=== PATIENT | female | born 1935 | race Caucasian/White ===

== ENCOUNTER → 2018-04-19 11:39 | Outpatient (CLI) | payer MEDICARE, SELFPAY ==
[2018-04-19 16:17] LABS: AST(SGOT) 20 U/L (15-37); Alanine Aminotransfer ALT/SGPT 17 U/L (13-56); Albumin, Serum 3.4 g/dL (3.2-5.0); Alkaline Phosphatase 80 U/L (45-117); Anion Gap 6 (5-15); BUN 18 mg/dL (7-18); BUN/Creat Ratio 19.4 RATIO (10-20); Bilirubin, Direct 0.16 mg/dL (0.00-0.30); Calcium,Total 8.9 mg/dL (8.5-10.1); Chloride 108 mmol/L (98-107); Cholesterol 180 mg/dL (200); Creatinine, Serum 0.93 mg/dL (0.55-1.02); EST Glomerular Filtration Rate 62 mL/min (>60); Est Glom Filt Rate - Afr Amer 75 mL/min (>60); Globulin 3.7 g/dL (2.2-4.2); Glucose 91 mg/dL (74-106); High Density Lipoprotein 64 mg/dL; Potassium 4.3 mmol/L (3.5-5.1); Protein, Total 7.1 g/dL (6.4-8.2); Sodium Level 143 mmol/L (136-145); Triglycerides 102 mg/dL; Uric Acid 5.5 mg/dL (2.6-6.0); Very Low Density Lipoprotein 20 mg/dL (5-40)
== END ==
PROVIDERS: Physician Assistant Medical; Family Provider Family Medicine; PCP Family Medicine; Visit Provider Family Medicine
DX: E78.00 Pure hypercholesterolemia, unspecified (principal); M10.9 Gout, unspecified
CPT/HCPCS: 36415; 80048; 80061; 80076; 84550

== ENCOUNTER → 2018-04-28 07:57 | Outpatient (CLI) | payer MEDICARE, SELFPAY ==
--- NOTE | 2018-04-28 13:45 | PFT ---
INTRODUCTION: The patient is an 82-year-old female that presents for pulmonary function testing secondary to a diagnosis of abnormal PFTs. Respiratory therapy reports good patient effort. Bronchodilators were used during testing. INTERPRETATION: Forced expiration spirometry demonstrates no evidence of a large airways obstructive ventilatory defect. There is no significant response to aerosolized bronchodilators. Spirograms are of good quality and plateau normally. Body plethysmography was performed and reveals lung volumes to be within normal limits. Diffusing capacity by single breath CO is moderately reduced at 57% of predicted. IMPRESSION: These pulmonary function studies demonstrate the presence of an isolated moderate reduction in diffusing capacity.
== END ==
PROVIDERS: Family Provider Family Medicine; PCP Family Medicine; Visit Provider Nurse Practitioner Acute Care
DX: R94.2 Abnormal results of pulmonary function studies (principal)
CPT/HCPCS: 94060; 94726; 94729

== ENCOUNTER → 2018-05-05 11:05 | Outpatient (CLI) | payer MEDICARE, SELFPAY ==
[2018-05-05 11:34] VITALS: PULSE 100; PULSE 103; PULSE 105; PULSE 106; PULSE 108; PULSE 110; PULSE 67; PULSE 69; O2SAT 93; O2SAT 94; O2SAT 95; O2SAT 97; O2SAT 98
--- NOTE | 2018-05-06 07:09 | PCM.PSN.6M ---
PSN 6 Minute Walk Test - 6 Minute Walk Test 6 Minute Walk Test: 6 Minute Walk Test PSN:6-Minute Walk Test Start: 05/05/18 11:33 Freq: Status: Active Protocol: [id number].6MINW Document 05/05/18 11:34 [facility] (Rec: 05/05/18 11:36 [facility] [id number]) 6 Minute Walk Test Date Performed 05/05/18 Time Performed 11:30 Height 5 ft 3 in Weight: 72.575 kg Weight in Pounds 160.[address]: Deepti Simms FIO2 (% Oxygen) 21 Assistive device used: None Pre-test Oxygen Delivery Method Room Air Pulse Ox (%) 97 Pulse Rate (60-100 beats/min) 69 Dyspnea Lana Scale (0-10) 0 1st minute Oxygen Delivery Method Room Air Pulse Ox (%) 95 Pulse Rate (60-100 beats/min) 100 Dyspnea Lana Scale (0-10) 0 2nd minute Oxygen Delivery Method Room Air Pulse Ox (%) 93 Pulse Rate (60-100 beats/min) 103 H Dyspnea Lana Scale (0-10) 0 3rd minute Oxygen Delivery Method Room Air Pulse Ox (%) 95 Pulse Rate (60-100 beats/min) 106 H Dyspnea Lana Scale (0-10) 0 4th minute Oxygen Delivery Method Room Air Pulse Ox (%) 94 Pulse Rate (60-100 beats/min) 105 H Dyspnea Lana Scale (0-10) 0 5th minute Oxygen Delivery Method Room Air Pulse Ox (%) 93 Pulse Rate (60-100 beats/min) 108 H Dyspnea Lana Scale (0-10) 0 6th minute Oxygen Delivery Method Room Air Pulse Ox (%) 94 Pulse Rate (60-100 beats/min) 110 H Dyspnea Lana Scale (0-10) 0 Post-test Oxygen Delivery Method Room Air Pulse Ox (%) 98 Pulse Rate (60-100 beats/min) 67 Dyspnea Lana Scale (0-10) 0 Full Laps Walked 18 Partial Lap, Number of Tiles Walked 30 Total Distance Walked (ft) 1092 - Interpretation Interpretation: The patient was able to ambulate 1092 feet over the course of 6 minutes on room air with no assistive devices or breaks. The patient did experience significant desaturation from a baseline of 97% to as low as 93%. Tachycardia was noted throughout testing with a peak heart rate of 110 bpm. These findings are consistent with a cardiovascular limitation exercise tolerance. - Recommendations Recommendations: No supplemental oxygen is indicated at this time.
== END ==
PROVIDERS: Family Provider Family Medicine; PCP Family Medicine; Visit Provider Nurse Practitioner Acute Care
DX: R94.2 Abnormal results of pulmonary function studies (principal)
CPT/HCPCS: 94618

== ENCOUNTER → 2018-09-29 14:59 | Outpatient (CLI) | payer MEDICARE, SELFPAY ==
[2018-06-19 13:59] VITALS: BMI 28.7
[2018-09-29 18:03] LABS: Uric Acid 5.4 mg/dL (2.6-6.0)
== END ==
PROVIDERS: Family Provider Family Medicine; PCP Family Medicine; Visit Provider Family Medicine
DX: M10.9 Gout, unspecified (principal)
CPT/HCPCS: 36415; 84550

== ENCOUNTER → 2018-10-11 10:33 | Outpatient (CLI) | payer MEDICARE, SELFPAY ==
[2018-10-11 12:59] LABS: AST(SGOT) 23 U/L (15-37); Alanine Aminotransfer ALT/SGPT 17 U/L (13-56); Albumin, Serum 3.5 g/dL (3.2-5.0); Alkaline Phosphatase 89 U/L (45-117); Bilirubin, Direct 0.19 mg/dL (0.00-0.30); Cholesterol 167 mg/dL (200); Globulin 3.6 g/dL (2.2-4.2); High Density Lipoprotein 71 mg/dL; Protein, Total 7.1 g/dL (6.4-8.2); Triglycerides 85 mg/dL; Very Low Density Lipoprotein 17 mg/dL (5-40)
== END ==
PROVIDERS: Family Provider Family Medicine; PCP Family Medicine; Visit Provider Physician Assistant Medical
DX: E78.5 Hyperlipidemia, unspecified (principal)
CPT/HCPCS: 36415; 80061; 80076

== ENCOUNTER 2019-01-14 16:43 | Emergency (ER) | payer MEDICARE, SELFPAY ==
[2018-12-28 08:27] VITALS: BMI 28.1
[2019-01-14 16:43] VITALS: BP 159/92; PULSE 86; RESP 16; TEMP 37.6; O2SAT 96; BMI 27.4
--- NOTE | 2019-01-14 17:18 | ED.DCSUM_ITS ---
- ER Visit Summary Date of Service: 01/14/19 Chief Complaint: Redness and swelling to left wrist and forearm History of Present Illness: The patient is a 83 F who presents with redness and swelling to her left wrist. Patient also noted some redness going up her left forearm. Patient states she has a history of gout and thinks this may be a flareup of her gout. Patient states the only difference is that the redness going up her left forearm. Patient states she is on an antibiotic for an upper respiratory infection that was prescribed by her ENT physician. Patient denies any fevers or chills. Patient admits to some pain in her left wrist that is worse with certain movements. Patient denies any paresthesias or weakness. Physical Examination: Vital signs are stable. Patient is afebrile here. Patient is in no acute distress. Musculoskeletal exam reveals tenderness over the left wrist. There is some erythema and warmth. Range of motion was slightly limited in flexion extension of the wrist secondary to pain. Skin is warm and dry. There is some erythema on the volar aspect of the left forearm to the mid forearm. There is no tenderness over this area. There is good range of motion of the left elbow. Radial pulses are equal bilaterally. Sensation was intact to light touch in all digits. Capillary refill is less than 2 seconds in all digits. Test Results: CBC shows slight leukocytosis of 11.8. Chemistry was normal. X- rays of the left wrist show degenerative changes. There is no acute fracture. Emergency Department Course and Treatment: Patient was given a dose of Ancef here. Patient was given a prescription for Bactrim. Patient was instructed to continue her antibiotic as previously prescribed. Patient was instructed to take her gout medicine as previously prescribed that she has at home. Patient was instructed to follow-up with her primary care physician in 3 to 5 days. Patient understood and was agreeable with the plan. All questions were answered. Disposition: Discharge home Impression: 1. Gout left wrist 2. Lymphangitis left forearm This note was generated with [employer] dictation software. It may contain incorrect words, spelling, and punctuation that were not noted in review of the chart prior to signing ED Disposition - Plan for ED Patient: Disposition: Home or Assisted Living Diagnosis: Gout of left wrist, Acute lymphangitis of forearm Instructions: ED Arthritis Gout, ED Lymphangitis Prescriptions: Smz/Tmp Ds [Bactrim Ds] 1 tab PO BID #14 tab Referrals: Diego Farmer DO [Primary Care Provider] - 3-5 Days
--- NOTE | 2019-01-14 17:35 | RAD_ITS ---
STUDY: X-RAY - LEFT WRIST REASON FOR EXAM: Female, 83 years old. Abnormal coloration of the left wrist TECHNIQUE: 3 view(s) of the wrist were obtained. COMPARISON: None. FINDINGS: Normal visualized distal radius and ulna. Normal radiocarpal articulation. Normal distal radioulnar articulation. Normal carpal bones. Normal carpal articulations. There is chondrocalcinosis of the TFCC. There is degenerative arthrosis of the carpometacarpal articulation of the thumb. Normal second through fifth carpometacarpal articulations. Normal visualized metacarpal bones. There is dorsal wrist soft tissue swelling. RAD/Wrist min 3 Views IMPRESSION: No fracture or malalignment. Mild soft tissue swelling. Electronically Signed: Jalil Dubon MD at 17:59 EDT , Service support ,
[2019-01-14 17:36] LABS: Basophil# 0.05 X10^3/uL; Basophil% 0.4 % (0-1); Eosinophil# 0.06 X10^3/uL; Eosinophils% 0.5 % (0-5); Hematocrit 41.4 % (37-47); Lymphocyte % 20.3 % (19-41); Mean Corp Hgb Conc 33.8 g/gl (32-36); Mean Corpuscular Hgb 33.4 pg (27.0-32.0); Mean Corpuscular Volume 98.8 fL (81-99); Mean Platelet Vol. 10.1 fl (6.2-12.0); Monocyte# 1.28 X10^3/uL; Monocyte% 10.8 % (0-10); Neutrophil % 67.9 % (47-70); POSITIVE COUNT NO; POSITIVE DIFFERENTIAL NO; POSITIVE MORPHOLOGY NO; Platelet Count 264 K/mm3 (150-450); RBC Distribution Width CV 13.4 % (11.6-14.6); RBC Distribution Width SD 48.5 fl (35.1-43.9); Red Blood Count 4.19 M/mm3 (4.2-5.4); White Blood Count 11.8 K/mm3 (4.4-11.0)
[2019-01-14 17:50] LABS: Anion Gap 7 (5-15); BUN 16 mg/dL (7-18); BUN/Creat Ratio 16.2 RATIO (10-20); Calcium,Total 9.1 mg/dL (8.5-10.1); Chloride 104 mmol/L (98-107); Creatinine, Serum 0.99 mg/dL (0.55-1.02); EST Glomerular Filtration Rate 57 mL/min (>60); Est Glom Filt Rate - Afr Amer 69 mL/min (>60); Estimated Creatinine Clearance 36.87 ml/min; Glucose 103 mg/dL (74-106); Potassium 4.9 mmol/L (3.5-5.1); Sodium Level 138 mmol/L (136-145)
[2019-01-14 18:57] VITALS: RESP 14
[2019-01-14 20:15] VITALS: BP 141/86; PULSE 82; RESP 16; O2SAT 99
== END 2019-01-14 20:16 | disposition home or self-care (01) ==
PROVIDERS: Emergency Provider Emergency Medicine; Family Provider Family Medicine; PCP Family Medicine
DX: M10.9 Gout, unspecified (principal); I89.1 Lymphangitis; I48.91 Unspecified atrial fibrillation; R21 Rash and other nonspecific skin eruption; R51 Headache; J02.9 Acute pharyngitis, unspecified; R05 Cough; Z79.82 Long term (current) use of aspirin; Z79.899 Other long term (current) drug therapy
CPT/HCPCS: 73110; 80048; 84550; 85025; 99283; A4216

== ENCOUNTER 2019-03-01 09:38 | Observation (INO) | payer MEDICARE, SELFPAY ==
[2019-03-01] VITALS (8 sets, daily range): BP systolic 121–134; BP diastolic 53–64; PULSE 64–89; RESP 17–18; TEMP 36.4–37; O2SAT 93–98; BMI 27.3; BMI 27.2
--- NOTE | 2019-03-01 09:50 | RAD_ITS ---
STUDY: X-RAY CHEST REASON FOR EXAM: Female, 83 years old. Chest pain. History of breast cancer. TECHNIQUE: PA and lateral views of the chest. COMPARISON: Comparison is made with prior study October 17, 2015. FINDINGS: EKG electrodes are seen. Hyperinflation. Mild degree of increased markings at the lung bases suggestive of a scarring. There is no demonstrated pleural abnormality. Normal size heart. Normal mediastinum and scooter. Normal visualized pulmonary arteries. There is atherosclerotic tortuosity of the aortic arch and descending thoracic aorta. There are degenerative changes of the visualized thoracic spine. Scoliosis of the lumbar spine. Normal visualized ribs, clavicles, and shoulders. Pectus excavatum deformity. There is no demonstrated abnormality of the visualized soft tissue structures of the upper abdomen. RAD/Chest PA and Lateral IMPRESSION: Hyperinflation. Mild degree of linear scarring at the lung bases. Electronically Signed: Kee Austin, at 12:25 EDT , Service support ,
--- NOTE | 2019-03-01 09:50 | ECHOD_ITS ---
Reason For Study: AFIB Procedure This was a 2D Doppler, Color Flow transthoracic echocardiogram. Myocardial strain analysis was performed in this exam to aid in the assessment of cardiac function. The study was technically difficult. Exam performed portable in patient room. Left Ventricle Normal LV size. Left ventricular systolic function is normal. The estimated ejection fraction is 60 %. Stage 1 diastolic dysfunction. No regional wall motion abnormalities noted. Right Ventricle Normal RV size. Normal systolic function. Atria Normal left atrium. Normal right atrium. Mitral Valve Normal mitral valve. Tricuspid Valve Normal tricuspid valve. Mild (1+) tricuspid valve insufficiency. Pulmonary artery systolic pressure is 36 mmHg. Aortic Valve Normal aortic valve. Trisinus/trileaflet aortic valve. Pulmonic Valve Normal pulmonic valve. Great Vessels Normal aortic root. The pulmonary artery is normal size. Normal inferior vena cava. Pericardium/Pleural No pericardial effusion. MMode/2D Measurements & Calculations LVIDd: 4.4 cm IVSd: 0.79 cm Ao root diam: 3.1 cm LVIDs: 2.9 cm LVPWd: 0.80 cm RVDd: 2.8 cm FS: 34.2 % LAV(MOD-sp2): 42.4 ml LVAd ap4: 20.0 cm2 SV(MOD-sp4): 30.7 ml EDV(MOD-sp4): 52.4 ml EDV(sp4-el): 53.4 ml LVAs ap4: 11.8 cm2 ESV(MOD-sp4): 21.8 ml ESV(sp4-el): 21.3 ml EF(MOD-sp4): 58.5 % EF(sp4-el): 60.1 % SV(sp4-el): 32.1 ml LA dimension(2D): 2.9 cm Time Measurements MV dec time: 0.29 sec Doppler Measurements & Calculations MV E max magdaleno: 60.4 cm/sec Lat Peak E' Magdaleno: 8.8 cm/sec Med Peak E' Magdaleno: 5.0 cm/sec MV A max magdaleno: 74.2 cm/sec E/E' lat: 6.9 E/E' med: 12.2 MV E/A: 0.81 Ao V2 max: 114.4 cm/sec LV V1 max: 64.0 cm/sec PA V2 max: 46.3 cm/sec Ao max P.2 mmHg LV V1 max P.6 mmHg TR max magdaleno: 279.8 cm/sec TR max P.4 mmHg Interpretation Summary Normal LV size. Left ventricular systolic function is normal. The estimated ejection fraction is 60 %. Stage 1 diastolic dysfunction. Mild (1+) tricuspid valve insufficiency. Pulmonary artery systolic pressure is 36 mmHg. Ordering Physician: Obi Clark Referring Physician: ODETTE RILEY Performed By: Canids Eaton, RDCS, RVT
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
[2019-03-01 10:25] LABS: Hematocrit 40.9 % (37-47); Hemoglobin 13.3 g/dL (12.0-15.0); Mean Corp Hgb Conc 32.5 g/dL (32-36); Mean Corpuscular Hgb 32.3 pg (27.0-32.0); Mean Corpuscular Volume 99.3 fL (81-99); Mean Platelet Vol. 9.3 fl (6.2-12.0); Platelet Count 330 K/mm3 (150-450); RBC Distribution Width SD 47.2 fl (35.1-43.9); Red Blood Count 4.12 M/mm3 (4.2-5.4); White Blood Count 6.7 K/mm3 (4.4-11.0)
[2019-03-01 10:40] LABS: ALB/GLOB Ratio 0.8 RATIO (0.9-2.4); AST(SGOT) 14 U/L (15-37); Alanine Aminotransfer ALT/SGPT 13 U/L (13-56); Albumin, Serum 3.4 g/dL (3.2-5.0); Alkaline Phosphatase 119 U/L (45-117); Anion Gap 4 (5-15); BUN 20 mg/dL (7-18); BUN/Creat Ratio 21.1 RATIO (10-20); Calcium,Total 9.8 mg/dL (8.5-10.1); Chloride 105 mmol/L (98-107); Creatinine, Serum 0.95 mg/dL (0.55-1.02); EST Glomerular Filtration Rate 60 mL/min (>60); Est Glom Filt Rate - Afr Amer 73 mL/min (>60); Estimated Creatinine Clearance 38.42 ml/min; Globulin 4.1 g/dL (2.2-4.2); Glucose 93 mg/dL (74-106); Magnesium 1.4 mg/dL (1.6-2.6); Potassium 4.1 mmol/L (3.5-5.1); Protein, Total 7.5 g/dL (6.4-8.2); Sodium Level 139 mmol/L (136-145)
[2019-03-01 11:00] LABS: Thyroid Stim Hormone (TSH) 3.27 uIU/mL (0.358-3.74)
[2019-03-01] MEDS: 0.45% Normal Saline 1,000 ML 60 ML IV (12:10)
[2019-03-01] MEDS: APIXABAN 5 MG TABLET PO ×2 (12:11→21:01)
[2019-03-01] MEDS: Amiodarone 200 MG Tablet PO ×2 (12:15→21:01)
[2019-03-01 12:30] LABS: Bedside Glucose 74 mg/dL (70-110)
[2019-03-01] MEDS: Atorvastatin Calcium 20 MG Tablet PO (21:01)
[2019-03-02 02:58] VITALS: BP 129/60; PULSE 65; RESP 14; TEMP 36.9; O2SAT 93
[2019-03-02 03:01] VITALS: PULSE 68
[2019-03-02] MEDS: 0.45% Normal Saline 1,000 ML 60 ML IV (03:08)
[2019-03-02 06:52] LABS: ALB/GLOB Ratio 0.8 RATIO (0.9-2.4); AST(SGOT) 13 U/L (15-37); Alanine Aminotransfer ALT/SGPT 11 U/L (13-56); Albumin, Serum 2.8 g/dL (3.2-5.0); Alkaline Phosphatase 90 U/L (45-117); Anion Gap 4 (5-15); BUN 16 mg/dL (7-18); BUN/Creat Ratio 21.1 RATIO (10-20); Calcium,Total 8.8 mg/dL (8.5-10.1); Chloride 108 mmol/L (98-107); Creatinine, Serum 0.76 mg/dL (0.55-1.02); EST Glomerular Filtration Rate 78 mL/min (>60); Est Glom Filt Rate - Afr Amer 94 mL/min (>60); Globulin 3.4 g/dL (2.2-4.2); Glucose 89 mg/dL (74-106); Potassium 3.7 mmol/L (3.5-5.1); Protein, Total 6.2 g/dL (6.4-8.2); Sodium Level 141 mmol/L (136-145)
[2019-03-02 07:10] VITALS: PULSE 62
[2019-03-02] MEDS: Acetaminophen 325 MG Tablet 650 MG PO (07:38)
[2019-03-02] MEDS: Aspirin 81 MG TAB.CHEW PO (07:38)
[2019-03-02] MEDS: 0.9% NaCl Peripheral Flush Adult/Peds IV (07:39)
--- NOTE | 2019-03-02 08:43 | PCM.PN.CARD ---
Subjectve: Patient seen and evaluated. Appears to be doing well. Has been maintaining sinus rhythm. No other complaints. Objective: Vital Signs Temp Pulse Resp BP Pulse Ox 98.5 F 62 14 129/60 H 93 03/02/19 02:58 03/02/19 07:10 03/02/19 02:58 03/02/19 02:58 03/02/19 02:58 Oxygen Delivery Method Room Air Weight: 153 lb 10.595 oz Body Mass Index (BMI) 27.2 Intake and Output for Last 24 Hours 02/28/19 03/01/19 03/02/19 23:59 23:59 23:59 Intake Total 1739 / 1739 383 / 383 Balance 1739 / 1739 383 / 383 General: Awake, Alert, Oriented x 3 HEENT: PERRL, EOMI, Sclera Non Icteric Neck: Supple, Good ROM, No Lymph Node Enlargement Lungs: Clear to auscultation Cardiovascular: Regular Rhythm, Normal S1, Normal S2, No Murmurs, No Rubs, No Gallops Vascular: No Carotid Bruits, Normal Femoral Pulses, Normal Radial Pulses, Normal Dorsalis Pedal Pulse, Normal Posterior Tibial Pulses Abdomen: Bowel Sounds Present, Soft, Non Tender, No HSM, No Organomegaly Extremities: No Cyanosis, No Clubbing, No edema Musculoskeletal: No Erythema Skin: No Rashes Lymphatic: No Lymph Node Enlargement Neurological: No Focal Motor or Sensory Deficit Psych/Mental Status: Appropriate 03/01/19 10:14: WBC 6.7, RBC 4.12 L, Hgb 13.3, Hct 40.9, MCV 99.3 H, MCH 32.3 H, MCHC 32.5, Plt Count 330, MPV 9.3 03/01/19 10:14: Sodium 139, Potassium 4.1, Chloride 105, Carbon Dioxide 30.0, Anion Gap 4 L, BUN 20 H, Creatinine 0.95, Est GFR (MDRD) Af Amer 73, Est GFR (MDRD) Non-Af 60, BUN/Creatinine Ratio 21.1 H, Glucose 93, Calcium 9.8, Magnesium 1.4 L, Total Bilirubin 0.80 03/01/19 10:14: Troponin I < 0.015 03/01/19 13:20: Troponin I < 0.015 03/01/19 16:35: Troponin I < 0.015 03/02/19 06:15: Sodium 141, Potassium 3.7, Chloride 108 H, Carbon Dioxide 29.0, Anion Gap 4 L, BUN 16, Creatinine 0.76, Est GFR (MDRD) Af Amer 94, Est GFR (MDRD) Non-Af 78, BUN/Creatinine Ratio 21.1 H, Glucose 89, Calcium 8.8, Total Bilirubin 0.60 Rhythm: EKG: ECHO: Stress Test: Cardiac Cath: PCI: CT Surgery: Holter monitor: EPS: PPM: CXR: Chest CT Scan: Medical Necessity - Tobacco Use Smoking Status: Former smoker Assessment/Plan 1. Paroxysmal atrial fibrillation. Patient appears to be maintaining sinus rhythm on the current regimen. My recommendation would be as follows. Continue beta-frances at home Continue Eliquis 5 mg twice a day Amiodarone 200 mg twice a day for 2 weeks then 200 mg once a day Echocardiogram demonstrated preserved ejection fraction will dc for outpatient follow up
[2019-03-02 08:47] VITALS: BP 107/53; PULSE 71; RESP 17; TEMP 36.4; O2SAT 97
--- NOTE | 2019-03-02 08:48 | DCINST_ITS ---
- Discharge Diagnoses Current Active Problems: Current Active and Chronic Problems (Last Reviewed 03/01/19 @ 09:17 by Obi Clark MD) Chronic cough (Chronic) Paroxysmal atrial fibrillation (Chronic) Secondary pulmonary arterial hypertension (Chronic) Discharge Activity: Return to Normal Activity Allergies/Adverse Reactions: Allergies fluoxetine Adverse Reaction (Verified 03/01/19 09:00) Other NIGHTMARES, AND IT MAKES ME FEEL WEIRD Medications to take at Discharge calcium phosphate-vitamin D3 250 mg calcium-500 unit chewable tablet 1 tab PO QDAY ea 08/09/17 coenzyme [id number] 100 mg-100 unit capsule 1 cap PO QDAY 08/09/17 multivitamin tablet 1 tab PO QDAY 08/09/17 propylene glycol 0.6 % eye drops 1 drop OPHTHALMIC QDAY ml 08/09/17 fluticasone propionate 50 mcg/actuation nasal spray,suspension 2 sprays INTRANASAL ONCE 10/11/17 metoprolol tartrate 25 mg tablet 25 mg PO DAILY #90 tab 03/10/18 sodium chloride 0.65 % nasal spray aerosol 1 spray INTRANASAL Q1-4H PRN 03/10/18 fluticasone furoate 200 mcg-vilanterol 25 mcg/dose inhalation powder 1 inh INHALATION QDAY #3 ea 01/26/19 loratadine 10 mg capsule 10 mg PO QDAY #90 cap 01/26/19 atorvastatin 20 mg tablet 20 mg PO QHS #90 tab 01/29/19 montelukast 10 mg tablet 10 mg PO QHS #90 tab 02/21/19 Amiodarone HCl [Cordarone] 200 mg PO BID #60 tablet 03/02/19 Apixaban [Eliquis] 5 mg PO BID #60 tablet 03/02/19 Primary Care Physician: Diego Farmer DO [Primary Care Provider] - Test Results: Test results from this visit will be discussed in further detail at your follow- up appointment, if applicable. When: [facility] office will call for appt Proposed Discharge Date: 03/02/19
[2019-03-02] MEDS: Amiodarone 200 MG Tablet PO (08:50)
[2019-03-02] MEDS: APIXABAN 5 MG TABLET PO (08:50)
[2019-03-02 09:31] VITALS: PULSE 71
[2019-03-02] MEDS: Metoprolol Tartrate 25 MG Tablet PO (09:31)
== END 2019-03-02 08:52 | disposition home or self-care (01) ==
PROVIDERS: Admitting Provider Internal Medicine Cardiovascular Disease; Family Provider Family Medicine; PCP Family Medicine; Referring Provider Internal Medicine Cardiovascular Disease; Visit Provider Internal Medicine Cardiovascular Disease
DX: I48.0 Paroxysmal atrial fibrillation (principal); I27.21 Secondary pulmonary arterial hypertension; E78.5 Hyperlipidemia, unspecified; Z79.899 Other long term (current) drug therapy; Z87.891 Personal history of nicotine dependence; Z79.82 Long term (current) use of aspirin; Z79.51 Long term (current) use of inhaled steroids
CPT/HCPCS: 36415; 71046; 80053; 82962; 83735; 84443; 84484; 85027; 93306; 99218; A4216; G0378; G0379

== ENCOUNTER → 2019-03-09 09:55 | Outpatient (CLI) | payer MEDICARE, SELFPAY ==
[2019-03-01 10:35] VITALS: BMI 27.2
[2019-03-09 12:31] LABS: Erythrocyte Sedimentation Rate 33 mm/hr (0-30)
[2019-03-09 12:33] LABS: Absolute Lymphocyte Count 1.74 X10^3/uL (0.83-4.51); Absolute Neutrophil Count 2.7 X10^3/uL (2.0-7.7); Basophil# 0.09 X10^3/uL; Basophil% 1.8 % (0-1); Eosinophil# 0.11 X10^3/uL; Eosinophils% 2.2 % (0-5); Hematocrit 37.8 % (37-47); Hemoglobin 12.3 g/dL (12.0-15.0); Lymphocyte # 1.74 X10^3/ul (4.0); Lymphocyte % 34.3 % (19-41); Mean Corp Hgb Conc 32.5 g/dL (32-36); Mean Corpuscular Hgb 32.5 pg (27.0-32.0); Mean Platelet Vol. 9.7 fl (6.2-12.0); Monocyte# 0.39 X10^3/uL; Monocyte% 7.7 % (0-10); NRBC Flagged by Analyzer 0 % (0-5); Neutrophil # 2.73 X10^3/uL (2.7-7.7); Neutrophil % 53.8 % (47-70); Platelet Count 324 K/mm3 (150-450); RBC Distribution Width SD 47.5 fl (35.1-43.9); Red Blood Count 3.78 M/mm3 (4.2-5.4); White Blood Count 5.1 K/mm3 (4.4-11.0)
[2019-03-09 12:53] LABS: ALB/GLOB Ratio 0.9 RATIO (0.9-2.4); AST(SGOT) 17 U/L (15-37); Alanine Aminotransfer ALT/SGPT 16 U/L (13-56); Albumin, Serum 3.3 g/dL (3.2-5.0); Alkaline Phosphatase 98 U/L (45-117); Anion Gap 5 (5-15); BUN 15 mg/dL (7-18); BUN/Creat Ratio 15.7 RATIO (10-20); CRP 7.23 mg/L (0.0-3.0); Calcium,Total 9.4 mg/dL (8.5-10.1); Chloride 108 mmol/L (98-107); Creatinine, Serum 0.96 mg/dL (0.55-1.02); EST Glomerular Filtration Rate 59 mL/min (>60); Est Glom Filt Rate - Afr Amer 72 mL/min (>60); Globulin 3.8 g/dL (2.2-4.2); Glucose 84 mg/dL (74-106); Potassium 3.9 mmol/L (3.5-5.1); Protein, Total 7.1 g/dL (6.4-8.2); Rheumatoid Factor < 10.0 IU/mL (<15); Sodium Level 141 mmol/L (136-145); Uric Acid 4.7 mg/dL (2.6-6.0)
[2019-03-09 13:39] LABS: Hepatitis B Surface Antibody Non-Reactive; Hepatitis B Surface Antigen Non-Reactive (Nonreactive); Hepatitis C Antibody Non-Reactive (Nonreactive)
[2019-03-13 14:07] LABS: ANTINUCLEAR ANTIBODIES DIRECT Negative (Negative)
[2019-03-13 14:27] LABS: CCP IgG Antibodies 4 units (0-19)
== END ==
PROVIDERS: Family Provider Family Medicine; PCP Family Medicine; Referring Provider Internal Medicine Rheumatology; Visit Provider Internal Medicine Rheumatology
DX: M06.4 Inflammatory polyarthropathy (principal); M48.061 Spinal stenosis, lumbar region without neurogenic claudication; M47.892 Other spondylosis, cervical region; M21.40 Flat foot [pes planus] (acquired), unspecified foot
CPT/HCPCS: 36415; 80053; 84550; 85025; 85652; 86038; 86140; 86200; 86431; 86706; 86803; 87340

== ENCOUNTER → 2019-05-30 13:19 | Outpatient (CLI) | payer MEDICARE, SELFPAY ==
[2019-04-27 10:23] VITALS: BMI 27.3
[2019-05-30 14:29] LABS: Absolute Lymphocyte Count 2.31 X10^3/uL (0.83-4.51); Absolute Neutrophil Count 3.4 X10^3/uL (2.0-7.7); Basophil# 0.11 X10^3/uL; Basophil% 1.7 % (0-1); Eosinophil# 0.31 X10^3/uL; Eosinophils% 4.7 % (0-5); Hematocrit 38.8 % (37-47); Hemoglobin 12.2 g/dL (12.0-15.0); Lymphocyte # 2.31 X10^3/ul (4.0); Lymphocyte % 34.7 % (19-41); Mean Corp Hgb Conc 31.4 g/dL (32-36); Mean Corpuscular Hgb 31.9 pg (27.0-32.0); Mean Corpuscular Volume 101.3 fL (81-99); Monocyte% 7.5 % (0-10); NRBC Flagged by Analyzer 0 % (0-5); Neutrophil # 3.41 X10^3/uL (2.7-7.7); Neutrophil % 51.2 % (47-70); Platelet Count 275 K/mm3 (150-450); RBC Distribution Width CV 14.2 % (11.6-14.6); RBC Distribution Width SD 53.4 fl (35.1-43.9); Red Blood Count 3.83 M/mm3 (4.2-5.4); White Blood Count 6.7 K/mm3 (4.4-11.0)
[2019-05-30 14:43] LABS: ALB/GLOB Ratio 1.1 RATIO (0.9-2.4); AST(SGOT) 18 U/L (15-37); Alanine Aminotransfer ALT/SGPT 16 U/L (13-56); Albumin, Serum 3.7 g/dL (3.2-5.0); Alkaline Phosphatase 95 U/L (45-117); Anion Gap 7 (5-15); BUN 21 mg/dL (7-18); BUN/Creat Ratio 19.8 RATIO (10-20); Bilirubin, Direct 0.19 mg/dL (0.00-0.30); Chloride 108 mmol/L (98-107); Cholesterol 181 mg/dL (200); Creatinine, Serum 1.06 mg/dL (0.55-1.02); EST Glomerular Filtration Rate 53 mL/min (>60); Est Glom Filt Rate - Afr Amer 64 mL/min (>60); Globulin 3.4 g/dL (2.2-4.2); Glucose 84 mg/dL (74-106); High Density Lipoprotein 87 mg/dL; Protein, Total 7.1 g/dL (6.4-8.2); Sodium Level 140 mmol/L (136-145); Triglycerides 80 mg/dL; Very Low Density Lipoprotein 16 mg/dL (5-40)
== END ==
PROVIDERS: Family Provider Family Medicine; PCP Family Medicine; Referring Provider Internal Medicine Rheumatology; Visit Provider Internal Medicine Rheumatology
DX: M06.4 Inflammatory polyarthropathy (principal); M48.061 Spinal stenosis, lumbar region without neurogenic claudication; M47.892 Other spondylosis, cervical region; M21.40 Flat foot [pes planus] (acquired), unspecified foot; E78.5 Hyperlipidemia, unspecified
CPT/HCPCS: 36415; 80053; 80061; 82248; 85025

== ENCOUNTER → 2019-06-22 08:05 | Outpatient (CLI) | payer MEDICARE, SELFPAY ==
[2018-12-28 08:27] VITALS: BMI 28.1
[2019-04-27 10:23] VITALS: BMI 27.3
--- NOTE | 2019-06-22 13:41 | PFT ---
INTRODUCTION: The patient is an 84-year-old female that presents for pulmonary function studies secondary to a diagnosis of dyspnea. Respiratory therapy reports good patient effort. Bronchodilators were used during testing. INTERPRETATION: Forced expiration spirometry demonstrates no evidence of a large airways obstructive ventilatory defect. There was no significant response to aerosolized bronchodilators. Spirograms are of good quality and plateau normally. Body plethysmography was performed and reveals lung volumes to be within normal limits. Diffusing capacity by single breath CO is reduced at 59% of predicted. IMPRESSION: Isolated reduction in diffusing capacity which could be related to an underlying pulmonary vascular disorder such as pulmonary hypertension.
== END ==
PROVIDERS: Family Provider Family Medicine; PCP Family Medicine; Referring Provider Nurse Practitioner Acute Care; Visit Provider Nurse Practitioner Acute Care
DX: R06.00 Dyspnea, unspecified (principal)
CPT/HCPCS: 94060; 94726; 94729

== ENCOUNTER → 2019-06-25 08:40 | Outpatient (CLI) | payer MEDICARE, SELFPAY ==
[2018-12-28 08:27] VITALS: BMI 28.1
[2019-04-27 10:23] VITALS: BMI 27.3
[2019-06-25 08:59] VITALS: PULSE 104; PULSE 62; PULSE 68; PULSE 83; PULSE 85; PULSE 93; PULSE 98; O2SAT 90; O2SAT 91; O2SAT 94; O2SAT 97; O2SAT 99
--- NOTE | 2019-06-25 14:24 | PCM.PSN.6M ---
PSN 6 Minute Walk Test - 6 Minute Walk Test 6 Minute Walk Test: 6 Minute Walk Test PSN:6-Minute Walk Test Start: 06/25/19 08:59 Freq: Status: Active Protocol: RESP.6MINW Document 06/25/19 08:59 ADAM (Rec: 06/25/19 09:01 ADAM [id number]) 6 Minute Walk Test Date Performed 06/25/19 Time Performed 08:30 Height 5 ft 3 in Weight: 70.307 kg Weight in Pounds 155.[address]: Donald Rivera Assistive device used: None Pre-test Oxygen Delivery Method Room Air Pulse Ox (%) 97 Pulse Rate (60-100 beats/min) 62 Dyspnea Lana Scale (0-10) 0 Exertion Lana Scale (6-20) 6 1st minute Oxygen Delivery Method Room Air Pulse Ox (%) 91 Pulse Rate (60-100 beats/min) 83 2nd minute Oxygen Delivery Method Room Air Pulse Ox (%) 91 Pulse Rate (60-100 beats/min) 85 3rd minute Oxygen Delivery Method Room Air Pulse Ox (%) 90 Pulse Rate (60-100 beats/min) 85 4th minute Oxygen Delivery Method Room Air Pulse Ox (%) 94 Pulse Rate (60-100 beats/min) 93 5th minute Oxygen Delivery Method Room Air Pulse Ox (%) 97 Pulse Rate (60-100 beats/min) 98 6th minute Oxygen Delivery Method Room Air Pulse Ox (%) 99 Pulse Rate (60-100 beats/min) 104 H Dyspnea Lana Scale (0-10) 0 Exertion Lana Scale (6-20) 11 Post-test Oxygen Delivery Method Room Air Pulse Ox (%) 91 Pulse Rate (60-100 beats/min) 68 Full Laps Walked 17 Partial Lap, Number of Tiles Walked 0 Total Distance Walked (ft) 1003 - Interpretation Interpretation: The patient was able to ambulate 1003 feet over the course of 6 minutes on room air with no assistive devices or breaks. The patient did experience significant desaturation from a baseline of 97%, to as low as 91% with ambulation. These findings are consistent with a respiratory limitation exercise tolerance. - Recommendations Recommendations: No supplemental oxygen is indicated at this time. However, patient will need to be followed closely given level of desaturation.
== END ==
PROVIDERS: Family Provider Family Medicine; PCP Family Medicine; Referring Provider Nurse Practitioner Acute Care; Visit Provider Nurse Practitioner Acute Care
DX: R06.00 Dyspnea, unspecified (principal)
CPT/HCPCS: 94618

== ENCOUNTER → 2019-07-06 12:05 | Outpatient (CLI) | payer MEDICARE, SELFPAY ==
[2018-12-28 08:27] VITALS: BMI 28.1
[2019-07-06 06:15] VITALS: BMI 28.0
[2019-07-06 16:01] LABS: Absolute Lymphocyte Count 2.74 X10^3/uL (0.83-4.51); Absolute Neutrophil Count 3.6 X10^3/uL (2.0-7.7); Basophil# 0.11 X10^3/uL; Basophil% 1.5 % (0-1); Eosinophil# 0.22 X10^3/uL; Eosinophils% 3.1 % (0-5); Hematocrit 39.8 % (37-47); Hemoglobin 12.4 g/dL (12.0-15.0); Lymphocyte # 2.74 X10^3/ul (4.0); Lymphocyte % 38.2 % (19-41); Mean Corp Hgb Conc 31.2 g/dL (32-36); Mean Corpuscular Hgb 32.2 pg (27.0-32.0); Mean Corpuscular Volume 103.4 fL (81-99); Mean Platelet Vol. 10.2 fl (6.2-12.0); Monocyte# 0.55 X10^3/uL; Monocyte% 7.7 % (0-10); NRBC Flagged by Analyzer 0 % (0-5); Neutrophil # 3.55 X10^3/uL (2.7-7.7); Neutrophil % 49.4 % (47-70); Platelet Count 261 K/mm3 (150-450); RBC Distribution Width CV 13.6 % (11.6-14.6); RBC Distribution Width SD 52.2 fl (35.1-43.9); Red Blood Count 3.85 M/mm3 (4.2-5.4); White Blood Count 7.2 K/mm3 (4.4-11.0)
[2019-07-06 16:23] LABS: Anion Gap 7 (5-15); BUN 29 mg/dL (7-18); BUN/Creat Ratio 24.4 RATIO (10-20); Chloride 106 mmol/L (98-107); Creatinine, Serum 1.19 mg/dL (0.55-1.02); EST Glomerular Filtration Rate 46 mL/min (>60); Est Glom Filt Rate - Afr Amer 56 mL/min (>60); Free T3 1.9 pg/mL (2.18-3.98); Glucose 57 mg/dL (74-106); Sodium Level 141 mmol/L (136-145); Thyroid Stim Hormone (TSH) 5.26 uIU/mL (0.358-3.74); Uric Acid 4.6 mg/dL (2.6-6.0)
== END ==
LOC: LAB.FUTURE 12:06 → BFHLAB 07-09 13:59
PROVIDERS: Family Provider Family Medicine; PCP Family Medicine; Visit Provider Family Medicine
DX: M10.9 Gout, unspecified (principal); R05 Cough; Z51.81 Encounter for therapeutic drug level monitoring; Z79.899 Other long term (current) drug therapy
CPT/HCPCS: 36415; 80048; 84443; 84481; 84550; 85025

== ENCOUNTER → 2019-09-20 16:53 | Outpatient (CLI) | payer MEDICARE, SELFPAY ==
[2019-07-06 06:15] VITALS: BMI 28.0
[2019-09-20 18:56] LABS: BNP,B-Type NATRIURETIC PEPTIDE 317.6 pg/mL (0-100)
[2019-09-20 18:57] LABS: ALB/GLOB Ratio 1.1 RATIO (0.9-2.4); AST(SGOT) 22 U/L (15-37); Alanine Aminotransfer ALT/SGPT 24 U/L (13-56); Albumin, Serum 3.4 g/dL (3.2-5.0); Alkaline Phosphatase 72 U/L (45-117); Anion Gap 3 (5-15); BUN 18 mg/dL (7-18); Calcium,Total 8.8 mg/dL (8.5-10.1); Chloride 107 mmol/L (98-107); Creatinine, Serum 1.06 mg/dL (0.55-1.02); EST Glomerular Filtration Rate 53 mL/min (>60); Est Glom Filt Rate - Afr Amer 64 mL/min (>60); Globulin 3.2 g/dL (2.2-4.2); Glucose 87 mg/dL (74-106); Potassium 3.7 mmol/L (3.5-5.1); Protein, Total 6.6 g/dL (6.4-8.2); Sodium Level 140 mmol/L (136-145); T4 Free Direct 1.02 ng/dL (0.76-1.46); Thyroid Stim Hormone (TSH) 7.39 uIU/mL (0.358-3.74)
== END ==
LOC: LAB.FUTURE 16:54 → BFHLAB 09-25 14:43
PROVIDERS: Family Provider Family Medicine; PCP Family Medicine; Visit Provider Family Medicine
DX: E03.9 Hypothyroidism, unspecified (principal); N18.3 Chronic kidney disease, stage 3 (moderate); R79.89 Other specified abnormal findings of blood chemistry; I42.9 Cardiomyopathy, unspecified
CPT/HCPCS: 36415; 80053; 83880; 84439; 84443

== ENCOUNTER → 2019-09-27 13:46 | Outpatient (CLI) | payer MEDICARE, SELFPAY ==
[2019-07-06 06:15] VITALS: BMI 28.0
[2019-09-27 15:53] LABS: Anion Gap 5 (5-15); BUN 42 mg/dL (7-18); BUN/Creat Ratio 21.4 RATIO (10-20); Calcium,Total 9.3 mg/dL (8.5-10.1); Chloride 101 mmol/L (98-107); Creatinine, Serum 1.96 mg/dL (0.55-1.02); EST Glomerular Filtration Rate 26 mL/min (>60); Est Glom Filt Rate - Afr Amer 31 mL/min (>60); Glucose 76 mg/dL (74-106); Potassium 4.1 mmol/L (3.5-5.1); Sodium Level 137 mmol/L (136-145)
== END ==
LOC: LAB.FUTURE 13:46 → BFHLAB 13:52
PROVIDERS: PCP Family Medicine; Visit Provider Family Medicine
DX: N18.3 Chronic kidney disease, stage 3 (moderate) (principal)
CPT/HCPCS: 36415; 80048

== ENCOUNTER → 2019-10-19 10:44 | Outpatient (CLI) | payer MEDICARE, SELFPAY ==
[2019-07-06 06:15] VITALS: BMI 28.0
[2019-10-19 12:52] LABS: Anion Gap 4 (5-15); BUN 15 mg/dL (7-18); Calcium,Total 8.8 mg/dL (8.5-10.1); Chloride 106 mmol/L (98-107); Creatinine, Serum 1.07 mg/dL (0.55-1.02); EST Glomerular Filtration Rate 52 mL/min (>60); Est Glom Filt Rate - Afr Amer 63 mL/min (>60); Glucose 70 mg/dL (74-106); Potassium 3.9 mmol/L (3.5-5.1); Sodium Level 141 mmol/L (136-145)
== END ==
PROVIDERS: PCP Family Medicine; Visit Provider Family Medicine
DX: N18.3 Chronic kidney disease, stage 3 (moderate) (principal)
CPT/HCPCS: 36415; 80048

== ENCOUNTER → 2020-01-25 09:58 | Outpatient (CLI) | payer MEDICARE, SELFPAY ==
[2020-01-08 08:29] VITALS: BMI 28.0
[2020-01-25 12:55] LABS: Free T3 2.7 pg/mL (2.18-3.98); T4 Free Direct 0.85 ng/dL (0.76-1.46)
[2020-01-28 16:08] LABS: Thyroid Peroxidase AB < 9 IU/mL (0-34)
[2020-01-28 20:46] LABS: Thyroglobulin Antibody < 1.0 IU/mL (0.0-0.9)
== END ==
PROVIDERS: PCP Family Medicine; Visit Provider Family Medicine
DX: E05.90 Thyrotoxicosis, unspecified without thyrotoxic crisis or storm (principal); R79.89 Other specified abnormal findings of blood chemistry
CPT/HCPCS: 36415; 84439; 84443; 84481; 86376; 86800

== ENCOUNTER → 2020-02-26 10:21 | Outpatient (CLI) | payer MEDICARE, SELFPAY ==
[2020-01-08 08:29] VITALS: BMI 28.0
[2020-02-26 15:59] LABS: AST(SGOT) 21 U/L (15-37); Alanine Aminotransfer ALT/SGPT 21 U/L (13-56); Albumin, Serum 3.4 g/dL (3.2-5.0); Alkaline Phosphatase 74 U/L (45-117); Bilirubin, Direct 0.13 mg/dL (0.00-0.30); Cholesterol 175 mg/dL (200); Globulin 3.6 g/dL (2.2-4.2); High Density Lipoprotein 76 mg/dL; Triglycerides 74 mg/dL; Very Low Density Lipoprotein 15 mg/dL (5-40)
== END ==
PROVIDERS: PCP Family Medicine; Visit Provider Internal Medicine Cardiovascular Disease
DX: I50.32 Chronic diastolic (congestive) heart failure (principal); E78.5 Hyperlipidemia, unspecified
CPT/HCPCS: 36415; 80061; 80076; 84443

== ENCOUNTER → 2020-04-24 13:44 | Outpatient (CLI) | payer MEDICARE, SELFPAY ==
[2020-01-08 08:29] VITALS: BMI 28.0
[2020-04-24 13:51] LABS: Bacteria 0 SEEN /hpf (None Seen); Mucous, Urine 0 SEEN /hpf (<or=2+); Red Blood Cells-Urine 0 SEEN /hpf (0-5)
[2020-04-24 15:26] LABS: Absolute Lymphocyte Count 1.81 X10^3/uL (0.83-4.51); Basophil# 0.09 X10^3/uL; Basophil% 1.7 % (0-1); Eosinophil# 0.11 X10^3/uL; Eosinophils% 2.1 % (0-5); Hematocrit 38.7 % (37-47); Hemoglobin 12.6 g/dL (12.0-15.0); Lymphocyte # 1.81 X10^3/ul (4.0); Mean Corp Hgb Conc 32.6 g/dL (32-36); Mean Corpuscular Hgb 33.9 pg (27.0-32.0); Mean Platelet Vol. 10.5 fl (6.2-12.0); Monocyte# 0.35 X10^3/uL; Monocyte% 6.6 % (0-10); NRBC Flagged by Analyzer 0 % (0-5); Neutrophil # 2.96 X10^3/uL (2.7-7.7); Neutrophil % 55.4 % (47-70); Platelet Count 255 K/mm3 (150-450); RBC Distribution Width CV 13.2 % (11.6-14.6); RBC Distribution Width SD 50.2 fl (35.1-43.9); Red Blood Count 3.72 M/mm3 (4.2-5.4); White Blood Count 5.3 K/mm3 (4.4-11.0)
[2020-04-24 15:32] LABS: Erythrocyte Sedimentation Rate 11 mm/hr (0-30)
[2020-04-24 16:28] LABS: ALB/GLOB Ratio 1.2 RATIO (0.9-2.4); AST(SGOT) 21 U/L (15-37); Alanine Aminotransfer ALT/SGPT 21 U/L (13-56); Albumin, Serum 3.5 g/dL (3.2-5.0); Alkaline Phosphatase 87 U/L (45-117); Anion Gap 7 (5-15); BUN 25 mg/dL (7-18); BUN/Creat Ratio 18.9 RATIO (10-20); CRP < 2.90 mg/L (0.0-3.0); Chloride 107 mmol/L (98-107); Creatinine, Serum 1.32 mg/dL (0.55-1.02); EST Glomerular Filtration Rate 41 mL/min (>60); Est Glom Filt Rate - Afr Amer 49 mL/min (>60); Glucose 87 mg/dL (74-106); Prealbumin 21.9 mg/dL (20.0-40.0); Protein, Total 6.5 g/dL (6.4-8.2); Sodium Level 142 mmol/L (136-145); T4 Free Direct 1.69 ng/dL (0.76-1.46); Thyroid Stim Hormone (TSH) 1.82 uIU/mL (0.358-3.74)
[2020-04-24 18:13] LABS: Color, Urine Yellow (Yellow); Glucose, Dipstick Normal (Normal); Ketone-Dipstick Negative (Negative); Leukocyte Esterase-Dipstick 25 /ul (Negative); Nitrite-Dipstick Negative (Negative); Occult Blood-Urine Negative /ul (Negative); Protein-Dipstick Negative (Negative); Specific Gravity, Urine 1.015 (1.002-1.030); Urine Bilirubin Dipstick Negative (Negative); Urine Clarity Clear (Clear); Urine Urobilinogen Normal (Normal)
[2020-04-24 18:33] LABS: Squamous Epithelial Cells - UA 0-5 SEEN /hpf (5-10); White Blood Cells 0-5 SEEN /hpf (0-5)
== END ==
PROVIDERS: PCP Family Medicine; Visit Provider Family Medicine
DX: T46.2X1A Poisoning by other antidysrhythmic drugs, accidental (unintentional), initial encounter (principal); E03.2 Hypothyroidism due to medicaments and other exogenous substances; M06.4 Inflammatory polyarthropathy; M48.061 Spinal stenosis, lumbar region without neurogenic claudication; M47.892 Other spondylosis, cervical region; M21.40 Flat foot [pes planus] (acquired), unspecified foot; J45.909 Unspecified asthma, uncomplicated; I27.20 Pulmonary hypertension, unspecified; Z85.3 Personal history of malignant neoplasm of breast
CPT/HCPCS: 36415; 80053; 81001; 84134; 84439; 84443; 85025; 85652; 86140

== ENCOUNTER → 2020-06-19 11:22 | Outpatient (CLI) | payer MEDICARE, SELFPAY ==
[2020-01-08 08:29] VITALS: BMI 28.0
[2020-06-19 15:30] LABS: Absolute Lymphocyte Count 2.35 X10^3/uL (0.83-4.51); Absolute Neutrophil Count 2.9 X10^3/uL (2.0-7.7); Basophil# 0.07 X10^3/uL; Basophil% 1.2 % (0-1); Eosinophil# 0.14 X10^3/uL; Eosinophils% 2.4 % (0-5); Hematocrit 39.2 % (37-47); Hemoglobin 12.8 g/dL (12.0-15.0); Lymphocyte # 2.35 X10^3/ul (4.0); Lymphocyte % 39.9 % (19-41); Mean Corp Hgb Conc 32.7 g/dL (32-36); Mean Corpuscular Hgb 33.3 pg (27.0-32.0); Mean Corpuscular Volume 102.1 fL (81-99); Mean Platelet Vol. 10.6 fl (6.2-12.0); Monocyte# 0.45 X10^3/uL; Monocyte% 7.6 % (0-10); NRBC Flagged by Analyzer 0 % (0-5); Neutrophil # 2.87 X10^3/uL (2.7-7.7); Neutrophil % 48.7 % (47-70); Platelet Count 277 K/mm3 (150-450); RBC Distribution Width CV 12.9 % (11.6-14.6); RBC Distribution Width SD 48.4 fl (35.1-43.9); Red Blood Count 3.84 M/mm3 (4.2-5.4); White Blood Count 5.9 K/mm3 (4.4-11.0)
[2020-06-19 15:43] LABS: ALB/GLOB Ratio 0.9 RATIO (0.9-2.4); AST(SGOT) 19 U/L (15-37); Alanine Aminotransfer ALT/SGPT 19 U/L (13-56); Albumin, Serum 3.4 g/dL (3.2-5.0); Alkaline Phosphatase 91 U/L (45-117); Anion Gap 5 (5-15); BUN 27 mg/dL (7-18); BUN/Creat Ratio 20.3 RATIO (10-20); Calcium,Total 9.1 mg/dL (8.5-10.1); Chloride 111 mmol/L (98-107); Creatinine, Serum 1.33 mg/dL (0.55-1.02); EST Glomerular Filtration Rate 41 mL/min (>60); Est Glom Filt Rate - Afr Amer 49 mL/min (>60); Globulin 3.7 g/dL (2.2-4.2); Glucose 86 mg/dL (74-106); Potassium 4.3 mmol/L (3.5-5.1); Protein, Total 7.1 g/dL (6.4-8.2); Sodium Level 143 mmol/L (136-145)
== END ==
PROVIDERS: PCP Family Medicine; Visit Provider Internal Medicine Rheumatology
DX: M06.4 Inflammatory polyarthropathy (principal); M48.061 Spinal stenosis, lumbar region without neurogenic claudication; M47.892 Other spondylosis, cervical region; M21.40 Flat foot [pes planus] (acquired), unspecified foot; J45.909 Unspecified asthma, uncomplicated; I27.20 Pulmonary hypertension, unspecified; Z85.3 Personal history of malignant neoplasm of breast
CPT/HCPCS: 36415; 80053; 85025

== ENCOUNTER → 2020-06-20 09:59 | Outpatient (CLI) | payer MEDICARE, SELFPAY ==
[2020-01-08 08:29] VITALS: BMI 28.0
[2020-06-20 11:58] VITALS: PULSE 60; PULSE 63; PULSE 64; PULSE 66; PULSE 69; PULSE 70; O2SAT 90; O2SAT 91; O2SAT 92; O2SAT 93; O2SAT 94; O2SAT 95; O2SAT 96
--- NOTE | 2020-06-21 09:50 | WT_ITS ---
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 Assistive device used: None Pre-test Oxygen Delivery Method Room Air Pulse Ox (%) 95 Pulse Rate (60-100 beats/min) 60 Dyspnea Lana Scale (0-10) 0 1st minute Oxygen Delivery Method Room Air Pulse Ox (%) 94 Pulse Rate (60-100 beats/min) 64 Dyspnea Lana Scale (0-10) 0 Number of Rests Taken 0 2nd minute Oxygen Delivery Method Room Air Pulse Ox (%) 93 Pulse Rate (60-100 beats/min) 66 Dyspnea Lana Scale (0-10) 0 Number of Rests Taken 0 3rd minute Oxygen Delivery Method Room Air Pulse Ox (%) 92 Pulse Rate (60-100 beats/min) 70 Dyspnea Lana Scale (0-10) 0 Number of Rests Taken 0 4th minute Oxygen Delivery Method Room Air Pulse Ox (%) 91 Pulse Rate (60-100 beats/min) 69 Dyspnea Lana Scale (0-10) 0 Number of Rests Taken 0 5th minute Oxygen Delivery Method Room Air Pulse Ox (%) 90 Pulse Rate (60-100 beats/min) 69 Dyspnea Lana Scale (0-10) 0 Number of Rests Taken 0 6th minute Oxygen Delivery Method Room Air Pulse Ox (%) 92 Pulse Rate (60-100 beats/min) 70 Dyspnea Lana Scale (0-10) 0 Number of Rests Taken 0 Post-test Oxygen Delivery Method Room Air Pulse Ox (%) 96 Pulse Rate (60-100 beats/min) 63 Dyspnea Lana Scale (0-10) 0 Full Laps Walked 16 Partial Lap, Number of Tiles Walked 17 Total Distance Walked (ft) 961 - Interpretation Interpretation: The patient ambulated 961 feet over the course of 6 minutes beginning on room air without assistive devices or breaks. Pretesting oxygen saturation was noted to be 95% on room air. With ambulation, the laxmi oxygen saturation was 90%. This represents a significant exertional oxygen desaturation. - Recommendations Recommendations: There is no indication for the use of supplemental oxygen at this time. However, close interval follow-up is recommended, given the degree of oxygen desaturation noted during the study.
== END ==
PROVIDERS: PCP Family Medicine; Referring Provider Nurse Practitioner Acute Care; Visit Provider Nurse Practitioner Acute Care
DX: R06.02 Shortness of breath (principal)
CPT/HCPCS: 94618

== ENCOUNTER → 2020-07-08 10:00 | Outpatient (CLI) | payer MEDICARE, SELFPAY ==
[2020-01-08 08:29] VITALS: BMI 28.0
[2020-07-02 13:55] VITALS: BMI 27.4
--- NOTE | 2020-07-08 10:07 | ECHOD_ITS ---
Reason For Study: Arrhythmia Procedure This was a 2D Doppler, Color Flow transthoracic echocardiogram. Exam performed in department. Left Ventricle Normal LV size. Left ventricular systolic function is normal. The estimated ejection fraction is 60 %. Stage 1 diastolic dysfunction. No regional wall motion abnormalities noted. Right Ventricle Normal RV size. Normal systolic function. Atria Normal left atrium. Normal right atrium. Mitral Valve Normal mitral valve. Mild-Moderate (1-2+) eccentric mitral valve insufficiency. Tricuspid Valve Normal tricuspid valve. Mild (1+) tricuspid valve insufficiency. Pulmonary artery systolic pressure is 38 mmHg. Aortic Valve Normal aortic valve. Trisinus/trileaflet aortic valve. Great Vessels Normal aortic root. The pulmonary artery is normal size. Normal inferior vena cava. Pericardium/Pleural No pericardial effusion. MMode/2D Measurements & Calculations LVIDd: 4.7 cm IVSd: 0.98 cm Ao root diam: 3.1 cm LVIDs: 2.6 cm LVPWd: 0.79 cm LA dimension: 3.6 cm FS: 43.7 % LAV(MOD-bp): 40.1 ml LA A4 area: 14.5 cm2 RA A4 area: 15.2 cm2 LAV(MOD-bp) Indexed: 23.1 ml/m2 LAV(MOD-sp2): 49.5 ml LAV(MOD-sp4): 33.1 ml Time Measurements MV dec time: 0.22 sec Doppler Measurements & Calculations MV E max magdaleno: 81.4 cm/sec Lat Peak E' Magdaleno: 8.8 cm/sec Med Peak E' Magdaleno: 8.1 cm/sec MV A max magdaleno: 88.4 cm/sec E/E' lat: 9.2 E/E' med: 10.0 MV E/A: 0.92 MV V2 max: 107.9 cm/sec MV P1/2t max magdaleno: 107.9 cm/sec Ao V2 max: 125.2 cm/sec MV max P.7 mmHg MV P1/2t: 75.6 msec Ao max P.3 mmHg MV V2 mean: 50.5 cm/sec MV mean P.2 mmHg MV dec slope: 417.9 cm/sec2 MV V2 VTI: 37.9 cm MVA(P1/2t): 2.9 cm2 LV V1 max: 100.8 cm/sec MR max magdaleno: 648.3 cm/sec TR max magdaleno: 290.5 cm/sec LV V1 max P.1 mmHg MR max P.1 mmHg TR max P.8 mmHg MR mean magdaleno: 512.6 cm/sec MR mean P.7 mmHg MR VTI: 293.8 cm Interpretation Summary Normal LV size. Left ventricular systolic function is normal. The estimated ejection fraction is 60 %. Stage 1 diastolic dysfunction. Pulmonary artery systolic pressure is 38 mmHg. Ordering Physician: Obi Clark Referring Physician: Diego Farmer Performed By: Sha Shah RCS
--- NOTE | 2020-07-08 15:04 | PFTCOMP ---
COMPLETE PULMONARY FUNCTION TEST INTERPRETATION Brief HPI: Patient is an 85 year old female, currently under the care of myself, who presents to [facility] for complete pulmonary function tests secondary to diagnosis of dyspnea. Respiratory therapist reports good effort and reproducible results. Interpretation: Forced expiration spirometry shows no large airways obstructive ventilatory defect with an FEV1 of 94% predicted. There is no significant bronchodilator response by strict ATS criteria. Spirograms are of good quality and plateau normally. The respiratory flow volume loop shows a normal pattern. Lung volumes by body plethysmography show a normal total lung capacity at 4.48 L, 99% predicted. All other lung volumes are within normal limits. Diffusion capacity by carbon monoxide is decreased at 50% predicted. The airway resistance is slightly elevated. Compared to previous pulmonary function tests from 06/22/2019, there is been a significant improvement in total lung capacity by 14%, but decreased DLCO by 16%. Impression: Isolated reduction in diffusion capacity with some improvement in restriction compared to previous testing.
== END ==
PROVIDERS: PCP Family Medicine; Referring Provider Nurse Practitioner Acute Care; Visit Provider Nurse Practitioner Acute Care
DX: I47.1 Supraventricular tachycardia (principal); R06.02 Shortness of breath
CPT/HCPCS: 93306; 94060; 94726; 94729

== ENCOUNTER → 2020-07-25 14:00 | Outpatient (CLI) | payer MEDICARE, SELFPAY ==
[2020-07-16 09:35] VITALS: BMI 27.4
--- NOTE | 2020-07-25 14:04 | CT_ITS ---
STUDY: CT CHEST WITHOUT CONTRAST REASON FOR EXAM: Female, 85 years old. ? BRONCHIECTASIS. 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 HI RES SERIES INCLUDED RADIATION DOSAGE (If Supplied By Facility): CTDIvol = ( 9.53 ) mGy, DLP = ( 316.37 ) mGycm TECHNIQUE: Transaxial imaging was performed without the administration of intravenous contrast material. Individualized dose optimization techniques were used for this CT. COMPARISON: 07/05/2017 FINDINGS: No change in tiny ill-defined nodules in the right upper lobe the lungs likely consistent with some scarring. Also no change in linear scarring in both lung bases. No change in right middle lobe and right lower lobe cylindrical bronchiectasis. No other noncalcified nodule or mass. There is no demonstrated pleural abnormality. Normal heart and pericardium. There are calcifications of the coronary arteries. Normal mediastinum. Normal hilar regions. Normal unenhanced pulmonary arteries. Normal aorta arch and descending thoracic aorta. Levoscoliosis of the thoracolumbar spine. There is no demonstrated abnormality of the visualized upper abdomen. CT/Chest without Contrast IMPRESSION: No change from 07/05/2017. Electronically Signed: Kun Moreno MD at 17:10 EST Tel , Service support ,
== END ==
PROVIDERS: PCP Family Medicine; Referring Provider Internal Medicine Critical Care Medicine; Visit Provider Internal Medicine Critical Care Medicine
DX: R05 Cough (principal)
CPT/HCPCS: 71250

== ENCOUNTER → 2020-08-29 | Outpatient (CLI) | payer MEDICARE, SELFPAY | END | disposition home or self-care (01) | LOC: LABSPEC 17:08 | PROVIDERS: PCP Family Medicine; Referring Provider Nurse Practitioner Acute Care; Visit Provider Nurse Practitioner Acute Care | DX: R09.81 Nasal congestion (principal) | CPT/HCPCS: 87635; C9803; U0003 ==

== ENCOUNTER 2020-09-05 11:09 | Outpatient (RCR) | payer MEDICARE, SELFPAY | END 2020-09-05 23:59 | LOC: IMMUN 11:09 | PROVIDERS: PCP Family Medicine; Visit Provider Family Medicine | DX: Z23 Encounter for immunization (principal) | CPT/HCPCS: 0011A; 0012A; 91301 ==

== ENCOUNTER → 2020-10-10 15:21 | Outpatient (CLI) | payer MEDICARE, SELFPAY ==
[2020-10-10 17:27] LABS: Absolute Lymphocyte Count 2.76 X10^3/uL (0.83-4.51); Absolute Neutrophil Count 3.5 X10^3/uL (2.0-7.7); Basophil# 0.09 X10^3/uL; Basophil% 1.3 % (0-1); Eosinophils% 1.4 % (0-5); Hematocrit 39.9 % (37-47); Hemoglobin 12.3 g/dL (12.0-15.0); Lymphocyte # 2.76 X10^3/ul (4.0); Lymphocyte % 39.6 % (19-41); Mean Corp Hgb Conc 30.8 g/dL (32-36); Mean Corpuscular Volume 103.9 fL (81-99); Mean Platelet Vol. 10.3 fl (6.2-12.0); Monocyte% 7.2 % (0-10); NRBC Flagged by Analyzer 0 % (0-5); Neutrophil % 50.2 % (47-70); Platelet Count 274 K/mm3 (150-450); RBC Distribution Width CV 13.4 % (11.6-14.6); RBC Distribution Width SD 51.4 fl (35.1-43.9); Red Blood Count 3.84 M/mm3 (4.2-5.4)
[2020-10-10 17:45] LABS: AST(SGOT) 22 U/L (15-37); Alanine Aminotransfer ALT/SGPT 20 U/L (13-56); Albumin, Serum 3.5 g/dL (3.2-5.0); Alkaline Phosphatase 89 U/L (45-117); Bilirubin, Direct 0.22 mg/dL (0.00-0.30); Cholesterol 211 mg/dL (200); High Density Lipoprotein 81 mg/dL; Protein, Total 6.5 g/dL (6.4-8.2); Triglycerides 108 mg/dL; Very Low Density Lipoprotein 22 mg/dL (5-40)
[2020-10-10 18:00] LABS: AST(SGOT) 22 U/L (15-37); Alanine Aminotransfer ALT/SGPT 20 U/L (13-56); Albumin, Serum 3.5 g/dL (3.2-5.0); Alkaline Phosphatase 89 U/L (45-117); Anion Gap 7 (5-15); BUN 19 mg/dL (7-18); BUN/Creat Ratio 15.3 RATIO (10-20); Calcium,Total 8.7 mg/dL (8.5-10.1); Chloride 107 mmol/L (98-107); Creatinine, Serum 1.24 mg/dL (0.55-1.02); EST Glomerular Filtration Rate 44 mL/min (>60); Est Glom Filt Rate - Afr Amer 53 mL/min (>60); Globulin 3.4 g/dL (2.2-4.2); Glucose 85 mg/dL (74-106); Potassium 3.9 mmol/L (3.5-5.1); Protein, Total 6.9 g/dL (6.4-8.2); Sodium Level 141 mmol/L (136-145); T4 Free Direct 1.87 ng/dL (0.76-1.46); Thyroid Stim Hormone (TSH) 1.48 uIU/mL (0.358-3.74)
== END ==
PROVIDERS: Internal Medicine Cardiovascular Disease; PCP Family Medicine; Visit Provider Family Medicine
DX: E78.5 Hyperlipidemia, unspecified (principal); N18.30 Chronic kidney disease, stage 3 unspecified; T46.2X1A Poisoning by other antidysrhythmic drugs, accidental (unintentional), initial encounter; E03.2 Hypothyroidism due to medicaments and other exogenous substances; Z51.81 Encounter for therapeutic drug level monitoring
CPT/HCPCS: 80053; 80061; 80076; 84439; 84443; 85025

== ENCOUNTER → 2020-10-16 11:10 | Outpatient (CLI) | payer MEDICARE, SELFPAY ==
[2020-10-16 10:04] VITALS: BMI 30.1
== END ==
PROVIDERS: PCP Family Medicine; Referring Provider Nurse Practitioner Acute Care; Visit Provider Nurse Practitioner Acute Care
DX: Z46.89 Encounter for fitting and adjustment of other specified devices (principal)
CPT/HCPCS: 94667

== ENCOUNTER → 2020-10-24 15:17 | Outpatient (CLI) | payer MEDICARE, SELFPAY ==
[2020-10-16 10:04] VITALS: BMI 30.1
--- NOTE | 2020-10-24 15:19 | RAD_ITS ---
STUDY: X-RAY - LUMBAR SPINE REASON FOR EXAM: Female, 85 years old. right hip and anterior leg pain TECHNIQUE: 5 view(s) of the lumbar spine were obtained. COMPARISON: None FINDINGS: Normal lumbar lordosis. There is a dextroscoliosis of the lumbar spine. Mild anterior spondylolisthesis of L4-L5 due to facet arthropathy. There is diffuse demineralization with multi-level endplate spondylosis. There is multi-level degenerative disc disease with multi-level disc space narrowing. There is no demonstrated fracture. There is no demonstrated spondylolysis of the pars interarticulares. Multilevel facet arthropathy particularly at L4-L5 and L5-S1. There is atherosclerotic calcification of the abdominal aorta without a demonstrated aneurysm. RAD/L/S Spine Min 4 Views IMPRESSION: Degenerative disc disease and facet arthropathy, as above. Grade 1 anterolisthesis of L4-L5 due to facet arthropathy. Electronically Signed: Jalil Dubon MD ([place]) at 16:10 EST , Service support ,
--- NOTE | 2020-10-24 15:20 | RAD_ITS ---
EXAM: XR RIGHT HIP WITH PELVIS WHEN PERFORMED, 2 OR 3 VIEWS CLINICAL INDICATION: right hip and anterior leg pain TECHNIQUE: Two or three views of the right hip with pelvis when performed. This report was created using [employer] report generation technology. COMPARISON: None. FINDINGS: BONES/JOINTS: Mild joint space narrowing of the right hip with inferior marginal spurring. Degenerative changes with scoliosis of the lumbosacral spine. Degenerative narrowing and sclerosis of the pubic symphysis. SOFT TISSUES: Unremarkable. No soft tissue swelling or gas. RAD/HIP, UNI W/ Pelvis 2-3 Views IMPRESSION: Mild joint space narrowing of the right hip with inferior marginal spurring. Mild right hip osteoarthrosis. Electronically Signed: Jalil Dubon MD ([place]) at 16:03 EST , Service support ,
== END ==
PROVIDERS: PCP Family Medicine; Referring Provider Family Medicine; Visit Provider Family Medicine
DX: M25.551 Pain in right hip (principal); M79.604 Pain in right leg
CPT/HCPCS: 72110; 73502

== ENCOUNTER → 2020-12-24 10:55 | Outpatient (CLI) | payer MEDICARE, SELFPAY ==
[2020-07-02 10:43] VITALS: BMI 27.8
[2020-10-16 10:04] VITALS: BMI 30.1
[2020-12-24 12:20] LABS: Absolute Neutrophil Count 3.3 X10^3/uL (2.0-7.7); Basophil# 0.11 X10^3/uL; Basophil% 1.5 % (0-1); Eosinophil# 0.22 X10^3/uL; Hematocrit 40.8 % (37-47); Hemoglobin 12.3 g/dL (12.0-15.0); Lymphocyte % 41.7 % (19-41); Mean Corp Hgb Conc 30.1 g/dL (32-36); Mean Corpuscular Volume 102.8 fL (81-99); Mean Platelet Vol. 10.1 fl (6.2-12.0); Monocyte# 0.67 X10^3/uL; NRBC Flagged by Analyzer 0 % (0-5); Neutrophil # 3.31 X10^3/uL (2.7-7.7); Neutrophil % 44.5 % (47-70); Platelet Count 242 K/mm3 (150-450); RBC Distribution Width CV 13.2 % (11.6-14.6); RBC Distribution Width SD 51.1 fl (35.1-43.9); Red Blood Count 3.97 M/mm3 (4.2-5.4); White Blood Count 7.4 K/mm3 (4.4-11.0)
[2020-12-24 12:47] LABS: AST(SGOT) 18 U/L (15-37); Alanine Aminotransfer ALT/SGPT 17 U/L (13-56); Albumin, Serum 3.4 g/dL (3.2-5.0); Alkaline Phosphatase 95 U/L (45-117); Anion Gap 3 (5-15); BUN 27 mg/dL (7-18); BUN/Creat Ratio 22.9 RATIO (10-20); Chloride 110 mmol/L (98-107); Creatinine, Serum 1.18 mg/dL (0.55-1.02); EST Glomerular Filtration Rate 46 mL/min (>60); Est Glom Filt Rate - Afr Amer 56 mL/min (>60); Globulin 3.4 g/dL (2.2-4.2); Glucose 87 mg/dL (74-106); Potassium 4.4 mmol/L (3.5-5.1); Protein, Total 6.8 g/dL (6.4-8.2); Sodium Level 141 mmol/L (136-145)
== END ==
PROVIDERS: PCP Family Medicine; Referring Provider Internal Medicine Rheumatology; Visit Provider Internal Medicine Rheumatology
DX: M06.4 Inflammatory polyarthropathy (principal); M48.061 Spinal stenosis, lumbar region without neurogenic claudication; M47.892 Other spondylosis, cervical region; M21.40 Flat foot [pes planus] (acquired), unspecified foot; J45.909 Unspecified asthma, uncomplicated; I27.20 Pulmonary hypertension, unspecified; Z85.3 Personal history of malignant neoplasm of breast
CPT/HCPCS: 36415; 80053; 85025

== ENCOUNTER → 2021-01-27 10:44 | Outpatient (CLI) | payer MEDICARE, SELFPAY ==
[2020-10-16 10:04] VITALS: BMI 30.1
--- NOTE | 2021-01-27 10:55 | BD_ITS ---
STUDY: DUAL ENERGY X-RAY ABSORPTIOMETRY / DXA REASON FOR EXAM: Female, 85 years old. [id number] TECHNIQUE: Bone Mineral Density (BMD) measurements of lumbar spine and bilateral hips were obtained. COMPARISON: None. FINDINGS: Lumbar Spine (L1-L4): g/cm2 (1.122) / T-score (-0.6) / Z-score (1.2) Findings are suggestive of normal bone density with a low fracture risk. Left Femur Total: g/cm2 (0.829) / T-score (-1.4) / Z-score (0.8) Left Femoral Neck: g/cm2 (0.677) / T-score (-2.6) / Z-score (-0.3) Right Femur Total: g/cm2 (0.826) / T-score (-1.4) / Z-score (0.8) Right Femoral Neck: g/cm2 (0.746) / T-score (-2.1) / Z-score (0.2) BD/Dexa Bone Density Study IMPRESSION: The patient is considered osteoporotic as outlined below according to World [employer]ck[employer] Organization (WHO) criteria with a high fracture risk. Reference Information: The T-score is the number of standard deviations above or below the standard which is normal for young adults at their peak bone mineral density. The World Health Organization (WHO) interprets the T-scores as follows: Above -1 Normal bone density Between -1 and -2.5 Osteopenia Equal to / or below -2.5 Osteoporosis As a practical clinical guideline, osteopenia may be graded as follows: Mild -1 through -1.5 Moderate -1.6 through -2.0 Severe -2.1 through -2.4 The Z-score is the number of standard deviations above or below age-matched controls. A Z-score of less than -1.5 would be considered abnormal. References: 1. NIH Osteoporosis and Related Bone Diseases www osteo.org 2. International Society for Clinical Densitometry www iscd.org 3. National Osteoporosis Foundation www nof.org Electronically Signed: Kee Austin MD at 14:07 EDT , Service support ,
== END ==
PROVIDERS: PCP Family Medicine; Referring Provider Family Medicine; Visit Provider Family Medicine
DX: M81.0 Age-related osteoporosis without current pathological fracture (principal)
CPT/HCPCS: 77080

== ENCOUNTER → 2021-07-03 10:41 | Outpatient (CLI) | payer MEDICARE, SELFPAY ==
[2020-10-16 10:04] VITALS: BMI 30.1
[2021-07-03 12:34] LABS: Absolute Lymphocyte Count 2.37 X10^3/uL (0.83-4.51); Absolute Neutrophil Count 3.6 X10^3/uL (2.0-7.7); Basophil# 0.12 X10^3/uL; Basophil% 1.7 % (0-1); Eosinophil# 0.31 X10^3/uL; Eosinophils% 4.4 % (0-5); Hematocrit 40.6 % (37-47); Hemoglobin 12.8 g/dL (12.0-15.0); Lymphocyte # 2.37 X10^3/ul (0.83-4.51); Lymphocyte % 33.5 % (19-41); Mean Corp Hgb Conc 31.5 g/dL (32-36); Mean Corpuscular Hgb 32.4 pg (27.0-32.0); Mean Corpuscular Volume 102.8 fL (81-99); Mean Platelet Vol. 10.4 fl (6.2-12.0); Monocyte# 0.68 X10^3/uL; Monocyte% 9.6 % (0-10); NRBC Flagged by Analyzer 0 % (0-5); Neutrophil # 3.57 X10^3/uL (2.7-7.7); Neutrophil % 50.5 % (47-70); Platelet Count 272 K/mm3 (150-450); RBC Distribution Width CV 12.9 % (11.6-14.6); RBC Distribution Width SD 49.2 fl (35.1-43.9); Red Blood Count 3.95 M/mm3 (4.2-5.4); White Blood Count 7.1 K/mm3 (4.4-11.0)
[2021-07-03 12:47] LABS: ALB/GLOB Ratio 0.8 RATIO (0.9-2.4); AST(SGOT) 19 U/L (15-37); Alanine Aminotransfer ALT/SGPT 16 U/L (13-56); Albumin, Serum 3.3 g/dL (3.2-5.0); Alkaline Phosphatase 95 U/L (45-117); Anion Gap 6 (5-15); BUN 29 mg/dL (7-18); BUN/Creat Ratio 23.8 RATIO (10-20); Chloride 107 mmol/L (98-107); Creatinine, Serum 1.22 mg/dL (0.55-1.02); EST Glomerular Filtration Rate 45 mL/min (>60); Est Glom Filt Rate - Afr Amer 54 mL/min (>60); Glucose 88 mg/dL (74-106); Potassium 3.9 mmol/L (3.5-5.1); Protein, Total 7.3 g/dL (6.4-8.2); Sodium Level 141 mmol/L (136-145)
== END ==
PROVIDERS: PCP Family Medicine; Visit Provider Internal Medicine Rheumatology
DX: M06.4 Inflammatory polyarthropathy (principal); M48.061 Spinal stenosis, lumbar region without neurogenic claudication; M47.892 Other spondylosis, cervical region; M21.40 Flat foot [pes planus] (acquired), unspecified foot
CPT/HCPCS: 36415; 80053; 85025

== ENCOUNTER 2021-10-27 12:02 | Outpatient (CLI) | payer MEDICARE, SELFPAY ==
[2021-10-27 13:39] LABS: AST(SGOT) 18 U/L (15-37); Alanine Aminotransfer ALT/SGPT 16 U/L (13-56); Albumin, Serum 3.3 g/dL (3.2-5.0); Alkaline Phosphatase 84 U/L (45-117); Bilirubin, Direct 0.15 mg/dL (0.00-0.30); Cholesterol 166 mg/dL (200); Globulin 3.3 g/dL (2.2-4.2); High Density Lipoprotein 64 mg/dL; Protein, Total 6.6 g/dL (6.4-8.2); Thyroid Stim Hormone (TSH) 1.42 uIU/mL (0.358-3.74); Triglycerides 95 mg/dL; Very Low Density Lipoprotein 19 mg/dL (5-40)
== END 2021-10-27 23:59 | disposition home or self-care (01) ==
LOC: LAB 12:04
PROVIDERS: PCP Family Medicine; Referring Provider Internal Medicine Cardiovascular Disease; Visit Provider Internal Medicine Cardiovascular Disease
DX: E78.00 Pure hypercholesterolemia, unspecified (principal)
CPT/HCPCS: 36415; 80061; 80076; 84436; 84443

== ENCOUNTER 2021-11-17 11:00 | Outpatient (RCR) | payer MEDICARE, SELFPAY ==
--- NOTE | 2021-10-15 08:14 | HP.OTEVAL_ITS ---
Patient's Visit Information STEPHANY MORALES is a 86 year old F, referred to Occupational Therapy by Dr. Kendall Knight DO, with a diagnosis of CMC osteoarthrosis. Date of Evaluation: 10/13/21 Occupational Therapist: Mikki Heller, OTR/Serina, CHT - Subjective This 86 year old female was seen for OT eval with dx of left CMC arthritis- pt states bothersome with left hand for about last two months. pt states Dr. sanford take x-rays. pt states she has been trying heat and ice but nothing seems to be helping - pt points to dorsum of her wrist and states with increase use she does have more pain. pt would like to know what she can do to decrease her pain and keep her ind. with ADLs and IADLs. - Pain left wrist 6 Pain Intensity Range: 8 - ROM Wrist: right 65/60 left 60/65 CMC: right 15 left 10 MP: right 65 lft 70 IP: right 45 left 45 Radial Abduction: right WNL left WNL Palmar Abduction: right WNL left WNL ROM Comments: pt demo wit OA deformities bilateral hands - Strength Director Sales And Marketing: right 15# left 30# Lateral Pinch: right 4# left 4# Strength Comments: pt report pain with resistive lodging manager strength - Sensation Sensation Comments: denies - Quick DASH-Disab of Arm,Shoulder& Hand Quick DASH Score: 11.3625 - Rehabilitation General Assessment: pt demo with OA deformities and pain with resistive testing - pain is limiting pts ind. with ADLs and IADLs at this time- pt would benefit from skilled OT services 2x week for 4 weeks to ed. pt on joint protection , supportive bracing and modalities to mtg pain along with isometric and thumb and wrist stabilization exercise. pt demo understanding of and agree to POC. Rehabilitation Potential: Good - Anticipated Interventions Strengthening, Modalities, Orthoses, Joint Protection/Energy Conservation, Ergonomic Education, Education re assistive Equipment, Education re Diagnosis, Home Program - Visit Plan Frequency: 2-3x /Week Duration: 4 Weeks TEXT: Thank you for the opportunity to evaluate your patient. For Medicare and Medicare HMO plans, please review the plan of care and approve it. It will need to be FAXED BACK to us at [phone] for Medicare purposes. Please let me know if there are questions or concerns regarding this plan of care. Physician Signature: Date:
--- NOTE | 2021-10-15 08:21 | HP.OTEVAL_ITS ---
Patient's Visit Information STEPHANY MORALES is a 86 year old F, referred to Occupational Therapy by Dr. Kendall Knight DO, with a diagnosis of CMC osteoarthrosis. Date of Evaluation: 10/13/21 Occupational Therapist: Mikki Heller, OTR/Serina, CHT - Subjective This 86 year old female was seen for OT eval with dx of left CMC arthritis- pt states bothersome with left hand for about last two months. pt states Dr. sanford take x-rays. pt states she has been trying heat and ice but nothing seems to be helping - pt points to dorsum of her wrist and states with increase use she does have more pain. pt would like to know what she can do to decrease her pain and keep her ind. with ADLs and IADLs. - Pain left wrist 6 Pain Intensity Range: 8 - ROM Wrist: right 65/60 left 60/65 CMC: right 15 left 10 MP: right 65 lft 70 IP: right 45 left 45 Radial Abduction: right WNL left WNL Palmar Abduction: right WNL left WNL ROM Comments: pt demo wit OA deformities bilateral hands - Strength Snow Plow Tractor Operator: right 15# left 30# Lateral Pinch: right 4# left 4# Strength Comments: pt report pain with resistive tile setter apprentice strength - Sensation Sensation Comments: denies - Quick DASH-Disab of Arm,Shoulder& Hand Quick DASH Score: 11.3625 - Goals Goal:: pt will report a decrease in pain to less than 2/10 with use of left UE with ADls and IADls by d.c Goal:: Pt will demo understanding of joint protection and ergonomics when performing BADLs and IADLs by d/c. Pt will demo understanding of adaptive Equipment use to decrease stress on joints to allow pt to perform BADSL and IADLS at HELEN level. Goal:: Therapist ed. Pt on correct donning/doffing orthosis, use and precautions. Pt agrees to return to clinic to have orthosis adj if needed. - Rehabilitation General Assessment: pt demo with OA deformities and pain with resistive testing - pain is limiting pts ind. with ADLs and IADLs at this time- pt would benefit from skilled OT services 2x week for 4 weeks to ed. pt on joint protection , supportive bracing and modalities to mtg pain along with isometric and thumb and wrist stabilization exercise. pt demo understanding of and agree to POC. Rehabilitation Potential: Good - Anticipated Interventions Strengthening, Modalities, Orthoses, Joint Protection/Energy Conservation, Ergonomic Education, Education re assistive Equipment, Education re Diagnosis, Home Program - Visit Plan Frequency: 2-3x /Week Duration: 4 Weeks TEXT: Thank you for the opportunity to evaluate your patient. For Medicare and Medicare HMO plans, please review the plan of care and approve it. It will need to be FAXED BACK to us at [phone] for Medicare purposes. Please let me know if there are questions or concerns regarding this plan of care. Physician Signature: Date:
--- NOTE | 2021-11-17 11:31 | HP.OTDCSUM ---
It has been my pleasure to treat STEPHANY MORALES under orders from Dr. Kendall Knight, , for the diagnosis of CMC osteoarthrosis for a total of 6 visit(s). Please see the following information for a summary of their discharge status. % Improvement: 75 Objective/Function: pt states she continues to have pain that comes and goes- pt likes the 3pp thumb sling this rest around her wrist and the neoprene help- feels better with heat and massage- pt know how to perform her modalities. left wrist ROM 65/65 no pain reported. this is increase from initial eval. pt reports she is not limited by pain when dressing or bathing. pt demo understanding of her joint protection antoinette. pt agrees with D.c Patient Goals: Decrease Pain, Be More Independent in ADLS Goal:: pt will report a decrease in pain to less than 2/10 with use of left UE with ADls and IADls by d.c Goal:: Pt will demo understanding of joint protection and ergonomics when performing BADLs and IADLs by d/c. Pt will demo understanding of adaptive Equipment use to decrease stress on joints to allow pt to perform BADSL and IADLS at HELEN level. Goal:: Therapist ed. Pt on correct donning/doffing orthosis, use and precautions. Pt agrees to return to clinic to have orthosis adj if needed. Plan: D/c with HEP Discharge Comments: pt was seen in OT for 6 visits- therapy ed. pt on dx and use of modalities to decrease pain with flair ups- use of 3pp brace to provide support and the neoprene keeping body heat in- therapist rec'd use of her home paraffin bath prior to going to bed because this is when she is most painful- pt demo understanding of the joint protection- antoinette. pt agrees to POC. If there are questions or concerns regarding this patient's occupational therapy, please fell free to call me at [phone]. Thank you for the referral of this patient. Sincerely, Mikki Heller, OTR/L, CHT
== END 2021-11-17 12:26 | disposition home or self-care (01) ==
LOC: OT 11:00
PROVIDERS: PCP Family Medicine; Referring Provider Orthopaedic Surgery; Visit Provider Orthopaedic Surgery
DX: M18.12 Unilateral primary osteoarthritis of first carpometacarpal joint, left hand (principal)
CPT/HCPCS: 97110; 97140; 97166; 97530; 97760

== ENCOUNTER → 2022-04-23 | Outpatient (CLI) | payer MEDICARE, SELFPAY ==
[2022-04-23 15:24] LABS: Absolute Lymphocyte Count 2.34 X10^3/uL (0.83-4.51); Basophil# 0.08 X10^3/uL; Basophil% 1.3 % (0-1); Eosinophil# 0.17 X10^3/uL; Eosinophils% 2.7 % (0-5); Hematocrit 38.4 % (37-47); Hemoglobin 12.5 g/dL (12.0-15.0); Lymphocyte # 2.34 X10^3/ul (0.83-4.51); Lymphocyte % 37.7 % (19-41); Mean Corp Hgb Conc 32.6 g/dL (32-36); Mean Corpuscular Hgb 33.7 pg (27.0-32.0); Mean Corpuscular Volume 103.5 fL (81-99); Mean Platelet Vol. 10.7 fl (6.2-12.0); Monocyte# 0.54 X10^3/uL; Monocyte% 8.7 % (0-10); NRBC Flagged by Analyzer 0 % (0-5); Neutrophil # 3.04 X10^3/uL (2.7-7.7); Neutrophil % 49.1 % (47-70); Platelet Count 275 K/mm3 (150-450); RBC Distribution Width CV 13.7 % (11.6-14.6); RBC Distribution Width SD 52.6 fl (35.1-43.9); Red Blood Count 3.71 M/mm3 (4.2-5.4); White Blood Count 6.2 K/mm3 (4.4-11.0)
[2022-04-23 15:54] LABS: Vitamin D,25 Hydroxy 30.5 ng/mL
[2022-04-23 16:13] LABS: ALB/GLOB Ratio 0.9 RATIO (0.9-2.4); AST(SGOT) 23 U/L (15-37); Alanine Aminotransfer ALT/SGPT 20 U/L (13-56); Albumin, Serum 3.2 g/dL (3.2-5.0); Alkaline Phosphatase 77 U/L (45-117); Anion Gap 6 (5-15); BUN 14 mg/dL (7-18); BUN/Creat Ratio 10.1 RATIO (10-20); Calcium,Total 9.3 mg/dL (8.5-10.1); Chloride 107 mmol/L (98-107); Cholesterol 189 mg/dL (200); Creatinine, Serum 1.39 mg/dL (0.55-1.02); EST Glomerular Filtration Rate 38 mL/min (>60); Est Glom Filt Rate - Afr Amer 46 mL/min (>60); Globulin 3.6 g/dL (2.2-4.2); Glucose 86 mg/dL (74-106); High Density Lipoprotein 76 mg/dL; Potassium 4.2 mmol/L (3.5-5.1); Protein, Total 6.8 g/dL (6.4-8.2); Sodium Level 142 mmol/L (136-145); Thyroid Stim Hormone (TSH) 1.32 uIU/mL (0.358-3.74); Triglycerides 120 mg/dL; Very Low Density Lipoprotein 24 mg/dL (5-40)
[2022-04-26 08:38] LABS: PTHIN 102.4 pg/mL (18.4-80.1)
== END | disposition home or self-care (01) ==
LOC: MTLAB 12:52
PROVIDERS: PCP Family Medicine; Referring Provider Family Medicine; Visit Provider Family Medicine
DX: E78.5 Hyperlipidemia, unspecified (principal); N18.31 Chronic kidney disease, stage 3a; E03.9 Hypothyroidism, unspecified; T46.2X1A Poisoning by other antidysrhythmic drugs, accidental (unintentional), initial encounter; Z51.81 Encounter for therapeutic drug level monitoring
CPT/HCPCS: 36415; 80053; 80061; 82306; 83970; 84443; 85025

== ENCOUNTER → 2022-04-26 | Outpatient (CLI) | payer MEDICARE, SELFPAY ==
--- NOTE | 2022-04-26 13:25 | RAD_ITS ---
STUDY: X-RAY CHEST REASON FOR EXAM: Female, 86 years old. CHRONIC COUGH TECHNIQUE: PA and lateral views of the chest. COMPARISON: 03/01/2019 FINDINGS: There is hyperinflation of the lungs consistent with chronic obstructive lung disease (COPD). There is no demonstrated pleural abnormality. Normal size heart. Normal mediastinum and scooter. Normal visualized pulmonary arteries. Normal visualized aortic arch and descending thoracic aorta. Normal visualized thoracic spine. Normal visualized ribs, clavicles, and shoulders. There is no demonstrated abnormality of the visualized soft tissue structures of the upper abdomen. RAD/Chest PA and Lateral IMPRESSION: Emphysema without pneumonia or atelectasis. Electronically Signed: Kun Moreno MD at 17:21 EDT ,
== END | disposition home or self-care (01) ==
LOC: RAD 13:22
PROVIDERS: PCP Family Medicine; Referring Provider Family Medicine; Visit Provider Family Medicine
DX: R05.3 Chronic cough (principal)
CPT/HCPCS: 71046

== ENCOUNTER → 2022-05-18 | Outpatient (CLI) | payer MEDICARE, SELFPAY | END | disposition home or self-care (01) | LOC: BFHLAB 14:44 → LABSPEC 14:44 | PROVIDERS: PCP Family Medicine; Visit Provider Family Medicine | DX: Z20.828 Contact with and (suspected) exposure to other viral communicable diseases (principal) | CPT/HCPCS: 87635; U0003; U0005 ==

== ENCOUNTER → 2022-05-26 | Outpatient (CLI) | payer MEDICARE, SELFPAY ==
--- NOTE | 2022-05-26 16:43 | RAD_ITS ---
STUDY: X-RAY CHEST REASON FOR EXAM: Female, 87 years old. COUGH TECHNIQUE: PA and lateral views of the chest. COMPARISON: 04/26/2022 FINDINGS: There is hyperinflation of the lungs consistent with chronic obstructive lung disease (COPD). There is no demonstrated pleural abnormality. Normal size heart. Normal mediastinum and scooter. Normal visualized pulmonary arteries. Normal visualized aortic arch and descending thoracic aorta. Normal visualized thoracic spine. Normal visualized ribs, clavicles, and shoulders. There is no demonstrated abnormality of the visualized soft tissue structures of the upper abdomen. RAD/Chest PA and Lateral IMPRESSION: Emphysema without pneumonia or atelectasis. Electronically Signed: Kun Moreno MD at 0:17 EDT ,
== END | disposition home or self-care (01) ==
LOC: MTRAD 16:42
PROVIDERS: PCP Family Medicine; Referring Provider Family Medicine; Visit Provider Family Medicine
DX: R05.9 Cough, unspecified (principal)
CPT/HCPCS: 71046

== ENCOUNTER → 2022-05-28 | Outpatient (CLI) | payer MEDICARE, SELFPAY | END | disposition home or self-care (01) | LOC: BFHLAB 10:31 → LABSPEC 10:31 | PROVIDERS: PCP Family Medicine; Visit Provider Family Medicine | DX: R05.9 Cough, unspecified (principal) | CPT/HCPCS: 87070; 87077; 87205 ==

== ENCOUNTER → 2022-07-01 | Outpatient (CLI) | payer MEDICARE, SELFPAY ==
[2022-07-01 15:02] LABS: Erythrocyte Sedimentation Rate 21 mm/hr (0-30)
[2022-07-01 15:03] LABS: Absolute Lymphocyte Count 1.92 X10^3/uL (0.83-4.51); Absolute Neutrophil Count 5.1 X10^3/uL (2.0-7.7); Basophil# 0.11 X10^3/uL; Basophil% 1.3 % (0-1); Eosinophil# 0.56 X10^3/uL; Eosinophils% 6.6 % (0-5); Hematocrit 35.3 % (37-47); Hemoglobin 11.2 g/dL (12.0-15.0); Lymphocyte # 1.92 X10^3/ul (0.83-4.51); Lymphocyte % 22.7 % (19-41); Mean Corp Hgb Conc 31.7 g/dL (32-36); Mean Corpuscular Volume 100.9 fL (81-99); Mean Platelet Vol. 9.9 fl (6.2-12.0); Monocyte# 0.75 X10^3/uL; Monocyte% 8.9 % (0-10); NRBC Flagged by Analyzer 0 % (0-5); Neutrophil # 5.08 X10^3/uL (2.7-7.7); Platelet Count 329 K/mm3 (150-450); RBC Distribution Width CV 14.3 % (11.6-14.6); RBC Distribution Width SD 52.4 fl (35.1-43.9); White Blood Count 8.5 K/mm3 (4.4-11.0)
[2022-07-01 15:23] LABS: ALB/GLOB Ratio 0.8 RATIO (0.9-2.4); AST(SGOT) 18 U/L (15-37); Alanine Aminotransfer ALT/SGPT 14 U/L (13-56); Albumin, Serum 2.9 g/dL (3.2-5.0); Alkaline Phosphatase 101 U/L (45-117); Anion Gap 8 (5-15); BUN 14 mg/dL (7-18); BUN/Creat Ratio 10.5 RATIO (10-20); Calcium,Total 9.5 mg/dL (8.5-10.1); Chloride 108 mmol/L (98-107); Creatinine, Serum 1.33 mg/dL (0.55-1.02); EST Glomerular Filtration Rate 40 mL/min (>60); Est Glom Filt Rate - Afr Amer 49 mL/min (>60); Globulin 3.7 g/dL (2.2-4.2); Glucose 91 mg/dL (74-106); Potassium 3.5 mmol/L (3.5-5.1); Protein, Total 6.6 g/dL (6.4-8.2); Sodium Level 143 mmol/L (136-145)
== END | disposition home or self-care (01) ==
LOC: MTLAB 12:32
PROVIDERS: PCP Family Medicine; Referring Provider Internal Medicine Rheumatology; Visit Provider Internal Medicine Rheumatology
DX: M06.4 Inflammatory polyarthropathy (principal); Z79.899 Other long term (current) drug therapy
CPT/HCPCS: 36415; 80053; 85025; 85652; 86140

== ENCOUNTER → 2022-07-29 | Outpatient (CLI) | payer MEDICARE, SELFPAY ==
[2022-07-29 13:25] LABS: BNP,B-Type NATRIURETIC PEPTIDE 420.3 pg/mL (0-100)
== END | disposition home or self-care (01) ==
LOC: LAB 12:10
PROVIDERS: PCP Family Medicine; Visit Provider Physician Assistant Medical
DX: I50.32 Chronic diastolic (congestive) heart failure (principal)
CPT/HCPCS: 36415; 83880

== ENCOUNTER → 2022-08-12 | Outpatient (CLI) | payer MEDICARE, SELFPAY ==
[2022-08-12 12:02] LABS: Anion Gap 3 (5-15); BUN 33 mg/dL (7-18); BUN/Creat Ratio 24.4 RATIO (10-20); Calcium,Total 9.7 mg/dL (8.5-10.1); Chloride 109 mmol/L (98-107); Creatinine, Serum 1.35 mg/dL (0.55-1.02); EST Glomerular Filtration Rate 40 mL/min (>60); Est Glom Filt Rate - Afr Amer 48 mL/min (>60); Glucose 90 mg/dL (74-106); Potassium 4.3 mmol/L (3.5-5.1); Sodium Level 142 mmol/L (136-145)
== END | disposition home or self-care (01) ==
PROVIDERS: PCP Family Medicine; Referring Provider Physician Assistant Medical; Visit Provider Physician Assistant Medical
DX: I50.32 Chronic diastolic (congestive) heart failure (principal); I48.0 Paroxysmal atrial fibrillation; R60.9 Edema, unspecified; R53.83 Other fatigue
CPT/HCPCS: 36415; 80048; 93225; 93226

== ENCOUNTER → 2022-08-19 | Outpatient (CLI) | payer MEDICARE, SELFPAY ==
--- NOTE | 2022-08-19 13:01 | ECHOD_ITS ---
Reason For Study: AFIB Procedure This was a 2D Doppler, Color Flow transthoracic echocardiogram. Exam performed in department. Left Ventricle Normal LV size. Left ventricular systolic function is normal. The estimated ejection fraction is 55 %. Stage 2 diastolic dysfunction. No regional wall motion abnormalities noted. Right Ventricle Normal RV size. Mild global right ventricular systolic dysfunction. Atria Normal left atrium. Normal right atrium. Mitral Valve Normal mitral valve. Tricuspid Valve Normal tricuspid valve. Mild (1+) tricuspid valve insufficiency. Pulmonary artery systolic pressure is 49 mmHg. Aortic Valve Normal aortic valve. Trisinus/trileaflet aortic valve. Pulmonic Valve Normal pulmonic valve. Great Vessels Normal aortic root. The pulmonary artery is normal size. Normal inferior vena cava. Pericardium/Pleural No pericardial effusion. MMode/2D Measurements & Calculations LVIDd: 4.6 cm IVSd: 0.70 cm Ao root diam: 3.1 cm LVIDs: 2.9 cm LVPWd: 0.77 cm RVDd: 2.9 cm FS: 36.1 % LAV(MOD-sp4): 58.4 ml LVAd ap4: 18.4 cm2 SV(MOD-sp4): 24.2 ml LVLd ap4: 6.1 cm EDV(MOD-sp4): 47.2 ml EDV(sp4-el): 47.3 ml LVAs ap4: 12.2 cm2 LVLs ap4: 5.4 cm ESV(MOD-sp4): 23.0 ml ESV(sp4-el): 23.4 ml EF(MOD-sp4): 51.3 % EF(sp4-el): 50.4 % SV(sp4-el): 23.8 ml LA A4 area: 21.7 cm2 LA dimension(2D): 3.8 cm RA A4 area: 18.9 cm2 Time Measurements MV dec time: 0.09 sec Doppler Measurements & Calculations MV E max magdaleno: 98.5 cm/sec Lat Peak E' Magdaleno: 14.8 cm/sec Med Peak E' Magdaleno: 8.2 cm/sec MV A max magdaleno: 55.1 cm/sec E/E' lat: 6.7 E/E' med: 11.9 MV E/A: 1.8 MV V2 max: 126.1 cm/sec Ao V2 max: 91.6 cm/sec MV max P.4 mmHg MV dec slope: 1080 cm/sec2 Ao max P.4 mmHg MV V2 mean: 62.4 cm/sec Ao V2 mean: 66.9 cm/sec MV mean P.9 mmHg Ao mean P.0 mmHg MV V2 VTI: 30.1 cm Ao V2 VTI: 23.3 cm AV (velocity ratio): 0.71 LV V1 max: 74.9 cm/sec MR max magdaleno: 590.7 cm/sec PA V2 max: 49.8 cm/sec LV V1 max P.3 mmHg MR max P.6 mmHg PA V2 mean: 38.6 cm/sec LV V1 mean P.2 mmHg LV V1 mean: 51.0 cm/sec LV V1 VTI: 16.6 cm TR max magdaleno: 336.6 cm/sec TR max P.3 mmHg ECHO/Echo Complete Interpretation Summary Normal LV size. Left ventricular systolic function is normal. The estimated ejection fraction is 55 %. Stage 2 diastolic dysfunction. Pulmonary artery systolic pressure is 49 mmHg. Ordering Physician: Mikki Arechiga Referring Physician: Diego Farmer Performed By: Mirian Marquez RCS
== END | disposition home or self-care (01) ==
PROVIDERS: PCP Family Medicine; Visit Provider Physician Assistant Medical
DX: I48.0 Paroxysmal atrial fibrillation (principal)
CPT/HCPCS: 93306

== ENCOUNTER 2022-09-03 10:17 | Day surgery (SDC) | payer MEDICARE, SELFPAY ==
--- NOTE | 2022-08-26 16:53 | PCM.HP.BLA ---
History and Physical Gianna Wright is an 87 year old female with a history of diastolic heart failure, paroxysmal atrial fibrillation and hyperlipidemia. At her last OV she had concerns over increase in edema, fatigue and SOB. She was noted to be in Afib. Echocardiogram demonstrated Normal LV size. Left ventricular systolic function is normal. The estimated ejection fraction is 55 %. Stage 2 diastolic dysfunction. Pulmonary artery systolic pressure is 49 mmHg. She would like to proceed with a DCCV. She has been anticoagulated. PFSH Medical History?(Updated 07/29/22 @ 11:37 by Mikki Arechiga PA, PA) Allergic rhinitis Arthritis Bronchitis Cataract Cervical muscle strain Chronic cough Chronic diastolic (congestive) heart failure History of lobular carcinoma of breast Hyperlipemia Paroxysmal atrial fibrillation Paroxysmal supraventricular tachycardia PND (post-nasal drip) Surgical History? H/O: hysterectomy History of arthroscopy of right shoulder History of total knee replacement Family History? Brother A-fibSister A-fib Hypertension Hyperlipemia Social History? how long ago did patient quit smoking:? 47 second hand exposure:? No alcohol intake:? current alcohol intake frequency: a few times a week substance use type:? does not use caffeine:? No what type of physical activity do you participate in:? none ROS Const Const: Positive for fatigue; Negative for weakness, headache(s), frequent falls, excessive sweating, weight gain or weight loss Eyes Eyes: Negative for blind spots, loss of peripheral vision, transient loss of vision, blurry vision, change in vision or double vision ENT ENT: Negative for headache(s), dizziness, tinnitus, Nosebleed/epistaxis or balance problems Cardio Chest Pain: No Palpitations: No Edema: Bilateral Muscle aches with walking: None Resp Respiratory: Negative for SOB with activity, SOB at rest, SOB orthopnea\SOB lying down or Cough GI GI: Negative nausea, vomiting, heartburn, bloating, vomiting blood/hematemesis, bright, red blood in stools or black,tarry stools : Negative for hematuria Musc Musc: Negative for muscle aches/ myalgia, muscle weakness, joint pain or balance problems Skin Skin: Negative rash or wounds Neuro Neuro: Negative for dizziness, lightheadedness, near syncope, syncope, orthostatic symptoms, frequent falls, headache(s), weakness, confusion, memory loss, restless legs, blurry vision or double vision Saman Hematologic/Lymphatic: Negative for easy bleeding or easy bruising Endo Endo: Positive for fatigue; Negative for cold intolerance, heat intolerance or excessive sweating Psych Psych: Negative for anxiety or depression Allergy Allergy/Immunology: Negative for rash Cardiology Exam Const Appearance: cooperative, healthy appearing, comfortable, no acute distress and well developed Orientation: alert, awake and oriented x3 Head Head: normal to inspection Ears: hearing grossly normal bilaterally Nose: external nose normal Face and Sinus: face symmetric Mouth: oral mucosae normal, lip normal and moist mucous membranes Eyes General: appearance normal, both eyes and all related structures Eyelids: eyelids normal Conjunctivae: conjunctivae normal Pupils: PERRL EOM: EOM intact bilaterally Neck Neck: normal visual inspection and trachea midline; Negative no JVD Carotids: Negative bruit Chest Chest inspection: normal inspection of the chest Auscultation: Bilateral: Clear to Auscultation Cardio Palpation: normal PMI Rate: regular rate Rhythm: regular rhythm Heart sounds: S1 normal and S2 normal; Negative rub, gallop or murmur GI GI: soft, no hepatosplenomegaly and bowel sounds present Neuro General: patient alert, patient awake, patient oriented x3 and CN's II-XI intact bilaterally Extremities Pulses: Normal: Right Posterior Tibial Pulse, Left Posterior Tibial Pulse, Right Radial Pulse and Left Radial Pulse Lower Extremity Edema: +2: Bilateral Psych Psychological: normal affect Assessment & Plan Assessment/Plan (1) Persistent atrial fibrillation: (2) Chronic diastolic (congestive) heart failure: PLAN: Plan Pt will undergo a DCCV and follow up in the office accordingly after.
[2022-09-03 10:40] VITALS: BMI 27.1
--- NOTE | 2022-09-03 11:46 | PCM.OP.BLANK ---
Operative Report Date of Procedure: 09/03/22 Direct-current cardioversion. 87-year-old lady with a history of symptomatic atrial fibrillation and atrial flutter. Patient has been on anticoagulation for at least 3 weeks uninterrupted. The patient was seen by Dr. Rivera of the critical care division. Informed consent was obtained. Anterior-posterior pads were applied. The patient was then administered 60 mg of intravenous propofol. After that 200 J of synchronized DC cardioversion energy were applied with prompt reversal to sinus rhythm. Patient tolerated the procedure well. Conclusion: Successful DC cardioversion from atrial fibrillation to sinus rhythm. Follow-up as per office protocol.
--- NOTE | 2022-09-03 13:33 | PCM.OP.PRO ---
Assessment & Plan Assessment/Plan (1) Persistent atrial fibrillation: (2) Chronic diastolic (congestive) heart failure: (3) Allergic rhinitis: QUALIFIERS: Allergic rhinitis trigger: pollen Allergic rhinitis seasonality: seasonal Qualified Code(s): J30.1 - Allergic rhinitis due to pollen Procedure Report Date of Procedure: 09/03/22 CONSCIOUS SEDATION REPORT BRIEF HISTORY OF PRESENT ILLNESS: The patient is an 87-year-old female, well-known to me from the outpatient office who presented to [facility] for an elective outpatient cardioversion due to underlying atrial fibrillation. The patient reports no PO intake since midnight, but is currently therapeutic on anticoagulation. The patient does not have a history of MARTIN, asthma or COPD. The patient denies any recent constitutional symptoms such as fevers, chills, nausea or vomiting. The patient denies previous applicable anesthetic complications. Patient's last known ejection fraction was 55%. PHYSICAL EXAMINATION: VITAL SIGNS: Reviewed and were acceptable. GENERAL: The patient is a female, in no apparent distress, speaking in full sentences. HEENT: Normocephalic, atraumatic. Mucous membranes are moist and pink. Good mouth opening noted. Trachea is midline. Good neck mobility. MP II CHEST: S1, S2 irregularly irregular. No murmurs, rubs or gallops were noted. LUNGS: Clear to auscultation bilaterally without appreciable wheezes, rales or rhonchi. ABDOMEN: Soft, nontender, nondistended. Positive bowel sounds. EXTREMITIES: There is no clubbing, cyanosis or edema. ASA Class: II DESCRIPTION OF PROCEDURE: After confirmation of informed consent, the patient's anesthesia plan was reviewed in detail. Propofol was chosen. Risks and benefits were reviewed and the patient agreed to proceed. At 11:40 AM, the patient was given 40 mg of propofol. The patient required a total of 60 mg of propofol throughout the procedure to achieve appropriate sedation. The patient achieved an appropriate level of sedation and received 1 attempt synchronized cardioversion, at [address] Clark at the bedside. This was successful in achieving normal sinus rhythm. The patient was monitored until 11:56 AM, at which time the patient reached their baseline mental status and function. The patient tolerated the procedure well. COMPLICATIONS: None ESTIMATED BLOOD LOSS: None RECOMMENDATIONS: Okay to recover in usual fashion. Procedures Pulmonary 9xxxx: [id number] Con Sedation
== END 2022-09-03 12:45 | disposition home or self-care (01) ==
LOC: CLSP 10:19
PROVIDERS: PCP Family Medicine; Visit Provider Internal Medicine Cardiovascular Disease
DX: I48.19 Other persistent atrial fibrillation (principal); I50.32 Chronic diastolic (congestive) heart failure; J30.1 Allergic rhinitis due to pollen; Z87.891 Personal history of nicotine dependence; Z79.899 Other long term (current) drug therapy
CPT/HCPCS: 92960; 93005; J7040

== ENCOUNTER → 2022-09-27 | Outpatient (CLI) | payer MEDICARE, SELFPAY ==
[2022-10-04 13:07] LABS: Clam <0.10 kU/L (Class 0); Codfish <0.10 kU/L (Class 0); Corn <0.10 kU/L (Class 0); Egg, White <0.10 kU/L (Class 0); Milk (Cow) <0.10 kU/L (Class 0); Peanut <0.10 kU/L (Class 0); SCALLOP <0.10 kU/L (Class 0); SESAME SEED <0.10 kU/L (Class 0); Shrimp <0.10 kU/L (Class 0); Soybean <0.10 kU/L (Class 0); Walnut, (Food) <0.10 kU/L (Class 0); Wheat <0.10 kU/L (Class 0)
[2022-10-04 16:35] LABS: Orange <0.10 kU/L (Class 0)
== END | disposition home or self-care (01) ==
LOC: LAB 12:01
PROVIDERS: PCP Family Medicine; Referring Provider Otolaryngology Otolaryngology/Facial Plastic Surgery; Visit Provider Otolaryngology Otolaryngology/Facial Plastic Surgery
DX: T78.40XA Allergy, unspecified, initial encounter (principal)
CPT/HCPCS: 36415; 86003

== ENCOUNTER → 2022-10-15 | Outpatient (CLI) | payer MEDICARE, SELFPAY ==
[2022-10-15 13:01] LABS: Hematocrit 41.7 % (37-47); Hemoglobin 13.1 g/dL (12.0-15.0); Mean Corp Hgb Conc 31.4 g/dL (32-36); Mean Corpuscular Hgb 30.7 pg (27.0-32.0); Mean Corpuscular Volume 97.7 fL (81-99); Mean Platelet Vol. 10.1 fl (6.2-12.0); Platelet Count 252 K/mm3 (150-450); RBC Distribution Width CV 15.2 % (11.6-14.6); RBC Distribution Width SD 54.9 fl (35.1-43.9); Red Blood Count 4.27 M/mm3 (4.2-5.4); White Blood Count 7.5 K/mm3 (4.4-11.0)
[2022-10-15 13:31] LABS: Anion Gap 8 (5-15); BUN 27 mg/dL (7-18); BUN/Creat Ratio 17.6 RATIO (10-20); Calcium,Total 9.6 mg/dL (8.5-10.1); Chloride 103 mmol/L (98-107); Creatinine, Serum 1.53 mg/dL (0.55-1.02); EST Glomerular Filtration Rate 34 mL/min (>60); Est Glom Filt Rate - Afr Amer 41 mL/min (>60); Glucose 56 mg/dL (74-106); Magnesium 1.6 mg/dL (1.6-2.6); Sodium Level 143 mmol/L (136-145)
== END | disposition home or self-care (01) ==
LOC: LAB 12:19
PROVIDERS: PCP Family Medicine; Referring Provider Nurse Practitioner Gerontology; Visit Provider Nurse Practitioner Gerontology
DX: I48.19 Other persistent atrial fibrillation (principal); R53.83 Other fatigue; Z79.01 Long term (current) use of anticoagulants
CPT/HCPCS: 36415; 80048; 83735; 85027

== ENCOUNTER 2022-12-29 19:15 | Observation (INO) | payer MEDICARE, SELFPAY ==
[2022-12-29 19:17] VITALS: BP 132/66; PULSE 58; RESP 18; TEMP 36.6; O2SAT 100; BMI 28.3
--- NOTE | 2022-12-29 20:13 | EKG12_ITS ---
Test Reason : SOB Blood Pressure : / mmHG Vent. Rate : 058 BPM Atrial Rate : 058 BPM P-R Int : 154 ms QRS Dur : 094 ms QT Int : 444 ms P-R-T Axes : 051 014 023 degrees QTc Int : 435 ms Sinus bradycardia Nonspecific ST and T wave abnormality Abnormal ECG Confirmed by MEGHNA FRAZIER, MELINDA ([id number]), proposal editor DOMONIQUE RUBI ([id number]) on 12/31/2022 9:29:06 AM Referred By: Confirmed By:MELINDA COFFMAN MD
--- NOTE | 2022-12-29 20:15 | EX.ED.DYSGE1 ---
HPI History of Present Illness Chief Complaint: General Illness Narrative Narrative: 87-year-old female with history of chronic cough recently treated for bronchitis x3 weeks. She states she had not had any lab work or images done. She states that she was on 2 rounds of antibiotics but both of them are doxycycline. She thought she was recovering but still has a cough. Today she felt lightheaded and thought she was going to faint. She denies chest pain or shortness of breath. She has no dyspnea on exertion. She has not had recent fever or chills. No body aches. No urinary symptoms or vaginal complaints. She is eating and drinking normally although she does complain of some nausea. She does not have any constipation or diarrhea. Patient anticoagulated on Eliquis for history of A-fib. Denies black or bloody stools. [facility] Medical History Allergic rhinitis Arthritis Bronchitis Cataract Cervical muscle strain Chronic cough Chronic diastolic (congestive) heart failure History of lobular carcinoma of breast Hyperlipemia Paroxysmal atrial fibrillation Paroxysmal supraventricular tachycardia PND (post-nasal drip) Home Medications fluticasone propionate 50 mcg/actuation nasal spray,suspension (Flonase Allergy Relief) 2 spry intranasal ONCE allergies 10/11/17 [History Last Taken 02/28/19] sodium chloride 0.65 % nasal spray aerosol (Saline Mist) 1 spray intranasal Q1-4H PRN dry nose 03/10/18 [History Last Taken 02/28/19] biotin 5,000 mcg sublingual tablet 5,000 mcg sublingual DAILY 07/02/20 [History Last Taken Unknown] levothyroxine 50 mcg tablet 50 mcg PO DAILY 07/02/20 [History Last Taken 09/03/22] Lactobacillus acidophilus 1 billion cell capsule 1,000 mmu cells PO DAILY #30 caps 08/28/20 [Rx Last Taken Unknown] PEP device #1 ea 10/16/20 [Rx Last Taken Unknown] azelastine 205.5 mcg (0.15 %) nasal spray 1 spray intranasal BID #30 mL 09/02/21 [Rx Last Taken Unknown] ascorbate calcium (vitamin C) 500 mg tablet 500 mg PO DAILY 03/30/22 [History Last Taken Unknown] diclofenac sodium 1 % topical gel 2 g topical ONCE 03/30/22 [History Last Taken Unknown] Nebulizer device #1 ea 06/18/22 [Rx Last Taken Unknown] ipratropium 0.5 mg-albuterol 3 mg (2.5 mg base)/3 mL nebulization soln 3 ml inhalation Q4H PRN PRN SOB &/OR WHEEZING #180 mL 06/18/22 [Rx Last Taken Unknown] amiodarone 200 mg tablet 100 mg PO DAILY #45 tabs 09/13/22 [Rx Last Taken Unknown] apixaban 5 mg tablet 5 mg PO BID #180 tabs 09/13/22 [Rx Last Taken Unknown] atorvastatin 20 mg tablet 20 mg PO QHS #90 tabs 09/13/22 [Rx Last Taken Unknown] budesonide-formoterol HFA 160 mcg-4.5 mcg/actuation aerosol inhaler (Symbicort) 2 puff inhalation BID #3 ea 09/13/22 [Rx Last Taken Unknown] montelukast 10 mg tablet (Singulair) 10 mg PO QHS #90 tabs 09/13/22 [Rx Last Taken Unknown] cholecalciferol (vitamin D3) 50 mcg (2,000 unit) tablet 50 mcg PO DAILY 09/17/22 [History Last Taken Unknown] metoprolol succinate 25 mg tablet,extended release 24 hr 12.5 mg PO DAILY #30 tabs 10/28/22 [Rx Last Taken Unknown] spironolactone 25 mg tablet 25 mg PO DAILY #30 tabs 10/28/22 [Rx Last Taken Unknown] Allergy/AdvReac Type Severity Reaction Status Date / Time potassium chloride Allergy Intermediate Blue Verified 12/29/22 19:16 Capsules = Rash metoprolol AdvReac Intermediate Bradycardia Verified 12/29/22 19:16 fluoxetine AdvReac Other Verified 12/29/22 19:16 Family History Brother A-fib Sister A-fib Hypertension Hyperlipemia Surgical History H/O: hysterectomy History of arthroscopy of right shoulder History of cardioversion (09/03/22) History of total knee replacement Social History Smoking Status: Former smoker quit date: 08/15/78 how long ago did patient quit smokin second hand exposure: No alcohol intake: current alcohol intake frequency: a few times a week substance use type: does not use caffeine: No what type of physical activity do you participate in: none EXAM Physical Exam Const Vital Signs: 12/29/22 19:17 12/29/22 19:22 12/29/22 20:57 Temperature 97.9 F Temperature Source Temporal Pulse Rate 58 L Pulse Rate [Lying] 65 Pulse Rate [Standing (for 1 minute prior to obtaining)] 68 Respiratory Rate 18 Respiratory Effort Normal Non-Labored Respiratory Pattern Normal Blood Pressure 132/66 H Blood Pressure [Lying] 149/54 H Blood Pressure [Sitting (for 1 minute prior to obtaining)] 159/59 H Blood Pressure [Standing (for 1 minute prior to obtaining)] 142/129 H Blood Pressure Mean 88 Blood Pressure Mean [Lying] 85 Blood Pressure Mean [Sitting (for 1 minute prior to obtaining)] 92 Blood Pressure Mean [Standing (for 1 minute prior to obtaining)] 133 Pulse Ox 100 Oxygen Delivery Method Room Air 12/29/22 23:00 Temperature Temperature Source Pulse Rate 57 L Pulse Rate [Lying] Pulse Rate [Standing (for 1 minute prior to obtaining)] Respiratory Rate 16 Respiratory Effort Respiratory Pattern Blood Pressure 144/50 H Blood Pressure [Lying] Blood Pressure [Sitting (for 1 minute prior to obtaining)] Blood Pressure [Standing (for 1 minute prior to obtaining)] Blood Pressure Mean 81 Blood Pressure Mean [Lying] Blood Pressure Mean [Sitting (for 1 minute prior to obtaining)] Blood Pressure Mean [Standing (for 1 minute prior to obtaining)] Pulse Ox 96 Oxygen Delivery Method Room Air Positive well nourished General Appearance ED: NAD; Negative for pallor HEENT Reports moist mucous membranes Eyes EOMs intact bilaterally General Eye ED: Negative for pale conjunctiva Chest Wall inspection of chest normal Resp normal respiratory effort and clear to auscultation bilaterally Auscultation: Negative for rales, rhonchi or wheezes Cardio regular rate and regular rhythm GI normal to inspection, nondistended, normoactive bowel sounds Neuro oriented x3 and CN's II-XII intact bilaterally Sensorium / Orientation: alert Motor Exam: strength 5/5 throughout Psych mental status grossly normal Skin no rashes or lesions noted and no wounds General Skin Exam: Negative for jaundice or pallor MDM MDM MDM Narrative Medical decision making narrative: Patient presenting with after 3 weeks of bronchitis. She is having lightheadedness today. She is also experiencing nausea. Differential includes pneumonia, bronchitis, CHF, ACS, orthostatic hypotension, electrolyte abnormalities, dehydration, anemia, GI bleed. Patient anticoagulated on Eliquis so PE is unlikely. CBC to assess white blood cell count, hemoglobin, platelets, differential. CMP to assess liver function, renal function, glucose, anion gap, electrolytes. High-sensitivity troponin and EKG obtained to rule out cardiac abnormality. BNP was also added since she has a history of CHF. Chest x-ray obtained to rule out pneumonia or CHF. Urinalysis will be obtained to assess for UTI. Orthostatics are negative. CBC shows a normal white blood cell count of 6.6. Patient's hemoglobin is lower at 10.9 and it was in October. It is dropped 2.2 points. Platelets are normal. Creatinine is about where it was last time at 1.5 however BUN is like more elevated. BNP is elevated at 253 however chest x-ray on my interpretation shows no acute cardiopulmonary process. And the radiologist interpretation agrees. EKG sinus rhythm at 58 bpm without significant interval change from previous EKG. Occult stool came back negative. Urinalysis negative for infection. Given the anemia I did speak with Dr. Max regarding the patient. He recommended Protonix 40 mg twice daily and admission for endoscopy. This was discussed with the patient.Will discuss with hospitalist for admission. Impression: 1. Anemia 2. Upper GI bleed 3. Near syncope Lab Data Labs: Laboratory Results - last 24 hr 12/29/22 12/29/22 12/29/22 20:25 20:25 20:25 WBC 6.6 RBC 3.41 L Hgb 10.9 L Hct 33.5 L MCV 98.2 MCH 32.0 MCHC 32.5 RDW Std Deviation 52.8 H RDW Coeff of Sheron 14.5 Plt Count 178 MPV 10.1 Immature Gran % (Auto) 0.500 Neut % (Auto) 51.1 Lymph % (Auto) 35.4 [place] % (Auto) 8.6 Eos % (Auto) 2.9 Baso % (Auto) 1.5 H Absolute Neuts (auto) 3.4 Absolute Lymphs (auto) 2.33 Nucleated RBC % 0 Sodium 142 Potassium 4.0 Chloride 108 H Carbon Dioxide 27.0 Anion Gap 7 BUN 38 H Creatinine 1.50 H Estim Creat Clear Calc 20.69 Est GFR (MDRD) Af Amer 42 L Est GFR (MDRD) Non-Af 35 L BUN/Creatinine Ratio 25.3 H Glucose 104 Calcium 8.8 Total Bilirubin 0.50 AST 26 ALT 21 Alkaline Phosphatase 79 Troponin I High Sens 25 B-Natriuretic Peptide 253.5 H Total Protein 5.7 L Albumin 2.7 L Globulin 3.0 Albumin/Globulin Ratio 0.9 Urine Color Urine Clarity Urine pH Ur Specific Alexander Urine Protein Urine Glucose (UA) Urine Ketones Urine Occult Blood Urine Nitrite Urine Bilirubin Urine Urobilinogen Ur Leukocyte Esterase Urine RBC Urine WBC Ur Squamous Epith Cells Urine Bacteria Urine Mucus 12/29/22 21:05 WBC RBC Hgb Hct MCV MCH MCHC RDW Std Deviation RDW Coeff of Sheron Plt Count MPV Immature Gran % (Auto) Neut % (Auto) Lymph % (Auto) [place] % (Auto) Eos % (Auto) Baso % (Auto) Absolute Neuts (auto) Absolute Lymphs (auto) Nucleated RBC % Sodium Potassium Chloride Carbon Dioxide Anion Gap BUN Creatinine Estim Creat Clear Calc Est GFR (MDRD) Af Amer Est GFR (MDRD) Non-Af BUN/Creatinine Ratio Glucose Calcium Total Bilirubin AST ALT Alkaline Phosphatase Troponin I High Sens B-Natriuretic Peptide Total Protein Albumin Globulin Albumin/Globulin Ratio Urine Color Yellow Urine Clarity Clear Urine pH 6.0 Ur Specific Alexander 1.010 Urine Protein Negative Urine Glucose (UA) Normal Urine Ketones Negative Urine Occult Blood Negative Urine Nitrite Negative Urine Bilirubin Negative Urine Urobilinogen Normal Ur Leukocyte Esterase 25 H Urine RBC 0 SEEN Urine WBC 0 SEEN Ur Squamous Epith Cells 0 SEEN Urine Bacteria 0 SEEN Urine Mucus 0 SEEN Radiography Diagnostic Testing: Clinical Impression(s) from Imaging Studies Chest X-Ray 12/29/22 20:32 IMPRESSION: There are findings consistent with COPD. There is no evidence of acute chest disease. Electronically Signed: Fabian Aguillon MD at 20:51 EDT , Discharge Plan Triage Chief Complaint: General Illness ED Provider: Alexis Rivera Dx/Rx/DC Orders Prescriptions: No Action sodium chloride [Saline Mist] 0.65 % aerosol,spray 1 spray INTRANASAL Q1-4H PRN (Reason: dry nose) fluticasone propionate [Flonase Allergy Relief] 50 mcg/actuation spray,suspension 2 spry INTRANASAL ONCE levothyroxine 50 mcg tablet 50 mcg PO DAILY biotin 5,000 mcg tablet, sublingual 5,000 mcg SUBLINGUAL DAILY (DME) PEP device See Rx Instructions .ROUTE .MEDSUPPLY Qty: 1 0RF Rx Instructions: with training Lactobacillus acidophilus 1 billion cell capsule 1,000 mmu cells PO DAILY Qty: 30 0RF Rx Instructions: administer with a meal azelastine 205.5 mcg (0.15 %) spray,non-aerosol 1 spray INTRANASAL BID Qty: 30 11RF Rx Instructions: administer into each nostril ascorbate calcium (vitamin C) 500 mg tablet 500 mg PO DAILY diclofenac sodium 1 % gel 2 g topical ONCE Rx Instructions: apply to single elbow, wrist or hand; for hand includes palm/fingers/back of hand cholecalciferol (vitamin D3) 50 mcg (2,000 unit) tablet 50 mcg PO DAILY (DME) Nebulizer device See Rx Instructions .ROUTE .MEDSUPPLY Qty: 1 0RF Rx Instructions: As directed ipratropium-albuterol 0.5 mg-3 mg(2.5 mg base)/3 mL solution for nebulization 3 ml inhalation Q4H PRN PRN (Reason: SOB &/OR WHEEZING) Qty: 180 6RF budesonide-formoterol [Symbicort] 160-4.5 mcg/actuation HFA aerosol inhaler 2 puff inhalation BID Qty: 3 3RF Rx Instructions: administer with spacer, rinse mouth after each use montelukast [Singulair] 10 mg tablet 10 mg PO QHS Qty: 90 3RF Rx Instructions: allergies amiodarone 200 mg tablet 100 mg PO DAILY Qty: 45 3RF apixaban 5 mg tablet 5 mg PO BID Qty: 180 3RF atorvastatin 20 mg tablet 20 mg PO QHS Qty: 90 3RF Rx Instructions: cholesterol medication metoprolol succinate 25 mg tablet extended release 24 hr 12.5 mg PO DAILY Qty: 30 11RF spironolactone 25 mg tablet 25 mg PO DAILY Qty: 30 11RF Primary Care Provider: Digeo Farmer Referrals: Diego Farmer DO [Primary Care Provider] -
--- NOTE | 2022-12-29 20:32 | RAD_ITS ---
STUDY: X-RAY CHEST REASON FOR EXAM: Female, 87 years old. cough TECHNIQUE: Single AP portable view of the chest. COMPARISON: 05/26/2022. FINDINGS: There is hyperinflation of the lungs consistent with chronic obstructive lung disease (COPD). No infiltrates or effusions. There is no demonstrated pleural abnormality. Normal size heart. Normal mediastinum and scooter. Normal visualized pulmonary arteries. Normal visualized aortic arch and descending thoracic aorta. Normal visualized thoracic spine. Normal visualized ribs, clavicles, and shoulders. There is no demonstrated abnormality of the visualized soft tissue structures of the upper abdomen. RAD/Chest 1 View (Portable) IMPRESSION: There are findings consistent with COPD. There is no evidence of acute chest disease. Electronically Signed: Fabian Aguillon MD at 20:51 EDT ,
[2022-12-29 20:33] LABS: Absolute Lymphocyte Count 2.33 X10^3/uL (0.83-4.51); Absolute Neutrophil Count 3.4 X10^3/uL (2.0-7.7); Basophil% 1.5 % (0-1); Eosinophil# 0.19 X10^3/uL; Eosinophils% 2.9 % (0-5); Hematocrit 33.5 % (37-47); Hemoglobin 10.9 g/dL (12.0-15.0); Lymphocyte # 2.33 X10^3/ul (0.83-4.51); Lymphocyte % 35.4 % (19-41); Mean Corp Hgb Conc 32.5 g/dL (32-36); Mean Corpuscular Volume 98.2 fL (81-99); Mean Platelet Vol. 10.1 fl (6.2-12.0); Monocyte# 0.57 X10^3/uL; Monocyte% 8.6 % (0-10); NRBC Flagged by Analyzer 0 % (0-5); Neutrophil # 3.37 X10^3/uL (2.7-7.7); Neutrophil % 51.1 % (47-70); Platelet Count 178 K/mm3 (150-450); RBC Distribution Width CV 14.5 % (11.6-14.6); RBC Distribution Width SD 52.8 fl (35.1-43.9); Red Blood Count 3.41 M/mm3 (4.2-5.4); White Blood Count 6.6 K/mm3 (4.4-11.0)
[2022-12-29] MEDS: Ondansetron 4 MG/2 ML Vial IV (20:41)
--- NOTE | 2022-12-29 20:42 | CM.ED ---
Social Work SW reviewed patient's chart for advanced directives documents. Patient has Living Will and HCPOA as of 2019. HCPOAs are Brigida, daughter and alternates are Ray, son, and Racquel, daughter. Melodie Pickett MSW, KRANTHI
[2022-12-29 20:57] VITALS: BP 142/129; BP 149/54; BP 159/59; PULSE 65; PULSE 68
[2022-12-29 21:01] LABS: BNP,B-Type NATRIURETIC PEPTIDE 253.5 pg/mL (0-100)
[2022-12-29 21:11] LABS: Bacteria 0 SEEN /hpf (None Seen); Color, Urine Yellow (Yellow); Glucose, Dipstick Normal (Normal); Ketone-Dipstick Negative (Negative); Leukocyte Esterase-Dipstick 25 /ul (Negative); Mucous, Urine 0 SEEN /hpf (<or=2+); Nitrite-Dipstick Negative (Negative); Occult Blood-Urine Negative /ul (Negative); Protein-Dipstick Negative (Negative); Red Blood Cells-Urine 0 SEEN /hpf (0-5); Squamous Epithelial Cells - UA 0 SEEN /hpf (5-10); Urine Bilirubin Dipstick Negative (Negative); Urine Clarity Clear (Clear); Urine Urobilinogen Normal (Normal); White Blood Cells 0 SEEN /hpf (0-5)
[2022-12-29 21:21] LABS: ALB/GLOB Ratio 0.9 RATIO (0.9-2.4); AST(SGOT) 26 U/L (15-37); Alanine Aminotransfer ALT/SGPT 21 U/L (13-56); Albumin, Serum 2.7 g/dL (3.2-5.0); Alkaline Phosphatase 79 U/L (45-117); Anion Gap 7 (5-15); BUN 38 mg/dL (7-18); BUN/Creat Ratio 25.3 RATIO (10-20); Calcium,Total 8.8 mg/dL (8.5-10.1); Chloride 108 mmol/L (98-107); EST Glomerular Filtration Rate 35 mL/min (>60); Est Glom Filt Rate - Afr Amer 42 mL/min (>60); Estimated Creatinine Clearance 20.69 ml/min; Glucose 104 mg/dL (74-106); Protein, Total 5.7 g/dL (6.4-8.2); Sodium Level 142 mmol/L (136-145); Troponin-I HS 25 pg/mL (3.0-54.0)
[2022-12-29 23:00] VITALS: BP 144/50; PULSE 57; RESP 16; O2SAT 96
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
[2022-12-29 23:32] VITALS: BP 144/50; PULSE 62; RESP 16; TEMP 36.4; O2SAT 95
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
[2022-12-30] VITALS (11 sets, daily range): BP systolic 107–139; BP diastolic 41–69; PULSE 55–74; RESP 16–18; TEMP 36.6–37; O2SAT 93–100; BMI 26.1; BMI 27.3
[2022-12-30 01:24] LABS: Ferritin 259 ng/mL (8-252); Iron 47 ug/dL (50-170); Iron Binding Capacity,Total 184 ug/dL (250-450); PERCENT IRON SATURATION 25.5 % (15.0-55.0)
[2022-12-30] MEDS: 0.9% Normal Saline 1,000 ML 100 ML IV (01:26)
[2022-12-30 01:55] LABS: Thyroid Stim Hormone (TSH) 0.91 uIU/mL (0.358-3.74)
[2022-12-30] MEDS: proCHLORPERazine 10 MG/2 ML Vial 5 MG IV (02:32)
[2022-12-30 02:36] LABS: Hematocrit 32.3 % (37-47); Hemoglobin 10.3 g/dL (12.0-15.0)
[2022-12-30 03:07] LABS: Procalcitonin 0.04 ng/mL (0.00-0.09); Vitamin B12 453 pg/mL (211-911)
[2022-12-30] MEDS: Levothyroxine 50 MCG Tablet PO (06:06)
[2022-12-30 06:29] LABS: Absolute Lymphocyte Count 2.84 X10^3/uL (0.83-4.51); Absolute Neutrophil Count 3.1 X10^3/uL (2.0-7.7); Basophil# 0.09 X10^3/uL; Basophil% 1.3 % (0-1); Eosinophil# 0.21 X10^3/uL; Hematocrit 31.4 % (37-47); Hemoglobin 10.4 g/dL (12.0-15.0); Lymphocyte # 2.84 X10^3/ul (0.83-4.51); Lymphocyte % 40.5 % (19-41); Mean Corp Hgb Conc 33.1 g/dL (32-36); Mean Corpuscular Hgb 31.9 pg (27.0-32.0); Mean Corpuscular Volume 96.3 fL (81-99); Mean Platelet Vol. 9.9 fl (6.2-12.0); Monocyte# 0.72 X10^3/uL; Monocyte% 10.3 % (0-10); NRBC Flagged by Analyzer 0 % (0-5); Neutrophil # 3.13 X10^3/uL (2.7-7.7); Neutrophil % 44.6 % (47-70); Platelet Count 157 K/mm3 (150-450); RBC Distribution Width CV 14.5 % (11.6-14.6); RBC Distribution Width SD 51.2 fl (35.1-43.9); Red Blood Count 3.26 M/mm3 (4.2-5.4)
[2022-12-30 07:05] LABS: AST(SGOT) 27 U/L (15-37); Alanine Aminotransfer ALT/SGPT 17 U/L (13-56); Albumin, Serum 2.5 g/dL (3.2-5.0); Alkaline Phosphatase 68 U/L (45-117); Anion Gap 5 (5-15); BUN 32 mg/dL (7-18); BUN/Creat Ratio 22.7 RATIO (10-20); Calcium,Total 8.6 mg/dL (8.5-10.1); Chloride 113 mmol/L (98-107); Creatinine, Serum 1.41 mg/dL (0.55-1.02); EST Glomerular Filtration Rate 38 mL/min (>60); Est Glom Filt Rate - Afr Amer 46 mL/min (>60); Estimated Creatinine Clearance 24.13 ml/min; Globulin 2.6 g/dL (2.2-4.2); Glucose 87 mg/dL (74-106); Protein, Total 5.1 g/dL (6.4-8.2); Sodium Level 143 mmol/L (136-145)
--- NOTE | 2022-12-30 07:30 | PN.HOSP_ITS ---
Reason for Visit Reason for Visit: Diagnoses Anemia, unspecified (12/29/22) Objective Data Objective Data Vital Signs: Vital Signs Temp Pulse Resp BP Pulse Ox O2 Del Method 98.4 F 61 16 128/43 H 94 Room Air 12/30/22 05:36 12/30/22 05:36 12/30/22 05:36 12/30/22 05:36 12/30/22 05:36 12/30/22 05:36 Oxygen Delivery Method Room Air Weight: 154 lb 1.65 oz Body Mass Index (BMI) 27.3 Intake & Output: Intake and Output for Last 24 Hours 12/28/22 12/29/22 12/30/22 23:59 23:59 23:59 Intake Total 110 / 110 Balance 110 / 110 Lab / Micro Data Result Diagrams: 12/30/22 06:22 12/30/22 06:22 Labs: Laboratory Results - last 24 hr 12/29/22 20:25: WBC 6.6, RBC 3.41 L, Hgb 10.9 L, Hct 33.5 L, MCV 98.2, MCH 32.0, MCHC 32.5, RDW Std Deviation 52.8 H, RDW Coeff of Sheron 14.5, Plt Count 178, MPV 10.1, Immature Gran % (Auto) 0.500, Neut % (Auto) 51.1, Lymph % (Auto) 35.4, [place] % (Auto) 8.6, Eos % (Auto) 2.9, Baso % (Auto) 1.5 H, Absolute Neuts (auto) 3.4, Absolute Lymphs (auto) 2.33, Nucleated RBC % 0 12/29/22 20:25: Sodium 142, Potassium 4.0, Chloride 108 H, Carbon Dioxide 27.0, Anion Gap 7, BUN 38 H, Creatinine 1.50 H, Estim Creat Clear Calc 20.69, Est GFR (MDRD) Af Amer 42 L, Est GFR (MDRD) Non-Af 35 L, BUN/Creatinine Ratio 25.3 H, Glucose 104, Calcium 8.8, Total Bilirubin 0.50, AST 26, ALT 21, Alkaline Phosphatase 79, Troponin I High Sens 25, Total Protein 5.7 L, Albumin 2.7 L, Globulin 3.0, Albumin/Globulin Ratio 0.9 12/29/22 20:25: B-Natriuretic Peptide 253.5 H 12/29/22 20:25: Iron 47 L, TIBC 184 L, Iron Saturation 25.5, Ferritin 259 H, Folate 10.70 12/29/22 20:25: TSH 0.91 12/29/22 21:05: Urine Color Yellow, Urine Clarity Clear, Urine pH 6.0, Ur Specific [place] 1.010, Urine Protein Negative, Urine Glucose (UA) Normal, Urine Ketones Negative, Urine Occult Blood Negative, Urine Nitrite Negative, Urine Bilirubin Negative, Urine Urobilinogen Normal, Ur Leukocyte Esterase 25 H, Urine RBC 0 SEEN, Urine WBC 0 SEEN, Ur Squamous Epith Cells 0 SEEN, Urine Bacteria 0 SEEN, Urine Mucus 0 SEEN 12/30/22 02:25: Vitamin B12 453, Procalcitonin 0.04 12/30/22 02:25: Hgb 10.3 L, Hct 32.3 L 12/30/22 06:22: WBC 7.0, RBC 3.26 L, Hgb 10.4 L, Hct 31.4 L, MCV 96.3, MCH 31.9, MCHC 33.1, RDW Std Deviation 51.2 H, RDW Coeff of Sheron 14.5, Plt Count 157, MPV 9.9, Immature Gran % (Auto) 0.300, Neut % (Auto) 44.6 L, Lymph % (Auto) 40.5, [place] % (Auto) 10.3 H, Eos % (Auto) 3.0, Baso % (Auto) 1.3 H, Absolute Neuts (auto) 3.1, Absolute Lymphs (auto) 2.84, Nucleated RBC % 0 12/30/22 06:22: Sodium 143, Potassium 4.0, Chloride 113 H, Carbon Dioxide 25.0, Anion Gap 5, BUN 32 H, Creatinine 1.41 H, Estim Creat Clear Calc 24.13, Est GFR (MDRD) Af Amer 46 L, Est GFR (MDRD) Non-Af 38 L, BUN/Creatinine Ratio 22.7 H, Glucose 87, Calcium 8.6, Total Bilirubin 0.80, AST 27, ALT 17, Alkaline Phosphatase 68, Total Protein 5.1 L, Albumin 2.5 L, Globulin 2.6, Albumin/Globulin Ratio 1.0 Micro: Microbiology 12/30/22 01:05 Mucosa - Nasopharyngeal Respiratory Panel (PCR) - Final 12/29/22 21:39 Stool Stool Occult Blood (FAIZA) - Final Radiography Diagnostic Testing: Radiology Impression Chest X-Ray 12/29/22 20:32 IMPRESSION: There are findings consistent with COPD. There is no evidence of acute chest disease. Electronically Signed: Fabian Aguillon MD at 20:51 EDT , Assessment & Plan Assessment/Plan (1) Anemia: PLAN: Plan The patient is an 87 y/o F came to ED with not feeling well for couple of days lightheadedness nausea and hypertension. Patient has chronic cough and being treated for bronchitis for 3 weeks. She had doxycycline 2 rounds. Pain or acute shortness of breath. No fever or chills. #1. Acute New Onset Normocytic anemia, possible GI bleed, unclear specific etiology on chronic anticoagulation: Admission hemoglobin 10.9, MCV 98.2, baseline hemoglobin 12 to 13 g%. Stool guaiac in the ED negative. Patient is being admitted to medical surgical floor, low IV fluid. NPO. On IV PPI. GI consult. Anemia work-up duration 25% ferritin 259 high therefore possible anemia of chronic disease. Folate normal. TSH 0.91. B12 453. #2. Recent outpatient bronchitis, possibly acute viral syndrome: CXR pulmonary finding. Procalcitonin normal. No leukocytosis or left shift. Respiratory panel negative. #3. PAF: On metoprolol and amiodarone. Eliquis on hold. #4. Possible Asthma versus COPD, unclear with allergic rhinitis: We will hold home inhaler in the interim transition to ATC budesonide therapy, PRN albuterol, HOB, IS parameters, continue patient home fluticasone and montelukast regimen. #5. Chronic Kidney Disease Stage III, unclear subtype: Admission BUN/Cr 38/1.5, baseline renal function 1.3-1.5 more recent, repeat BMP in AM. #6. Chronic diastolic CHF: Most recent echo noted 08/19/2022 with normal LV size, normal LV systolic function, EF 55%, stage II diastolic dysfunction with PASP 49 mmHg, will temporally hold patient home apixaban regimen pending anemia work-up, continue home statin, metoprolol, spironolactone, not on RADHA inhibitor/ARB nor Lasix therapy, temporarily holding apixaban as noted given presentation. #7. Hypertension: Continue home regimen including spironolactone, metoprolol with hold as needed given presentation, PRN hydralazine. #8. Hyperlipidemia: We will continue patient on statin therapy. #9. Overweight: Weight loss and lifestyle changes encouraged. #10. Hypothyroidism: We will continue patient home levothyroxine regimen #11. Former tobacco use: Encourage continued tobacco cessation. #12. DVT prophylaxis: We will hold patient apixaban regimen pending evaluation #1 is noted. SCDs. CODE status: Patient KAYLEIGH is her daughter Brigida and living will is currently in place. Laboratory Results 12/29/22 20:25: WBC 6.6, RBC 3.41 L, Hgb 10.9 L, Hct 33.5 L, MCV 98.2, MCH 32.0, MCHC 32.5, RDW Std Deviation 52.8 H, RDW Coeff of Sheron 14.5, Plt Count 178, MPV 10.1, Immature Gran % (Auto) 0.500, Neut % (Auto) 51.1, Lymph % (Auto) 35.4, [place] % (Auto) 8.6, Eos % (Auto) 2.9, Baso % (Auto) 1.5 H, Absolute Neuts (auto) 3.4, Absolute Lymphs (auto) 2.33, Nucleated RBC % 0 12/29/22 20:25: Sodium 142, Potassium 4.0, Chloride 108 H, Carbon Dioxide 27.0, Anion Gap 7, BUN 38 H, Creatinine 1.50 H, Estim Creat Clear Calc 20.69, Est GFR (MDRD) Af Amer 42 L, Est GFR (MDRD) Non-Af 35 L, BUN/Creatinine Ratio 25.3 H, Glucose 104, Calcium 8.8, Total Bilirubin 0.50, AST 26, ALT 21, Alkaline Phosphatase 79, Troponin I High Sens 25, Total Protein 5.7 L, Albumin 2.7 L, Globulin 3.0, Albumin/Globulin Ratio 0.9 12/29/22 20:25: B-Natriuretic Peptide 253.5 H 12/29/22 20:25: Iron 47 L, TIBC 184 L, Iron Saturation 25.5, Ferritin 259 H, Folate 10.70 12/29/22 20:25: TSH 0.91 12/29/22 21:05: Urine Color Yellow, Urine Clarity Clear, Urine pH 6.0, Ur Specific [place] 1.010, Urine Protein Negative, Urine Glucose (UA) Normal, Urine Ketones Negative, Urine Occult Blood Negative, Urine Nitrite Negative, Urine Bilirubin Negative, Urine Urobilinogen Normal, Ur Leukocyte Esterase 25 H, Urine RBC 0 SEEN, Urine WBC 0 SEEN, Ur Squamous Epith Cells 0 SEEN, Urine Bacteria 0 SEEN, Urine Mucus 0 SEEN 12/30/22 02:25: Vitamin B12 453, Procalcitonin 0.04 12/30/22 02:25: Hgb 10.3 L, Hct 32.3 L 12/30/22 06:22: WBC 7.0, RBC 3.26 L, Hgb 10.4 L, Hct 31.4 L, MCV 96.3, MCH 31.9, MCHC 33.1, RDW Std Deviation 51.2 H, RDW Coeff of [place]on 14.5, Plt Count 157, MPV 9.9, Immature Gran % (Auto) 0.300, Neut % (Auto) 44.6 L, Lymph % (Auto) 40.5, [place] % (Auto) 10.3 H, Eos % (Auto) 3.0, Baso % (Auto) 1.3 H, Absolute Neuts (auto) 3.1, Absolute Lymphs (auto) 2.84, Nucleated RBC % 0 12/30/22 06:22: Sodium 143, Potassium 4.0, Chloride 113 H, Carbon Dioxide 25.0, Anion Gap 5, BUN 32 H, Creatinine 1.41 H, Estim Creat Clear Calc 24.13, Est GFR (MDRD) Af Amer 46 L, Est GFR (MDRD) Non-Af 38 L, BUN/Creatinine Ratio 22.7 H, Glucose 87, Calcium 8.6, Total Bilirubin 0.80, AST 27, ALT 17, Alkaline Phosphatase 68, Total Protein 5.1 L, Albumin 2.5 L, Globulin 2.6, Albumin/Globulin Ratio 1.0
[2022-12-30] MEDS: Budesonide Respules 0.5 MG/2 ML AMPUL.NEB. INHALATION (07:36)
[2022-12-30] MEDS: Amiodarone 200 MG Tablet 100 MG PO (09:59)
[2022-12-30] MEDS: Azelastine HCl NASAL.SRY 1 SPRAY NASAL (10:00)
[2022-12-30] MEDS: Fluticasone 0.05% 1 SPRAY NASAL.SRY NASAL (10:00)
--- NOTE | 2022-12-30 11:18 | DCINST_ITS ---
Discharge Instructions Diet Discharge Diet: No restrictions Activity Discharge Activity: Return to Normal Activity Weight Bearing Status: Weight bearing as tolerated Dressing / Incision Call your doctor if you observe: Fever of 101 or Higher, Coldness, Increased Pain, Numbness or Tingling, Change in Color, Inability to urinate, Inability to have a bowel movement, Using more than 1 pad per hour, Shortness of breath, Dizziness, Fainting spells, Swelling in the ankles, Chest pain, Prolonged hiccupping, Increased palpitations (irregular heartbeat) and Calf discomfort Follow Up Care When: IN 2 WEEKS Test Results: Test results from this visit will be discussed in further detail at your follow- up appointment, if applicable. Discharge Plan Admission Admit Date/Time: 12/29/22 23:32 Primary Reason for Your Visit: Acute on chronic anemia. Acute GI bleed ruled out. Attending Provider: Esau Katz Primary Care Provider: Diego Farmer Consulting Providers: Saskia Ramirez Discharge Orders/Prescriptions Prescriptions: New pantoprazole [Protonix] 40 mg tablet,delayed release (DR/EC) 40 mg PO DAILY Qty: 30 2RF pseudoephedrine-guaifenesin [Mucus D] 120-1,200 mg tablet extended release 12 hr 1 tab PO Q12H 7 Days Qty: 14 0RF Continued sodium chloride [Saline Mist] 0.65 % aerosol,spray 1 spray INTRANASAL Q1-4H PRN (Reason: dry nose) fluticasone propionate [Flonase Allergy Relief] 50 mcg/actuation spray,suspension 2 spry INTRANASAL ONCE levothyroxine 50 mcg tablet 50 mcg PO DAILY biotin 5,000 mcg tablet, sublingual 5,000 mcg SUBLINGUAL DAILY (DME) PEP device See Rx Instructions .ROUTE .MEDSUPPLY Qty: 1 0RF Rx Instructions: with training Lactobacillus acidophilus 1 billion cell capsule 1,000 mmu cells PO DAILY Qty: 30 0RF Rx Instructions: administer with a meal azelastine 205.5 mcg (0.15 %) spray,non-aerosol 1 spray INTRANASAL BID Qty: 30 11RF Rx Instructions: administer into each nostril diclofenac sodium 1 % gel 2 g topical ONCE Rx Instructions: apply to single elbow, wrist or hand; for hand includes palm/fingers/back of hand cholecalciferol (vitamin D3) 50 mcg (2,000 unit) tablet 50 mcg PO DAILY spironolactone 25 mg tablet 25 mg PO DAILY Qty: 30 11RF Rx Instructions: Hold for serum potassium more than 5.0 (DME) Nebulizer device See Rx Instructions .ROUTE .MEDSUPPLY Qty: 1 0RF Rx Instructions: As directed ipratropium-albuterol 0.5 mg-3 mg(2.5 mg base)/3 mL solution for nebulization 3 ml inhalation Q4H PRN PRN (Reason: SOB &/OR WHEEZING) Qty: 180 6RF budesonide-formoterol [Symbicort] 160-4.5 mcg/actuation HFA aerosol inhaler 2 puff inhalation BID Qty: 3 3RF Rx Instructions: administer with spacer, rinse mouth after each use montelukast [Singulair] 10 mg tablet 10 mg PO QHS Qty: 90 3RF Rx Instructions: allergies amiodarone 200 mg tablet 100 mg PO DAILY Qty: 45 3RF atorvastatin 20 mg tablet 20 mg PO QHS Qty: 90 3RF Rx Instructions: cholesterol medication metoprolol succinate 25 mg tablet extended release 24 hr 12.5 mg PO DAILY Qty: 30 11RF Changed ascorbate calcium (vitamin C) 500 mg tablet 500 mg PO BIDCM 30 Days Qty: 60 0RF Held apixaban 5 mg tablet 5 mg PO BID Qty: 180 3RF Hold Instructions: Hold for 3 days Referrals / Follow Up: Donald Rivera MD [Med Staff - Active Staff] - Within 2 Weeks (for chronic bronchitis for 3 weeks) Diego Farmer DO [Primary Care Provider] - Within 2 Weeks Bob Max DO [Med Staff - Active Staff] - Within 1 Month (for anemia)
--- NOTE | 2022-12-30 13:34 | OP.EGD_ITS ---
Patient Name: Gianna Wright Procedure Date: 12/30/2022 1:17 PM Date of : 1935 Age: 87 Procedure: Upper GI endoscopy Indications: Iron deficiency anemia Providers: Bob Max DO Medicines: Monitored Anesthesia Care Patient Profile: This is an 87 year old female. Refer to note in patient chart for documentation of history and physical. Patient has symptoms. Complications: No immediate complications. Procedure: Pre-Anesthesia Assessment: - Prior to the procedure, a History and Physical was performed, and patient medications and allergies were reviewed. The risks and benefits of the procedure and the sedation options and risks were discussed with the patient. All questions were answered and informed consent was obtained. Patient identification and proposed procedure were verified by the physician in the pre-procedure area. Mental Status Examination: alert and oriented. Airway Examination: normal oropharyngeal airway and neck mobility. Respiratory Examination: clear to auscultation. CV Examination: normal. Prophylactic Antibiotics: The patient does not require prophylactic antibiotics. Prior Anticoagulants: The patient has taken no previous anticoagulant or antiplatelet agents. After reviewing the risks and benefits, the patient was deemed in satisfactory condition to undergo the procedure. The anesthesia plan was to use monitored anesthesia care (MAC). Immediately prior to administration of medications, the patient was re-assessed for adequacy to receive sedatives. The heart rate, respiratory rate, oxygen saturations, blood pressure, adequacy of pulmonary ventilation, and response to care were monitored throughout the procedure. The physical status of the patient was re-assessed after the procedure. After obtaining informed consent, the endoscope was passed under direct vision. Throughout the procedure, the patient's blood pressure, pulse, and oxygen saturations were monitored continuously. The Colonoscope was introduced through the mouth, and advanced to the second part of duodenum. The upper GI endoscopy was accomplished without difficulty. The patient tolerated the procedure well. Scope In: 1:28:01 PM Scope Out: 1:30:49 PM Total Procedure Duration Time 0 hours 2 minutes 48 seconds Findings: The examined esophagus was normal. A medium-sized hiatal hernia was present. No other significant abnormalities were identified in a careful examination of the stomach. The second portion of the duodenum was normal. Impression: - Normal esophagus. - Medium-sized hiatal hernia. - Normal second portion of the duodenum. - No specimens collected. Recommendation: - [facility]. - Resume regular diet. - Continue present medications. Procedure Code(s): --- Professional --- 33978, Esophagogastroduodenoscopy, flexible, transoral; diagnostic, including collection of specimen(s) by brushing or washing, when performed (separate procedure) CPT copyright 2017 [employer]. All rights reserved. The codes documented in this report are preliminary and upon novelty maker review may be revised to meet current compliance requirements. Bob Mxa DO 12/30/2022 1:34:24 PM This report has been signed electronically. Number of Addenda: 0 Note Initiated On: 12/30/2022 1:17 PM
--- NOTE | 2022-12-30 13:35 | OP.CCLET_ITS ---
12/30/2022 Diego Farmer [address] [place] [address] Re : Upper GI endoscopy procedure for Gianna Wright Dear Dr. Farmer This procedure was performed on December. My impressions and recommendations are as follows: Impressions : - Normal esophagus. - Medium-sized hiatal hernia. - Normal second portion of the duodenum. - No specimens collected. Recommendations : - [facility]. - Resume regular diet. - Continue present medications. My findings are described in the full procedure note, which is enclosed. If I can be of further assistance, please feel free to contact me at . Sincerely, Bob Max, 12/30/2022 1:34:24 PM This report has been signed electronically.
[2022-12-30] MEDS: Lactated Ringers 1,000 ML 15 ML IV (13:48)
--- NOTE | 2022-12-30 15:30 | PCM.DC.SUM ---
Providers Date of Admission: 12/29/22 Date of Discharge: 12/30/22 Primary Care Physician: Dr. Diego Farmer, DO Consultations 12/30/22 00:40 Consult: Gastroenterology Routine Consulting Provider: [facility] Reason for Consult: Anemia, ? GI bleed, chronic anticoagulation. EMERGENT Consult: No MD Notified: Yes Date Notified: 12/30/22 Time Notified: 00:35 Method of Notification: ED Physician Initiated Reason For Visit: ACUTE ANEMIA, ? GI BLEED Diagnosis Discharge Diagnosis (1) Anemia: Status: Acute Code(s): D64.9 - Anemia, unspecified Plan The patient is an 87 y/o F came to ED with not feeling well for couple of days lightheadedness nausea and hypertension. Patient has chronic cough and being treated for bronchitis for 3 weeks. She had doxycycline 2 rounds. Pain or acute shortness of breath. No fever or chills. #1. Acute New Onset Normocytic anemia, possible GI bleed, unclear specific etiology on chronic anticoagulation: Admission hemoglobin 10.9, MCV 98.2, baseline hemoglobin 12 to 13 g%. Stool guaiac in the ED negative. Patient is being admitted to medical surgical floor, low IV fluid. NPO. On IV PPI. GI consult. Anemia work-up duration 25% ferritin 259 high therefore possible anemia of chronic disease. Folate normal. TSH 0.91. B12 453. Patient had EGD shows normal esophagus, medium sized hiatus hernia normal D2. Advised regular diet and discharge. Follow-up with Dr. Max in 1 month for possible colonoscopy as an outpatient. Anemia most likely due to anemia of chronic disease. She is on ascorbic acid. #2. Recent acute on chronic bronchitis, probably allergic chronic bronchitis: CXR pulmonary finding. Procalcitonin normal. No leukocytosis or left shift. Respiratory panel negative. She follows Dr. Rivera in pulmonary clinic. She has an allergic chronic bronchitis and on Symbicort, loratadine, montelukast and Flonase. Prescription for Mucinex DM given. Advised follow-up in pulm clinic in about 1 month's time. #3. PAF: On metoprolol and amiodarone. Advised to hold Eliquis for 3 more days. Prescription of Protonix 40 mg daily given with 2 refills. Recent echo in August 2022 reported EF 55% with stage II diastolic dysfunction suggestive of chronic HFpEF. #4. Possible Asthma versus COPD, unclear with allergic rhinitis: We will hold home inhaler in the interim transition to ATC budesonide therapy, PRN albuterol, HOB, IS parameters, continue patient home fluticasone and montelukast regimen. #5. Chronic Kidney Disease Stage III, unclear subtype: Admission BUN/Cr 38/1.5, baseline renal function 1.3-1.5 more recent, repeat BMP in AM. #6. Chronic diastolic CHF: Most recent echo noted 08/19/2022 with normal LV size, normal LV systolic function, EF 55%, stage II diastolic dysfunction with PASP 49 mmHg, will temporally hold patient home apixaban regimen pending anemia work-up, continue home statin, metoprolol, spironolactone, not on RADHA inhibitor/ARB nor Lasix therapy, temporarily holding apixaban as noted given presentation. #7. Hypertension: Continue home regimen including spironolactone, metoprolol with hold as needed given presentation, PRN hydralazine. #8. Hyperlipidemia: We will continue patient on statin therapy. #9. Overweight: Weight loss and lifestyle changes encouraged. #10. Hypothyroidism: We will continue patient home levothyroxine regimen #11. Former tobacco use: Encourage continued tobacco cessation. #12. DVT prophylaxis: We will hold patient apixaban regimen pending evaluation #1 is noted. SCDs. CODE status: Patient KAYLEIGH is her daughter Brigida and living will is currently in place. Discharge medication reconciliation done. Discharge follow-up instructions completed. Discharge process discussed with the patient and all questions were answered to patient's satisfaction. Total time spent, exact 35 minutes on discharge meds reconciliation, examination, coordination of care with nurses and ancillary staff, review of imaging and blood test and discussion with the patient on follow-up instructions. Laboratory Results 12/29/22 20:25: WBC 6.6, RBC 3.41 L, Hgb 10.9 L, Hct 33.5 L, MCV 98.2, MCH 32.0, MCHC 32.5, RDW Std Deviation 52.8 H, RDW Coeff of Sheron 14.5, Plt Count 178, MPV 10.1, Immature Gran % (Auto) 0.500, Neut % (Auto) 51.1, Lymph % (Auto) 35.4, [place] % (Auto) 8.6, Eos % (Auto) 2.9, Baso % (Auto) 1.5 H, Absolute Neuts (auto) 3.4, Absolute Lymphs (auto) 2.33, Nucleated RBC % 0 12/29/22 20:25: Sodium 142, Potassium 4.0, Chloride 108 H, Carbon Dioxide 27.0, Anion Gap 7, BUN 38 H, Creatinine 1.50 H, Estim Creat Clear Calc 20.69, Est GFR (MDRD) Af Amer 42 L, Est GFR (MDRD) Non-Af 35 L, BUN/Creatinine Ratio 25.3 H, Glucose 104, Calcium 8.8, Total Bilirubin 0.50, AST 26, ALT 21, Alkaline Phosphatase 79, Troponin I High Sens 25, Total Protein 5.7 L, Albumin 2.7 L, Globulin 3.0, Albumin/Globulin Ratio 0.9 12/29/22 20:25: B-Natriuretic Peptide 253.5 H 12/29/22 20:25: Iron 47 L, TIBC 184 L, Iron Saturation 25.5, Ferritin 259 H, Folate 10.70 12/29/22 20:25: TSH 0.91 12/29/22 21:05: Urine Color Yellow, Urine Clarity Clear, Urine pH 6.0, Ur Specific [place] 1.010, Urine Protein Negative, Urine Glucose (UA) Normal, Urine Ketones Negative, Urine Occult Blood Negative, Urine Nitrite Negative, Urine Bilirubin Negative, Urine Urobilinogen Normal, Ur Leukocyte Esterase 25 H, Urine RBC 0 SEEN, Urine WBC 0 SEEN, Ur Squamous Epith Cells 0 SEEN, Urine Bacteria 0 SEEN, Urine Mucus 0 SEEN 12/30/22 02:25: Vitamin B12 453, Procalcitonin 0.04 12/30/22 02:25: Hgb 10.3 L, Hct 32.3 L 12/30/22 06:22: WBC 7.0, RBC 3.26 L, Hgb 10.4 L, Hct 31.4 L, MCV 96.3, MCH 31.9, MCHC 33.1, RDW Std Deviation 51.2 H, RDW Coeff of Sheron 14.5, Plt Count 157, MPV 9.9, Immature Gran % (Auto) 0.300, Neut % (Auto) 44.6 L, Lymph % (Auto) 40.5, [place] % (Auto) 10.3 H, Eos % (Auto) 3.0, Baso % (Auto) 1.3 H, Absolute Neuts (auto) 3.1, Absolute Lymphs (auto) 2.84, Nucleated RBC % 0 12/30/22 06:22: Sodium 143, Potassium 4.0, Chloride 113 H, Carbon Dioxide 25.0, Anion Gap 5, BUN 32 H, Creatinine 1.41 H, Estim Creat Clear Calc 24.13, Est GFR (MDRD) Af Amer 46 L, Est GFR (MDRD) Non-Af 38 L, BUN/Creatinine Ratio 22.7 H, Glucose 87, Calcium 8.6, Total Bilirubin 0.80, AST 27, ALT 17, Alkaline Phosphatase 68, Total Protein 5.1 L, Albumin 2.5 L, Globulin 2.6, Albumin/Globulin Ratio 1.0 Medications at Discharge Home Medications fluticasone propionate 50 mcg/actuation nasal spray,suspension (Flonase Allergy Relief) 2 spry intranasal ONCE allergies 10/11/17 sodium chloride 0.65 % nasal spray aerosol (Saline Mist) 1 spray intranasal Q1-4H PRN dry nose 03/10/18 biotin 5,000 mcg sublingual tablet 5,000 mcg sublingual DAILY 07/02/20 levothyroxine 50 mcg tablet 50 mcg PO DAILY 07/02/20 Lactobacillus acidophilus 1 billion cell capsule 1,000 mmu cells PO DAILY #30 caps 08/28/20 PEP device #1 ea 10/16/20 azelastine 205.5 mcg (0.15 %) nasal spray 1 spray intranasal BID #30 mL 09/02/21 diclofenac sodium 1 % topical gel 2 g topical ONCE 03/30/22 Nebulizer device #1 ea 06/18/22 ipratropium 0.5 mg-albuterol 3 mg (2.5 mg base)/3 mL nebulization soln 3 ml inhalation Q4H PRN PRN SOB &/OR WHEEZING #180 mL 06/18/22 amiodarone 200 mg tablet 100 mg PO DAILY #45 tabs 09/13/22 apixaban 5 mg tablet 5 mg PO BID #180 tabs 09/13/22 atorvastatin 20 mg tablet 20 mg PO QHS #90 tabs 09/13/22 budesonide-formoterol HFA 160 mcg-4.5 mcg/actuation aerosol inhaler (Symbicort) 2 puff inhalation BID #3 ea 09/13/22 montelukast 10 mg tablet (Singulair) 10 mg PO QHS #90 tabs 09/13/22 cholecalciferol (vitamin D3) 50 mcg (2,000 unit) tablet 50 mcg PO DAILY 09/17/22 metoprolol succinate 25 mg tablet,extended release 24 hr 12.5 mg PO DAILY #30 tabs 10/28/22 ascorbate calcium (vitamin C) 500 mg tablet 500 mg PO BIDCM 30 days #60 tabs 12/30/22 pantoprazole 40 mg tablet,delayed release (Protonix) 40 mg PO DAILY #30 tabs 12/30/22 pseudoephedrine-guaifenesin ER 120 mg-1,200 mg tab,extend release 12hr (Mucus D) 1 tab PO Q12H cold symptoms 7 days #14 tabs 12/30/22 spironolactone 25 mg tablet 25 mg PO DAILY #30 tabs 12/30/22 Physical Exam Narrative Seen and examined. Patient has history of remote smoking a pack per day for about 5 to 10 years. She quit long time ago in 1970s. She has a history of chronic cough and follows in pulmonary clinic. Paroxysmal A-fib on Eliquis. Denies any chest pain or acute shortness of breath. No fever. Physical exam General: Alert, Oriented x3, Cooperative HEENT: Atraumatic, PERRLA, EOMI, Normocephalic Oral: No Gingival or Mucosal Lesions/ Ulcerations Neck: Supple, No JVD, Negative Carotid Bruits Lungs: Air entry diminished in bilateral lung bases. Peripheral lung sounds clear. No tachypnea. Mild central wheezing over trachea Cardiovascular: Regular rate, Regular Rhythm, Normal S1, Normal S2, No murmurs Abdomen: Bowel Sounds Present, Soft, Non Tender, Non-Distended : No renal angle tenderness. No suprapubic tenderness. Extremities: No edema, Capillary Refill Less than 3 Seconds Skin: No rashes, No breakdown Musculoskeletal: No Tenderness to Palpation of Joints or Extremities Neurological: Cranial nerves II-XII grossly intact, DTR 2+/4 and Symmetrical, Neuro grossly intact Psych/Mental Status: Normal Affect, Appropriate. Weight / BMI Weight Weight: 154 lb 1.65 oz Body Mass Index (BMI) 27.3 ABG / Lab / Microbiology Data Result Diagrams: 12/30/22 06:22 12/30/22 06:22 Laboratory: Laboratory Results - last 24 hr 12/29/22 20:25: WBC 6.6, RBC 3.41 L, Hgb 10.9 L, Hct 33.5 L, MCV 98.2, MCH 32.0, MCHC 32.5, RDW Std Deviation 52.8 H, RDW Coeff of Sheron 14.5, Plt Count 178, MPV 10.1, Immature Gran % (Auto) 0.500, Neut % (Auto) 51.1, Lymph % (Auto) 35.4, [place] % (Auto) 8.6, Eos % (Auto) 2.9, Baso % (Auto) 1.5 H, Absolute Neuts (auto) 3.4, Absolute Lymphs (auto) 2.33, Nucleated RBC % 0 12/29/22 20:25: Sodium 142, Potassium 4.0, Chloride 108 H, Carbon Dioxide 27.0, Anion Gap 7, BUN 38 H, Creatinine 1.50 H, Estim Creat Clear Calc 20.69, Est GFR (MDRD) Af Amer 42 L, Est GFR (MDRD) Non-Af 35 L, BUN/Creatinine Ratio 25.3 H, Glucose 104, Calcium 8.8, Total Bilirubin 0.50, AST 26, ALT 21, Alkaline Phosphatase 79, Troponin I High Sens 25, Total Protein 5.7 L, Albumin 2.7 L, Globulin 3.0, Albumin/Globulin Ratio 0.9 12/29/22 20:25: B-Natriuretic Peptide 253.5 H 12/29/22 20:25: Iron 47 L, TIBC 184 L, Iron Saturation 25.5, Ferritin 259 H, Folate 10.70 12/29/22 20:25: TSH 0.91 12/29/22 21:05: Urine Color Yellow, Urine Clarity Clear, Urine pH 6.0, Ur Specific [place] 1.010, Urine Protein Negative, Urine Glucose (UA) Normal, Urine Ketones Negative, Urine Occult Blood Negative, Urine Nitrite Negative, Urine Bilirubin Negative, Urine Urobilinogen Normal, Ur Leukocyte Esterase 25 H, Urine RBC 0 SEEN, Urine WBC 0 SEEN, Ur Squamous Epith Cells 0 SEEN, Urine Bacteria 0 SEEN, Urine Mucus 0 SEEN 12/30/22 02:25: Vitamin B12 453, Procalcitonin 0.04 05/18/23 02:25: Hgb 10.3 L, Hct 32.3 L 12/30/22 06:22: WBC 7.0, RBC 3.26 L, Hgb 10.4 L, Hct 31.4 L, MCV 96.3, MCH 31.9, MCHC 33.1, RDW Std Deviation 51.2 H, RDW Coeff of Sheron 14.5, Plt Count 157, MPV 9.9, Immature Gran % (Auto) 0.300, Neut % (Auto) 44.6 L, Lymph % (Auto) 40.5, [place] % (Auto) 10.3 H, Eos % (Auto) 3.0, Baso % (Auto) 1.3 H, Absolute Neuts (auto) 3.1, Absolute Lymphs (auto) 2.84, Nucleated RBC % 0 12/30/22 06:22: Sodium 143, Potassium 4.0, Chloride 113 H, Carbon Dioxide 25.0, Anion Gap 5, BUN 32 H, Creatinine 1.41 H, Estim Creat Clear Calc 24.13, Est GFR (MDRD) Af Amer 46 L, Est GFR (MDRD) Non-Af 38 L, BUN/Creatinine Ratio 22.7 H, Glucose 87, Calcium 8.6, Total Bilirubin 0.80, AST 27, ALT 17, Alkaline Phosphatase 68, Total Protein 5.1 L, Albumin 2.5 L, Globulin 2.6, Albumin/Globulin Ratio 1.0 Microbiology: Microbiology 12/30/22 01:16 Sputum, Expectorated/Coughed Gram Stain - Final 12/30/22 01:05 Mucosa - Nasopharyngeal Respiratory Panel (PCR) - Final 12/29/22 21:39 Stool Stool Occult Blood (FAIZA) - Final Radiography Diagnostic Testing: Radiology Impression Chest X-Ray 12/29/22 20:32 IMPRESSION: There are findings consistent with COPD. There is no evidence of acute chest disease. Electronically Signed: Fabian Aguillon MD at 20:51 EDT , D/C Instructions Discharge Diet: No restrictions Weight Bearing Status: Weight bearing as tolerated Call your doctor if you observe: Fever of 101 or Higher, Coldness, Increased Pain, Numbness or Tingling, Change in Color, Inability to urinate, Inability to have a bowel movement, Using more than 1 pad per hour, Shortness of breath, Dizziness, Fainting spells, Swelling in the ankles, Chest pain, Prolonged hiccupping, Increased palpitations (irregular heartbeat) and Calf discomfort When: IN 2 WEEKS Meaningful Use Info Meaningful Use Diagnoses (Choose all that apply): None applicable Discharge Plan Admission Admit Date/Time: 12/29/22 23:32 Primary Reason for Your Visit: Acute on chronic anemia. Acute GI bleed ruled out. Attending Provider: Esau Katz Primary Care Provider: Diego Farmer Consulting Providers: Saskia Ramirez Discharge Orders/Prescriptions Prescriptions: New pantoprazole [Protonix] 40 mg tablet,delayed release (DR/EC) 40 mg PO DAILY Qty: 30 2RF pseudoephedrine-guaifenesin [Mucus D] 120-1,200 mg tablet extended release 12 hr 1 tab PO Q12H 7 Days Qty: 14 0RF Continued sodium chloride [Saline Mist] 0.65 % aerosol,spray 1 spray INTRANASAL Q1-4H PRN (Reason: dry nose) fluticasone propionate [Flonase Allergy Relief] 50 mcg/actuation spray,suspension 2 spry INTRANASAL ONCE levothyroxine 50 mcg tablet 50 mcg PO DAILY biotin 5,000 mcg tablet, sublingual 5,000 mcg SUBLINGUAL DAILY (DME) PEP device See Rx Instructions .ROUTE .MEDSUPPLY Qty: 1 0RF Rx Instructions: with training Lactobacillus acidophilus 1 billion cell capsule 1,000 mmu cells PO DAILY Qty: 30 0RF Rx Instructions: administer with a meal azelastine 205.5 mcg (0.15 %) spray,non-aerosol 1 spray INTRANASAL BID Qty: 30 11RF Rx Instructions: administer into each nostril diclofenac sodium 1 % gel 2 g topical ONCE Rx Instructions: apply to single elbow, wrist or hand; for hand includes palm/fingers/back of hand cholecalciferol (vitamin D3) 50 mcg (2,000 unit) tablet 50 mcg PO DAILY spironolactone 25 mg tablet 25 mg PO DAILY Qty: 30 11RF Rx Instructions: Hold for serum potassium more than 5.0 (DME) Nebulizer device See Rx Instructions .ROUTE .MEDSUPPLY Qty: 1 0RF Rx Instructions: As directed ipratropium-albuterol 0.5 mg-3 mg(2.5 mg base)/3 mL solution for nebulization 3 ml inhalation Q4H PRN PRN (Reason: SOB &/OR WHEEZING) Qty: 180 6RF budesonide-formoterol [Symbicort] 160-4.5 mcg/actuation HFA aerosol inhaler 2 puff inhalation BID Qty: 3 3RF Rx Instructions: administer with spacer, rinse mouth after each use montelukast [Singulair] 10 mg tablet 10 mg PO QHS Qty: 90 3RF Rx Instructions: allergies amiodarone 200 mg tablet 100 mg PO DAILY Qty: 45 3RF atorvastatin 20 mg tablet 20 mg PO QHS Qty: 90 3RF Rx Instructions: cholesterol medication metoprolol succinate 25 mg tablet extended release 24 hr 12.5 mg PO DAILY Qty: 30 11RF Changed ascorbate calcium (vitamin C) 500 mg tablet 500 mg PO BIDCM 30 Days Qty: 60 0RF Held apixaban 5 mg tablet 5 mg PO BID Qty: 180 3RF Hold Instructions: Hold for 3 days Referrals / Follow Up: Donald Rivera MD [Med Staff - Active Staff] - Within 2 Weeks (for chronic bronchitis for 3 weeks) Diego Farmer DO [Primary Care Provider] - Within 2 Weeks Bob Max DO [Med Staff - Active Staff] - Within 1 Month (for anemia) Charges/Coding Visit Charges Inpatient E&M: 12083 Disch Hosp >30min
--- NOTE | 2022-12-30 16:25 | CASEMGMT ---
SONIA CM into pt room, pt with family at bedside. Pt states she feels safe to go home, she has a walker if she needs it. Pt denies any homegoing needs.
== END 2022-12-30 17:08 | disposition home or self-care (01) ==
LOC: ED 23:24 → MS3 12-30 00:01
PROVIDERS: Anesthesiology; Internal Medicine Gastroenterology; Admitting Provider Family Medicine; Emergency Provider Student in an Organized Health Care Education/Training Program; PCP Family Medicine; Visit Provider Internal Medicine
PROC: 0DJ08ZZ Inspection of Upper Intestinal Tract, Via Natural or Artificial Opening Endoscopic (ICD-10-PCS; CPT 43235; principal; 2022-12-30 13:25)
DX: D64.9 Anemia, unspecified (principal); J42 Unspecified chronic bronchitis; I13.0 Hypertensive heart and chronic kidney disease with heart failure and stage 1 through stage 4 chronic kidney disease, or unspecified chronic kidney disease; I50.32 Chronic diastolic (congestive) heart failure; I48.0 Paroxysmal atrial fibrillation; N18.30 Chronic kidney disease, stage 3 unspecified; K92.2 Gastrointestinal hemorrhage, unspecified; K44.9 Diaphragmatic hernia without obstruction or gangrene; E78.5 Hyperlipidemia, unspecified; Z87.891 Personal history of nicotine dependence; R55 Syncope and collapse; Z79.899 Other long term (current) drug therapy; Z79.01 Long term (current) use of anticoagulants; E03.9 Hypothyroidism, unspecified; Z79.890 Hormone replacement therapy; Z79.51 Long term (current) use of inhaled steroids
CPT/HCPCS: 43235; 36415; 71045; 80053; 81001; 82274; 82607; 82728; 82746; 83540; 83550; 83880; 84145; 84443; 84484; 85014; 85018; 85025; 87070; 87205; 87633; 93005; 94640; 94668; 96361; 96365; 96366; 96375; 96376; 99221; 99252; 99285; J7030; J7120; A4216; G0378; G0463; J2405

== ENCOUNTER → 2023-01-12 | Outpatient (CLI) | payer MEDICARE, SELFPAY ==
[2023-01-12 15:32] LABS: Absolute Neutrophil Count 3.7 X10^3/uL (2.0-7.7); Basophil# 0.09 X10^3/uL; Basophil% 1.3 % (0-1); Eosinophil# 0.23 X10^3/uL; Eosinophils% 3.4 % (0-5); Hemoglobin 11.1 g/dL (12.0-15.0); Mean Corp Hgb Conc 31.7 g/dL (32-36); Mean Corpuscular Hgb 32.2 pg (27.0-32.0); Mean Corpuscular Volume 101.4 fL (81-99); Mean Platelet Vol. 9.9 fl (6.2-12.0); Monocyte# 0.67 X10^3/uL; Monocyte% 9.9 % (0-10); NRBC Flagged by Analyzer 0 % (0-5); Neutrophil # 3.68 X10^3/uL (2.7-7.7); Neutrophil % 54.3 % (47-70); Platelet Count 285 K/mm3 (150-450); RBC Distribution Width CV 15.9 % (11.6-14.6); RBC Distribution Width SD 58.9 fl (35.1-43.9); Red Blood Count 3.45 M/mm3 (4.2-5.4); White Blood Count 6.8 K/mm3 (4.4-11.0)
== END | disposition home or self-care (01) ==
LOC: BFHLAB 12:01
PROVIDERS: PCP Family Medicine; Referring Provider Family Medicine; Visit Provider Family Medicine
DX: D63.8 Anemia in other chronic diseases classified elsewhere (principal)
CPT/HCPCS: 36415; 85025

== ENCOUNTER 2023-03-17 16:08 | Outpatient (CLI) | payer MEDICARE, SELFPAY ==
[2023-03-17 18:16] LABS: Absolute Lymphocyte Count 1.54 X10^3/uL (0.83-4.51); Basophil# 0.02 X10^3/uL; Basophil% 0.3 % (0-1); Hematocrit 36.7 % (37-47); Hemoglobin 11.7 g/dL (12.0-15.0); Lymphocyte # 1.54 X10^3/ul (0.83-4.51); Lymphocyte % 19.5 % (19-41); Mean Corp Hgb Conc 31.9 g/dL (32-36); Mean Corpuscular Hgb 32.9 pg (27.0-32.0); Mean Corpuscular Volume 103.1 fL (81-99); Mean Platelet Vol. 9.8 fl (6.2-12.0); Monocyte# 0.28 X10^3/uL; Monocyte% 3.5 % (0-10); NRBC Flagged by Analyzer 0 % (0-5); Neutrophil # 6.02 X10^3/uL (2.7-7.7); Neutrophil % 76.3 % (47-70); Platelet Count 276 K/mm3 (150-450); RBC Distribution Width CV 14.6 % (11.6-14.6); RBC Distribution Width SD 55.8 fl (35.1-43.9); Red Blood Count 3.56 M/mm3 (4.2-5.4); White Blood Count 7.9 K/mm3 (4.4-11.0)
[2023-03-17 18:53] LABS: Ferritin 205 ng/mL (8-252); Iron 71 ug/dL (50-170)
== END 2023-03-17 23:59 | disposition home or self-care (01) ==
LOC: BFHLAB 16:09
PROVIDERS: PCP Family Medicine; Referring Provider Family Medicine; Visit Provider Family Medicine
DX: N18.30 Chronic kidney disease, stage 3 unspecified (principal); D63.8 Anemia in other chronic diseases classified elsewhere
CPT/HCPCS: 36415; 82728; 83540; 85025

== ENCOUNTER → 2023-11-01 | Outpatient (CLI) | payer MEDICARE, SELFPAY ==
--- NOTE | 2023-11-01 10:32 | BI_ITS ---
MAMMOGRAPHY - BILATERAL SCREENING REASON FOR EXAM: Female, 88 years old. Routine annual screening examination. PERTINENT HISTORY: Personal history of breast cancer. Prior left lumpectomy with radiation. TECHNIQUE: Digital bilateral breast ji (3D mammographic acquisition) in the CC and MLO projections. 2-D mediolateral oblique (MLO) and craniocaudad (CC) views of both breasts were obtained. CAD: Full Field Digital Mammography with Computer Added Detection was performed. COMPARISON: Comparison is made with prior outside examination dated September 13, 2022. FINDINGS: Breast Composition: The breasts are almost entirely fatty. The patient is status post lumpectomy in the central portion of the left breast with resultant postoperative scarring and a breast deformity with retraction of the left nipple. No other significant abnormalities are identified. There has been no significant change since the prior study. BI/SCRN MAMM (CAD)W/JI BILAT IMPRESSION: Stable bilateral screening mammogram. Yearly follow-up mammogram recommended. (A) ASSESSMENT CATEGORY: BIRADS Category 2: Benign. A letter regarding these results will be sent to the patient by the facility within 30 days. Approximately 10% of breast cancers are not detected by mammography. A normal mammogram should not delay biopsy of a clinically suspicious abnormality. [id number] Electronically Signed: Kee Austin MD at 11:34 EDT ,
== END | disposition home or self-care (01) ==
LOC: OPBD 10:32
PROVIDERS: PCP Family Medicine; Referring Provider Nurse Practitioner Women's Health; Visit Provider Nurse Practitioner Women's Health
DX: Z12.31 Encounter for screening mammogram for malignant neoplasm of breast (principal); Z85.3 Personal history of malignant neoplasm of breast
CPT/HCPCS: 77063; 77067

== ENCOUNTER → 2023-11-22 | Outpatient (CLI) | payer MEDICARE, SELFPAY ==
[2023-11-22 17:33] LABS: Absolute Lymphocyte Count 2.31 X10^3/uL (0.83-4.51); Absolute Neutrophil Count 4.1 X10^3/uL (2.0-7.7); Basophil# 0.07 X10^3/uL; Basophil% 0.9 % (0-1); Eosinophil# 0.18 X10^3/uL; Eosinophils% 2.4 % (0-5); Hematocrit 37.8 % (37-47); Hemoglobin 11.8 g/dL (12.0-15.0); Lymphocyte # 2.31 X10^3/ul (0.83-4.51); Lymphocyte % 31.3 % (19-41); Mean Corp Hgb Conc 31.2 g/dL (32-36); Mean Corpuscular Hgb 32.7 pg (27.0-32.0); Mean Corpuscular Volume 104.7 fL (81-99); Monocyte# 0.67 X10^3/uL; Monocyte% 9.1 % (0-10); NRBC Flagged by Analyzer 0 % (0-5); Neutrophil # 4.13 X10^3/uL (2.7-7.7); Platelet Count 238 K/mm3 (150-450); RBC Distribution Width CV 13.3 % (11.6-14.6); RBC Distribution Width SD 51.7 fl (35.1-43.9); Red Blood Count 3.61 M/mm3 (4.2-5.4); White Blood Count 7.4 K/mm3 (4.4-11.0)
[2023-11-22 17:58] LABS: PTHIN 118.6 pg/mL (18.4-80.1)
[2023-11-22 18:02] LABS: Vitamin D,25 Hydroxy 52.5 ng/mL
[2023-11-22 18:16] LABS: AST(SGOT) 22 U/L (15-37); Alanine Aminotransfer ALT/SGPT 19 U/L (13-56); Albumin, Serum 3.4 g/dL (3.2-5.0); Alkaline Phosphatase 75 U/L (45-117); Anion Gap 7 (5-15); BUN 33 mg/dL (7-18); BUN/Creat Ratio 21.6 RATIO (10-20); Calcium,Total 9.2 mg/dL (8.5-10.1); Chloride 107 mmol/L (98-107); Cholesterol 177 mg/dL (200); Creatinine, Serum 1.53 mg/dL (0.55-1.02); EST Glomerular Filtration Rate 34 mL/min (>60); Est Glom Filt Rate - Afr Amer 41 mL/min (>60); Ferritin 285 ng/mL (8-252); Globulin 3.3 g/dL (2.2-4.2); Glucose 87 mg/dL (74-106); High Density Lipoprotein 78 mg/dL; Iron 100 ug/dL (50-170); Protein, Total 6.7 g/dL (6.4-8.2); Sodium Level 140 mmol/L (136-145); T4 Free Direct 1.57 ng/dL (0.76-1.46); Thyroid Stim Hormone (TSH) 2.65 uIU/mL (0.358-3.74); Triglycerides 95 mg/dL; Very Low Density Lipoprotein 19 mg/dL (5-40)
== END | disposition home or self-care (01) ==
LOC: BFHLAB 14:19
PROVIDERS: PCP Family Medicine; Visit Provider Family Medicine
DX: T46.2X1A Poisoning by other antidysrhythmic drugs, accidental (unintentional), initial encounter (principal); N18.32 Chronic kidney disease, stage 3b; M81.0 Age-related osteoporosis without current pathological fracture; D64.9 Anemia, unspecified; E78.5 Hyperlipidemia, unspecified; E03.2 Hypothyroidism due to medicaments and other exogenous substances
CPT/HCPCS: 36415; 80053; 80061; 82306; 82728; 83540; 83970; 84439; 84443; 85025

== ENCOUNTER 2024-04-19 12:30 | Outpatient (RCR) | payer MEDICARE, SELFPAY ==
--- NOTE | 2024-03-26 13:48 | HP.PTEVAL_ITS ---
Patient's Visit Information Visit Information Visit Information: STEPHANY MORALES is a 88 year old F referred to Physical Therapy by Dr. Jacky Owen, DO with a diagnosis of STRAIN MUSCLE TENDON ,POSTERIOR GROUP LOWER LEG ,LEFT. Date of Evaluation: 03/26/24 Physical Therapist: Alejandro Fatima, PT, Cert MDT, OCS Visit Plan Frequency: 2-3x /Week Duration: 4-6 Weeks Plan: PT INTERVENTIONS ROM/FLEXABILITY LEFT LEG ,STRENGTHENING QUADS/HAMS /HIP ,FUNCTIONAL STRENGTHENING AND OKAY FOR MODALITIES POSTERIOR MEDIAL HAMSTRINGS AND MEDIAL/LATERAL KNEE Subjective Subjective: This 88 y/o female presents to physical therapy with left knee pain. Patient was visiting sister noticed left knee pain ~ 2 weeks . Patient pain was insidious onset of pain. Seen Dr Owen did x-rays - ,thought patient over exerted . Recommended PT . Located global knee described as ache. Aggravating factors walking/standing difficulty with kneeling and squatting . Denies pa resthesia/tingling.Pain affects sleeping aches at night. Patient pain affects QOL adn function . Patient goals to decrease pain. Patient uses cane for balance. SOCIAL: VOCATION:retired Pain Left Knee: Pain Intensity (Out of 10): 9 Pain Intensity Range: 10 Objective Objective: POSTURE: knee slight flexed with valgus NEURO: denies paresthesia/tingling GAIT: ambulates with cane antalgic gait left side EDEMA: mild effusion knee PALPATION: tender medial/lateral joint line ,and medial hamstrings AROM: supine knee flexion 0-120 degrees pain with OP MMT: ( peak force) quads 17.3 ,hamstrings 14.2 ,hip flexion 16.9 ,hip abduction 12.2 FLEXABILITY: hamstrings min tight STAIRS: one step at timne Special Tests L Knee Serenity - Meniscus: Positive L Knee Ko - ACL: Negative L Knee Valgus - MCL: Negative L Knee Varus - LCL: Negative L Knee Patellar Apprehension - PFS: Negative L Knee Patellar Grind - PFS: Negative Balance/Special Test Scores Lower Extremity Functional Score: 31 Goals Goal 1:: Patient to be I with HEP for knee Goal Time Frame: 4-6 Weeks Goal 2:: Patient to demonstrate 50% improvement with less pain and improved function with gait Goal Time Frame: 4-6 Weeks Goal 3:: Patient to improve peak force quads/hams ny 5-10 # strength to improve function and gait Goal Time Frame: 4-6 Weeks Goal 4:: Patient normialize gait Goal Time Frame: 4-6 Weeks Goal 5:: Patient to improve LFES score by 5 points to improve QOL and function. Goal Time Frame: 4-6 Weeks Goal 6:: Patient to improve AROM knee flexion by 5 degrees to improve gait and stairs Goal Time Frame: 4-6 Weeks Rehabilitation Potential Physical Therapy Diagnosis: This patient has pain left knee with medial/lateral joint line meniscus with medial hamstrings tender with mild effusion ,weakness quads/hams impairs gait and function thus benefit from skilled PT Rehabilitation Potential: Good Anticipated Interventions Patient/Client Instruction: Educate patient on: Condition and Plan of Care For the Purpose of:: To decrease pain, To increase ROM, To improve muscle performance and motor function, To improve ability to perform ADL's, To increase tolerance to activity/condition/position, To improve ability of physical actions for home/community/work/leisure, To improve health of tissue, To decrease soft tissue restriction, To increase flexibility/ROM and To prevent re-injury Therapeutic Exercise to Include: Strength training, Endurance training, Balance training, Flexibilty training and Active ROM Comment: quads/hams For the Purpose of:: To decrease pain, To increase ROM, To improve muscle performance and motor function, To improve ability to perform ADL's, To increase tolerance to activity/condition/position, To improve ability of physical actions for home/community/work/leisure, To improve health of tissue, To decrease soft tissue restriction, To increase flexibility/ROM and To improve balance TENS: Yes IF ES: Yes Cryotherapy (ice pack, ice massage): Yes Thermo therapy (hot pack): Yes Ultrasound (thermal/non thermal): Yes For the Purpose of:: To decrease pain, To increase ROM, To improve nutrient delivery to tissue, To increase oxygenation perfusion, To improve health of tissue and To decrease soft tissue restriction Text: Thank you for the opportunity to evaluate your patient. For Medicare and Medicare HMO plans, please review the plan of care and approve it. It will need to be FAXED BACK to us at [phone] for Medicare purposes. For Medicare only, by signing this I certify the plan of care. Please let me know if there are questions or concerns regarding this plan of care. Physician Signature: Date:
--- NOTE | 2024-07-24 15:44 | HP.PT.NRP ---
Patient Information Patient Information: STEPHANY MORALES was seen in my office for initial evaluation on 03/26/24. The following Plan of Care was established for this patient: POC Established Initial Frequency: 2-3x /Week Initial Duration: 4-6 Weeks Anticipated Interventions Patient/Client Instruction: Educate patient on: Condition and Plan of Care For the Purpose of:: To decrease pain, To increase ROM, To improve muscle performance and motor function, To improve ability to perform ADL's, To increase tolerance to activity/condition/position, To improve ability of physical actions for home/community/work/leisure, To improve health of tissue, To decrease soft tissue restriction, To increase flexibility/ROM and To prevent re-injury Therapeutic Exercise to Include: Strength training, Endurance training, Balance training, Flexibilty training and Active ROM For the Purpose of:: To decrease pain, To increase ROM, To improve muscle performance and motor function, To improve ability to perform ADL's, To increase tolerance to activity/condition/position, To improve ability of physical actions for home/community/work/leisure, To improve health of tissue, To decrease soft tissue restriction, To increase flexibility/ROM and To improve balance TENS: Yes IF ES: Yes Cryotherapy (ice pack, ice massage): Yes Thermo therapy (hot pack): Yes Ultrasound (thermal/non thermal): Yes For the Purpose of:: To decrease pain, To increase ROM, To improve nutrient delivery to tissue, To increase oxygenation perfusion, To improve health of tissue and To decrease soft tissue restriction Last Seen Last Seen: This patient was last seen in our office . Pertinent comments regarding their Physical therapy will appear below: Patient seen for PT posterior leg pain for strengthening and flexibility thus is d/c At this point I will be discontinuing this patient from physical therapy. I would be happy to see this patient again in the future if found appropriate by the physician. Thank you! Alejandro Fatima, PT, Cert MDT, OCS Balance/Gait/Functional tests Balance/Special Test Scores Lower Extremity Functional Score: 31
== END 2024-04-19 19:00 | disposition home or self-care (01) ==
LOC: PT 12:30
PROVIDERS: PCP Family Medicine; Referring Provider Student in an Organized Health Care Education/Training Program; Visit Provider Student in an Organized Health Care Education/Training Program
DX: S86.112D Strain of other muscle(s) and tendon(s) of posterior muscle group at lower leg level, left leg, subsequent encounter (principal)
CPT/HCPCS: 97110; 97162

== ENCOUNTER → 2024-05-21 | Outpatient (CLI) | payer MEDICARE, SELFPAY ==
--- NOTE | 2024-05-21 15:46 | RAD_ITS ---
INDICATION: DISC DEGENERATION EXAMINATION/TECHNIQUE: X-RAY - XR Spine Lumbar Comp W/ Bending Min 6 Views COMPARISON: October 24 2020 FINDINGS: VERTEBRAE: 5 nonrib-bearing lumbar type vertebra with severe dextrocurvature. No visible fracture or acute compression deformity. Diffuse facet arthropathy, moderate to severe L4-5 and L5-S1. Preserved lumbar lordosis. No anterior or posterior listhesis with flexion or extension. Mild diffuse endplate degenerative change. DISCS: Diffuse disc height loss.. INCLUDED ABDOMEN: Included bowel gas pattern is non-obstructive. Aortic atherosclerosis. RAD/L/S Spine Comp/w Bending Views IMPRESSION: Severe lumbar dextroscoliosis, increased from October 24, 2020 Diffuse spondylosis with lower lumbar predominant facet arthropathy. Diffuse disc height loss. MRI could better assess for spinal stenosis as clinically indicated. Electronically Signed: Ron Stahl MD at 0:10 EDT ,
== END | disposition home or self-care (01) ==
PROVIDERS: PCP Family Medicine; Referring Provider Clinical Nurse Specialist Adult Health; Visit Provider Clinical Nurse Specialist Adult Health
DX: M51.379 Other intervertebral disc degeneration, lumbosacral region without mention of lumbar back pain or lower extremity pain (principal)
CPT/HCPCS: 72114

== ENCOUNTER → 2024-05-29 | Outpatient (CLI) | payer MEDICARE, SELFPAY ==
[2024-05-29 17:45] LABS: Absolute Lymphocyte Count 2.32 X10^3/uL (0.83-4.51); Absolute Neutrophil Count 4.4 X10^3/uL (2.0-7.7); Basophil% 1.3 % (0-1); Eosinophil# 0.15 X10^3/uL; Hematocrit 35.1 % (37-47); Lymphocyte # 2.32 X10^3/ul (0.83-4.51); Lymphocyte % 30.3 % (19-41); Mean Corp Hgb Conc 31.3 g/dL (32-36); Mean Corpuscular Hgb 33.4 pg (27.0-32.0); Mean Corpuscular Volume 106.7 fL (81-99); Mean Platelet Vol. 10.2 fl (6.2-12.0); Monocyte# 0.61 X10^3/uL; NRBC Flagged by Analyzer 0 % (0-5); Neutrophil # 4.44 X10^3/uL (2.7-7.7); Platelet Count 246 K/mm3 (150-450); RBC Distribution Width CV 13.8 % (11.6-14.6); RBC Distribution Width SD 54.4 fl (35.1-43.9); Red Blood Count 3.29 M/mm3 (4.2-5.4); White Blood Count 7.7 K/mm3 (4.4-11.0)
[2024-05-29 18:05] LABS: ALB/GLOB Ratio 1.1 RATIO (0.9-2.4); AST(SGOT) 19 U/L (15-37); Alanine Aminotransfer ALT/SGPT 17 U/L (13-56); Albumin, Serum 3.3 g/dL (3.2-5.0); Alkaline Phosphatase 70 U/L (45-117); Anion Gap 5 (5-15); BUN 35 mg/dL (7-18); BUN/Creat Ratio 19.6 RATIO (10-20); Calcium,Total 9.5 mg/dL (8.5-10.1); Chloride 106 mmol/L (98-107); Cholesterol 185 mg/dL (200); Creatinine, Serum 1.79 mg/dL (0.55-1.02); EST Glomerular Filtration Rate 29 mL/min (>60); Est Glom Filt Rate - Afr Amer 34 mL/min (>60); Ferritin 241 ng/mL (8-252); Globulin 3.1 g/dL (2.2-4.2); Glucose 80 mg/dL (74-106); High Density Lipoprotein 82 mg/dL; Iron 93 ug/dL (50-170); Potassium 4.6 mmol/L (3.5-5.1); Protein, Total 6.4 g/dL (6.4-8.2); Sodium Level 138 mmol/L (136-145); T4 Free Direct 1.23 ng/dL (0.76-1.46); Triglycerides 83 mg/dL; Very Low Density Lipoprotein 17 mg/dL (5-40)
== END | disposition home or self-care (01) ==
LOC: BFHLAB 14:03
PROVIDERS: PCP Family Medicine; Referring Provider Family Medicine; Visit Provider Family Medicine
DX: T46.2X1A Poisoning by other antidysrhythmic drugs, accidental (unintentional), initial encounter (principal); N18.32 Chronic kidney disease, stage 3b; E78.5 Hyperlipidemia, unspecified; E03.2 Hypothyroidism due to medicaments and other exogenous substances; D63.8 Anemia in other chronic diseases classified elsewhere
CPT/HCPCS: 36415; 80053; 80061; 82607; 82728; 83540; 84439; 84443; 85025

== ENCOUNTER → 2024-06-28 | Outpatient (CLI) | payer MEDICARE, SELFPAY ==
[2024-06-28 15:36] LABS: Absolute Lymphocyte Count 3.67 X10^3/uL (0.83-4.51); Absolute Neutrophil Count 8.6 X10^3/uL (2.0-7.7); Basophil# 0.11 X10^3/uL; Basophil% 0.8 % (0-1); Eosinophil# 0.13 X10^3/uL; Hematocrit 39.5 % (37-47); Hemoglobin 12.5 g/dL (12.0-15.0); Lymphocyte # 3.67 X10^3/ul (0.83-4.51); Lymphocyte % 27.2 % (19-41); Mean Corp Hgb Conc 31.6 g/dL (32-36); Mean Corpuscular Hgb 33.3 pg (27.0-32.0); Mean Corpuscular Volume 105.3 fL (81-99); Mean Platelet Vol. 10.8 fl (6.2-12.0); Monocyte# 0.91 X10^3/uL; Monocyte% 6.7 % (0-10); NRBC Flagged by Analyzer 0 % (0-5); Neutrophil # 8.59 X10^3/uL (2.7-7.7); Neutrophil % 63.6 % (47-70); Platelet Count 225 K/mm3 (150-450); RBC Distribution Width CV 13.3 % (11.6-14.6); RBC Distribution Width SD 51.2 fl (35.1-43.9); Red Blood Count 3.75 M/mm3 (4.2-5.4); White Blood Count 13.5 K/mm3 (4.4-11.0)
[2024-06-28 15:55] LABS: Anion Gap 7 (5-15); BUN 53 mg/dL (7-18); BUN/Creat Ratio 30.1 RATIO (10-20); Calcium,Total 9.1 mg/dL (8.5-10.1); Chloride 110 mmol/L (98-107); Creatinine, Serum 1.76 mg/dL (0.55-1.02); EST Glomerular Filtration Rate 29 mL/min (>60); Est Glom Filt Rate - Afr Amer 35 mL/min (>60); Glucose 66 mg/dL (74-106); Magnesium 1.4 mg/dL (1.6-2.6); Potassium 3.8 mmol/L (3.5-5.1); Sodium Level 142 mmol/L (136-145)
== END | disposition home or self-care (01) ==
LOC: BFHLAB 13:04
PROVIDERS: PCP Family Medicine; Referring Provider Family Medicine; Visit Provider Family Medicine
DX: I48.91 Unspecified atrial fibrillation (principal); R00.2 Palpitations
CPT/HCPCS: 36415; 80048; 83735; 85025

== ENCOUNTER → 2024-07-20 | Outpatient (CLI) | payer MEDICARE, SELFPAY | END | disposition home or self-care (01) | LOC: PR 07:59 | PROVIDERS: PCP Family Medicine; Referring Provider Family Medicine; Visit Provider Family Medicine | DX: R00.2 Palpitations (principal); I48.91 Unspecified atrial fibrillation | CPT/HCPCS: 93225; 93226 ==

== ENCOUNTER → 2024-09-28 | Outpatient (CLI) | payer MEDICARE, SELFPAY ==
[2024-09-28 13:45] LABS: Absolute Lymphocyte Count 2.43 X10^3/uL (0.83-4.51); Absolute Neutrophil Count 6.1 X10^3/uL (2.0-7.7); Basophil# 0.09 X10^3/uL; Eosinophil# 0.09 X10^3/uL; Hematocrit 40.1 % (37-47); Hemoglobin 12.4 g/dL (12.0-15.0); Lymphocyte # 2.43 X10^3/ul (0.83-4.51); Lymphocyte % 25.9 % (19-41); Mean Corp Hgb Conc 30.9 g/dL (32-36); Mean Corpuscular Hgb 32.2 pg (27.0-32.0); Mean Corpuscular Volume 104.2 fL (81-99); Mean Platelet Vol. 10.4 fl (6.2-12.0); Monocyte% 7.4 % (0-10); NRBC Flagged by Analyzer 0 % (0-5); Neutrophil # 6.05 X10^3/uL (2.7-7.7); Neutrophil % 64.3 % (47-70); Platelet Count 235 K/mm3 (150-450); RBC Distribution Width CV 13.6 % (11.6-14.6); RBC Distribution Width SD 52.4 fl (35.1-43.9); Red Blood Count 3.85 M/mm3 (4.2-5.4); White Blood Count 9.4 K/mm3 (4.4-11.0)
[2024-09-28 13:47] LABS: ALB/GLOB Ratio 0.8 RATIO (0.9-2.4); AST(SGOT) 21 U/L (15-37); Alanine Aminotransfer ALT/SGPT 22 U/L (13-56); Albumin, Serum 3.1 g/dL (3.2-5.0); Alkaline Phosphatase 94 U/L (45-117); Anion Gap 6 (5-15); BUN 32 mg/dL (7-18); Calcium,Total 9.6 mg/dL (8.5-10.1); Chloride 107 mmol/L (98-107); Creatinine, Serum 1.68 mg/dL (0.55-1.02); EST Glomerular Filtration Rate 31 mL/min (>60); Est Glom Filt Rate - Afr Amer 37 mL/min (>60); Glucose 69 mg/dL (74-106); Potassium 3.8 mmol/L (3.5-5.1); Protein, Total 7.1 g/dL (6.4-8.2); Sodium Level 142 mmol/L (136-145)
== END | disposition home or self-care (01) ==
LOC: BFHLAB 11:38
PROVIDERS: PCP Family Medicine; Referring Provider Family Medicine; Visit Provider Family Medicine
DX: R53.83 Other fatigue (principal)
CPT/HCPCS: 36415; 80053; 82533; 85025

== ENCOUNTER → 2024-11-15 | Outpatient (CLI) | payer MEDICARE, SELFPAY ==
--- NOTE | 2024-11-15 15:28 | BI_ITS ---
EXAM: SCRN MAMM (CAD)W/JI BILAT DATE: 11/15/2024 CLINICAL HISTORY: F, Age 89 y/o , SCREENING MAMMOGRAM Personal history of breast cancer. Prior left lumpectomy and breast biopsies. BREAST CANCER RISK ASSESSMENT: Not assessed. TECHNIQUE: Bilateral screening digital breast tomosynthesis with 2D and 3D images. Computer aided detection. COMPARISON: Prior exam(s) dated November 01, 2023.. FINDINGS: TISSUE DENSITY: The breast tissue is almost entirely fatty. Bilateral Breast Mammographic Findings: No significant masses, calcifications or other abnormalities are identified. Once again, the patient is status post lumpectomy in the deep central upper aspect of the left breast with resultant postoperative scarring and breast deformity with overlying skin thickening. Dystrophic calcification seen at the biopsy site. BI/SCRN MAMM (CAD)W/JI BILAT IMPRESSION: Right Breast: BIRADS 1 NEGATIVE. Left Breast: BIRADS 2 BENIGN FINDING. OVERALL FINAL ASSESSMENT: BIRADS 2 BENIGN FINDING RECOMMENDATION: Routine annual follow-up in 1 Year A letter with findings and recommendations will be mailed to the patient. Reading Location: [place] [address]
--- NOTE | 2024-11-15 15:30 | BD_ITS ---
PROCEDURE: DEXA BONE DENSITY STUDY 11/15/2024 REASON FOR EXAM: BONE DENSITY SCREENING F, age 89 y/o . Postmenopausal. TECHNIQUE: DXA scan of the lumbar spine and both hips., using make and model. REFERENCE LINKS: ISCD Adult Positions COMPARISON: Comparison is made with prior study dated January 27, 2021. FINDINGS: BMD and T-SCORES Lumbar spine: 0.979 g/cm2, T-Score -0.6 L1 through L4 Change from prior: Loss of 3.8% Left femoral neck: 0.563 g/cm2, T-Score -2.6 Femoral neck comparison data not recommended for monitoring change. Left total hip: 0.741 g/cm2, T-Score -1.6 Change from prior: Loss of 3.5% Right femoral neck: 0.596 g/cm2, T-Score -2.3 Femoral neck comparison data not recommended for monitoring change. Right total hip: 0.684 g/cm2, T-Score -2.1 Change from prior: Loss of 10.5% Fracture Risk Calculation: FRAX (10-year Fracture Risk) Score: FRAX scores should never be reported in a patient with osteoporosis on DEXA or for any patient that is on bone medication. The patient doesmeet the pharmacological treatment recommendations for prevention of osteoporosis BD/Dexa Bone Density Study IMPRESSION: OSTEOPOROSIS. Recommend follow-up as clinically warranted. Reading Location: [place] [address]
== END | disposition home or self-care (01) ==
PROVIDERS: PCP Family Medicine; Referring Provider Obstetrics & Gynecology; Visit Provider Obstetrics & Gynecology
DX: Z12.31 Encounter for screening mammogram for malignant neoplasm of breast (principal); Z78.0 Asymptomatic menopausal state; M81.0 Age-related osteoporosis without current pathological fracture; Z85.3 Personal history of malignant neoplasm of breast
CPT/HCPCS: 77063; 77067; 77080

== ENCOUNTER 2025-03-21 16:00 | Outpatient (RCR) | payer MEDICARE, SELFPAY ==
--- NOTE | 2025-01-23 11:53 | HP.PTEVAL_ITS ---
Patient's Visit Information Visit Information Visit Information: STEPHANY MORALES is a 89 year old F referred to Physical Therapy by Dr. Diego Farmer DO with a diagnosis of dizzyness. Date of Evaluation: 01/23/25 Physical Therapist: Wei Hamilton, ARNOLDT, OCS, CSCS Visit Plan Frequency: 1-2x /Week Duration: 4-6 Weeks Plan: 1-2x/week for 4-6 as needed for 1. monitor positional 2. progress to balance ex as needed to HEP 3. general strength funcitonal ex to HEP Gait training for oncfidenc ewith balance IE HEP BD 6-8 reps daily and use cane and balance safety. Next visit two weeks due to busyness next week with patient. Check positional Subjective Subjective: Has some dizzyness and Marleny and ENT were seen due to ears ringing and sinus feeling full. Started end of October insidiously. Dizzyness is only in and out of bed. None in 8 days now. Was having it every day getting in and out of bed and head would spin for short duration. Doesn't move much in bed. Avoided R side b/c of this problem. Activities pretty normal otherwise and feels OK with other activities. does feel fullness in her head. Dr. Barnes said no ear infectiona dn no vertigo. Does have hearing loss. Uses cane to get around all the time and has for long time. Balance feels off at times. No recent falls since October, was walking with walker at home and was standing up fro killing insect and fell BW, was not feeling good that day. Spends day not doing much. Goes out for lunch some times with girls. Lots of TV. Phone. No regular ex. Objective Objective: Walks with cane back to PT slow with poor weight shift but mod I. [facility] chair with UE and bed I. Steps with two rails today either leg but hesitant to step over step due to balance. cervical aROM 40 rotations and 35 ext with L deviation and some discomfort at all end ranges.- c/s compression. UE aROM WFL and strngth 3+/5 - B hallpike gracie, - roll test Oculomotor: no nystagmus with gaze or head shake normal pursuit and saccades, no symptoms. Slow but otherwise normal VOR no symptoms. - head thrust - ocular tilt - skew eye deviation; Balance/Special Test Scores Functional Gait Assessment Score: 21 % Disability: 30.0000 CATSIB Score (Max score 120 seconds): 98 Dizziness Score: 16 Goals Goal 1:: Dizzyness abolished x 2 weeks including rolling R in bed. Goal Time Frame: 4-6 Weeks Goal 2:: Balance FGA score 24/30 to decreasee fallr isk. Goal Time Frame: 4-6 Weeks Goal 3:: Pt fel 505 steadier and more confident with movement Goal Time Frame: 4-6 Weeks Goal 4:: I appropriate HEP for balance and general strength Goal Time Frame: 4-6 Weeks Rehabilitation Potential Physical Therapy Diagnosis: imbalance and dizzyness possibly previous BPPV subjectively but not today. Rehabilitation Potential: Fair Anticipated Interventions Patient/Client Instruction: Educate patient on: Condition and Plan of Care For the Purpose of:: To improve muscle performance and motor function, To increase tolerance to activity/condition/position, To improve ability of physical actions for home/community/work/leisure, To improve gait and locomotor functions and To improve safety Therapeutic Exercise to Include: Balance training Comment: posiotional vestibular ex For the Purpose of:: To improve muscle performance and motor function, To increase tolerance to activity/condition/position, To improve gait and locomotor functions and To improve safety Text: Thank you for the opportunity to evaluate your patient. For Medicare and Medicare HMO plans, please review the plan of care and approve it. It will need to be FAXED BACK to us at [phone] for Medicare purposes. For Medicare only, by signing this I certify the plan of care. Please let me know if there are questions or concerns regarding this plan of care. Physician Signature: Date:
--- NOTE | 2025-03-21 16:50 | HP.PTDCSUM ---
Discharge Summary D/C summary: It has been my pleasure to treat STEPHANY MORALES referred by Dr. Diego Farmer DO, with the diagnosis of dizzyness for a total of 8 visit(s). Discharge Date: 03/21/25 Please see the following information for a summary of their discharge status. Subjective Subjective: No recurrenc of spinning. Balance feels 50% better. Wants to continue via HEP. Sister and that took a while to get all visits in. HEP: Doing them daily sink No falls, using cane to gt around Pain Left LE: Pain Intensity (Out of 10): 0 Right LE: Pain Intensity (Out of 10): 0 Overall Improvement % Improvement: 50 Objective Objective/Function: FGA is 3 points improved. Feeling better overall. Reeady to try HEP vs more therapy. Goals Goal 1:: Dizzyness abolished x 2 weeks including rolling R in bed. Goal Progress: Goal Met Goal 2:: Balance FGA score 24/30 to decreasee fallr isk. Goal Progress: Goal Met Goal 3:: Pt fel 50% steadier and more confident with movement Goal Progress: Goal Met Goal 4:: I appropriate HEP for balance and general strength Goal Progress: Goal Met Plan Plan: d/c to HEP D/C Information d/c sentence: If there are questions or concerns regarding this patient's physical therapy, please feel free to call me at [phone]. Thank you for the referral of this patient. Sincerely, Wei Hamilton, DPT, OCS, CSCS Balance/Gait/Functional tests Balance/Special Test Scores Functional Gait Assessment Score: 24 % Disability: 20.0000 CATSIB Score (Max score 120 seconds): 98 Dizziness Score: 4 Improvement % Improvement: 50
== END 2025-03-21 19:00 | disposition home or self-care (01) ==
LOC: PT 16:00
PROVIDERS: PCP Family Medicine; Visit Provider Family Medicine
DX: R42 Dizziness and giddiness (principal)
CPT/HCPCS: 97110; 97162; 97164; 97530

== ENCOUNTER → 2025-05-31 | Outpatient (CLI) | payer MEDICARE, SELFPAY ==
--- OUTSIDE RECORDS SUMMARY | 2025-05-31 13:11 | XMS RPT_ITS | CCD ---
Author Organization [facility] Care Team Providers Care Social Media Campaign Manager Name Role Phone Dr. Odetet Farmer Primary Care Provider [phone] Dr. Odette Farmer Referring Provider [phone] TAB Simms NP Attending Provider [phone] Dr. Obi Clark Attending Provider [phone] Odette Farmer DO Primary Care Provider Odette Farmer DO Primary Care Provider Dr. Odette Farmer Primary Care Provider [phone] Dr. Odette Farmer Referring Provider [phone] TAB Simms NP Attending Provider [phone] SEB Yee Attending Provider Odette Farmer DO Primary Care Provider Dr. Odette Farmer Primary Care Provider [phone] Dr. Odette Farmer Referring Provider [phone] Simms NP Attending Provider [phone] SEB Yee Attending Provider Dr. Odette Farmer Primary Care Provider [phone] Dr. Odette Farmer Referring Provider SEB Rodas Attending Provider Dr. Obi Clark Attending Provider [phone] Dr. Obi Clark Other Provider Dr. Donald Rivera Attending Provider Odette Farmer DO Primary Care Provider Dr. Obi Clark Referring Provider [phone] Odette Farmer Primary Care Provider [phone] Dr. Odette Farmer Referring Provider Dr. Donald Rivera Attending Provider Mansoor, Dr. Rojas Attending Provider Dr. Alexis Rivera Emergency Provider Dr. Saskia Ramirez Admit Provider Dr. Saskia Ramirez Other Provider Dr. Esau Katz Attending Provider Sterling, Dr. Cifuentes Other Provider Dr. Obi Clark Attending Provider [phone] Odette Farmer Primary Care Provider [phone] Dr. Esau Katz Referring Provider Dr. Odette Farmer Referring Provider Blanquita CONTINUOUS PROCESS ROTARY DRUM TANNER, CONTINUOUS PROCESS ROTARY DRUM TANNER-C Karen Ly Attending Provider Demi CONTINUOUS PROCESS ROTARY DRUM TANNER, CONTINUOUS PROCESS ROTARY DRUM TANNER-C Deepti Attending Provider [phone] Dr. Donald Rivera Attending Provider Dr. Odette Farmer Primary Care Provider [phone] Dr. Odette Farmer Referring Provider Demi CONTINUOUS PROCESS ROTARY DRUM TANNER, CONTINUOUS PROCESS ROTARY DRUM TANNER-C Deepti Attending Provider [phone] Fela CONTINUOUS PROCESS ROTARY DRUM TANNER, CONTINUOUS PROCESS ROTARY DRUM TANNER-C Kim Attending Provider [phone] Dr. Obi Clark Attending Provider [phone] Odette Farmer DO Primary Care Provider Dr. Odette Farmer DO Primary Care Provider Dr. Odette Farmer DO Referring Provider [phone] Obi Clark MD Attending Provider Rosemary FLEMING, Dr. Cortez Attending Provider [phone] Rashaun FRAZIER, Dr. Manjarrez Attending Provider [phone] Rashaun FRAZIER, Dr. Manjarrez Referring Provider [phone] Rosemary FLEMING, Dr. Cortez Primary Care Provider [phone] Rosemary FLEMING, Dr. Cortez Referring Provider [phone] Rosemary FLEMING, Dr. Cortez Attending Provider [phone] [employer] CONTINUOUS PROCESS ROTARY DRUM TANNERTawanda Hernandez Attending Provider Rosemary FLEMING, Dr. Cortez Primary Care Provider [phone] Rosemary FLEMING, Dr. Cortez Referring Provider [phone] Rosemary FLEMING, Dr. Cortez Attending Provider [phone] TESTRAKE, TANVI Attending Unavailable TESTRAKE, TANVI Referring Unavailable ROSEMARY, ODETTE A Primary Care Unavailable TESTRAKE, TANVI Attending Unavailable TESTRAKE, TANVI Referring Unavailable ROSEMARY, ODETTE A Primary Care Unavailable TESTRAKE, TANVI Attending Unavailable TESTRAKE, TANVI Referring Unavailable ROSEMARY, ODETTE A Primary Care Unavailable TESTRAKE, TANVI Attending Unavailable TESTRAKE, TANVI Referring Unavailable ROSEMARY, ODETTE A Primary Care Unavailable TESTRAKE, TANVI Referring Unavailable TESTRAKE, TANVI Attending Unavailable ROSEMARY, ODETTE A Primary Care Unavailable TESTRAKE, TANVI Attending Unavailable TESTRAKE, TANVI Referring Unavailable ROSEMARY, ODETET A Primary Care Unavailable TESTRAKE, TANVI Attending Unavailable TESTRAKE, TANVI Referring Unavailable ROSEMARY, ODETTE A Primary Care Unavailable TESTRAKE, TANVI Referring Unavailable ROSEMARY, ODETTE A Primary Care Unavailable TESTRAKE, TANVI Attending Unavailable ROSEMARY, ODETTE A Primary Care Unavailable Rosemary, Odette Primary Care Unavailable Rosemary, Odette Attending Unavailable Rosemary, Odette Referring Unavailable Rosemary, Odette Primary Care Unavailable Rosemary, Odette Attending Unavailable Rosemary, Odette Referring Unavailable Marcanthony, Josseline Attending Unavailable Marczaira, Josseline Referring Unavailable Rosemary, Odette Primary Care Unavailable Rosemary, Odette Attending Unavailable Rosemary, Odette Primary Care Unavailable Rosemary, Odette Attending Unavailable Rosemary, Odette Primary Care Unavailable Rosemary, Odette Primary Care Unavailable Rosemary, Odette Attending Unavailable Rosemary, Odette Referring Unavailable Rosemary, Odette Referring Unavailable Rosemary, Odette Primary Care Unavailable Tawanda Connors NP Attending Unavailable Rosemary, Odette Primary Care Unavailable Amber, Obi Attending Unavailable Rosemary, Odette Referring Unavailable Josseline Rodney Attending Unavailable Rosemary, Odette Referring Unavailable Rosemary, Odette Primary Care Unavailable Rosemary, Odette Primary Care Unavailable Amber, Henderson Attending Unavailable Rosemary, Odette Referring Unavailable Rosemary, Odette Primary Care Unavailable Jane, Stefani Attending Unavailable Austin, Stefani Referring Unavailable Rosemary, Odette Primary Care Unavailable Rosemary, Odette Attending Unavailable Rosemary, Odette Referring Unavailable Allergies Allergy Classification Reported Allergen(s) Allergy Type Date of Onset Reaction(s) Facility (20 sources) FLUoxetine; Translations: [FLUOXETINE] Drug Allergy 8 Mental Status Change [facility] Work Phone: Comment on above: NIGHTMARES, AND "IT MAKES ME FEEL WEIRD" (20 sources) Dust, Trees, Cats, Dogs [Other] Propensity to adverse reactions 6 Cough [facility] (8 sources) Potassium Chloride Drug Allergy 3 Blue Capsules = Rash [facility] (7 sources) Metoprolol Drug Allergy 3 Bradycardia [facility] (16 sources) Potassium; Translations: [POTASSIUM] Drug Allergy 3 Rash [facility] (1 source) OTHER; Translations: [OTHER] Propensity to adverse reactions (disorder) 6 [facility] [place] [facility] (1 source) FLUoxetine Drug Allergy 5 [facility] Repository (1 source) Metoprolol Drug Allergy 5 [facility] Repository (1 source) Potassium Chloride Drug Allergy 5 [facility] Repository Medications Current Medications Medication Drug Class(es) Dates Sig (Normalized) Sig (Original) amiodarone hydrochloride 200 mg oral tablet (20 sources) Antiarrhythmic Start: 10-11-2023 End: 10-19-2024 Amiodarone 200 mg tablet Active 0 .ROUTE .COMPLEX 45 3 October 19, 2024 8:57am TAKE ONE-HALF (1/2) TABLET DAILY Start: 11-20-2019 End: 10-11-2023 Amiodarone 200 mg tablet Discontinued 100 mg PO DAILY 45 September 13, 2022 4:06pm October 11, 2023 1:51pm Start: 11-20-2019 End: 10-11-2023 take 100 mg by mouth once daily Amiodarone Discontinue d 100 MG PO DAILY 45 September 13, 2022 4:06pm October 11, 2023 1:51pm Start: 03-20-2019 End: 11-20-2019 take 1 tablet by mouth once daily amiodarone (PACERONE) 200 mg tablet Take 200 mg by mouth once daily. 03/26/2019 Active Start: 03-02-2019 End: 03-20-2019 take 1 tablet by mouth twice daily Amiodarone 200 MG tablet Discontinued 200 mg PO TWICE A DAY 60 0 March 02, 2019 12:00am March 20, 2019 12:50pm Comment on above: Take 200 mg by mouth once daily. amoxicillin 500 mg oral capsule (15 sources) Penicillin-class Antibacterial Start: 02-07-20 take 4 capsules by mouth once as needed Amoxicillin 500 mg capsule Active 2000 mg PO ONCE as needed for 1 hour prior to dental visits February 06, 2025 12:00am End: 06-05-2024 take 1 tablet by mouth three times daily amoxicillin, chewable (POLYMOX, AMOXIL) 125 mg chewable tablet Take 125 mg by mouth three times daily. 06/05/2024 Discontinued Comment on above: Take 125 mg by mouth three times daily. apixaban 5 mg oral tablet (20 sources) Factor Xa Inhibitor Start: 9 End: 5 take 1 tablet by mouth twice daily ELIQUIS 5 mg tab(s) Take 5 mg by mouth twice daily. 03/20/2019 Active Comment on above: Take 5 mg by mouth t wice daily. ascorbic acid 500 mg oral tablet (15 sources) Vitamin C take 1 tablet by mouth twice daily ascorbic acid, vitamin C, (VITAMIN C) 500 mg tablet Take 500 mg by mouth twice daily. Active Comment on above: Take 500 mg by mouth twice daily. atorvastatin 20 mg oral tablet (20 sources) HMG-CoA Reductase Inhibitor Start: 3 End: 5 take 1 tablet by mouth once daily ATORVASTATIN 20 mg tablet Take 20 mg by mouth once daily. 08/13/2013 Active Comment on above: Take 20 mg by mouth once daily. biotin 5 mg sublingual tablet (20 sources) Start: 0 take 1 tablet under the tongue once daily Biotin 5,000 mcg tablet, sublingual Active 5000 ug SL DAILY July 02, 2020 1:00am take 5000 ug by mouth once daily biotin 5,000 mcg chew Take 5,000 mcg by mouth once daily. Active take 5000 ug by mouth once daily biotin 5,000 mcg chew Take 5,000 mcg by mouth once daily. 0 Active Comment on above: Take 5,[address] [facility] once daily. Budesonide-Formoterol (20 sources) Corticosteroid, beta2-Adrenergic Agonist Start: 01-23-2025 Budesonide-Formoterol (Symbicort) 160-4.5 mcg/actuation HFA aerosol inhaler Active 2 NMA INHALATION TWICE A DAY 3 3 January 23, 2025 11:27am administer with spacer, rinse mouth after each use Start: 01-23-2025 Budesonide-For moterol (Symbicort) 160-4.5 mcg/actuation HFA aerosol inhaler Active 2 NMA INHALATION TWICE A DAY 3 January 23, 2025 11:27am administer with spacer, rinse mouth after each use Start: 09-21-2024 End: 01-23-2025 Budesonide-Formoterol (Symbi hailey) 160-4.5 mcg/actuation HFA aerosol inhaler Discontinued 2 NMA INHALATION TWICE A DAY 3 3 September 21, 2024 3:01pm January 23, 2025 11:27am administer with spacer, rinse mouth after each use Start: 09-21-2024 End: 01-23-2025 Budesonide-Formoterol (Symbi hailey) 160-4.5 mcg/actuation HFA aerosol inhaler Discontinued 2 NMA INHALATION TWICE A DAY 3 September 21, 2024 3:01pm January 23, 2025 11:27am administer with spacer, rinse mouth after each use Start: 09-21-2024 Budesonide-For moterol (Symbicort) 160-4.5 mcg/actuation HFA aerosol inhaler Active 2 NMA INHALATION TWICE A DAY 3 September 21, 2024 3:01pm administer with spacer, rinse mouth after each use Start: 09-29-2023 End: 09-21-2024 Budesonide-Formoterol (Symbi hailey) 160-4.5 mcg/actuation HFA aerosol inhaler Discontinued 2 NMA INHALATION TWICE A DAY 3 3 September 29, 2023 2:53pm September 21, 2024 3:02pm administer with spacer, rinse mouth after each use Start: 09-29-2023 End: 09-21-2024 Budesonide-Formoterol (Symbi hailey) 160-4.5 mcg/actuation HFA aerosol inhaler Discontinued 2 NMA INHALATION TWICE A DAY 3 September 29, 2023 2:53pm September 21, 2024 3:02pm administer with spacer, rinse mouth after each use Start: 09-29-2023 take 1 puff(s) by mo uth twice daily Budesonide-Formoterol (Symbicort) 160-4.5 mcg/actuation HFA aerosol inhaler Active 2 PUFF INHALATION TWICE A DAY 3 September 29, 2023 2:53pm administer with spacer, rinse mouth after each use Start: 07-19-2023 End: 09-29-2023 Budesonide-Formoterol (Symbi hailey) 160-4.5 mcg/actuation HFA aerosol inhaler Discontinued 2 NMA INHALATION TWICE A DAY 3 3 July 19, 2023 11:37am September 29, 2023 2:53pm administer with spacer, rinse mouth after each use Start: 07-19-2023 End: 09-29-2023 Budesonide-Formoterol (Symbi hailey) 160-4.5 mcg/actuation HFA aerosol inhaler Discontinued 2 NMA INHALATION TWICE A DAY 3 July 19, 2023 11:37am September 29, 2023 2:53pm administer with spacer, rinse mouth after each use Start: 07-19-2023 End: 09-29-2023 take 1 puff(s) by mouth twice daily Budesonide-Formoterol (Symbicort) 160-4.5 mcg/actuation HFA aerosol inhaler Discontinued 2 PUFF INHALATION TWICE A DAY 3 July 19, 2023 11:37am September 29, 2023 2:53pm administer with spacer, rinse mouth after each use Start: 09-13-2022 End: 07-19-2023 Budesonide-Formoterol (Symbi hailey) 160-4.5 mcg/actuation HFA aerosol inhaler Discontinued 2 NMA INHALATION TWICE A DAY 3 September 13, 2022 4:00pm July 19, 2023 11:37am administer with spacer, rinse mouth after each use Start: 09-13-2022 End: 07-19-2023 Budesonide-Formoterol (Symbi hailey) 160-4.5 mcg/actuation HFA aerosol inhaler Discontinued 2 NMA INHALATION TWICE A DAY 3 September 13, 2022 4:00pm July 19, 2023 11:37am administer with spacer, rinse mouth after each use Start: 09-13-2022 End: 07-19-2023 take 1 puff(s) by mouth twice daily Budesonide-Formoterol (Symbicort) 160-4.5 mcg/actuation HFA aerosol inhaler Discontinued 2 PUFF INHALATION TWICE A DAY 3 September 13, 2022 4:00pm July 19, 2023 11:37am administer with spacer, rinse mouth after each use Start: 09-13-2022 take 1 puff(s) by mo uth twice daily Budesonide-Formoterol (Symbicort) 160-4.5 mcg/actuation HFA aerosol inhaler Active 2 PUFF INHALATION TWICE A DAY September 13, 2022 4:00pm administer with spacer, rinse mouth after each use Start: 09-13-2022 take 1 puff(s) by mo uth twice daily Budesonide-Formoterol (Symbicort) 160-4.5 mcg/actuation HFA aerosol inhaler Active 2 PUFF INHALATION TWICE A DAY 3 September 13, 2022 3:00pm administer with spacer, rinse mouth after each use Start: 06-17-2022 End: 09-13-2022 Budesonide-Formoterol (Symbi hailey) 160-4.5 mcg/actuation HFA aerosol inhaler Discontinued 2 NMA INHALATION TWICE A DAY 1 June 17, 2022 1:31pm September 13, 2022 4:02pm administer with spacer, rinse mouth after each use Start: 06-17-2022 End: 09-13-2022 Budesonide-Formoterol (Symbi hailey) 160-4.5 mcg/actuation HFA aerosol inhaler Discontinued 2 NMA INHALATION TWICE A DAY June 17, 2022 1:31pm September 13, 2022 4:02pm administer with spacer, rinse mouth after each use Start: 06-17-2022 End: 09-13-2022 take 1 puff(s) by mouth twice daily Budesonide-Formoterol (Symbicort) 160-4.5 mcg/actuation HFA aerosol inhaler Discontinued 2 PUFF INHALATION TWICE A DAY June 17, 2022 1:31pm September 13, 2022 4:02pm administer with spacer, rinse mouth after each use Start: 06-17-2022 End: 09-13-2022 take 1 puff(s) by mouth twice daily Budesonide-Formoterol (Symbicort) 160-4.5 mcg/actuation HFA aerosol inhaler Discontinued 2 PUFF INHALATION TWICE A DAY June 17, 2022 12:31pm September 13, 2022 3:02pm administer with spacer, rinse mouth after each use Start: 06-17-2022 take 1 puff(s) by [facility] twice daily Budesonide-Formoterol (Symbicort) 160-4.5 mcg/actuation HFA aerosol inhaler Active 2 PUFF INHALATION TWICE A DAY June 17, 2022 12:31pm administer with spacer, rinse mouth after each use Start: 09-02-2021 take 1 puff(s) by [facility] twice daily Budesonide-Formoterol (Symbicort) 160-4.5 mcg/actuation HFA aerosol inhaler Active 2 PUFF INHALATION TWICE A DAY September 02, 2021 12:46pm administer with spacer, rinse mouth after each use Start: 09-02-2021 End: 06-17-2022 Budesonide-Formoterol (Symbi hailey) 160-4.5 mcg/actuation HFA aerosol inhaler Discontinued 2 NMA INHALATION TWICE A DAY 08 17September 02, 2021 1:00am June 17, 2022 1:31pm administer with spacer, rinse mouth after each use Start: 09-02-2021 End: 06-17-2022 Budesonide-Formoterol (Symbi hailey) 160-4.5 mcg/actuation HFA aerosol inhaler Discontinued 2 NMA INHALATION TWICE A DAY September 02, 2021 1:00am June 17, 2022 1:31pm administer with spacer, rinse mouth after each use Start: 09-02-2021 End: 06-17-2022 take 1 puff(s) by mouth twice daily Budesonide-Formoterol (Symbicort) 160-4.5 mcg/actuation HFA aerosol inhaler Discontinued 2 PUFF INHALATION TWICE A DAY 1 September 02, 2021 1:00am June 17, 2022 1:31pm administer with spacer, rinse mouth after each use Start: 09-02-2021 End: 06-17-2022 take 1 puff(s) by mouth twice daily Budesonide-Formoterol (Symbicort) 160-4.5 mcg/actuation HFA aerosol inhaler Discontinued 2 PUFF INHALATION TWICE A DAY September 02, 2021 12:00am June 17, 2022 12:31pm administer with spacer, rinse mouth after each use Start: 09-02-2021 take 1 puff(s) by mo uth twice daily Budesonide-Formoterol (Symbicort) 160-4.5 mcg/actuation HFA aerosol inhaler Active 2 PUFF INHALATION TWICE A DAY 1 September 02, 2021 1:00am administer with spacer, rinse mouth after each use take 2 puff(s) by in halation twice daily budesonide-formoterol (SYMBICORT) 160-4.5 mcg/actuation inhaler Inhale 2 Puffs as instructed twice daily. Active take 2 puff(s) by in halation twice daily budesonide-formoterol (SYMBICORT) 160-4.5 mcg/actuation inhaler Inhale 2 Puffs as instructed twice daily. 0 Active Comment on above: Inhale 2 Puffs as in structed twice daily. [id number]-vtyjz-zinc-lennox-h erb 312 500 mg-15 mcg- 1,000 mcg-16 mg cap (16 sources) take 1 tablet by mouth once daily W-W2-ksirt-zinc-lennox -herb 312 500 mg-15 mcg- 1,000 mcg-16 mg cap Take 1 tablet by mouth once daily. Active take 1 tablet by mouth once marty y Z-E2-zcwmg-pbvb-fbk-tjjd 312 500 mg-15 mcg- 1,000 mcg-16 mg cap Take 1 tablet by mouth once daily. 0 Active Comment on above: Take 1 tablet by [facility] once daily. cetirizine hydrochloride 10 mg oral tablet (20 sources) Histamine-1 Receptor Antagonist Start: take 1 tablet by mouth once daily as needed Cetirizine 10 mg tablet Active 10 mg PO DAILY as needed for allergy symptoms 90 3 January 27, 2023 12:00am take 1 tablet by mouth once marty y cetirizine HCl (ZYRTEC) 10 mg chewable tablet Take 10 mg by mouth once daily. Active Comment on above: Take 10 mg by mouth once daily. cholecalciferol 0.05 mg oral tablet (20 sources) Vitamin D Start: 09-17-19 take 1 tablet by mouth once daily Cholecalciferol (Vitamin D3) 50 mcg (2,000 unit) tablet Active 50 ug PO DAILY September 17, 2022 1:00am Start: 03-30-2022 End: 09-17-2022 take 1 capsule by mouth once daily Cholecalciferol (Vitamin D3) 10 mcg (400 unit) capsule Discontinued 10 ug PO DAILY March 30, 2022 12:00am September 17, 2022 2:44pm take [address] [facility] once daily Cholecalciferol, Vitamin D3, 50 mcg (2,000 unit) cap Take 2,000 Units by mouth once daily. Active Comment on above: Take 2,000 Units by mouth once daily. diclofenac sodium 0.01 mg/mg topical gel (20 sources) Nonsteroidal Anti-inflammatory Drug Start: 2 apply 2 g topically once Diclofenac Sodium 1 % gel Active 2 g TOPICAL ONCE March 30, 2022 12:00am apply to single elbow, wrist or hand; for hand includes palm/fingers/back of hand Start: 03-30-2022 apply 2 g topically once Diclo fenac Sodium Active 2 GM TOPICAL ONCE March 30, 2022 12:00am apply to single elbow, wrist or hand; for hand includes palm/fingers/back of hand Start: 03-30-2022 End: 09-17-2022 take 1 capsule by mouth twice daily Diclofenac Potassium 25 mg capsule Discontinued 25 mg PO TWICE A DAY March 30, 2022 12:00am September 17, 2022 2:45pm Start: 10-02-2009 diclofenac sod ium(VOLTAREN 1 % TOPICAL GEL) daily as needed 0 10/02/2009 Active Comment on above: daily as needed doxepin hydrochloride 10 mg oral capsule (2 sources) Tricyclic Antidepressant Start: take 1 capsule by mouth at bedtime as needed Doxepin 10 mg capsule Active 10 mg PO AT BEDTIME as needed February 06, 2025 12:00am ferrous sulfate 325 mg oral tablet (20 sources) Start: take 1 tablet by mouth every other day Ferrous Sulfate (Feosol) 325 mg (65 mg iron) tablet Active 325 mg PO every other day February 06, 2025 10:57am Start: 09-29-2023 End: 02-06-2025 take 1 tablet by mouth once daily Ferrous Sulfate (Feosol) 325 mg (65 mg iron) tablet Discontinued 325 mg PO DAILY September 29, 2023 1:00am February 06, 2025 11:04am Comment on above: Take 325 mg by mouth . fluticasone propionate 0.05 mg/actuat metered dose nasal spray (20 sources) Corticosteroid Start: 01-07-2023 Fluticasone Propionate (Flonase Allergy Relief) 50 mcg/actuation spray,suspension Active 2 NMA INTRANASAL TWICE A DAY January 07, 2023 11:48am allergies Start: 01-07-2023 Fluticasone Pr opionate (Flonase Allergy Relief) 50 mcg/actuation spray,suspension Active 2 SPRAY INTRANASAL TWICE A DAY January 07, 2023 11:48am Start: 10-11-2017 End: 01-07-2023 Fluticasone Propionate (Flon ase Allergy Relief) 50 mcg/actuation spray,suspension Discontinued 2 spry INTRANASAL ONCE October 11, 2017 1:00am January 07, 2023 11:51am allergies End: 06-05-2024 fluticasone propionate (FLON ASE NASAL) Use 1 [place] in the nose twice daily. 06/05/2024 Discontinued fluticasone prop ionate (FLONASE NASAL) Use 1 [place] in the nose twice daily. 0 Active Comment on above: Use 1 [place] in the n ose twice daily. furosemide 40 mg oral tablet (20 sources) Loop Diuretic Start: 08-10-2024 End: 02-06-2025 take 1 tablet by mouth once daily in the morning as needed for edema Furosemide (Lasix) 40 mg tablet Active 40 mg PO EVERY MORNING as needed for edema 90 3 February 06, 2025 11:28am Start: 07-29-2022 End: 06-05-2024 take 1 tablet by mouth once daily Furosemide (Lasix) 40 mg tablet Discontinued 40 mg PO DAILY 90 3 September 13, 2022 4:06pm October 28, 2022 5:19pm Start: 11-20-2019 End: 03-30-2022 Furosemide 20 mg tablet Disc ontinued 20 mg PO .2xweek as needed November 20, 2019 12:00am March 30, 2022 4:18pm Comment on above: Take 40 mg by mouth once daily. ipratropium bromide 0.042 mg/actuat metered dose nasal spray (3 sources) Anticholinergic Start: 05-18-20 Ipratropium [place] 42 mcg (0.06 %) spray,non-aerosol Active INTRANASAL May 18, 2024 12:00am L.acidoph,saliva/B.b if/S.therm (ACIDOPHILUS PROBIOTIC BLEND ORAL) (15 sources) take 1 tablet by mouth once daily L.acidoph,saliva/B. bif/S.therm (ACIDOPHILUS PROBIOTIC BLEND ORAL) Take 1 tablet by mouth once daily. Active take [address] once daily L.acidoph,saliva/B.bif/S.therm (ACIDOPHI JULOI PROBIOTIC BLEND ORAL) Take 1 tablet by mouth once daily. 0 Active Comment on above: Take [address] once daily. lactobacillus acidophilus [id number] unt oral capsule (17 sources) Start: 08-28-2020 Lactobacillus Acidophilus 1 billion cell capsule Active 1000 NMA PO DAILY 30 August 28, 2020 1:00am administer with a meal Start: 08-28-2020 Lactobacillus Acidophilus Active 1000 MMU CELLS PO DAILY August 28, 2020 1:00am administer with a meal levothyroxine sodium 0.05 mg oral tablet (20 sources) l-Thyroxine Start: 07-02-2020 take 1 tablet by mouth once daily Levothyroxine 50 mcg tablet Active 50 ug PO DAILY July 02, 2020 1:00am Comment on above: Take 50 mcg by mouth daily before breakfast. magnesium oxide 400 mg oral tablet (3 sources) Start: 08-10-2024 take 1 tablet by mouth once daily Magnesium Oxide 400 mg (241.3 mg magnesium) tablet Active 400 mg PO daily August 10, 2024 1:00am Multivitamin (Multiple Vitamins) tablet (17 sources) Start: 08-09-2017 take 1 tablet by mouth once daily Multivitamin (Multiple Vitamins) tablet Active 1 TABLET PO daily August 09, 2017 10:04am Start: 08-09-2017 End: 03-30-2022 Multivitamin (Multiple Vitam ins) tablet Discontinued 1 {tbl} PO daily August 09, 2017 1:00am March 30, 2022 4:18pm supplement Start: 08-09-2017 End: 03-30-2022 Multivitamin (Multiple Vitam ins) tablet Discontinued 1 {tbl} PO daily August 09, 2017 1:00am March 30, 2022 4:18pm Start: 08-09-2017 End: 03-30-2022 take 1 tablet by mouth once daily Multivitamin (Multiple Vitamins) tablet Discontinued 1 TABLET PO daily August 09, 2017 12:00am March 30, 2022 3:18pm Start: 08-09-2017 End: 03-30-2022 take 1 tablet by mouth once daily Multivitamin (Multiple Vitamins) tablet Discontinued 1 TABLET PO daily August 09, 2017 1:00am March 30, 2022 4:18pm Nebulizer device (20 sources) Start: 06-18-2022 Nebulizer lenin ce Active 0 .ROUTE .MEDSUPPLY 1 June 18, 2022 8:41am As directed Start: 06-18-2022 Nebulizer lenin ce Active 0 .ROUTE .MEDSUPPLY June 18, 2022 8:41am As directed Start: 06-18-2022 Nebulizer lenin ce Active 0 .ROUTE .MEDSUPPLY June 18, 2022 7:41am As directed Start: 06-17-2022 End: 06-18-2022 Nebulizer device Discontinue d 0 .ROUTE .MEDSUPPLY 1 June 17, 2022 12:00am June 18, 2022 8:42am As directed Start: 06-17-2022 End: 06-18-2022 Nebulizer device Discontinue d 0 .ROUTE .MEDSUPPLY June 17, 2022 12:00am June 18, 2022 8:42am As directed Start: 06-17-2022 End: 06-18-2022 Nebulizer device Discontinue d 0 .ROUTE .MEDSUPPLY 1 June 16, 2022 11:00pm June 18, 2022 7:42am As directed Pantoprazole 40 mg tablet,delayed release (DR/EC) (3 sources) Start: 05-18-2024 take 1 tablet by mouth once daily Pantoprazole 40 mg tablet,delayed release (DR/EC) Active 40 mg PO daily May 18, 2024 12:00am PEP device (17 sources) Start: 10-16-2020 PEP device Act augusto 0 .ROUTE .MEDSUPPLY 1 October 16, 2020 11:43am with training Start: 10-16-2020 PEP device Act augusto 0 .ROUTE .MEDSUPPLY 1 0 October 16, 2020 1:00am Cough Bronchiectasis, uncomplicated with training Start: 10-16-2020 PEP device Act augusto 0 .ROUTE .MEDSUPPLY 1 October 16, 2020 12:00am with training Start: 10-16-2020 PEP device Act augusto 0 .ROUTE .MEDSUPPLY 1 October 16, 2020 1:00am with training sodium chloride 0.111 meq/ml nasal spray (17 sources) Start: 03-10-2018 Sodium Chlorid e (Saline Mist) 0.65 % aerosol,spray Active 1 NMA INTRANASAL every 1 to 4 hours as needed for dry nose March 10, 2018 12:00am Start: 03-10-2018 Sodium Chlorid e (Saline Mist) 0.65 % aerosol,spray Active 1 SPRAY INTRANASAL every 1 to 4 hours March 10, 2018 12:00am spacer (17 sources) Start: 08-01-2020 spacer Active 0 .ROUTE .MEDSUPPLY 1 August 01, 2020 4:39pm As directed Start: 08-01-2020 End: 03-30-2022 spacer Discontinued 0 .ROUTE .MEDSUPPLY 1 August 01, 2020 1:00am March 30, 2022 4:18pm As directed Start: 08-01-2020 End: 03-30-2022 spacer Discontinued 0 .ROUTE .MEDSUPPLY 1 August 01, 2020 12:00am March 30, 2022 3:18pm As directed Start: 08-01-2020 End: 03-30-2022 spacer Discontinued 0 .ROUTE .MEDSUPPLY 1 August 01, 2020 1:00am March 30, 2022 4:18pm As directed tiZANidine 2 mg oral tablet (20 sources) Central alpha-2 Adrenergic Agonist Start: 05-01-2024 End: 02-06-2025 tiZANidine (ZANAFLEX) 2 mg tablet 05/01/2024 Active Start: 07-02-2020 End: 10-27-2021 take 1 tablet by mouth three times daily as needed Tizanidine 2 mg tablet Discontinued 2 mg PO THREE TIMES A DAY as needed July 02, 2020 1:00am October 27, 2021 11:47am triamcinolone acetonide 1 mg/ml topical cream (20 sources) Corticosteroid Start: 09-29-2023 Triamcinolone Acetonide 0.1 % cream Active NMA TOPICAL THREE TIMES A DAY as needed September 29, 2023 1:00am triamcinolone ac etonide (KENALOG) 0.1 % cream Apply to affected area twice daily. Active Comment on above: Apply to affected ar ea twice daily. Completed/Discontinued Medications Medication Drug Class(es) Dates Sig (Normalized) Sig (Original) acetaminophen 325 mg / oxyCODONE hydrochloride 5 mg oral tablet (17 sources) Opioid Agonist Start: 02-18-2014 End: 08-09-2017 Oxycodone-Acetamino phen 1 TABLET tablet Discontinued 1 {tbl} PO EVERY 6 HOURS NEEDED as needed for Pain 8 0 February 18, 2014 6:53pm August 09, 2017 10:06am Start: 02-18-2014 End: 08-09-2017 take 1 tablet by mouth every six hours as needed Oxycodone-Acetaminophen Discontinued 1 TABLET PO EVERY 6 HOURS NEEDED 8 February 18, 2014 6:53pm August 09, 2017 10:06am [id number] 200 actuat albuterol 0.09 mg/actuat metered dose inhaler (20 sources) beta2-Adrenergic Agonist Start: 07-16-2020 End: 03-30-2022 Albuterol Sulfate 90 mcg/actuation HFA aerosol inhaler Discontinued 2 NMA INHALATION 6 times per day as needed for shortness of breath or wheezing 8.5 2 July 16, 2020 1:00am March 30, 2022 4:15pm Start: 07-16-2020 End: 03-30-2022 Albuterol Sulfate Discontinu ed 2 PUFF INHALATION 6 times per day 8.5 July 16, 2020 1:00am March 30, 2022 4:15pm ALBUTEROL INHALA TION Inhale as instructed. Nebulizer Active ALBUTEROL INHALA TION Inhale as instructed. Nebulizer 0 Active Comment on above: Inhale as instructed . Nebulizer albuterol 0.833 mg/ml / ipratropium bromide 0.167 mg/ml inhalation solution (20 sources) Anticholinergic, beta2-Adrenergic Agonist Start: 06-17-20 End: 09-21-19 take 1 mL by inhalation every four hours as needed for wheezing Ipratropium-Albutero l 0.5 mg-3 mg(2.5 mg base)/3 mL solution for nebulization Discontinued 3 mL INHALATION EVERY 4 HOURS NEEDED as needed for SOB &/OR WHEEZING 180 June 18, 2022 8:41am September 21, 2024 3:02pm Bronchitis Bronchitis, not specified as acute or chronic Start: 06-17-2022 End: 06-18-2022 take 1 mL by inhalation every four hours as needed Ipratropium-Albuterol Active 3 ML INHALATION EVERY 4 HOURS NEEDED 180 June 18, 2022 8:41am amoxicillin 875 mg / clavulanate 125 mg oral tablet (20 sources) Penicillin-class Antibacterial Start: 03-30-2022 End: 04-09-2022 Amoxicillin-Pot Clavulanate 875-125 mg tablet Discontinued 1 {tbl} PO Q12H 20 10 March 30, 2022 12:00am April 08, 2022 12:00am April 09, 2022 12:05am Acute sinusitis, unspecified Start: 03-30-2022 End: 04-09-2022 take 1 tablet by mouth every twelve hours Amoxicillin-Pot Clavulanate Discontinued 1 TABLET PO Q12H 20 March 30, 2022 12:00am April 09, 2022 12:05am Start: 08-28-2020 End: 10-16-2020 Amoxicillin-Pot Clavulanate (Augmentin) 875-125 mg tablet Discontinued 1 {tbl} PO TWICE A DAY August 28, 2020 1:00am March 4th, 2021 11:05am aspirin 81 mg chewable tablet (20 sources) Platelet Aggregation Inhibitor, Nonsteroidal Anti-inflammatory Drug Start: 02-18-2014 End: 03-02-2019 take 1 tablet by mouth at bedtime Aspirin 81 MG tablet,chewable Discontinued 81 mg PO AT BEDTIME February 18, 2014 12:00am March 02, 2019 8:50am heart health Start: 09-22-2005 End: 06-05-2024 ASPIRIN 81 MG TAB Take one(1 ) tablet daily. 0 09/22/2005 06/05/2024 Discontinued Comment on above: Take one(1) tablet d aily. azelastine hydrochloride 0.206 mg/actuat metered dose nasal spray (20 sources) Histamine-1 Receptor Antagonist Start: 08-28-2020 End: 02-06-2025 Azelastine 205.5 mcg (0.15 %) spray,non-aerosol Discontinued 1 NMA INTRANASAL TWICE A DAY 14 07September 02, 2021 12:54pm February 06, 2025 10:57am Chronic obstructive pulmonary disease, unspecified administer into each nostril Start: 08-28-2020 End: 09-02-2021 take 1 spray(s) nasal route twice daily Azelastine Discontinued 1 SPRAY INTRANASAL TWICE A DAY September 02, 2021 12:52pm September 02, 2021 12:55pm administer into each nostril End: 06-05-2024 azelastine HCl (AZELASTINE N LIA) Use 1 [place] in the nose twice daily. 06/05/2024 Discontinued azelastine HCl ( AZELASTINE NASAL) Use 1 [place] in the nose twice daily. 0 Active Comment on above: Use 1 [place] in the n ose twice daily. azelastine hydrochloride 0.137 mg/actuat / fluticasone propionate 0.05 mg/actuat metered dose nasal spray (17 sources) Corticosteroid, Histamine-1 Receptor Antagonist Start: 08-17-2017 End: 10-11-2017 Azelastine-Fluticasone (Dymista) 137-50 mcg/spray spray,non-aerosol Discontinued 1 NMA INTRANASAL Q12H 23 0 August 17, 2017 1:00am October 11, 2017 10:40am administer into each nostril Start: 08-17-2017 End: 10-11-2017 take 1 spray(s) nasal route every twelve hours azelastine-fluticasone 137 mcg-50 mcg/spray nasal spray Discontinued 1 SPRAY INTRANASAL Q12H August 17, 2017 1:00am October 11, 2017 10:40am administer into each nostril calcium ascorbate 500 mg oral tablet (20 sources) Start: 12-30-2022 End: 02-24-2023 take 1 tablet by mouth twice daily at mealtime Ascorbate Calcium (Vitamin C) 500 mg tablet Discontinued 500 mg PO TWICE DAILY WITH MEALS 180 30 3 February 22, 2023 2:12pm February 24, 2023 4:32pm Start: 03-30-2022 End: 12-30-2022 take 1 tablet by mouth once daily Ascorbate Calcium (Vitamin C) 500 mg tablet Discontinued 500 mg PO DAILY March 30, 2022 12:00am December 30, 2022 3:25pm Calcium Carbonate / vitamin D3 (20 sources) Start: 01-26-2008 End: 06-05-2024 calcium carbonate/vitamin d3(CALCIUM 500 WITH VITAMIN D 500 MG-125 UNIT TAB) Take one(1) tablet twice daily. 0 01/26/2008 06/05/2024 Discontinued Start: 01-26-2008 calcium carbon ate/vitamin d3(CALCIUM 500 WITH VITAMIN D 500 MG-125 UNIT TAB) Take one(1) tablet twice daily. 0 01/26/2008 Active take 1 tablet by stu th once daily CALCIUM CARBONATE/VITAMIN D3 (VITAMIN D-3 ORAL) Take 1 tablet by mouth once daily. Active take 1 tablet by stu th once daily CALCIUM CARBONATE/VITAMIN D3 (VITAMIN D-3 ORAL) Take 1 tablet by mouth once daily. 0 Active Comment on above: Take one(1) tablet t wice daily. Take 1 tablet by stu th once daily. Calcium Phosphate-Vitamin D3 (Citracal-D3 Gummies) 250 mg calcium- 500 unit tablet,chewable (17 sources) Start: 08-09-2017 End: 11-20-2019 take 1 tablet by mouth once daily Calcium Phosphate-Vitamin D3 (Citracal-D3 Gummies) 250 mg calcium- 500 unit tablet,chewable Discontinued 1 TABLET PO daily August 09, 2017 10:05am November 20, 2019 11:16am Start: 08-09-2017 End: 11-20-2019 Calcium Phosphate-Vitamin D3 (Citracal-D3 Gummies) 250 mg calcium- 500 unit tablet,chewable Discontinued 1 {tbl} PO daily 0 August 09, 2017 1:00am November 20, 2019 11:16am bone health Start: 08-09-2017 End: 11-20-2019 Calcium Phosphate-Vitamin D3 (Citracal-D3 Gummies) 250 mg calcium- 500 unit tablet,chewable Discontinued 1 {tbl} PO daily August 09, 2017 1:00am November 20, 2019 11:16am Start: 08-09-2017 End: 11-20-2019 take 1 tablet by mouth once daily Calcium Phosphate-Vitamin D3 (Citracal-D3 Gummies) 250 mg calcium- 500 unit tablet,chewable Discontinued 1 TABLET PO daily August 09, 2017 12:00am November 20, 2019 10:16am Start: 08-09-2017 End: 11-20-2019 take 1 tablet by mouth once daily Calcium Phosphate-Vitamin D3 (Citracal-D3 Gummies) 250 mg calcium- 500 unit tablet,chewable Discontinued 1 TABLET PO daily August 09, 2017 1:00am November 20, 2019 11:16am coenzyme E03-qyqvukk E 100 mg-100 unit capsule (14 sources) Start: 08-09-2017 End: 10-27-2021 take 1 capsule by mouth once daily coenzyme N56-ytvdqnt E 100 mg-100 unit capsule Discontinued 1 CAP PO daily August 09, 2017 10:03am October 27, 2021 11:46am Start: 08-09-2017 End: 10-27-2021 take 1 capsule by mouth once daily coenzyme O02-wudafuy E 100 mg-100 unit capsule Discontinued 1 CAP PO daily August 09, 2017 12:00am October 27, 2021 10:46am Start: 08-09-2017 End: 10-27-2021 take 1 capsule by mouth once daily coenzyme D45-cdairlz E 100 mg-100 unit capsule Discontinued 1 CAP PO daily August 09, 2017 1:00am October 27, 2021 11:46am Coenzyme X76-Gkzullc E 100-1 00 mg-unit capsule (3 sources) Start: 08-09-2017 End: 10-27-2021 Coenzyme A05-Wchcjcy E 100-1 00 mg-unit capsule Discontinued 1 NMA PO daily 0 August 09, 2017 1:00am October 27, 2021 11:46am supplement Start: 08-09-2017 End: 10-27-2021 Coenzyme X08-Ltatpmm E 100-1 00 mg-unit capsule Discontinued 1 NMA PO daily August 09, 2017 1:00am October 27, 2021 11:46am cyclobenzaprine hydrochloride 10 mg oral tablet (17 sources) Muscle Relaxant Start: 02-18-2014 End: 08-09-2017 take 1 tablet by mouth three times daily as needed for muscle spasms Cyclobenzaprine 10 MG tablet Discontinued 10 mg PO THREE TIMES A DAY as needed for Muscle Spasm 8 0 February 18, 2014 6:53pm August 09, 2017 10:06am doxycycline hyclate 100 mg oral tablet (17 sources) Tetracycline-c lass Drug Start: 08-12-2020 End: 08-28-2020 take 1 tablet by mouth twice daily Doxycycline Hyclate 100 mg tablet Discontinued 100 mg PO TWICE A DAY 20 0 August 12, 2020 1:00am August 28, 2020 1:36pm Fluticasone Furoate-Vilanterol (20 sources) Corticosteroid , beta2-Adrenerg ic Agonist Start: 11-05-2019 End: 07-16-2020 Fluticasone Furoate-Vilanterol (Breo Ellipta) 200-25 mcg/dose blister with device Discontinued 1 NMA INHALATION daily 3 3 November 05, 2019 3:24pm July 16, 2020 11:14am after inhalation, rinse mouth with water and spit out; do not swallow Start: 11-05-2019 End: 07-16-2020 Fluticasone Furoate-Vilanter ol (Breo Ellipta) 200-25 mcg/dose blister with device Discontinued 1 NMA INHALATION daily 3 November 05, 2019 3:24pm July 16, 2020 11:14am after inhalation, rinse mouth with water and spit out; do not swallow Start: 11-05-2019 End: 07-16-2020 Fluticasone Furoate-Vilanter ol (Breo Ellipta) 200-25 mcg/dose blister with device Discontinued 1 INH INHALATION daily 3 November 05, 2019 2:24pm July 16, 2020 10:14am after inhalation, rinse mouth with water and spit out; do not swallow Start: 11-05-2019 End: 07-16-2020 Fluticasone Furoate-Vilanter ol (Breo Ellipta) 200-25 mcg/dose blister with device Discontinued 1 INH INHALATION daily 3 November 05, 2019 3:24pm July 16, 2020 11:14am after inhalation, rinse mouth with water and spit out; do not swallow Start: 11-05-2019 End: 11-05-2019 Fluticasone Furoate-Vilanter ol (Breo Ellipta) 200-25 mcg/dose blister with device Discontinued 1 NMA INHALATION daily 3 November 05, 2019 11:36am November 05, 2019 3:24pm after inhalation, rinse mouth with water and spit out; do not swallow Start: 11-05-2019 End: 11-05-2019 Fluticasone Furoate-Vilanter ol (Breo Ellipta) 200-25 mcg/dose blister with device Discontinued 1 NMA INHALATION daily 3 November 05, 2019 11:36am November 05, 2019 3:24pm after inhalation, rinse mouth with water and spit out; do not swallow Start: 11-05-2019 End: 11-05-2019 Fluticasone Furoate-Vilanter ol (Breo Ellipta) 200-25 mcg/dose blister with device Discontinued 1 INH INHALATION daily 3 November 05, 2019 10:36am November 05, 2019 2:24pm after inhalation, rinse mouth with water and spit out; do not swallow Start: 11-05-2019 End: 11-05-2019 Fluticasone Furoate-Vilanter ol (Breo Ellipta) 200-25 mcg/dose blister with device Discontinued 1 INH INHALATION daily 3 November 05, 2019 11:36am November 05, 2019 3:24pm after inhalation, rinse mouth with water and spit out; do not swallow Start: 08-02-2019 End: 11-05-2019 Fluticasone Furoate-Vilanter ol (Breo Ellipta) 200-25 mcg/dose blister with device Discontinued 1 NMA INHALATION daily 3 August 02, 2019 10:17am November 05, 2019 11:37am after inhalation, rinse mouth with water and spit out; do not swallow Start: 08-02-2019 End: 11-05-2019 Fluticasone Furoate-Vilanter ol (Breo Ellipta) 200-25 mcg/dose blister with device Discontinued 1 NMA INHALATION daily 3 August 02, 2019 10:17am November 05, 2019 11:37am after inhalation, rinse mouth with water and spit out; do not swallow Start: 08-02-2019 End: 11-05-2019 Fluticasone Furoate-Vilanter ol (Breo Ellipta) 200-25 mcg/dose blister with device Discontinued 1 INH INHALATION daily August 02, 2019 9:17am November 05, 2019 10:37am after inhalation, rinse mouth with water and spit out; do not swallow Start: 08-02-2019 End: 11-05-2019 Fluticasone Furoate-Vilanter ol (Breo Ellipta) 200-25 mcg/dose blister with device Discontinued 1 INH INHALATION daily August 02, 2019 10:17am November 05, 2019 11:37am after inhalation, rinse mouth with water and spit out; do not swallow Start: 08-02-2019 End: 08-02-2019 Fluticasone Furoate-Vilanter ol (Breo Ellipta) 200-25 mcg/dose blister with device Discontinued 1 NMA INHALATION daily 3 August 02, 2019 9:56am August 02, 2019 10:20am after inhalation, rinse mouth with water and spit out; do not swallow Start: 08-02-2019 End: 08-02-2019 Fluticasone Furoate-Vilanter ol (Breo Ellipta) 200-25 mcg/dose blister with device Discontinued 1 NMA INHALATION daily August 02, 2019 9:56am August 02, 2019 10:20am after inhalation, rinse mouth with water and spit out; do not swallow Start: 08-02-2019 End: 08-02-2019 Fluticasone Furoate-Vilanter ol (Breo Ellipta) 200-25 mcg/dose blister with device Discontinued 1 INH INHALATION daily August 02, 2019 8:56am August 02, 2019 9:20am after inhalation, rinse mouth with water and spit out; do not swallow Start: 08-02-2019 End: 08-02-2019 Fluticasone Furoate-Vilanter ol (Breo Ellipta) 200-25 mcg/dose blister with device Discontinued 1 INH INHALATION daily August 02, 2019 9:56am August 02, 2019 10:20am after inhalation, rinse mouth with water and spit out; do not swallow Start: 08-02-2019 End: 08-02-2019 Fluticasone Furoate-Vilanter ol (Breo Ellipta) 200-25 mcg/dose blister with device Discontinued 1 NMA INHALATION daily 3 3 August 02, 2019 9:56am August 02, 2019 9:57am after inhalation, rinse mouth with water and spit out; do not swallow Start: 08-02-2019 End: 08-02-2019 Fluticasone Furoate-Vilanter ol (Breo Ellipta) 200-25 mcg/dose blister with device Discontinued 1 NMA INHALATION daily 3 August 02, 2019 9:56am August 02, 2019 9:57am after inhalation, rinse mouth with water and spit out; do not swallow Start: 08-02-2019 End: 08-02-2019 Fluticasone Furoate-Vilanter ol (Breo Ellipta) 200-25 mcg/dose blister with device Discontinued 1 INH INHALATION daily 3 August 02, 2019 8:56am August 02, 2019 8:57am after inhalation, rinse mouth with water and spit out; do not swallow Start: 08-02-2019 End: 08-02-2019 Fluticasone Furoate-Vilanter ol (Breo Ellipta) 200-25 mcg/dose blister with device Discontinued 1 INH INHALATION daily 3 August 02, 2019 9:56am August 02, 2019 9:57am after inhalation, rinse mouth with water and spit out; do not swallow Start: 01-26-2019 End: 08-02-2019 Fluticasone Furoate-Vilanter ol (Breo Ellipta) 200-25 mcg/dose blister with device Discontinued 1 INH INHALATION daily January 26, 2019 11:25am August 02, 2019 9:56am after inhalation, rinse mouth with water and spit out; do not swallow Start: 01-26-2019 End: 08-02-2019 Fluticasone Furoate-Vilanter ol (Breo Ellipta) 200-25 mcg/dose blister with device Discontinued 1 NMA INHALATION daily 3 January 26, 2019 12:00am August 02, 2019 9:56am after inhalation, rinse mouth with water and spit out; do not swallow Start: 01-26-2019 End: 08-02-2019 Fluticasone Furoate-Vilanter ol (Breo Ellipta) 200-25 mcg/dose blister with device Discontinued 1 NMA INHALATION daily January 26, 2019 12:00am August 02, 2019 9:56am after inhalation, rinse mouth with water and spit out; do not swallow Start: 01-26-2019 End: 08-02-2019 Fluticasone Furoate-Vilanter ol (Breo Ellipta) 200-25 mcg/dose blister with device Discontinued 1 INH INHALATION daily January 25, 2019 11:00pm August 02, 2019 8:56am after inhalation, rinse mouth with water and spit out; do not swallow Start: 01-26-2019 End: 08-02-2019 Fluticasone Furoate-Vilanter ol (Breo Ellipta) 200-25 mcg/dose blister with device Discontinued 1 INH INHALATION daily January 26, 2019 12:00am August 02, 2019 9:56am after inhalation, rinse mouth with water and spit out; do not swallow 12 hr guaiFENesin 1200 mg extended release oral tablet (7 sources) End: 06-05-2024 take 1 tablet by mouth once daily guaiFENesin (MUCINEX) 1,200 mg Ta12 Take 1 tablet by mouth once daily. 06/05/2024 Discontinued Comment on above: Take 1 tablet by stu once daily. 12 hr guaiFENesin 1200 mg / pseudoephedrine hydrochloride 120 mg extended release oral tablet (7 sources) alpha-Adrenerg ic Agonist Start: 12-30-2022 End: 03-22-2023 Pseudoephedrine-Gu aifenesin (Mucus D) 120-1,200 mg tablet extended release 12 hr Discontinued 1 {tbl} PO Q12H 14 7 0 December 30, 2022 12:00am March 22, 2023 1:24pm cold symptoms loratadine 10 mg oral capsule (20 sources) Start: 01-26-2019 End: 10-27-2021 take 1 capsule by mouth once daily Loratadine 10 mg capsule Discontinued 10 mg PO daily 30 6 September 02, 2021 12:46pm October 27, 2021 11:47am allergies 24 hr metoprolol succinate 25 mg extended release oral tablet (20 sources) beta-Adrenergi c Johnson Start: 10-28-2022 End: 10-09-2024 take 2 tablets by mouth once daily Metoprolol Succinate 25 mg tablet extended release 24 hr Discontinued 12.5 mg PO DAILY 45 October 05, 2024 3:42pm October 09, 2024 11:17am Start: 10-28-2022 End: 11-08-2023 take 12.5 mg by mouth once daily Metoprolol Succinate Discontinued 12.5 MG PO DAILY 45 February 16, 2023 3:41pm November 08, 2023 1:40pm Start: 10-15-2022 End: 10-25-2022 Metoprolol Tartrate 25 mg ta blet Discontinued 12.5 mg PO TWICE A DAY 90 October 15, 2022 12:38pm October 25, 2022 2:08pm Start: 10-15-2022 End: 10-25-2022 take 12.5 mg by mouth twice daily Metoprolol Tartrate Discontinued 12.5 MG PO TWICE A DAY 90 October 15, 2022 12:38pm October 25, 2022 2:08pm Start: 11-20-2019 End: 10-15-2022 take 1 tablet by mouth at bedtime Metoprolol Tartrate 25 mg tablet Discontinued 25 mg PO AT BEDTIME 90 September 13, 2022 4:06pm September 17, 2022 3:35pm Start: 08-14-2013 End: 03-29-2022 take 1 tablet by mouth once daily METOPROLOL TARTRATE, SHORT ACTING, 25 mg tablet Take 25 mg by mouth once daily. 08/14/2013 Active take 1 tablet by stu once daily metoprolol succinate ER (TOPROL XL) 25 mg 24 hr tablet Take 25 mg by mouth once daily. 0 Active Comment on above: Take 25 mg by mouth once daily. Take 25 mg by mouth once daily. 1/2 tablet montelukast 10 mg oral tablet (20 sources) Leukotriene Receptor Antagonist Start: End: take 1 tablet by mouth at bedtime Montelukast (Singulair) 10 mg tablet Discontinued 10 mg PO AT BEDTIME 90 3 October 11, 2023 2:37pm October 05, 2024 10:04am Allergic rhinitis, unspecified allergies Comment on above: Take 10 mg by mouth daily at bedtime. multivitamins(DAILY MULTIVITAMIN TAB) (13 sources) Start: 8 End: 4 multivitamins(DAILY MULTIVITAMIN TAB) Take one(1) tablet daily. 0 01/26/2008 06/05/2024 Discontinued Start: 01-26-2008 multivitamins( DAILY MULTIVITAMIN TAB) Take one(1) tablet daily. 0 01/26/2008 Active Comment on above: Take one(1) tablet d aily. pantoprazole 40 mg delayed release oral tablet (14 sources) Proton Pump Inhibitor Start: 3 End: 4 take 1 tablet by mouth once daily Pantoprazole (Protonix) 40 mg tablet,delayed release (DR/EC) Discontinued 40 mg PO DAILY 30 2 December 30, 2022 12:00am January 21, 2023 2:51pm Comment on above: Take 40 mg by mouth once daily. potassium chloride 10 meq extended release oral capsule (20 sources) Start: 2 End: 4 take 1 capsule by mouth once daily Potassium Chloride 10 mEq capsule, extended release Discontinued 10 meq PO DAILY 90 3 September 13, 2022 4:06pm October 08, 2022 5:41pm Comment on above: Take 10 mEq by mouth once daily. potassium gluconate 2.5 meq oral tablet (8 sources) Start: 3 End: 3 take 1 tablet by mouth once daily Potassium Gluconate 595 mg (99 mg) tablet Discontinued 595 mg PO DAILY October 08, 2022 1:00am October 28, 2022 5:20pm pravastatin sodium 10 mg oral tablet (17 sources) HMG-CoA Reductase Inhibitor Start: 7 End: 8 take 1 tablet by mouth at bedtime Pravastatin 10 mg tablet Discontinued 10 mg PO AT BEDTIME August 09, 2017 1:00am March 10, 2018 2:25pm predniSONE 10 mg oral tablet (20 sources) Start: 0 End: 1 Prednisone 10 mg tablet Discontinued 10 mg PO daily 30 0 August 12, 2020 1:00am October 16, 2020 11:06am take 4 tabs for three days, then 3 tabs for three days, then 2 tabs for three days, then 1 tab for 3 days Start: 07-02-2020 End: 03-30-2022 take 1 mg by mouth once daily Prednisone Discontinued MG PO DAILY July 02, 2020 1:00am March 30, 2022 4:17pm Start: 03-23-2019 End: 06-05-2024 take 1 mg by mouth once daily as needed Prednisone 10 mg tablet Discontinued mg PO DAILY as needed July 02, 2020 1:00am March 30, 2022 4:17pm Comment on above: Take 10 mg by mouth once daily. PRN for gout and RA propylene glycol 6 mg/ml ophthalmic solution (17 sources) Start: 08-09-2017 End: 03-30-2022 take 0.6 drop(s) into the eye(s) once daily Propylene Glycol (Lubricant Eye (Propyl Glycol)) 0.6 % drops Discontinued 1 NMA OPHTHALMIC daily 0 August 09, 2017 1:00am March 30, 2022 4:17pm dry eyes 1 drop OPHTHALMIC QDAY both eyes Start: 08-09-2017 End: 03-30-2022 take 0.6 drop(s) into the eye(s) once daily Propylene Glycol (Lubricant Eye (Propyl Glycol)) 0.6 % drops Discontinued 1 DRP OPHTHALMIC daily August 09, 2017 1:00am March 30, 2022 4:17pm 1 drop OPHTHALMIC QDAY both eyes spironolactone 25 mg oral tablet (20 sources) Aldosterone Antagonist Start: 10-28-2022 End: 03-22-2024 Spironolactone 25 mg tablet Discontinued 25 mg PO DAILY 90 3 February 16, 2023 3:41pm March 22, 2024 8:04am Hold for serum potassium more than 5.0 Comment on above: Take 25 mg by mouth once daily. sulfamethoxazole 800 mg / trimethoprim 160 mg oral tablet (17 sources) Dihydrofolate Reductase Inhibitor Antibacterial, Sulfonamide Antimicrobial Start: 01-14-2019 End: 01-26-2019 Sulfamethoxazole-Trim ethoprim 1 TABLET tablet Discontinued 1 {tbl} PO TWICE A DAY 14 0 January 14, 2019 12:00am January 26, 2019 10:36am Start: 01-14-2019 End: 01-26-2019 take 1 tablet by mouth twice daily Sulfamethoxazole-Trimethoprim Discontinu ed 1 TABLET PO TWICE A DAY 14 January 14, 2019 12:00am January 26, 2019 10:36am traZODone hydrochloride 50 mg oral tablet (17 sources) Serotonin Reuptake Inhibitor Start: 11-20-2019 End: 10-27-2021 take 1 tablet by mouth once daily Trazodone 50 mg tablet Discontinued 50 mg PO DAILY November 20, 2019 12:00am October 27, 2021 11:46am ubidecarenone 10 mg oral capsule (13 sources) End: 06-05-2024 take 1 capsule by mouth once daily ubidecarenone Q-10 (CO Q-10) 10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 #90 tabs 10/09/24 Rx metoprolol succinate 25 mg 12.5 mg (1/2 x 25 mg) PO DAILY #45 10/09/24 02/06/25 Rx tablet,extended release 24 hr tabs amiodarone 200 mg tablet See Rx Instructions .Route 5 02/06/25 Rx .COMPLEX #45 tabs apixaban 5 mg tablet 5 mg PO BID Fax to [facility] 01/21/25 02/06/25 Rx Drugs #180 tabs budesonide-formotero l HFA 160 2 puff inhalation BID #3 ea 02/06/25 Rx mcg-4.5 mcg/actuation aerosol inhaler (Symbicort) amoxicillin 500 mg capsule 2,000 mg PO ONCE PRN 1 hour prior 02/06/25 02/06/25 History to dental visits doxepin 10 mg capsule 10 mg PO QHS PRN 02/06/25 02/06/25 History ferrous sulfate 325 mg (65 mg 325 mg PO Q OTHER DAY 02/06/25 History iron) tablet (Feosol) furosemide 40 mg tablet (Lasix) 40 mg PO QAM PRN edema #90 tabs 02/06/25 Rx Ejection fraction %: 55 Have you fallen in the past year?: Yes (Fell backwards after bending over and standing up.) PFSH Medical History Former tobacco use Hypothyroidism HTN (hypertension) Arthritis Chronic diastolic (congestive) heart failure P (more content not included)... Normal [facility] Inital Evaluation (1) - PTon 01-23-2025 Inital Evaluation (1) - PT [facility] Physical Therapy [facility] [address] [place] [address] / REHABILITATION SERVICES INITIAL EVALUATION MR#: [id number] Acct: [id number] Name: GIANNA WRIGHT Rep #: [id number] : 1935 89 From: Wei Hamilton DPT, OCS, CSCS Referring Dr.: Dr. Odette Farmer DO Status: RE G R Insurance: [facility] SELF [place]Y INSURANCE Patient's Visit Information Visit Information Visit Information: GIANNA WRIGHT is a 89 year old F referred to Physical Therapy by Dr. Odette Farmer DO with a diagnosis of dizzyness. Date of Evaluation: 01/23/25 Physical Therapist: Wei Hamilton DPT, OCS, CSCS Visit Plan Frequency: 1-2x /Week Duration: 4-6 Weeks Plan: 1-2x/week for 4-6 as needed for 1. monitor positional 2. progress to balance ex as needed to HEP 3. general strength funcitonal ex to HEP Gait training for oncfidenc ewith balance IE HEP BD 6-8 reps daily and use cane and balance safety. Next visit two weeks due to busyness next week with patient. Check positional Subjective Subjective: Has some dizzyness and Rosemary and ENT were seen due to ears ringing and sinus feeling full. Started end of October insidiously. Dizzyness is only in and out of bed. None in 8 days now. Was having it every day getting in and out of bed and head would spin for short duration. Doesn't move much in bed. Avoided R side b/c of this problem. Activities pretty normal otherwise and feels OK with other activities. does feel fullness in her head. Dr. Barnes said no ear infectiona dn no vertigo. Does have hearing loss. Uses cane to get around all the time and has for long time. Balance feels off at times. No recent falls since October, was walking with walker at home and was standing up fro killing insect and fell BW, was not feeling good that day. Spends day not doing much. Goes out for lunch some times with girls. Lots of TV. Phone. No regular ex. Objective Objective: Walks with cane back to PT slow with poor weight shift but mod I. Trasers chair with UE and bed I. Steps with two rails today either leg but hesitant to step over step due to balance. cervical aROM 40 rotations and 35 ext with L deviation and some discomfort at all end ranges.- c/s compression. UE aROM WFL and strngth 3+/5 - B hallpike gracie, - roll test Oculomotor: no nystagmus with gaze or head shake normal pursuit and saccades, no symptoms. Slow but otherwise normal VOR no symptoms. - head thrust - ocular tilt - skew eye deviation; Balance/Special Test Scores Functional Gait Assessment Score: 21 % Disability: 30.0000 CATSIB Score (Max score 120 seconds): 98 Dizziness Score: 16 Goals Goal 1:: Dizzyness abolished x 2 weeks including rolling R in bed. Goal Time Frame: 4-6 Weeks Goal 2:: Balance FGA score 24/30 to decreasee fallr isk. Goal Time Frame: 4-6 Weeks Goal 3:: Pt fel 505 steadier and more confident with movement Goal Time Frame: 4-6 Weeks Goal 4:: I appropriate HEP for balance and general strength Goal Time Frame: 4-6 Weeks Rehabilitation Potential Physical Therapy Diagnosis: imbalance and dizzyness possibly previous BPPV subjectively but not today. Rehabilitation Potential: Fair Anticipated Interventions Patient/Client Instruction: Educate patient on: Condition and Plan of Care For the Purpose of:: To improve muscle performance and motor function, To increase tolerance to activity/condition/p osition, To improve ability of physical actions for home/community/work/ leisure, To improve gait and locomotor functions and To improve safety Therapeutic Exercise to Include: Balance training Comment: posiotional vestibular ex For the Purpose of:: To improve muscle performance and motor function, To increase tolerance to activity/condition/p osition, To improve gait and locomotor functions and To improve safety Text: Thank you for the opportunity to evaluate your patient. For Medicare and Medicare HMO plans, please review the plan of care and approve it. It will need to be FAXED BACK to us at [phone] for Medicare purposes. For Medicare only, by signing this I certify the plan of care. Please let me know if there are questions or concerns regarding this plan of care. Physician Signature: D ate: 01/23/25 1153 CC: Dr. Odette Farmer DO LOUIE [facility] ([facility] GIANNA WRIGHT ([id number]) 1935 F Date Time Provider Department 01/10/25 1:00 PM TANVI MORAN PODIWS During your visit today, we recorded the following information about you: Shante Knapp LPN 01/10/2025 1:35 PM Signed AMB ROOMING INTAKE FLOWSHEET DATA Patient presents with: Left Foot - Established Patient, nail care Right Foot - Established Patient, nail care Shante KnappANDREW Tanvi Moran 01/10/2025 1:35 PM Signed Subjective: Patient presents to clinic c/o painful toenails. They state that the nails are especially painful with shoe gear and pressure. Patient states that nails b/l hallux are painful. No other pedal complaints at this time. Patient states no change in medications or medical history since last visit. Objective: [facility] and PT pulses are faintly palpable bilateral. CFT is less than 5 seconds bilateral. Skin temperature is warm to cool proximal to distal bilateral. There is mild edema or varicosities noted. Toes are dusky. Non-Invasive Vascular Laboratory [facility] Lower Extremity Arterial Physiology Study Bilateral/Complete Date of service/time: 12/05/2024 11:31:45 AM Name: MS. GIANNA WRIGHT Date of : 1935 Age: 89 years Gender: F Clinical Indication Abnormal pulses. TECHNIQUE -------- An arterial physiological examination was performed, including measurement of blood pressures using continuous wave Doppler and recording of plethysmographic with or without Doppler waveforms at the below-mentioned limb segments. FINDINGS -------- RIGHT SIDE AT REST Right Doppler Waveforms Dorsalis pedis: Multiphasic. Post tibial: Multiphasic. Right Pressures Brachial: 126 mmHg Ankle dorsalis pedis: 133 mmHg SAMANTA: 0.99 Ankle posterior tibial: 170 mmHg SAMANTA: 1.27 Digit: Unable to do, see tracings. Right PVR Waveforms Ankle: Normal. Digit: Severely dampened. LEFT SIDE AT REST Left Doppler Waveforms Dorsalis pedis: Multiphasic. Post tibial: Multiphasic. Left Pressures Brachial: 134 mmHg Ankle dorsalis pedis: 166 mmHg SAMANTA: 1.24 Ankle posterior tibial: 156 mmHg SAMANTA: 1.16 Digit: 56 mmHg Left PVR Waveforms Ankle: Normal. Digit: Severely dampened. IMPRESSION Irregular cardiac rhythm noted. Compared to prior study of 03/25/2021, Decrease in bilateral great toe PPG waveforms on today's exam. RIGHT SIDE Resting right ankle brachial index: 1.27 Normal ankle brachial index at rest in the right leg. Right ankle: Normal at rest. Right small vessel disease versus vasoconstriction. LEFT SIDE Resting left ankle brachial index: 1.24 Left toe brachial index: 0.42 Normal ankle brachial index at rest in the left leg. Abnormal toe brachial index at rest is evidence of peripheral artery disease. Left ankle: Normal at rest. Left small vessel disease versus vasoconstriction. Technologist: Dee Bradshaw BA, RVT Ordering physician: TANVI MORAN Interpreting physician: Michael Sheffield MD, COLLEEN Neuro: Protective sensation is intact to the foot and toes when tested with the 5.07 SWM bilateral. Vibratory sensation is absent at the hallux IPJ bilateral. The hallux is downgoing bilateral. Derm: Nails 1-5 b/l are incurvated, painful, discolored-yellow, thick, crumbly, dystrophic and with subungal debris. Skin is of normal turgor, texture and hair growth is absent bilateral. There are no hyperkeratosis, ulcerations, scars, verruca or other lesions noted. Ortho: Muscle strength is 5/5 for all pedal groups tested. Ankle joint DF is decreased with the knee extended with no pain or crepitus noted. 1st MPJ ROM is decreased bilateral. Assessment: (B35.1) Onychomycosis (primary encounter diagnosis) (M79.675) Pain in toe of left foot (M79.674) Pain in toe of right foot (L60.0) Ingrowing toenail of left foot (I73.9) PAD (peripheral artery disease) Plan: Patient was seen and evaluated. Nails 1-5 bilateral were debrided in length and thickness. Discussed ingrowing toenail of b/l hallux, primarily with the left. No signs of infection currently. I do feel this will be a chronic problem for patient. I reviewed pvr from November 2024. Her samanta to the foot is normal but tbi is not. If she wishes to do a nail procedure, chemical matrixectomy, I would have her see vascular prior for clearance. Patient wishes to continue with conservative care for now. Follow-up in 9 week Tanvi Moran DPM Referring Provider: TANVI MORAN [[id number]] Allergies As of Date: 01/10/2025 Noted Allergy Reaction Dust, Trees, Cats, Dogs [Other] 09/22/2005 3 - Cough Comments: runny nose, headache FLUOXETINE 08/12/2008 1 - (more content not included)... Normal [facility] PVR ANK PRESS ADEBAYO VAS LABon 12-05-2024 PVR ANK PRESS ADEBAYO VAS LAB Non-Invasive Vascular Laboratory [facility] Lower Extremity Arterial Physiology Study Bilateral/Complete Date of service/time: 12/05/2024 11:31:45 AM Name: MS. GIANNA WRIGHT Date of : 1935 Age: 89 years Gender: F Clinical Indication Abnormal pulses. TECHNIQUE -------- An arterial physiological examination was performed, including measurement of blood pressures using continuous wave Doppler and recording of plethysmographic with or without Doppler waveforms at the below-mentioned limb segments. FINDINGS -------- RIGHT SIDE AT REST Right Doppler Waveforms Dorsalis pedis: Multiphasic. Post tibial: Multiphasic. Right Pressures Brachial: 126 mmHg Ankle dorsalis pedis: 133 mmHg SAMANTA: 0.99 Ankle posterior tibial: 170 mmHg SAMANTA: 1.27 Digit: Unable to do, see tracings. Right PVR Waveforms Ankle: Normal. Digit: Severely dampened. LEFT SIDE AT REST Left Doppler Waveforms Dorsalis pedis: Multiphasic. Post tibial: Multiphasic. Left Pressures Brachial: 134 mmHg Ankle dorsalis pedis: 166 mmHg SAMANTA: 1.24 Ankle posterior tibial: 156 mmHg SAMANTA: 1.16 Digit: 56 mmHg Left PVR Waveforms Ankle: Normal. Digit: Severely dampened. IMPRESSION Irregular cardiac rhythm noted. Compared to prior study of 03/25/2021, Decrease in bilateral great toe PPG waveforms on today's exam. RIGHT SIDE Resting right ankle brachial index: 1.27 Normal ankle brachial index at rest in the right leg. Right ankle: Normal at rest. Right small vessel disease versus vasoconstriction. LEFT SIDE Resting left ankle brachial index: 1.24 Left toe brachial index: 0.42 Normal ankle brachial index at rest in the left leg. Abnormal toe brachial index at rest is evidence of peripheral artery disease. Left ankle: Normal at rest. Left small vessel disease versus vasoconstriction. Technologist: Dee Bradshaw BA, RVT Ordering physician: TANVI MORAN Interpreting physician: Michael Sheffield MD, COLLEEN Final CC [employer] Image : [id number]. [id number] See Link below for Image Normal [facility] CNOVon 11-26-2024 CNOV Office Visit (PODIWS) GIANNA WRIGHT ([id number]) 1935 F Date Time Provider Department 11/26/24 2:00 PM TANVI MORAN PODRAMIREZ During your visit today, we recorded the following information about you: Suzie Bergeron, SONIA 11/27/2024 8:03 AM Signed Patient presents with: Left Great Toe - Established Patient, Follow Up, Ingrown Toenail AMB ROOMING INTAKE FLOWSHEET DATA Pain Pain Level: 8 Pain Location: Toe Description: Throbbing Frequency: Intermittent Patient presents for left big toe ingrown. States that it is red, throbbing and painful. Pain is to medial border of nail. PROSPER 11/02/24 Tanvi Moran 11/27/2024 8:03 AM Signed Zach Katz is an 89-year-old female presenting for evaluation of a chronic ingrown toenail on the left hallux. PAST MEDICAL HISTORY Diagnosis Date Hemorrhage of gastrointestinal tract, unspecified History of cardioversion 09/03/2022 Current Outpatient Medications Medication Sig Dispense Refill metoprolol succinate ER (TOPROL XL) 25 mg 24 hr tablet Take 25 mg by mouth once daily. 1/2 tablet L.acidoph,saliva/B.b if/S.therm (ACIDOPHILUS PROBIOTIC BLEND ORAL) Take 1 tablet by mouth once daily. spironolactone (ALDACTONE) 25 mg tablet Take 25 mg by mouth once daily. ascorbic acid, vitamin C, (VITAMIN C) 500 mg tablet Take 500 mg by mouth twice daily. ALBUTEROL INHALATION Inhale as instructed. Nebulizer triamcinolone acetonide (KENALOG) 0.1 % cream Apply to affected area twice daily. montelukast (SINGULAIR) 10 mg tablet Take 10 mg by mouth daily at bedtime. budesonide-formotero l (SYMBICORT) 160-4.5 mcg/actuation inhaler Inhale 2 Puffs as instructed twice daily. biotin 5,000 mcg chew Take 5,000 mcg by mouth once daily. ferrous sulfate (IRON) 325 mg (65 mg iron) tablet Take 325 mg by mouth. W-B0-uhtej-zinc-lennox- herb 312 500 mg-15 mcg- 1,000 mcg-16 mg cap Take 1 tablet by mouth once daily. levothyroxine (SYNTHROID) 50 mcg tablet Take 50 mcg by mouth daily before breakfast. amiodarone (PACERONE) 200 mg tablet Take 200 mg by mouth once daily. ELIQUIS 5 mg tab(s) Take 5 mg by mouth twice daily. ATORVASTATIN 20 mg tablet Take 20 mg by mouth once daily. CALCIUM CARBONATE/VITAMIN D3 (VITAMIN D-3 ORAL) Take 1 tablet by mouth once daily. diclofenac sodium(VOLTAREN 1 % TOPICAL GEL) daily as needed 0 tiZANidine (ZANAFLEX) 2 mg tablet take 1-2 tablets by mouth three times a day if needed for up to 5 days (Patient not taking: Reported on 08/30/2024) cetirizine HCl (ZYRTEC) 10 mg chewable tablet Take 10 mg by mouth once daily. (Patient not taking: Reported on 08/30/2024) Cholecalciferol, Vitamin D3, 50 mcg (2,000 unit) cap Take 2,000 Units by mouth once daily. (Patient not taking: Reported on 08/30/2024) METOPROLOL TARTRATE, SHORT ACTING, 25 mg tablet Take 25 mg by mouth once daily. (Patient not taking: Reported on 04/29/2023) No current facility-administere d medications for this visit. Family History Problem Relation Age of Onset Heart Brother ALLERGIES Allergen Reactions Dust, Trees, Cats, * Cough runny nose, headache Fluoxetine Mental Status Change Hallucinations. Potassium Rash Ingrown Toenail: - Chronic ingrown toenail on the left hallux, particularly in the corner of the nail. - Reports persistent aching pain in the affected area. - Noted a "little red green spot" on the nail, previously identified as a blood blister. - History of ingrown toenails; has had the nail trimmed previously. - Denies current signs of infection. - Reports feet and toes are "always cold." Vascular Studies: - Circulation studies from 2020 show normal pressures between the foot and ankle: - Right side: 1.06 and 1.11. - Left side: 1.02 and 1.01. - Digital pressures: - Left side: 40. - Right side: 61. - Toe pressures from 2020: - Right side: 0.36. - Left side: 0.24. Cardiovascular: (+) cold feet Ears/Nose/Mouth/Thro at: (+) cold nose Musculoskeletal: (+) left great toe pain Objective There were no vitals taken for this visit. - Musculoskeletal: - Left Great Toe: - Nail curvature noted with ingrown tendency at the medial corner; no signs of infection observed; mild edema present. - Tenderness elicited upon palpation of the medial nail fold. - Vascular: DP and PT pulses faint to b/l feet. CFT is delayed. Skin temperature is cool to cool.. Hair growth is absent b/l. Skin is ruborous. Tests (2020) Lower Extremity Circulation Studies: - Right side: 1.06 and 1.11 (within normal range of 0.9-1.3) - Left side: 1.02 and 1.01 (within normal range of 0.9-1.3) - Digital pressures: - Right side: 61 - Left side: 40 - Toe pressures: - Right side: 0.36 - Left side: 0.24 (indicating small vessel disease or vasoconstriction) 1. Ingrowing toenail of left foot (L60.0) 2. Pain in toe of left foot (M79.675) - Recurrent ingrown toenail on the (more content not included)... Normal [facility] Bone density reportOrdered B y: Kee Austin on 11-16-2024 Study report Skeletal system DXA [facility] Imaging Services [address] [place], [place] [address] Dexa Bone Density Study MR#: [id number] Acct: [id number] Name: GIANNA WRIGHT Rep #: [id number] : 1935 F 89 From: Bartolome Austin MD PCP: Dr. Odette Farmer, DO Status: REG CLI Study:Dexa Bone Density Study Date of Exam: 11/15/24 Exam# [id number] Ordering Dr: Josseline Monroy MD PROCEDURE: DEXA BONE DENSITY STUDY 11/15/2024 REASON FOR EXAM: BONE DENSITY SCREENING F, age 89 y/o . Postmenopausal. TECHNIQUE: DXA scan of the lumbar spine and both hips., using make and model. [facility]KS[facility] COMPARISON: Comparison is made with prior study dated January 27, 2021. FINDINGS: BMD and T-SCORES Lumbar spine: 0.979 g/cm2, T-Score -0.6 L1 through L4 Change from prior: Loss of 3.8% Left femoral neck: 0.563 g/cm2, T-Score -2.6 Femoral neck comparison data not recommended for monitoring change. Left total hip: 0.741 g/cm2, T-Score -1.6 Change from prior: Loss of 3.5% Right femoral neck: 0.596 g/cm2, T-Score -2.3 Femoral neck comparison data not recommended for monitoring change. Right total hip: 0.684 g/cm2, T-Score -2.1 Change from prior: Loss of 10.5% Fracture Risk Calculation: FRAX (10-year Fracture Risk) Score: FRAX scores should never be reported in a patient with osteoporosis on DEXA or for any patient that is on bone medication. The patient doesmeet the pharmacological treatment recommendations for prevention of osteoporosis BD/Dexa Bone Density Study IMPRESSION: OSTEOPOROSIS. Recommend follow-up as clinically warranted. Reading Location: [facility] CC: Dr. Odette Farmer DO; Dr. Josseline Rodney MD ~ Portable Trackman: Signed [facility] Breast imaging reportOrdered By: Kee Austin on 11-16-2024 Study report [facility] Imaging Services [address] [place] [address] SCRN MAMM (CAD)W/JI BILAT MR#: [id number] Acct: [id number] Name: GIANNA WRIGHT Rep #: [id number] : 1935 F 89 From: Bartolome Austin MD PCP: Dr. Odette Farmer DO Status: REG CLI Study:SCRN MAMM (CAD)W/JI BILAT Date of Exa m: 11/15/24 Exam# [id number] Ordering Dr: Josseline Monroy MD EXAM: SCRN MAMM (CAD)W/JI BILAT DATE: 11/15/2024 CLINICAL HISTORY: F, Age 89 y/o , SCREENING MAMMOGRAM Personal history of breast cancer. Prior left lumpectomy and breast biopsies. BREAST CANCER RISK ASSESSMENT: Not assessed. TECHNIQUE: Bilateral screening digital breast tomosynthesis with 2D and 3D images. Computeraided detection. COMPARISON: Prior exam(s) dated November 01, 2023.. FINDINGS: TISSUE DENSITY: The breast tissue is almost entirely fatty. Bilateral Breast Mammographic Findings: No significant masses, calcifications or other abnormalities are identified. Once again, the patient is status post lumpectomy in the deep central upper aspect of the left breast with resultant postoperative scarring and breast deformity with overlying skin thickening. Dystrophic calcification seen at the biopsy site. BI/SCRN MAMM (CAD)W/JI BILAT IMPRESSION: Right Breast: BIRADS 1 NEGATIVE. Left Breast: BIRADS 2 BENIGN FINDING. OVERALL FINAL ASSESSMENT: BIRADS 2 BENIGN FINDING RECOMMENDATION: Routine annual follow-up in 1 Year A letter with findings and recommendations will be mailed to the patient. Reading Location: [facility] CC: Dr. Odette Farmer DO; Dr. Josseline Rodney MD ~ Portable Trackman: Signed [facility] Dexa Bone Density Studyon Dexa Bone Density Study [facility] Imaging Services [address] [place] [address] Dexa Bone Density Study MR#: [id number] Acct: [id number] Name: GIANNA WRIGHT Rep #: [id number] : 1935 F 89 From: Kee baltazar MD PCP: Dr. Odette Farmer DO Status: REG CLI Study: Dexa Bone Density Study Date of Exam: 11/15/24 Exam# [id number] Ordering Dr: Josseline Rodney PROCEDURE: DEXA BONE DENSITY STUDY 11/15/2024 REASON FOR EXAM: BONE DENSITY SCREENING F, age 89 y/o . Postmenopausal. TECHNIQUE: DXA scan of the lumbar spine and both hips., using make and model. REFERENCE LINKS: [facility] Positions COMPARISON: Comparison is made with prior study dated January 27, 2021. FINDINGS: BMD and T-SCORES Lumbar spine: 0.979 g/cm2, T-Score -0.6 L1 through L4 Change from prior: Loss of 3.8% Left femoral neck: 0.563 g/cm2, T-Score -2.6 Femoral neck comparison data not recommended for monitoring change. Left total hip: 0.741 g/cm2, T-Score -1.6 Change from prior: Loss of 3.5% Right femoral neck: 0.596 g/cm2, T-Score -2.3 Femoral neck comparison data not recommended for monitoring change. Right total hip: 0.684 g/cm2, T-Score -2.1 Change from prior: Loss of 10.5% Fracture Risk Calculation: FRAX (10-year Fracture Risk) Score: FRAX scores should never be reported in a patient with osteoporosis on DEXA or for any patient that is on bone medication. The patient doesmeet the pharmacological treatment recommendations for prevention of osteoporosis BD/Dexa Bone Density Study IMPRESSION: OSTEOPOROSIS. Recommend follow-up as clinically warranted. Reading Location: [place] [address] CC: Dr. Odette Farmer DO; Dr. Josseline Rodney MD Portable Trackman: Signed [facility] SCRN MAMM (CAD)W/JI BILATo n 11-15-2024 SCRN MAMM (CAD)W/JI BILAT [facility] Imaging Services [address] [place] [address] SCRN MAMM (CAD)W/JI BILAT MR#: [id number] Acct: [id number] Name: GIANNA WRIGHT Rep #: [id number] : 1935 F 89 From: Kee baltazar MD PCP: Dr. Odette Farmer DO Status: REG CLI Study: SCRN MAMM (CAD)W/JI BILAT Date of Exam: 11/06 Exam# [id number] Ordering Dr: Josseline Rodney EXAM: SCRN MAMM (CAD)W/JI BILAT DATE: 11/15/2024 CLINICAL HISTORY: F, Age 89 y/o , SCREENING MAMMOGRAM Personal history of breast cancer. Prior left lumpectomy and breast biopsies. BREAST CANCER RISK ASSESSMENT: Not assessed. TECHNIQUE: Bilateral screening digital breast tomosynthesis with 2D and 3D images. Computer aided detection. COMPARISON: Prior exam(s) dated November 01, 2023.. FINDINGS: TISSUE DENSITY: The breast tissue is almost entirely fatty. Bilateral Breast Mammographic Findings: No significant masses, calcifications or other abnormalities are identified. Once again, the patient is status post lumpectomy in the deep central upper aspect of the left breast with resultant postoperative scarring and breast deformity with overlying skin thickening. Dystrophic calcification seen at the biopsy site. BI/SCRN MAMM (CAD)W/JI BILAT IMPRESSION: Right Breast: BIRADS 1 NEGATIVE. Left Breast: BIRADS 2 BENIGN FINDING. OVERALL FINAL ASSESSMENT: BIRADS 2 BENIGN FINDING RECOMMENDATION: Routine annual follow-up in 1 Year A letter with findings and recommendations will be mailed to the patient. Reading Location: [place] [address] CC: Dr. Odette Farmer DO; Dr. Josseline Rodney MD Portable Trackman: Signed [facility] CNOVon 11-02-2024 CNOV Office Visit (PODIWS) GIANNA WRIGHT ([id number]) 1935 F Date Time Provider Department 11/02/24 11:30 AM TANVI MORAN PODIWS During your visit today, we recorded the following information about you: Flor Philippe MA Student 11/02/2024 12:04 PM Signed AMB ROOMING INTAKE FLOWSHEET DATA Risk Screening Do you have concerns about personal safety or safety in the home?: No Pain Pain Level: 8 Pain Location: Other: See Comment Description: Sharp Duration Amount of Time: 6 Duration Units: Weeks Frequency: Intermittent Intervention/Comfort measure: Reposition, Relaxation Patient presents with: Left Foot - Established Patient, Follow Up, nail care Right Foot - Established Patient, Follow Up,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 volume ) determinationOrdered By: Odette Farmer on 09-28-2024 MCV (RBC) [Entitic vol] 104.2 fL High 81-99 [facility] Mean corpuscular hemoglobin (MCH) determinationOrdered By: Odette Farmer on 09-28-2024 MCH (RBC) [Entitic mass] 32.2 pg High 27.0-32.0 [facility] Mean corpuscular hemoglobin concentration (MCHC) determinationOrdered By: Odette Farmer on 09-28-2024 MCHC (RBC) [Mass/Vol] 30.9 g/dL Low 32-36 [facility] Mean platelet volume determi nationOrdered By: Odette Farmer on 09-28-2024 Platelet mean volume (Bld) [Entitic vol] 10.4 fL 6.2-12.0 [facility] Monocyte percentageOrdered B y: Odette Farmer on 09-28-2024 Monocytes/100 WBC (Bld) 7.4 % 0-10 [facility] Neutrophil percentageOrdered By: Odette Farmer on 09-28-2024 Neutrophils/100 WBC (Bld) 64.3 % 47-70 [facility] Nucleated red blood cell per centageOrdered By: Odette Farmer on 09-28-2024 Nucleated RBC/100 WBC (Bld) [Ratio] 0 % 0-5 [facility] Platelet countOrdered By: Rory Farmer on 09-28-2024 Platelets (Bld) [#/Vol] 235 10*3/uL 150-450 [facility] Potassium measurementOrdered By: Odette Farmer on 09-28-2024 Potassium [Moles/Vol] 3.8 mmol/L 3.5-5.1 [facility] RBC Auto (Bld) [#/Vol]Ordere d By: Odette Farmer on 09-28-2024 RBC (Bld) [#/Vol] 3.85 10*6/uL Low 4.2-5.4 [facility] Serum anion gap measurementO rdered By: Odette Farmer on 09-28-2024 Anion gap [Moles/Vol] 6 mmol/L 5-15 [facility] Serum globulin measurementOr dered By: Odette Farmer on 09-28-2024 Globulin (S) [Mass/Vol] 4.0 g/dL 2.2-4.2 [facility] Serum or plasma alanine hawley otransferase (ALT) measurementOrdered By: Odette Farmer on 09-28-2024 ALT [Catalytic activity/Vol] 22 U/L 13-56 [facility] Serum or plasma albumin liza urement (mass/volume)Ordered By: Odette Farmer on 09-28-2024 Albumin [Mass/Vol] 3.1 g/dL Low 3.2-5.0 [facility] Serum or plasma alkaline renetta sphatase measurementOrdered By: Odette Farmer on 09-28-2024 ALP [Catalytic activity/Vol] 94 U/L 45-117 [facility] Serum or plasma calcium liza urement (mass/volume)Ordered By: Odette Farmer on 09-28-2024 Calcium [Mass/Vol] 9.6 mg/dL 8.5-10.1 [facility] Serum or plasma creatinine m easurement (mass/volume)Ordered By: Odette Farmer on 09-28-2024 Creatinine [Mass/Vol] 1.68 mg/dL High 0.55-1.02 [facility] Comment on above: The validity of the calculated GFR & GFRAA in patients over 70 years has not been determined. Clinical correlation is essential. Serum or plasma urea nitroge n measurement (mass/volume)Ordered By: Odette Farmer on 09-28-2024 Urea nitrogen [Mass/Vol] 32 mg/dL High 7-18 [facility] Sodium levelOrdered By: Odette Farmer on 09-28-2024 Sodium [Moles/Vol] 142 mmol/L 136-145 [facility] Total proteinOrdered By: Tamara Farmer on 09-28-2024 Protein [Mass/Vol] 7.1 g/dL 6.4-8.2 [facility] White blood cell (WBC) count Ordered By: Odette Farmer on 09-28-2024 WBC (Bld) [#/Vol] 9.4 10*3/uL 4.4-11.0 [facility] CNOVon 08-30-2024 CNOV Office Visit (PODIWS) KYLEGIANNA ([id number]) 1935 F Date Time Provider Department 08/30/24 1:00 PM TANVI MORAN During your visit today, we recorded the following information about you: Suzie Bergeron RN 08/30/2024 1:40 PM Signed AMB ROOMING INTAKE FLOWSHEET DATA Pain Pain Level: 5 Pain Location: Foot-Left Frequency: Intermittent Patient presents with: Left Foot - Established Patient, Follow Up, nail care Right Foot - Established Patient, Follow Up, nail care Patient presents for follow up nail care. Tender hammertoe to the left foot. PROSPER 06/05/24 Tanvi Moran 08/30/2024 1:40 PM Signed Subjective: Patient presents to clinic c/o painful toenails. They state that the nails are especially painful with shoe gear and pressure. Patient states that nails 1-5 b/l are painful. Also complains of painful hammertoe of left 2nd toe. No other pedal complaints at this time. Patient states no change in medications or medical history since last visit. Objective: Patient presents to clinic ambulating in roy Vasc: DP and PT pulses are faintly palpable bilateral. CFT is less than 5 seconds bilateral. Skin temperature is warm to cool proximal to distal bilateral. There is mild edema or varicosities noted. Neuro: Protective sensation is intact to the foot and toes when tested with the 5.07 SWM bilateral. Vibratory sensation is absent at the hallux IPJ bilateral. The hallux is downgoing bilateral. Derm: Nails 1-5 b/l are painful, discolored-yellow, thick, crumbly, dystrophic and with subungal debris. Skin is of normal turgor, texture and hair growth is decreased bilateral. There are no hyperkeratosis, ulcerations, scars, verruca or other lesions noted. Ortho: Muscle strength is 5/5 for all pedal groups tested. Ankle joint DF is decreased with the knee extended with no pain or crepitus noted. 1st MPJ ROM is decreased bilateral. Rigid hammertoe of b/l 2nd toe. Medial deviation of lesser toes of b/l feet Assessment: (B35.1) Onychomycosis (primary encounter diagnosis) (M79.675) Pain in toe of left foot (M79.674) Pain in toe of right foot (M20.42) Hammer toe of left foot (M20.41) Hammer toe of right foot Plan: Patient was seen and evaluated. Nails 1-5 bilateral were debrided in length and thickness. Small bleed to right 3rd toe. Band aide applied Discussed hammertoe of b/l 2nd toe. Discussed use of wider shoes and /or gel padding. She does use inserts for her prior heel pain. She can continue with the inserts but it is important to make sure she wear a wider sneaker/deeper toe box as the insert may lead to rubbing on toes. Other options for the hammertoe include correction vs amputation. For now, will continue with padding. Patient is to RTC in 3-4 months. Tanvi Moran DPM Referring Provider: TANVI MORAN [[id number]] Allergies As of Date: 08/30/2024 Noted Allergy Reaction Dust, Trees, Cats, Dogs [Other] 09/22/2005 3 - Cough Comments: runny nose, headache FLUOXETINE 08/12/2008 1 - Mental Status Change Comments: Hallucinations. POTASSIUM 04/29/2023 2 - Rash Date Reviewed: 08/30/2024 Reviewed by: Suzie Bergeron RN - Fully Assessed Reason for Visit: Established Patient [175] Follow Up [171] nail care [Other] Established Patient [175] Follow Up [171] nail care [Other] Primary Visit Diagnosis:Onychomyco sis [B35.1] Other Visit Diagnoses:Pain in toe of left foot [M79.675] Pain in toe of right foot [M79.674] Hammer toe of left foot [M20.42] Hammer toe of right foot [M20.41] Prescriptions as of 08/30/2024 - tiZANidine (ZANAFLEX) 2 mg tablet take 1-2 tablets by mouth three times a day if needed for up to 5 days - metoprolol succinate ER (TOPROL XL) 25 mg 24 hr tablet Take 25 mg by mouth once daily. 1/2 tablet - L.acidoph,saliva/B.b if/S.therm (ACIDOPHILUS PROBIOTIC BLEND ORAL) Take 1 tablet by mouth once daily. - spironolactone (ALDACTONE) 25 mg tablet Take 25 mg by mouth once daily. - ascorbic acid, vitamin C, (VITAMIN C) 500 mg tablet Take 500 mg by mouth twice daily. - cetirizine HCl (ZYRTEC) 10 mg chewable tablet Take 10 mg by mouth once daily. - ALBUTEROL INHALATION Inhale as instructed. Nebulizer - triamcinolone acetonide (KENALOG) 0.1 % cream Apply to affected area twice daily. - montelukast (SINGULAIR) 10 mg tablet Take 10 mg by mouth daily at bedtime. - budesonide-formotero l (SYMBICORT) 160-4.5 mcg/actuation inhaler Inhale 2 Puffs as instructed twice daily. - Cholecalciferol, Vitamin D3, 50 mcg (2,000 unit) cap Take 2,000 Units by mouth once daily. - biotin 5,000 mcg chew Take 5,000 mcg by mouth once daily. - ferrous sulfate (IRON) 325 mg (65 mg iron) tablet Take 325 mg by mouth. - O-A2-hneuo-zinc-lennox- herb 312 500 mg-15 mcg- 1,000 mcg-16 mg cap Take 1 tablet by mouth once daily. - levothyroxine (SYNTHROID) 50 m (more content not included)... Normal [facility] Cardiology Visit Reporton Cardiology Visit Report [facility] [address] [place] [address] OFFICE VISIT Date of Service: 08/10/24 MR#: [id number] Acct: [id number] Name: IGANNA WRIGHT Rep #: [id number] : 1935 Provider: Dr. Obi Clark MD Age/Sex: 89/F Location: [facility] Status: Signed HPI HPI History of Present Illness Details: Gianna Wright is an 89 year old female with a history of diastolic heart failure, paroxysmal atrial fibrillation and hyperlipidemia. Had complained of being symptomatic with atrial fibrillation and had had a Holter monitor which demonstrated 100% atrial fibrillation. She underwent DC cardioversion on 09/03/2022 with muslim of sinus rhythm. . She underwent an EGD which demonstrated normal esophagus medium size hiatal hernia and it was thought that the anemia was most likely secondary to anemia of chronic disease. She says that she was not feeling well a few weeks ago and had a 48-hour Holter monitor done. It demonstrated predominantly atrial fibrillation no significant pauses were noted. She denies any chest pain she does feel these palpitations at night and has had some pedal edema. Intake Vital Signs 11/08/23 13:31 05/18/24 08:44 08/10/24 12:58 Height 5 ft 2 in 5 ft 2 in 5 ft 2 in Weight: 153 lb BMI 28.0 BP 127/70 H Blood Pressure Location Lt brachial Position Sitting Respiration 16 Pulse 98 Pulse Source Monitor Intake Visit Reasons: 6 m fu w PHYSICAL THERAPY DIRECTOR per PT REQ Cardiopulmonary Supervisor Required: No Accompanied by: Daughter Is patient in pain?: No Allergies potassium chloride Allergy (Intermediate, Verified 08/10/24 13:07) Blue Capsules = Rash metoprolol Adverse Reaction (Intermediate, Verified 08/10/24 13:07) Bradycardia fluoxetine Adverse Reaction (Verified 08/10/24 13:07) Other Medications ???Medication ???Instructions ???Recorded ???Confirmed ???Type sodium chloride 0.65 % nasal spray 1 spray intranasal Q1-4H PRN dry 03/10/18 08/10/24 History aerosol (Saline Mist) nose biotin 5,000 mcg sublingual tablet 5,000 mcg sublingual DAILY 07/02/20 08/10/24 History levothyroxine 50 mcg tablet 50 mcg PO DAILY 07/02/20 08/10/24 History Lactobacillus acidophilus 1 1,000 mmu cells PO DAILY #30 caps 08/28/20 08/10/24 Rx billion cell capsule PEP device #1 ea 10/16/20 05/18/24 Rx azelastine 205.5 mcg (0.15 %) 1 spray intranasal BID #30 mL 09/02/21 08/10/24 Rx nasal spray diclofenac sodium 1 % topical gel 2 g topical ONCE 03/30/22 08/10/24 History Nebulizer device #1 ea 06/18/22 05/18/24 Rx ipratropium 0.5 mg-albuterol 3 mg 3 ml inhalation Q4H PRN PRN SOB 06/18/22 08/10/24 Rx (2.5 mg base)/3 mL nebulization /OR WHEEZING #180 mL soln cholecalciferol (vitamin D3) 50 50 mcg PO DAILY 09/17/22 08/10/24 History mcg (2,000 unit) tablet fluticasone propionate 50 2 spray intranasal BID allergies 01/07/23 08/10/24 History mcg/actuation nasal spray,suspension (Flonase Allergy Relief) cetirizine 10 mg tablet 10 mg PO DAILY PRN allergy 01/27/23 08/10/24 Rx symptoms #90 tabs ascorbate calcium (vitamin C) 500 500 mg PO BIDCM #180 tabs 02/24/23 08/10/24 Rx mg tablet atorvastatin 20 mg tablet 20 mg PO QHS #90 tabs 07/20/23 08/10/24 Rx budesonide-formotero l HFA 160 2 puff inhalation BID #3 ea 09/29/23 08/10/24 Rx mcg-4.5 mcg/actuation aerosol inhaler (Symbicort) ferrous sulfate 325 mg (65 mg 325 mg PO DAILY 09/29/23 08/10/24 History iron) tablet (Feosol) triamcinolone acetonide 0.1 % applic topical TID PRN 09/29/23 08/10/24 History topical cream amiodarone 200 mg tablet See Rx Instructions .Route 10/11/23 08/10/24 Rx .COMPLEX #45 tabs montelukast 10 mg tablet 10 mg PO QHS #90 tabs 10/11/23 08/10/24 Rx (Singulair) metoprolol succinate 25 mg 12.5 mg (1/2 x 25 mg) PO DAILY #45 11/08/23 08/10/24 Rx tablet,extended release 24 hr tabs spironolactone 25 mg tablet 25 mg PO DAILY #90 TABLETS 03/22/24 08/10/24 Rx ipratropium bromide 42 mcg (0.06 intranasal 05/18/24 08/10/24 History %) nasal spray pantoprazole 40 mg tablet,delayed 40 mg PO QDAY 05/18/24 08/10/24 History release tizanidine 2 mg tablet mg PO PRN 05/18/24 08/10/24 History apixaban 5 mg tablet 5 mg PO BID #180 tabs 07/03/24 08/10/24 Rx furosemide 40 mg tablet (Lasix) 40 mg PO QAM #90 tabs 08/10/24 08/10/24 Rx magnesium oxide 400 mg (241.3 mg 400 mg PO QDAY 08/10/24 08/10/24 History magnesium) tablet Have you fallen in the past year?: No [facility] Medical History Former tobacco use Hypothyroidism HTN (hypertension) Arthritis Chronic diastolic (congestive) heart failure Paroxysmal supraventricular tachycardia Paroxysmal atrial fibrillation History of lobular carcinoma of breast Allergic rhinitis Cataract Hy (more content not included)... Normal [facility] Basic Metabolic Profile (BMP )on 06-28-2024 BUN/CRE 30.1 RATIO High 10-20 [facility] Comment on above: Performed By: #### L 100.0100, L501.5200, L500.2500 ####[facility] [id number] [place], [address] CA,Total 9.1 mg/dL Normal 8.5-10.1 [facility] Comment on above: Performed By: #### L 100.0100, L501.5200, L500.2500 ####[facility] [id number] [place], [address] Chloride [Moles/Vol] 110 mmol/L High 98-107 [facility] Comment on above: Performed By: #### L 100.0100, L501.5200, L500.2500 ####[facility] [id number] [place], [address] CO2 [Moles/Vol] 25.0 mmol/L Normal 21.0-32.0 [facility] Comment on above: Performed By: #### L 100.0100, L501.5200, L500.2500 ####[facility] [id number] [place], [address] Creatinine [Mass/Vol] 1.76 mg/dL High 0.55-1.02 [facility] Comment on above: Result Comment: The validity of the calculated GFR GFRAA in patients over 70 years has not been determined. Clinical correlation is essential. Performed By: #### L 100.0100, L501.5200, L500.2500 ####[facility] [id number] [place], [address] EST GFR - AA 35 mL/min Low >60 [facility] Comment on above: Result Comment: Afri can Spanish GFR Calc Performed By: #### L 100.0100, L501.5200, L500.2500 ####[facility] [id number] [place], [address] GAP 7 Normal 5-15 [facility] Comment on above: Performed By: #### L 100.0100, L501.5200, L500.2500 ####[facility] [id number] [place], [address] GFR/1.73 sq M.predicted among non-blacks MDRD (S/P/Bld) [Vol rate/Area] 29 mL/min/{1.73_m2} Low >60 [facility] Comment on above: Result Comment: Non- GFR Calc Performed By: #### L 100.0100, L501.5200, L500.2500 ####[facility] [id number] [place], [address] Glucose [Mass/Vol] 66 mg/dL Low 74-106 [facility] Comment on above: Performed By: #### L 100.0100, L501.5200, L500.2500 ####[facility] [id number] [place], [address] Potassium [Moles/Vol] 3.8 mmol/L Normal 3.5-5.1 [facility] Comment on above: Performed By: #### L 100.0100, L501.5200, L500.2500 ####[facility] [id number] [place], [address] Sodium [Moles/Vol] 142 mmol/L Normal 136-145 [facility] Comment on above: Performed By: #### L 100.0100, L501.5200, L500.2500 ####[facility] [id number] [place], [address] Urea nitrogen [Mass/Vol] 53 mg/dL High 7-18 [facility] Comment on above: Performed By: #### L 100.0100, L501.5200, L500.2500 ####[facility] [id number] [place], [address] CBC W/Diff, Automatedon 11-08 18-2023 Absolute Lymph 3.67 X10 3/uL Normal 0.83-4.51 [facility] Comment on above: Performed By: #### L 100.0100, L501.5200, L500.2500 ####[facility] [id number] [place], [address] Absolute Neut 8.6 X10 3/uL High 2.0-7.7 [facility] Comment on above: Performed By: #### L 100.0100, L501.5200, L500.2500 ####[facility] [id number] [place], [address] Basophils/100 WBC (Bld) 0.8 % Normal 0-1 [facility] Comment on above: Performed By: #### L 100.0100, L501.5200, L500.2500 ####[facility] [id number] [place], [address] Eosinophils/100 WBC (Bld) 1.0 % Normal 0-5 [facility] Comment on above: Performed By: #### L 100.0100, L501.5200, L500.2500 ####[facility] [address], [address] Erythrocyte distribution width (RBC) [Ratio] 13.3 % Normal 11.6-14.6 [facility] Comment on above: Performed By: #### L 100.0100, L501.5200, L500.2500 ####[facility] [id number] [place], [address] Hematocrit (Bld) [Volume fraction] 39.5 % Normal 37-47 [facility] Comment on above: Performed By: #### L 100.0100, L501.5200, L500.2500 ####[facility] [id number] [place], [address] Hemoglobin (Bld) [Mass/Vol] 12.5 g/dL Normal 12.0-15.0 [facility] Comment on above: Performed By: #### L 100.0100, L501.5200, L500.2500 ####[facility] [id number] [place], [address] IG% 0.700 Normal 0.0-0.9 [facility] Comment on above: Result Comment: IG% - Immature Granulocytes (promyelocytes, myelocytes and metamyelocytes) > 1% indicates that a LEFT SHIFT is Present. Performed By: #### L 100.0100, L501.5200, L500.2500 ####[facility] [facility] [address] [place], [address] Lymphocytes/100 WBC (Bld) 27.2 % Normal 19-41 [facility] Comment on above: Performed By: #### L 100.0100, L501.5200, L500.2500 ####[facility] [address] [place], [address] MCH (RBC) [Entitic mass] 33.3 pg High 27.0-32.0 [facility] Comment on above: Performed By: #### L 100.0100, L501.5200, L500.2500 ####[facility] [address] [place], [address] MCHC (RBC) [Mass/Vol] 31.6 g/dL Low 32-36 [facility] Comment on above: Performed By: #### L 100.0100, L501.5200, L500.2500 ####[facility] [address] [place], [address] MCV (RBC) [Entitic vol] 105.3 fL High 81-99 [facility] Comment on above: Performed By: #### L 100.0100, L501.5200, L500.2500 ####[facility] [address] [place], [address] Monocytes/100 WBC (Bld) 6.7 % Normal 0-10 [facility] Comment on above: Performed By: #### L 100.0100, L501.5200, L500.2500 ####[facility] [address] [place], [address] Neutrophils/100 WBC (Bld) 63.6 % Normal 47-70 [facility] Comment on above: Performed By: #### L 100.0100, L501.5200, L500.2500 ####[facility] [address] [place], [address] Nucleated RBC (Bld) [#/Vol] 0 10*3/uL Normal 0-5 [facility] Comment on above: Performed By: #### L 100.0100, L501.5200, L500.2500 ####[facility] [address] [place], [address] Platelet mean volume (Bld) [Entitic vol] 10.8 fL Normal 6.2-12.0 [facility] Comment on above: Performed By: #### L 100.0100, L501.5200, L500.2500 ####[facility] [address] [place], [address] Platelets (Bld) [#/Vol] 225 10*3/uL Normal 150-450 [facility] Comment on above: Performed By: #### L 100.0100, L501.5200, L500.2500 ####[facility] [address] [place], [address] RBC (Bld) [#/Vol] 3.75 10*6/uL Low 4.2-5.4 [facility] Comment on above: Performed By: #### L 100.0100, L501.5200, L500.2500 ####[facility] [address] [place], [address] RDW SD 51.2 fl High 35.1-43.9 [facility] Comment on above: Performed By: #### L 100.0100, L501.5200, L500.2500 ####[facility] [address] [place], [address] WBC (Bld) [#/Vol] 13.5 10*3/uL High 4.4-11.0 [facility] Comment on above: Performed By: #### L 100.0100, L501.5200, L500.2500 ####[facility] [address] [place], [address] Magnesiumon 06-28-2024 Magnesium [Mass/Vol] 1.4 mg/dL Low 1.6-2.6 [facility] Comment on above: Performed By: #### L 100.0100, L501.5200, L500.2500 ####[facility] [address] [place], [address] CNOVon 06-05-2024 CNOV Office Visit (PODIWS) GIANNA WRIGHT ([id number]) 1935 F Date Time Provider Department 06/05/24 1:15 PM TANVI MORAN During your visit today, we recorded the following information about you: Shante Knapp LPN 06/05/2024 1:22 PM Signed AMB ROOMING INTAKE FLOWSHEET DATA Pain Pain Level: 5 Description: Aching Frequency: Intermittent Intervention/Comfort measure: Cold Patient presents with: Left Foot - Established Patient, nail care Right Foot - Established Patient, nail care , Ingrown Toenail Shante ANDREW Knapp Matthew 06/05/2024 1:22 PM Signed Subjective: Patient presents to clinic c/o painful toenails. They state that the nails are especially painful with shoe gear and pressure. Patient states that nails left hallux are painful. No other pedal complaints at this time. Patient states no change in medications or medical history since last visit. Objective: Patient presents to clinic ambulating in roy Vasc: DP and PT pulses are faintly palpable bilateral. CFT is less than 5 seconds bilateral. Skin temperature is warm to cool proximal to distal bilateral. There is mild edema or varicosities noted. Neuro: Protective sensation is intact to the foot and toes when tested with the 5.07 SWM bilateral. Vibratory sensation is decreased at the hallux IPJ bilateral. The hallux is downgoing bilateral. Derm: Nails 1-5 b/l are painful, incurvated discolored-yellow, thick, crumbly, dystrophic and with subungal debris. Skin is of normal turgor, texture and hair growth is absent bilateral. There are no hyperkeratosis, ulcerations, scars, verruca or other lesions noted. Ortho: Muscle strength is 5/5 for all pedal groups tested. Ankle joint DF is decreased with the knee extended with no pain or crepitus noted. 1st MPJ ROM is decreased bilateral. Assessment: (B35.1) Onychomycosis (primary encounter diagnosis) (M79.675) Pain in toe of left foot (M79.674) Pain in toe of right foot Plan: Patient was seen and evaluated. Nails 1-5 bilateral were debrided in length and thickness. Discussed removal of toenails but given faint pulses, would defer to continued conservative care for now Patient is to RTC in 9 weeks Tanvi Moran DPM Referring Provider: TANVI MORAN [[id number]] Allergies As of Date: 06/05/2024 Noted Allergy Reaction Dust, Trees, Cats, Dogs [Other] 09/22/2005 3 - Cough Comments: runny nose, headache FLUOXETINE 08/12/2008 1 - Mental Status Change Comments: Hallucinations. POTASSIUM 04/29/2023 2 - Rash Date Reviewed: 06/05/2024 Reviewed by: Shante Knapp LPN - Fully Assessed Reason for Visit: Established Patient [175] nail care [Other] Established Patient [175] nail care [Other] Ingrown Toenail [111] Primary Visit Diagnosis:Onychomyco sis [B35.1] Other Visit Diagnoses:Pain in toe of left foot [M79.675] Pain in toe of right foot [M79.674] Prescriptions as of 06/05/2024 - tiZANidine (ZANAFLEX) 2 mg tablet take 1-2 tablets by mouth three times a day if needed for up to 5 days - metoprolol succinate ER (TOPROL XL) 25 mg 24 hr tablet Take 25 mg by mouth once daily. 1/2 tablet - L.acidoph,saliva/B.b if/S.therm (ACIDOPHILUS PROBIOTIC BLEND ORAL) Take 1 tablet by mouth once daily. - spironolactone (ALDACTONE) 25 mg tablet Take 25 mg by mouth once daily. - ascorbic acid, vitamin C, (VITAMIN C) 500 mg tablet Take 500 mg by mouth twice daily. - cetirizine HCl (ZYRTEC) 10 mg chewable tablet Take 10 mg by mouth once daily. - ALBUTEROL INHALATION Inhale as instructed. Nebulizer - triamcinolone acetonide (KENALOG) 0.1 % cream Apply to affected area twice daily. - montelukast (SINGULAIR) 10 mg tablet Take 10 mg by mouth daily at bedtime. - budesonide-formotero l (SYMBICORT) 160-4.5 mcg/actuation inhaler Inhale 2 Puffs as instructed twice daily. - Cholecalciferol, Vitamin D3, 50 mcg (2,000 unit) cap Take 2,000 Units by mouth once daily. - biotin 5,000 mcg chew Take 5,000 mcg by mouth once daily. - ferrous sulfate (IRON) 325 mg (65 mg iron) tablet Take 325 mg by mouth. - Z-U1-grfot-zinc-lennox- herb 312 500 mg-15 mcg- 1,000 mcg-16 mg cap Take 1 tablet by mouth once daily. - levothyroxine (SYNTHROID) 50 mcg tablet Take 50 mcg by mouth daily before breakfast. - amiodarone (PACERONE) 200 mg tablet Take 200 mg by mouth once daily. - ELIQUIS 5 mg tab(s) Take 5 mg by mouth twice daily. - ATORVASTATIN 20 mg tablet Take 20 mg by mouth once daily. - METOPROLOL TARTRATE, SHORT ACTING, 25 mg tablet Take 25 mg by mouth once daily. - CALCIUM CARBONATE/VITAMIN D3 (VITAMIN D-3 ORAL) Take 1 tablet by mouth once daily. 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 Normal [facility] L5000.0012on 06-02-2024 Vitamin B12 Normal [facility] Comment on above: Result Comment: TEST RESULTS LIMITS Vitamin B12 731 pg/mL [id number] TESTING PERFORMED AT [facility]. ORIGINAL REPORT ON FILE IN LAB CONTAINS ADDITIONAL TEST SITE INFORMATION. Performed By: #### L 5000.0012, L503.6550, L500.4050, L100.0100, L500.4100, L506.0400, L501.9520, L503.6150 ####[facility] [address] [place], [address] CBC W/Diff, Automatedon 10-08 19-2023 Absolute Lymph 2.32 X10 3/uL Normal 0.83-4.51 [facility] Comment on above: Performed By: #### L 5000.0012, L503.6550, L500.4050, L100.0100, L500.4100, L506.0400, L501.9520, L503.6150 #### [facility] Laboratory [address] [place], [address] Absolute Neut 4.4 X10 3/uL Normal 2.0-7.7 [facility] Comment on above: Performed By: #### L 5000.0012, L503.6550, L500.4050, L100.0100, L500.4100, L506.0400, L501.9520, L503.6150 #### [facility] Laboratory [address] [place], [address] Basophils/100 WBC (Bld) 1.3 % High 0-1 [facility] Comment on above: Performed By: #### L 5000.0012, L503.6550, L500.4050, L100.0100, L500.4100, L506.0400, L501.9520, L503.6150 #### [facility] Laboratory [address] [place], [address] Eosinophils/100 WBC (Bld) 2.0 % Normal 0-5 [facility] Comment on above: Performed By: #### L 5000.0012, L503.6550, L500.4050, L100.0100, L500.4100, L506.0400, L501.9520, L503.6150 #### [facility] Laboratory [address] [place], [address] Erythrocyte distribution width (RBC) [Ratio] 13.8 % Normal 11.6-14.6 [facility] Comment on above: Performed By: #### L 5000.0012, L503.6550, L500.4050, L100.0100, L500.4100, L506.0400, L501.9520, L503.6150 #### [facility] Laboratory [address] [place], [address] Hematocrit (Bld) [Volume fraction] 35.1 % Low 37-47 [facility] Comment on above: Performed By: #### L 5000.0012, L503.6550, L500.4050, L100.0100, L500.4100, L506.0400, L501.9520, L503.6150 #### [facility] Laboratory [address] [place], [address] Hemoglobin (Bld) [Mass/Vol] 11.0 g/dL Low 12.0-15.0 [facility] Comment on above: Performed By: #### L 5000.0012, L503.6550, L500.4050, L100.0100, L500.4100, L506.0400, L501.9520, L503.6150 #### [facility] Laboratory [address] [place], [address] IG% 0.400 Normal 0.0-0.9 [facility] Comment on above: Result Comment: IG% - Immature Granulocytes (promyelocytes, myelocytes and metamyelocytes) > 1% indicates that a LEFT SHIFT is Present. Performed By: #### L 5000.0012, L503.6550, L500.4050, L100.0100, L500.4100, L506.0400, L501.9520, L503.6150 #### [facility] Laboratory [address] [place], [address] Lymphocytes/100 WBC (Bld) 30.3 % Normal 19-41 [facility] Comment on above: Performed By: #### L 5000.0012, L503.6550, L500.4050, L100.0100, L500.4100, L506.0400, L501.9520, L503.6150 #### [facility] Laboratory [address] [place], [address] MCH (RBC) [Entitic mass] 33.4 pg High 27.0-32.0 [facility] Comment on above: Performed By: #### L 5000.0012, L503.6550, L500.4050, L100.0100, L500.4100, L506.0400, L501.9520, L503.6150 #### [facility] Laboratory [address] [place], [address] MCHC (RBC) [Mass/Vol] 31.3 g/dL Low 32-36 [facility] Comment on above: Performed By: #### L 5000.0012, L503.6550, L500.4050, L100.0100, L500.4100, L506.0400, L501.9520, L503.6150 #### [facility] Laboratory [address] [place], [address] MCV (RBC) [Entitic vol] 106.7 fL High 81-99 [facility] Comment on above: Performed By: #### L 5000.0012, L503.6550, L500.4050, L100.0100, L500.4100, L506.0400, L501.9520, L503.6150 #### [facility] Laboratory [address] [place], [address] Monocytes/100 WBC (Bld) 8.0 % Normal 0-10 [facility] Comment on above: Performed By: #### L 5000.0012, L503.6550, L500.4050, L100.0100, L500.4100, L506.0400, L501.9520, L503.6150 #### [facility] Laboratory [address] [place], [address] Neutrophils/100 WBC (Bld) 58.0 % Normal 47-70 [facility] Comment on above: Performed By: #### L 5000.0012, L503.6550, L500.4050, L100.0100, L500.4100, L506.0400, L501.9520, L503.6150 #### [facility] Laboratory [address] [place], [address] Nucleated RBC (Bld) [#/Vol] 0 10*3/uL Normal 0-5 [facility] Comment on above: Performed By: #### L 5000.0012, L503.6550, L500.4050, L100.0100, L500.4100, L506.0400, L501.9520, L503.6150 #### [facility] Laboratory [address] [facility] [place], [address] Platelet mean volume (Bld) [Entitic vol] 10.2 fL Normal 6.2-12.0 [facility] Comment on above: Performed By: #### L 5000.0012, L503.6550, L500.4050, L100.0100, L500.4100, L506.0400, L501.9520, L503.6150 #### [facility] Laboratory [address] [place], [address] Platelets (Bld) [#/Vol] 246 10*3/uL Normal 150-450 [facility] Comment on above: Performed By: #### L 5000.0012, L503.6550, L500.4050, L100.0100, L500.4100, L506.0400, L501.9520, L503.6150 #### [facility] Laboratory [address] [place], [address] RBC (Bld) [#/Vol] 3.29 10*6/uL Low 4.2-5.4 [facility] Comment on above: Performed By: #### L 5000.0012, L503.6550, L500.4050, L100.0100, L500.4100, L506.0400, L501.9520, L503.6150 #### [facility] Laboratory [address] [place], [address] RDW SD 54.4 fl High 35.1-43.9 [facility] Comment on above: Performed By: #### L 5000.0012, L503.6550, L500.4050, L100.0100, L500.4100, L506.0400, L501.9520, L503.6150 #### [facility] Laboratory [address] [place], [address] WBC (Bld) [#/Vol] 7.7 10*3/uL Normal 4.4-11.0 [facility] Comment on above: Performed By: #### L 5000.0012, L503.6550, L500.4050, L100.0100, L500.4100, L506.0400, L501.9520, L503.6150 #### [facility] Laboratory [address] [place], [address] [facility] 05-29-2024 Albumin [Mass/Vol] 3.3 g/dL Normal 3.2-5.0 [facility] Comment on above: Performed By: #### L 5000.0012, L503.6550, L500.4050, L100.0100, L500.4100, L506.0400, L501.9520, L503.6150 ####[facility] [address] [place], [address] Albumin/Globulin [Mass ratio] 1.1 {ratio} Normal 0.9-2.4 [facility] Comment on above: Performed By: #### L 5000.0012, L503.6550, L500.4050, L100.0100, L500.4100, L506.0400, L501.9520, L503.6150 ####[facility] [address] [place], [address] ALK P 70 U/L Normal 45-117 [facility] Comment on above: Performed By: #### L 5000.0012, L503.6550, L500.4050, L100.0100, L500.4100, L506.0400, L501.9520, L503.6150 ####[facility] [address] [place], [address] ALT [Catalytic activity/Vol] 17 U/L Normal 13-56 [facility] Comment on above: Performed By: #### L 5000.0012, L503.6550, L500.4050, L100.0100, L500.4100, L506.0400, L501.9520, L503.6150 ####[facility] [address] [place], [address] AST [Catalytic activity/Vol] 19 U/L Normal 15-37 [facility] Comment on above: Performed By: #### L 5000.0012, L503.6550, L500.4050, L100.0100, L500.4100, L506.0400, L501.9520, L503.6150 ####[facility] [address] [place], [address] Bilirubin [Mass/Vol] 0.60 mg/dL Normal 0.20-1.00 [facility] Comment on above: Result Comment: For patients on eltrombopag therapy, use of Dimension [place] TBIL is not recommended. Performed By: #### L 5000.0012, L503.6550, L500.4050, L100.0100, L500.4100, L506.0400, L501.9520, L503.6150 ####[facility] [address] [place], [address] BUN/CRE 19.6 RATIO Normal 10-20 [facility] Comment on above: Performed By: #### L 5000.0012, L503.6550, L500.4050, L100.0100, L500.4100, L506.0400, L501.9520, L503.6150 ####[facility] [address] [place], [address] CA,Total 9.5 mg/dL Normal 8.5-10.1 [facility] Comment on above: Performed By: #### L 5000.0012, L503.6550, L500.4050, L100.0100, L500.4100, L506.0400, L501.9520, L503.6150 ####[facility] [address] [place], [address] Chloride [Moles/Vol] 106 mmol/L Normal 98-107 [facility] Comment on above: Performed By: #### L 5000.0012, L503.6550, L500.4050, L100.0100, L500.4100, L506.0400, L501.9520, L503.6150 ####[facility] [address] [place], [address] CO2 [Moles/Vol] 27.0 mmol/L Normal 21.0-32.0 [facility] Comment on above: Performed By: #### L 5000.0012, L503.6550, L500.4050, L100.0100, L500.4100, L506.0400, L501.9520, L503.6150 ####[facility] [address] [place], [address] Creatinine [Mass/Vol] 1.79 mg/dL High 0.55-1.02 [facility] Comment on above: Result Comment: The validity of the calculated GFR GFRAA in patients over 70 years has not been determined. Clinical correlation is essential. Performed By: #### L 5000.0012, L503.6550, L500.4050, L100.0100, L500.4100, L506.0400, L501.9520, L503.6150 ####[facility] [address] [place], [address] EST GFR - AA 34 mL/min Low >60 [facility] Comment on above: Result Comment: Afri can Spanish GFR Calc Performed By: #### L 5000.0012, L503.6550, L500.4050, L100.0100, L500.4100, L506.0400, L501.9520, L503.6150 ####[facility] [address] [place], [place], [phone] GAP 5 Normal 5-15 [facility] Comment on above: Performed By: #### L 5000.0012, L503.6550, L500.4050, L100.0100, L500.4100, L506.0400, L501.9520, L503.6150 ####[facility] [address] [place], [address] GFR/1.73 sq M.predicted among non-blacks MDRD (S/P/Bld) [Vol rate/Area] 29 mL/min/{1.73_m2} Low >60 [facility] Comment on above: Result Comment: Non- GFR Calc Performed By: #### L 5000.0012, L503.6550, L500.4050, L100.0100, L500.4100, L506.0400, L501.9520, L503.6150 ####[facility] [address] [place], [address] Globulin (S) [Mass/Vol] 3.1 g/dL Normal 2.2-4.2 [facility] Comment on above: Performed By: #### L 5000.0012, L503.6550, L500.4050, L100.0100, L500.4100, L506.0400, L501.9520, L503.6150 ####[facility] [address] [place], [address] Glucose [Mass/Vol] 80 mg/dL Normal 74-106 [facility] Comment on above: Performed By: #### L 5000.0012, L503.6550, L500.4050, L100.0100, L500.4100, L506.0400, L501.9520, L503.6150 ####[facility] [address] [place], [address] Potassium [Moles/Vol] 4.6 mmol/L Normal 3.5-5.1 [facility] Comment on above: Performed By: #### L 5000.0012, L503.6550, L500.4050, L100.0100, L500.4100, L506.0400, L501.9520, L503.6150 ####[facility] [address] [place], [address] Sodium [Moles/Vol] 138 mmol/L Normal 136-145 [facility] Comment on above: Performed By: #### L 5000.0012, L503.6550, L500.4050, L100.0100, L500.4100, L506.0400, L501.9520, L503.6150 ####[facility] [address] [place], [address] T PROT 6.4 g/dL Normal 6.4-8.2 [facility] Comment on above: Performed By: #### L 5000.0012, L503.6550, L500.4050, L100.0100, L500.4100, L506.0400, L501.9520, L503.6150 ####[facility] [address] [place], [address] Urea nitrogen [Mass/Vol] 35 mg/dL High 7-18 [facility] Comment on above: Performed By: #### L 5000.0012, L503.6550, L500.4050, L100.0100, L500.4100, L506.0400, L501.9520, L503.6150 ####[facility] [address] [place], [address] Ferritinon 05-29-2024 Ferritin [Mass/Vol] 241 ng/mL Normal 8-252 [facility] Comment on above: Performed By: #### L 5000.0012, L503.6550, L500.4050, L100.0100, L500.4100, L506.0400, L501.9520, L503.6150 ####[facility] [address] [place], [place], [phone] Ironon 05-29-2024 Iron [Mass/Vol] 93 ug/dL Normal 50-170 [facility] Comment on above: Performed By: #### L 5000.0012, L503.6550, L500.4050, L100.0100, L500.4100, L506.0400, L501.9520, L503.6150 ####[facility] [address] [place], [place], [address] Lipid Profileon 05-29-2024 Cholesterol [Mass/Vol] 185 mg/dL Normal 200 [facility] Comment on above: Result Comment: <200 mg/dL Desirable 200-240 mg/dL Borderline >240 mg/dL High Risk Performed By: #### L 5000.0012, L503.6550, L500.4050, L100.0100, L500.4100, L506.0400, L501.9520, L503.6150 ####[facility] [address] [place], [place], [id number] Cholesterol in HDL [Mass/Vol] 82 mg/dL Normal [facility] Comment on above: Result Comment: The drugs N-Acetylcysteine and Metamizole may falsely depress this assay. Reference Range HDL <40 mg/dL Low HDL Cholesterol HDL >or= 60 mg/dL High HDL Cholesterol Performed By: #### L 5000.0012, L503.6550, L500.4050, L100.0100, L500.4100, L506.0400, L501.9520, L503.6150 ####[facility] [address] [place], [address] Cholesterol in LDL [Mass/Vol] 86 mg/dL Normal 0-130 [facility] Comment on above: Performed By: #### L 5000.0012, L503.6550, L500.4050, L100.0100, L500.4100, L506.0400, L501.9520, L503.6150 ####[facility] [address] [place], [address] Cholesterol in VLDL [Mass/Vol] 17 mg/dL Normal 5-40 [facility] Comment on above: Performed By: #### L 5000.0012, L503.6550, L500.4050, L100.0100, L500.4100, L506.0400, L501.9520, L503.6150 ####[facility] [address] [place], [place], [phone] Triglyceride [Mass/Vol] 83 mg/dL Normal [facility] Comment on above: Result Comment: The drugs N-Acetylcysteine and Metamizole may falsely depress this assay. Serum Triglycerides Reference Interval Normal <150 mg/dL Borderline high 150 - 199 mg/dL High 200 - 499 mg/dL Very High > or = 500 mg/dL Performed By: #### L 5000.0012, L503.6550, L500.4050, L100.0100, L500.4100, L506.0400, L501.9520, L503.6150 ####[facility] [id number] [place], [address] T4 Free Directon 05-29-2024 T4 FREE DIRECT 1.23 ng/dL Normal 0.76-1.46 [facility] Comment on above: Performed By: #### L 5000.0012, L503.6550, L500.4050, L100.0100, L500.4100, L506.0400, L501.9520, L503.6150 ####[facility] [id number] [place], [address] Thyroid Stim Hormone (TSH)on 05-29-2024 TSH 2.990 uIU/mL Normal 0.358-3.740 [facility] Comment on above: Performed By: #### L 5000.0012, L503.6550, L500.4050, L100.0100, L500.4100, L506.0400, L501.9520, L503.6150 ####[facility] [id number] [place], [address] L/S Spine Comp/w Bending Vie wson 05-21-2024 L/S Spine Comp/w Bending Views [facility] Imaging Services [address] [place] [address] L/S Spine Comp/w Bending Views MR#: [id number] Acct: [id number] Name: GIANNA WRIGHT Rep #: [id number] : [id number] F [id number] From: Tanvi Stahl MD PCP: Dr. Odette Farmer, DO Status: REG CLI Study: L/S Spine Comp/w Bending Views Date of Exam: Exam# [id number] Ordering Dr: Stefani Lara [id number] INDICATION: DISC DEGENERATION EXAMINATION/TECHNIQU E: X-RAY - XR Spine Lumbar Comp W/ Bending Min 6 Views COMPARISON: October 24 2020 ____ FINDINGS: VERTEBRAE: 5 nonrib-bearing lumbar type vertebra with severe dextrocurvature. No visible fracture or acute compression deformity. Diffuse facet arthropathy, moderate to severe L4-5 and L5-S1. Preserved lumbar lordosis. No anterior or posterior listhesis with flexion or extension. Mild diffuse endplate degenerative change. DISCS: Diffuse disc height loss.. INCLUDED ABDOMEN: Included bowel gas pattern is non-obstructive. Aortic atherosclerosis. RAD/L/S Spine Comp/w Bending Views IMPRESSION: Severe lumbar dextroscoliosis, increased from October 24, 2020 Diffuse spondylosis with lower lumbar predominant facet arthropathy. Diffuse disc height loss. MRI could better assess for spinal stenosis as clinically indicated. Electronically Signed: Tanvi Stahl MD at 0:10 EDT , CC: Stefani Lara; Dr. Odette Farmer, Portable Trackman: Signed Normal [facility] Absolute lymphocyte countOrd ered By: Odette Farmer on 11-22-2023 Lymphocytes Auto (Unsp spec) [#/Vol] 2.31 10*3/uL 0.83-4.51 [facility] Automated lymphocyte count a s percentage of total leukocytesOrdered By: Odette Farmer on 11-22-2023 Lymphocytes/100 WBC Auto (Unsp spec) 31.3 % 19-41 [facility] Basophil percentageOrdered B y: Odette Farmer on 11-22-2023 Basophils/100 WBC (Bld) 0.9 % 0-1 [facility] Bilirubin [Mass/Vol] 0.60 mg/dL 0.20-1.00 [facility] Comment on above: For patients on eltr ombopag therapy, use of Dimension [place] TBIL is not recommended. Chloride [Moles/Vol] 107 mmol/L 98-107 [facility] Cholesterol [Mass/Vol] 177 mg/dL <200 [facility] Comment on above: <200 mg/dL Desirable 200-240 mg/dL Borderline >240 mg/dL High Risk Eosinophils/100 WBC (Bld) 2.4 % 0-5 [facility] Glucose [Mass/Vol] 87 mg/dL 74-106 [facility] Hemoglobin (Bld) [Mass/Vol] 11.8 g/dL 12.0-15.0 [facility] Monocytes/100 WBC (Bld) 9.1 % 0-10 [facility] Neutrophils (Bld) [#/Vol] 4.1 10*3/uL 2.0-7.7 [facility] Neutrophils/100 WBC (Bld) 56.0 % 47-70 [facility] Potassium [Moles/Vol] 4.0 mmol/L 3.5-5.1 [facility] Protein [Mass/Vol] 6.7 g/dL 6.4-8.2 [facility] Sodium [Moles/Vol] 140 mmol/L 136-145 [facility] Triglyceride [Mass/Vol] 95 mg/dL <199 [facility] Comment on above: The drugs N-Acetylcy steine and Metamizole may falsely depress this assay.Serum Triglycerides Reference Interval Normal <150 mg/dL Borderline high 150 - 199 mg/dL High 200 - 499 mg/dL Very High > or = 500 mg/dL WBC (Bld) [#/Vol] 7.4 10*3/uL 4.4-11.0 [facility] Determination of erythrocyte mean corpuscular volume (MCV)Ordered By: Odette Farmer on 11-22-2023 MCV (RBC) [Entitic vol] 104.7 fL 81-99 [facility] Erythrocyte distribution wid th ratioOrdered By: Odette Farmer on 11-22-2023 Erythrocyte distribution width (RBC) [Ratio] 13.3 % 11.6-14.6 [facility] Erythrocyte distribution wid th standard deviationOrdered By: Odette Farmer on 11-22-2023 Erythrocyte distribution width (RBC) [Entitic vol] 51.7 fL 35.1-43.9 [facility] Hematocrit Auto (Bld) [Volum e fraction]Ordered By: Odette Farmer on 11-22-2023 Hematocrit (Bld) [Volume fraction] 37.8 % 37-47 [facility] Immature granulocytes/100 WB C Auto (Bld)Ordered By: Odette Farmer on 11-22-2023 Immature granulocytes/100 WBC (Bld) 0.300 % 0.0-0.9 [facility] Comment on above: IG% - Immature Granu locytes (promyelocytes, myelocytes and metamyelocytes) > 1% indicates that a LEFT SHIFT is Present. Iron measurement (mass/mass) Ordered By: Odette Farmer on 11-22-2023 Iron (Unsp spec) [Mass/Mass] 100 ug/dL 50-170 [facility] Laboratory - Chemistry and C hemistry - challengeOrdered By: Odette Farmer on 11-22-2023 Albumin/Globulin [Mass ratio] 1.0 {ratio} 0.9-2.4 [facility] ALP [Catalytic activity/Vol] 75 U/L 45-117 [facility] ALT [Catalytic activity/Vol] 19 U/L 13-56 [facility] Cholesterol in HDL [Mass/Vol] 78 mg/dL >40 [facility] Comment on above: The drugs N-Acetylcy steine and Metamizole may falsely depress this assay. Reference Range HDL <40 mg/dL Low HDL Cholesterol HDL >or= 60 mg/dL High HDL Cholesterol Cholesterol in LDL [Mass/Vol] 80 mg/dL 0-130 [facility] CO2 [Moles/Vol] 26.0 mmol/L 21.0-32.0 [facility] Ferritin [Mass/Vol] 285 ng/mL 8-252 [facility] Globulin (S) [Mass/Vol] 3.3 g/dL 2.2-4.2 [facility] Urea nitrogen/Creatinine [Mass ratio] 21.6 mg/mg 10-20 [facility] Laboratory - Hematology and Cell countsOrdered By: Odette Farmer on 11-22-2023 MCH (RBC) [Entitic mass] 32.7 pg 27.0-32.0 [facility] MCHC (RBC) [Mass/Vol] 31.2 g/dL 32-36 [facility] Nucleated RBC/100 WBC (Bld) [Ratio] 0 % 0-5 [facility] Platelet mean volume (Bld) [Entitic vol] 11.0 fL 6.2-12.0 [facility] Platelets (Bld) [#/Vol] 238 10*3/uL 150-450 [facility] No Panel InformationOrdered By: Odette Farmer on 11-22-2023 Estimated GFR (MDRD) Amer 41 mL/min >60 [facility] Comment on above: GFR Calc Estimated GFR (MDRD) Non-Af Amer 34 mL/min >60 [facility] Comment on above: Non- GFR Calc Parathyroid Hormone (Intact) 118.6 pg/mL 18.4-80.1 [facility] Vitamin D 25-Hydroxy 52.5 ng/mL [facility] Comment on above: Vitamin D 25(OH) Sta tus Range Deficiency <20 ng/mL (50nmol/L) Insufficiency 20 - 30 ng/mL (50 - 75 nmol/L) Sufficiency 30 - 100 ng/mL (75 - 250 nmol/L) Toxicity >100 ng/mL (>250 nmol/L) VLDL Cholesterol 19 mg/dL 5-40 [facility] RBC Auto (Bld) [#/Vol]Ordere d By: Odette Farmer on 11-22-2023 RBC (Bld) [#/Vol] 3.61 10*6/uL 4.2-5.4 [facility] Serum or plasma calcium liza urement (mass/volume)Ordered By: Odette Farmer on 11-22-2023 Calcium [Mass/Vol] 9.2 mg/dL 8.5-10.1 [facility] Serum or plasma creatinine m easurement (mass/volume)Ordered By: Odette Farmer on 11-22-2023 Creatinine [Mass/Vol] 1.53 mg/dL 0.55-1.02 [facility] Comment on above: The validity of the calculated GFR & GFRAA in patients over 70 years has not been determined. Clinical correlation is essential. Serum or plasma thyroid stim ulating hormone (TSH) measurement (units/volume)Ordered By: Odette Farmer on 11-22-2023 TSH Qn 2.65 uIU/mL 0.358-3.74 [facility] Serum or plasma urea nitroge n measurement (mass/volume)Ordered By: Odette Farmer on 11-22-2023 Urea nitrogen [Mass/Vol] 33 mg/dL 7-18 [facility] Thin prep Papanicolaou smear with manual screeningOrdered By: Odette Farmer on 11-22-2023 Thin prep Papanicolaou smear with manual screening 3.4 g/dL 3.2-5.0 [facility] Thin prep Papanicolaou smear with manual screening 22 U/L 15-37 [facility] Thin prep Papanicolaou smear with manual screening 7 5-15 [facility] Thin prep Papanicolaou smear with manual screening 1.57 ng/dL 0.76-1.46 [facility] Absolute lymphocyte countOrd ered By: Odette Farmer on 03-17-2023 Lymphocytes Auto (Unsp spec) [#/Vol] 1.54 10*3/uL 0.83-4.51 [facility] Basophil percentageOrdered B y: Odette Farmer on 03-17-2023 Basophils/100 WBC (Bld) 0.3 % 0-1 [facility] Eosinophils/100 WBC (Bld) 0.0 % 0-5 [facility] Neutrophils (Bld) [#/Vol] 6.0 10*3/uL 2.0-7.7 [facility] Neutrophils/100 WBC (Bld) 76.3 % 47-70 [facility] WBC (Bld) [#/Vol] 7.9 10*3/uL 4.4-11.0 [facility] Blood erythrocytes count (nu mber/volume)Ordered By: Odette Farmer on 03-17-2023 RBC (Bld) [#/Vol] 3.56 10*6/uL 4.2-5.4 [facility] Blood hemoglobin measurement (mass/volume)Ordered By: Odette Farmer on 03-17-2023 Hemoglobin (Bld) [Mass/Vol] 11.7 g/dL 12.0-15.0 [facility] Blood lymphocytes/100 leukoc ytesOrdered By: Odette Farmer on 03-17-2023 Lymphocytes/100 WBC (Bld) 19.5 % 19-41 [facility] Blood monocytes/100 leukocyt esOrdered By: Odette Farmer on 03-17-2023 Monocytes/100 WBC (Bld) 3.5 % 0-10 [facility] Blood platelet mean volumeOr dered By: Odette Farmer on 03-17-2023 Platelet mean volume (Bld) [Entitic vol] 9.8 fL 6.2-12.0 [facility] Determination of erythrocyte mean corpuscular volume (MCV)Ordered By: Odette Farmer on 03-17-2023 MCV (RBC) [Entitic vol] 103.1 fL 81-99 [facility] Hematocrit Auto (Bld) [Volum e fraction]Ordered By: Odette Farmer on 03-17-2023 Hematocrit (Bld) [Volume fraction] 36.7 % 37-47 [facility] Iron measurement (mass/mass) Ordered By: Odette Farmer on 03-17-2023 Iron (Unsp spec) [Mass/Mass] 71 ug/dL 50-170 [facility] Laboratory - Hematology and Cell countsOrdered By: Odette Farmer on 03-17-2023 Erythrocyte distribution width (RBC) [Entitic vol] 55.8 fL 35.1-43.9 [facility] Erythrocyte distribution width (RBC) [Ratio] 14.6 % 11.6-14.6 [facility] Immature granulocytes/100 WBC (Bld) 0.400 % 0.0-0.9 [facility] Comment on above: IG% - Immature Granu locytes (promyelocytes, myelocytes and metamyelocytes) > 1% indicates that a LEFT SHIFT is Present. MCH (RBC) [Entitic mass] 32.9 pg 27.0-32.0 [facility] Nucleated RBC/100 WBC (Bld) [Ratio] 0 % 0-5 [facility] MCHC Auto (RBC) [Mass/Vol]Or dered By: Odette Farmer on 03-17-2023 MCHC (RBC) [Mass/Vol] 31.9 g/dL 32-36 [facility] Platelets bldOrdered By: Tamara Farmer on 03-17-2023 Platelets (Bld) [#/Vol] 276 10*3/uL 150-450 [facility] Serum or plasma ferritin gallo surement (mass/volume)Ordered By: Odette Farmer on 03-17-2023 Ferritin [Mass/Vol] 205 ng/mL 8-252 [facility] Absolute lymphocyte countOrd ered By: Dr. Farmer on 01-12-2023 Lymphocytes Auto (Unsp spec) [#/Vol] 2.10 10*3/uL 0.83-4.51 [facility] Basophil percentageOrdered B y: Dr. Farmer on 01-12-2023 Basophils/100 WBC (Bld) 1.3 % 0-1 [facility] Eosinophils/100 WBC (Bld) 3.4 % 0-5 [facility] Neutrophils (Bld) [#/Vol] 3.7 10*3/uL 2.0-7.7 [facility] Neutrophils/100 WBC (Bld) 54.3 % 47-70 [facility] WBC (Bld) [#/Vol] 6.8 10*3/uL 4.4-11.0 [facility] Blood erythrocytes count (nu mber/volume)Ordered By: Dr. Farmer on 01-12-2023 RBC (Bld) [#/Vol] 3.45 10*6/uL 4.2-5.4 [facility] Blood hemoglobin measurement (mass/volume)Ordered By: Dr. Farmer on 01-12-2023 Hemoglobin (Bld) [Mass/Vol] 11.1 g/dL 12.0-15.0 [facility] Blood lymphocytes/100 leukoc ytesOrdered By: Dr. Farmer on 01-12-2023 Lymphocytes/100 WBC (Bld) 31.0 % 19-41 [facility] Blood monocytes/100 leukocyt esOrdered By: Dr. Farmer on 01-12-2023 Monocytes/100 WBC (Bld) 9.9 % 0-10 [facility] Blood platelet mean volumeOr dered By: Dr. Farmer on 01-12-2023 Platelet mean volume (Bld) [Entitic vol] 9.9 fL 6.2-12.0 [facility] Determination of erythrocyte mean corpuscular volume (MCV)Ordered By: Dr. Farmer on 01-12-2023 MCV (RBC) [Entitic vol] 101.4 fL 81-99 [facility] Hematocrit Auto (Bld) [Volum e fraction]Ordered By: Dr. Farmer on 01-12-2023 Hematocrit (Bld) [Volume fraction] 35.0 % 37-47 [facility] Laboratory - Hematology and Cell countsOrdered By: Dr. Farmer on 01-12-2023 Erythrocyte distribution width (RBC) [Entitic vol] 58.9 fL 35.1-43.9 [facility] Erythrocyte distribution width (RBC) [Ratio] 15.9 % 11.6-14.6 [facility] Immature granulocytes/100 WBC (Bld) 0.100 % 0.0-0.9 [facility] Comment on above: IG% - Immature Granu locytes (promyelocytes, myelocytes and metamyelocytes) > 1% indicates that a LEFT SHIFT is Present. MCH (RBC) [Entitic mass] 32.2 pg 27.0-32.0 [facility] Nucleated RBC/100 WBC (Bld) [Ratio] 0 % 0-5 [facility] MCHC Auto (RBC) [Mass/Vol]Or dered By: Dr. Farmer on 01-12-2023 MCHC (RBC) [Mass/Vol] 31.7 g/dL 32-36 [facility] Platelets bldOrdered By: Dr. Farmer on 01-12-2023 Platelets (Bld) [#/Vol] 285 10*3/uL 150-450 [facility] Microbial respiratory cultur eOrdered By: Dr. Ramirez on 01-01-2023 Bacteria identified Respiratory culture Nom (Unsp spec) [facility] Absolute lymphocyte countOrd ered By: Dr. Ramirez on 12-30-2022 Lymphocytes Auto (Unsp spec) [#/Vol] 2.84 10*3/uL 0.83-4.51 [facility] Basophil percentageOrdered B y: Dr. Ramirez on 12-30-2022 Basophils/100 WBC (Bld) 1.3 % 0-1 [facility] Bilirubin [Mass/Vol] 0.80 mg/dL 0.20-1.00 [facility] Comment on above: For patients on eltr ombopag therapy, use of Dimension [place] TBIL is not recommended. Chloride [Moles/Vol] 113 mmol/L 98-107 [facility] Eosinophils/100 WBC (Bld) 3.0 % 0-5 [facility] Glucose [Mass/Vol] 87 mg/dL 74-106 [facility] Neutrophils (Bld) [#/Vol] 3.1 10*3/uL 2.0-7.7 [facility] Neutrophils/100 WBC (Bld) 44.6 % 47-70 [facility] Potassium [Moles/Vol] 4.0 mmol/L 3.5-5.1 [facility] Protein [Mass/Vol] 5.1 g/dL 6.4-8.2 [facility] Sodium [Moles/Vol] 143 mmol/L 136-145 [facility] WBC (Bld) [#/Vol] 7.0 10*3/uL 4.4-11.0 [facility] Blood erythrocytes count (nu mber/volume)Ordered By: Dr. Ramirez on 12-30-2022 RBC (Bld) [#/Vol] 3.26 10*6/uL 4.2-5.4 [facility] Blood hemoglobin measurement (mass/volume)Ordered By: Dr. Ramirez on 12-30-2022 Hemoglobin (Bld) [Mass/Vol] 10.4 g/dL 12.0-15.0 [facility] Blood lymphocytes/100 leukoc ytesOrdered By: Dr. Ramirez on 12-30-2022 Lymphocytes/100 WBC (Bld) 40.5 % 19-41 [facility] Blood monocytes/100 leukocyt esOrdered By: Dr. Ramirez on 12-30-2022 Monocytes/100 WBC (Bld) 10.3 % 0-10 [facility] Blood platelet mean volumeOr dered By: Dr. Ramirez on 12-30-2022 Platelet mean volume (Bld) [Entitic vol] 9.9 fL 6.2-12.0 [facility] Determination of erythrocyte mean corpuscular volume (MCV)Ordered By: Dr. Ramirez on 12-30-2022 MCV (RBC) [Entitic vol] 96.3 fL 81-99 [facility] Gram stain for investigation of transfusion reactionOrdered By: Saskia Ramirez on 12-30-2022 Microscopic observation Gram stain Nom (Unsp spec) [facility] Gram stain for investigation of transfusion reactionOrdered By: Dr. Ramirez on 12-30-2022 Microscopic observation Gram stain Nom (Unsp spec) [facility] Hematocrit Auto (Bld) [Volum e fraction]Ordered By: Dr. Ramirez on 12-30-2022 Hematocrit (Bld) [Volume fraction] 31.4 % 37-47 [facility] Laboratory - Chemistry and C hemistry - challengeOrdered By: Dr. Ramirez on 12-30-2022 ALP [Catalytic activity/Vol] 68 U/L 45-117 [facility] ALT [Catalytic activity/Vol] 17 U/L 13-56 [facility] CO2 [Moles/Vol] 25.0 mmol/L 21.0-32.0 [facility] Globulin (S) [Mass/Vol] 2.6 g/dL 2.2-4.2 [facility] Urea nitrogen/Creatinine [Mass ratio] 22.7 mg/mg 10-20 [facility] Cobalamin (Vitamin B12) [Mass/Vol] 453 pg/mL 211-911 [facility] Laboratory - Hematology and Cell countsOrdered By: Dr. Ramirez on 12-30-2022 Erythrocyte distribution width (RBC) [Entitic vol] 51.2 fL 35.1-43.9 [facility] Erythrocyte distribution width (RBC) [Ratio] 14.5 % 11.6-14.6 [facility] Immature granulocytes/100 WBC (Bld) 0.300 % 0.0-0.9 [facility] Comment on above: IG% - Immature Granu locytes (promyelocytes, myelocytes and metamyelocytes) > 1% indicates that a LEFT SHIFT is Present. MCH (RBC) [Entitic mass] 31.9 pg 27.0-32.0 [facility] Nucleated RBC/100 WBC (Bld) [Ratio] 0 % 0-5 [facility] MCHC Auto (RBC) [Mass/Vol]Or dered By: Dr. Ramirez on 12-30-2022 MCHC (RBC) [Mass/Vol] 33.1 g/dL 32-36 [facility] Microbial respiratory cultur eOrdered By: Saskia Ramirez on 12-30-2022 Bacteria identified Respiratory culture Nom (Unsp spec) [facility] No Panel InformationOrdered By: Dr. Ramirez on 12-30-2022 Estimated Creatinine Clearance Calc 24.13 ml/min [facility] Estimated GFR (MDRD) Amer 46 mL/min >60 [facility] Comment on above: GFR Calc Estimated GFR (MDRD) Non-Af Amer 38 mL/min >60 [facility] Comment on above: Non- GFR Calc Platelets bldOrdered By: Dr. Ramirez on 12-30-2022 Platelets (Bld) [#/Vol] 157 10*3/uL 150-450 [facility] Serum or plasma albumin liza urement (mass/volume)Ordered By: Dr. Ramirez on 12-30-2022 Albumin [Mass/Vol] 2.5 g/dL 3.2-5.0 [facility] Serum or plasma albumin/glob ulin mass ratioOrdered By: Dr. Ramirez on 12-30-2022 Albumin/Globulin [Mass ratio] 1.0 {ratio} 0.9-2.4 [facility] Serum or plasma calcium liza urement (mass/volume)Ordered By: Dr. Ramirez on 12-30-2022 Calcium [Mass/Vol] 8.6 mg/dL 8.5-10.1 [facility] Serum or plasma creatinine m easurement (mass/volume)Ordered By: Dr. Ramirez on 12-30-2022 Creatinine [Mass/Vol] 1.41 mg/dL 0.55-1.02 [facility] Comment on above: The validity of the calculated GFR & GFRAA in patients over 70 years has not been determined. Clinical correlation is essential. Serum or plasma urea nitroge n measurement (mass/volume)Ordered By: Dr. Ramirez on 12-30-2022 Urea nitrogen [Mass/Vol] 32 mg/dL 03-01 [facility] Serum procalcitonin measurem entOrdered By: Dr. Ramirez on 12-30-2022 Procalcitonin [Mass/Vol] 0.04 ng/mL 0.00-0.09 [facility] Comment on above: A procalcitonin (PCT ) level above 2.0 ng/mL on the first day of ICU admission is associated with a high risk for progression to severe sepsis and/or septic shock. A PCT level below 0.5 ng/mL on the first day of ICU admission is associated with a low risk for progression to severe and/or septic shock. Note: Concentrations <0.5 ng/mL do not exclude an infection on account of localized infections (without systemic signs) which can be associated with such low concentrations, or a systemic infection in its initial stages (<6 hours). Furthermore, increased procalcitonin can occur without infection. PCT concentrations between 0.5 and 2.0 ng/mL should be interpreted taking into account the patient's history. It is recommended to retest PCT within 6-24 hours if any concentrations <2 ng/mL are obtained. Thin prep Papanicolaou smear with manual screeningOrdered By: Dr. Ramirez on 12-30-2022 Thin prep Papanicolaou smear with manual screening 27 U/L 15-37 [facility] Thin prep Papanicolaou smear with manual screening 5 5-15 [facility] Basophil percentageOrdered B y: Dr. Rivera on 12-29-2022 Basophil percentage 0 SEEN /hpf 0-5 [facility] Bilirubin Test strip Ql (U)O rdered By: Dr. Rivera on 12-29-2022 Bilirubin Ql (U) Negative Negative [facility] Iron measurement (mass/mass) Ordered By: Dr. Ramirez on 12-29-2022 Iron (Unsp spec) [Mass/Mass] 47 ug/dL 50-170 [facility] Ketones Test strip Ql (U)Ord ered By: Dr. Rivera on 12-29-2022 Ketones Ql (U) Negative Negative [facility] Laboratory - Chemistry and C hemistry - challengeOrdered By: Dr. Rivera on 12-29-2022 Natriuretic peptide B (Bld) [Mass/Vol] 253.5 pg/mL 0-100 [facility] Mucus LM Ql (Urine sed)Order ed By: Dr. Rivera on 12-29-2022 Mucus Ql (Urine sed) 0 SEEN /hpf [facility] Nitrite Test strip Ql (U)Ord ered By: Dr. Rivera on 12-29-2022 Nitrite Ql (U) Negative Negative [facility] No Panel InformationOrdered By: Dr. Sebastian on 12-29-2022 Thyroid Stimulating Hormone (TSH) 0.91 uIU/mL 0.358-3.74 [facility] No Panel InformationOrdered By: Dr. Ramirez on 12-29-2022 Total Iron Binding Capacity 184 ug/dL 250-450 [facility] No Panel InformationOrdered By: Dr. Rivera on 12-29-2022 Troponin I High Sensitivity 25 pg/mL 3.0-54.0 [facility] Comment on above: Please Note: New Мария t Units and Gender Specific Reference Ranges. For more information see Policy Stat Procedure [place] High Sensitivity Troponin (TNIH) and attachments. Protein Test strip Ql (U)Ord ered By: Dr. Rivera on 12-29-2022 Protein Ql (U) Negative Negative [facility] Serum or plasma ferritin gallo surement (mass/volume)Ordered By: Dr. Ramirez on 12-29-2022 Ferritin [Mass/Vol] 259 ng/mL 8-252 [facility] Serum or plasma folate measu rement (mass/volume)Ordered By: Dr. Ramirez on 12-29-2022 Folate [Mass/Vol] 10.70 ng/mL 3.1-55.4 [facility] Serum or plasma iron saturat ion measurement (mass fraction)Ordered By: Dr. Ramirez on 12-29-2022 Iron saturation [Mass fraction] 25.5 % 15.0-55.0 [facility] Squamous epithelial cells de tection in urine sediment by light microscopyOrdered By: Dr. Rivera on 12-29-2022 Epithelial cells.squamous LM Ql (Urine sed) 0 SEEN /hpf 5-10 [facility] Stool gastrointestinal hemog lobin detection by immunologic methodOrdered By: Alexis Rivera on 12-29-2022 Lower GI hemoglobin IA Ql (Stl) [facility] Stool gastrointestinal hemog lobin detection by immunologic methodOrdered By: Dr. Rivera on 12-29-2022 Lower GI hemoglobin IA Ql (Stl) [facility] Urine blood detectionOrdered By: Dr. Rivera on 12-29-2022 RBC Ql (U) Negative Negative [facility] RBC Ql (U) 0 SEEN /hpf 0-5 [facility] Urine clarityOrdered By: Dr. Rivera on 12-29-2022 Clarity (U) Clear Clear [facility] Urine color determinationOrd ered By: Dr. Rivera on 12-29-2022 Color (U) Yellow Yellow [facility] Urine glucose detectionOrder ed By: Dr. Rivera on 12-29-2022 Glucose Ql (U) Normal mg/dl Normal [facility] Urine leukocyte esterase det ection by dipstickOrdered By: Dr. Rivera on 12-29-2022 Leukocyte esterase Test strip Ql (U) 25 /ul Negative [facility] Urine pHOrdered By: Dr. Riley elmore on 12-29-2022 pH (U) 6.0 [pH] 5.0 - 8.0 [facility] Urine sediment bacteria coun t by microscopy (number/high power field)Ordered By: Dr. Rivera on 12-29-2022 Bacteria LM.HPF (Urine sed) [#/Area] 0 /[HPF] None Seen [facility] Urine specific gravity measu rementOrdered By: Dr. Rivera on 12-29-2022 Specific gravity (U) [Rel density] 1.010 1.002-1.030 [facility] Urobilinogen Auto test strip Ql (U)Ordered By: Dr. Rivera on 12-29-2022 Urobilinogen Ql (U) Normal mg/dl Normal [facility] Basophil percentageOrdered B y: Renetta Macias on 10-15-2022 Chloride [Moles/Vol] 103 mmol/L 98-107 [facility] Glucose [Mass/Vol] 56 mg/dL 74-106 [facility] Potassium [Moles/Vol] 4.0 mmol/L 3.5-5.1 [facility] Sodium [Moles/Vol] 143 mmol/L 136-145 [facility] WBC (Bld) [#/Vol] 7.5 10*3/uL 4.4-11.0 [facility] Blood erythrocytes count (nu mber/volume)Ordered By: Renetta Macias on 10-15-2022 RBC (Bld) [#/Vol] 4.27 10*6/uL 4.2-5.4 [facility] Blood hemoglobin measurement (mass/volume)Ordered By: Renetta Macias on 10-15-2022 Hemoglobin (Bld) [Mass/Vol] 13.1 g/dL 12.0-15.0 [facility] Blood platelet mean volumeOr dered By: Renetta Macias on 10-15-2022 Platelet mean volume (Bld) [Entitic vol] 10.1 fL 6.2-12.0 [facility] Determination of erythrocyte mean corpuscular volume (MCV)Ordered By: Renetta Macias on 10-15-2022 MCV (RBC) [Entitic vol] 97.7 fL 81-99 [facility] Hematocrit Auto (Bld) [Volum e fraction]Ordered By: Renetta Macias on 10-15-2022 Hematocrit (Bld) [Volume fraction] 41.7 % 37-47 [facility] Laboratory - Chemistry and C hemistry - challengeOrdered By: Renetta Macias on 10-15-2022 CO2 [Moles/Vol] 32.0 mmol/L 21.0-32.0 [facility] Magnesium [Mass/Vol] 1.6 mg/dL 1.6-2.6 [facility] Urea nitrogen/Creatinine [Mass ratio] 17.6 mg/mg 10-20 [facility] Laboratory - Hematology and Cell countsOrdered By: Renetta Macias on 10-15-2022 Erythrocyte distribution width (RBC) [Entitic vol] 54.9 fL 35.1-43.9 [facility] Erythrocyte distribution width (RBC) [Ratio] 15.2 % 11.6-14.6 [facility] MCH (RBC) [Entitic mass] 30.7 pg 27.0-32.0 [facility] MCHC Auto (RBC) [Mass/Vol]Or dered By: Renetta Macias on 10-15-2022 MCHC (RBC) [Mass/Vol] 31.4 g/dL 32-36 [facility] No Panel InformationOrdered By: Renetta Macias on 10-15-2022 Estimated GFR (MDRD) Amer 41 mL/min >60 [facility] Comment on above: GFR Calc Estimated GFR (MDRD) Non-Af Amer 34 mL/min >60 [facility] Comment on above: Non- GFR Calc Platelets bldOrdered By: Amrik Macias on 10-15-2022 Platelets (Bld) [#/Vol] 252 10*3/uL 150-450 [facility] Serum or plasma calcium liza urement (mass/volume)Ordered By: Renetta Macias on 10-15-2022 Calcium [Mass/Vol] 9.6 mg/dL 8.5-10.1 [facility] Serum or plasma creatinine m easurement (mass/volume)Ordered By: Renetta Macisa on 10-15-2022 Creatinine [Mass/Vol] 1.53 mg/dL 0.55-1.02 [facility] Comment on above: The validity of the calculated GFR & GFRAA in patients over 70 years has not been determined. Clinical correlation is essential. Serum or plasma urea nitroge n measurement (mass/volume)Ordered By: Renetta Macias on 10-15-2022 Urea nitrogen [Mass/Vol] 27 mg/dL 7-18 [facility] Thin prep Papanicolaou smear with manual screeningOrdered By: Renetta Macias on 10-15-2022 Thin prep Papanicolaou smear with manual screening 8 5-15 [facility] Laboratory - Miscellaneous t estsOrdered By: Dr. Barnes on 09-27-2022 [facility] Comment . [facility] Comment on above: Levels of Specific I gE Class Description of Class ----- < 0.10 0 Negative 0.10 - 0.31 0/I Equivocal/Low 0.32 - 0.55 I Low 0.56 - 1.40 II Moderate 1.41 - 3.90 III High 3.91 - 19.00 IV Very High 19.01 - 100.00 V Very High >100.00 Very High No Panel InformationOrdered By: Dr. Barnes on 09-27-2022 Scallop Allergen <0.10 kU/L Class 0 [facility] Sesame Seed Allergen IgE Antibody <0.10 kU/L Class 0 [facility] Shrimp Allergen <0.10 kU/L Class 0 [facility] Serum black walnut IgE antib deann assay (units/volume)Ordered By: Dr. Barnes on 09-27-2022 Black [place] IgE Qn (S) <0.10 kU/L Class 0 [facility] Serum clam IgE antibody assa y (units/volume)Ordered By: Dr. Barnes on 09-27-2022 Clam IgE Qn (S) <0.10 kU/L Class 0 [facility] Serum codfish IgE antibody a ssay (units/volume)Ordered By: Dr. Barnes on 09-27-2022 Codfish IgE Qn (S) <0.10 kU/L Class 0 [facility] Serum corn IgE antibody assa y (units/volume)Ordered By: Dr. Barnes on 09-27-2022 [place] IgE Qn (S) <0.10 kU/L Class 0 [facility] Serum cow milk IgE antibody assay (units/volume)Ordered By: Dr. Barnes on 09-27-2022 Cow milk IgE Qn (S) <0.10 kU/L Class 0 [facility] Serum egg white IgE antibody assay (units/volume)Ordered By: Dr. Barnes on 09-27-2022 Egg white IgE Qn (S) <0.10 kU/L Class 0 [facility] Serum orange IgE antibody as say (units/volume)Ordered By: Dr. Barnes on 09-27-2022 [place] IgE Qn (S) <0.10 kU/L Class 0 [facility] Comment on above: Performed at: [address] [id number] Director: Demetrius Novoa MD, Phone: [phone] Serum peanut IgE antibody as say (units/volume)Ordered By: Dr. Barnes on 09-27-2022 Peanut IgE Qn (S) <0.10 kU/L Class 0 [facility] Serum soybean IgE antibody a ssay (units/volume)Ordered By: Dr. Barnes on 09-27-2022 Soybean IgE Qn (S) <0.10 kU/L Class 0 [facility] Serum wheat IgE antibody ass ay (units/volume)Ordered By: Dr. Barnes on 09-27-2022 Wheat IgE Qn (S) <0.10 kU/L Class 0 [facility] JEANIE SCREENINGon 09-13-2022 [facility] Basophil percentageOrdered B y: Mikki Arechiga on 08-12-2022 Chloride [Moles/Vol] 109 mmol/L 98-107 [facility] Glucose [Mass/Vol] 90 mg/dL 74-106 [facility] Potassium [Moles/Vol] 4.3 mmol/L 3.5-5.1 [facility] Sodium [Moles/Vol] 142 mmol/L 136-145 [facility] Laboratory - Chemistry and C hemistry - challengeOrdered By: Mikki Arechiga on 08-12-2022 CO2 [Moles/Vol] 30.0 mmol/L 21.0-32.0 [facility] Urea nitrogen/Creatinine [Mass ratio] 24.4 mg/mg 10-20 [facility] No Panel InformationOrdered By: Mikki Arechiga on 08-12-2022 Estimated GFR (MDRD) Amer 48 mL/min >60 [facility] Comment on above: GFR Calc Estimated GFR (MDRD) Non-Af Amer 40 mL/min >60 [facility] Comment on above: Non- GFR Calc Serum or plasma calcium liza urement (mass/volume)Ordered By: Mikki Arechiga on 08-12-2022 Calcium [Mass/Vol] 9.7 mg/dL 8.5-10.1 [facility] Serum or plasma creatinine m easurement (mass/volume)Ordered By: Mikki Arechiga on 08-12-2022 Creatinine [Mass/Vol] 1.35 mg/dL 0.55-1.02 [facility] Comment on above: The validity of the calculated GFR & GFRAA in patients over 70 years has not been determined. Clinical correlation is essential. Serum or plasma urea nitroge n measurement (mass/volume)Ordered By: Mikki Arechiga on 08-12-2022 Urea nitrogen [Mass/Vol] 33 mg/dL 7-18 [facility] Thin prep Papanicolaou smear with manual screeningOrdered By: Mikki Arechiga on 08-12-2022 Thin prep Papanicolaou smear with manual screening 3 - [facility] Laboratory - Chemistry and C hemistry - challengeOrdered By: Mikki Arechiga on 07-29-2022 Natriuretic peptide B (Bld) [Mass/Vol] 420.3 pg/mL 0-100 [facility] Absolute lymphocyte countOrd ered By: Dr. Mendez on 07-01-2022 Lymphocytes Auto (Unsp spec) [#/Vol] 1.92 10*3/uL 0.83-4.51 [facility] Basophil percentageOrdered B y: Dr. Mendez on 07-01-2022 Basophils/100 WBC (Bld) 1.3 % 0-1 [facility] Bilirubin [Mass/Vol] 0.50 mg/dL 0.20-1.00 [facility] Comment on above: For patients on eltr ombopag therapy, use of Dimension [place] TBIL is not recommended. Chloride [Moles/Vol] 108 mmol/L 98-107 [facility] Eosinophils/100 WBC (Bld) 6.6 % 0-5 [facility] Glucose [Mass/Vol] 91 mg/dL 74-106 [facility] Neutrophils (Bld) [#/Vol] 5.1 10*3/uL 2.0-7.7 [facility] Neutrophils/100 WBC (Bld) 60.0 % 47-70 [facility] Potassium [Moles/Vol] 3.5 mmol/L 3.5-5.1 [facility] Protein [Mass/Vol] 6.6 g/dL 6.4-8.2 [facility] Sodium [Moles/Vol] 143 mmol/L 136-145 [facility] WBC (Bld) [#/Vol] 8.5 10*3/uL 4.4-11.0 [facility] Blood erythrocytes count (nu mber/volume)Ordered By: Dr. Mendez on 07-01-2022 RBC (Bld) [#/Vol] 3.50 10*6/uL 4.2-5.4 [facility] Blood hemoglobin measurement (mass/volume)Ordered By: Dr. Mendze on 07-01-2022 Hemoglobin (Bld) [Mass/Vol] 11.2 g/dL 12.0-15.0 [facility] Blood lymphocytes/100 leukoc ytesOrdered By: Dr. Mendez on 07-01-2022 Lymphocytes/100 WBC (Bld) 22.7 % 19-41 [facility] Blood monocytes/100 leukocyt esOrdered By: Dr. Mendez on 07-01-2022 Monocytes/100 WBC (Bld) 8.9 % 0-10 [facility] Blood platelet mean volumeOr dered By: Dr. Mendez on 07-01-2022 Platelet mean volume (Bld) [Entitic vol] 9.9 fL 6.2-12.0 [facility] Determination of erythrocyte mean corpuscular volume (MCV)Ordered By: Dr. Mendez on 07-01-2022 MCV (RBC) [Entitic vol] 100.9 fL 81-99 [facility] Erythrocyte sedimentation ra teOrdered By: Dr. Mendez on 07-01-2022 ESR (Bld) [Velocity] 21 mm/h 0-30 [facility] Hematocrit Auto (Bld) [Volum e fraction]Ordered By: Dr. Mendez on 07-01-2022 Hematocrit (Bld) [Volume fraction] 35.3 % 37-47 [facility] Laboratory - Chemistry and C hemistry - challengeOrdered By: Dr. Mendez on 07-01-2022 ALP [Catalytic activity/Vol] 101 U/L 45-117 [facility] ALT [Catalytic activity/Vol] 14 U/L 13-56 [facility] CO2 [Moles/Vol] 27.0 mmol/L 21.0-32.0 [facility] Globulin (S) [Mass/Vol] 3.7 g/dL 2.2-4.2 [facility] Urea nitrogen/Creatinine [Mass ratio] 10.5 mg/mg 10-20 [facility] Laboratory - Hematology and Cell countsOrdered By: Dr. Mendez on 07-01-2022 Erythrocyte distribution width (RBC) [Entitic vol] 52.4 fL 35.1-43.9 [facility] Erythrocyte distribution width (RBC) [Ratio] 14.3 % 11.6-14.6 [facility] Immature granulocytes/100 WBC (Bld) 0.500 % 0.0-0.9 [facility] Comment on above: IG% - Immature Granu locytes (promyelocytes, myelocytes and metamyelocytes) > 1% indicates that a LEFT SHIFT is Present. MCH (RBC) [Entitic mass] 32.0 pg 27.0-32.0 [facility] Nucleated RBC/100 WBC (Bld) [Ratio] 0 % 0-5 [facility] MCHC Auto (RBC) [Mass/Vol]Or dered By: Dr. Mendez on 07-01-2022 MCHC (RBC) [Mass/Vol] 31.7 g/dL 32-36 [facility] No Panel InformationOrdered By: Dr. Mendez on 07-01-2022 Estimated GFR (MDRD) Amer 49 mL/min >60 [facility] Comment on above: GFR Calc Estimated GFR (MDRD) Non-Af Amer 40 mL/min >60 [facility] Comment on above: Non- GFR Calc Platelets bldOrdered By: Dr. Mendez on 07-01-2022 Platelets (Bld) [#/Vol] 329 10*3/uL 150-450 [facility] Serum or plasma C reactive p rotein measurement (mass/volume)Ordered By: Dr. Mendez on 07-01-2022 CRP [Mass/Vol] 15.80 mg/L 0.0-3.0 [facility] Comment on above: C-Reactive Protein ( CRP) provides useful information for thediagnosis, therapy and monitoring of inflammatory processesand associated diseases. For the evaluation of Relative Riskfor Cardiovascular Disease, a High Sensitivity CRP (HSCRP)should be ordered. Serum or plasma albumin liza urement (mass/volume)Ordered By: Dr. Mendez on 07-01-2022 Albumin [Mass/Vol] 2.9 g/dL 3.2-5.0 [facility] Serum or plasma albumin/glob ulin mass ratioOrdered By: Dr. Mendez on 07-01-2022 Albumin/Globulin [Mass ratio] 0.8 {ratio} 0.9-2.4 [facility] Serum or plasma calcium liza urement (mass/volume)Ordered By: Dr. Mendez on 07-01-2022 Calcium [Mass/Vol] 9.5 mg/dL 8.5-10.1 [facility] Serum or plasma creatinine m easurement (mass/volume)Ordered By: Dr. Mendez on 07-01-2022 Creatinine [Mass/Vol] 1.33 mg/dL 0.55-1.02 [facility] Comment on above: The validity of the calculated GFR & GFRAA in patients over 70 years has not been determined. Clinical correlation is essential. Serum or plasma urea nitroge n measurement (mass/volume)Ordered By: Dr. Mendez on 07-01-2022 Urea nitrogen [Mass/Vol] 14 mg/dL 7-18 [facility] Thin prep Papanicolaou smear with manual screeningOrdered By: Dr. Mendez on 07-01-2022 Thin prep Papanicolaou smear with manual screening 18 U/L 15-37 [facility] Thin prep Papanicolaou smear with manual screening 8 5-15 [facility] Bacteria identified Respirat ory culture Nom (Unsp spec)Ordered By: Dr. Farmer on 05-31-2022 Respiratory Culture Haemophilus influenzae [facility] Respiratory Culture Mixed Velma [facility] Gram stain for investigation of transfusion reactionOrdered By: Dr. Farmer on 05-28-2022 Microscopic observation Gram stain Nom (Unsp spec) [facility] Laboratory - Microbiology an d Antimicrobial susceptibilityOrdered By: Dr. Farmer on 05-18-2022 SARS-CoV-2 (COVID-19) RNA ALYSSA+probe Ql (Unsp spec) Not detected Not Detect [facility] Comment on above: Normal Reference Ran ge: Not DetectedMethod:(RT-PCR) real-time reverse transcriptase PCRLuminex MakersKit Instrument*The Food and Drug Administration (FDA) has issued an Emergency Use Authorization (EAU) for the MakersKit SARS-CoV-2 Assay for the rapid detection of the virus that causes COVID-19. This test has been validated, but the FDAs independent review of this validation is pending.*Negative results do not preclude infection and should not be used as the sole basis for treatment or patient management. Optimum specimen types and timing for peak viral levels during infections caused by SARS-CoV-2 have not been determined. Collection of multiple specimens from the same patient may be necessary to detect the virus. The possibility of a false negative result should be considered if the patient has clinical presentation or has had recent exposure. Absolute lymphocyte counton 04-23-2022 Lymphocytes Auto (Unsp spec) [#/Vol] 2.34 10*3/uL 0.83-4.51 [facility] Work Phone: Basophil percentageon 2021 Basophils/100 WBC (Bld) 1.3 % 0-1 [facility] Work Phone: Bilirubin [Mass/Vol] 0.50 mg/dL 0.20-1.00 [facility] Work Phone: Comment on above: For patients on eltr ombopag therapy, use of Dimension [place] TBIL is not recommended. Chloride [Moles/Vol] 107 mmol/L 98-107 [facility] Phone: Cholesterol [Mass/Vol] 189 mg/dL <200 [facility] Work Phone: Comment on above: <200 mg/dL Desirable 200-240 mg/dL Borderline >240 mg/dL High Risk Eosinophils/100 WBC (Bld) 2.7 % 0-5 [facility] Work Phone: Glucose [Mass/Vol] 86 mg/dL 74-106 [facility] Work Phone: Neutrophils (Bld) [#/Vol] 3.0 10*3/uL 2.0-7.7 [facility] Work Phone: Neutrophils/100 WBC (Bld) 49.1 % 47-70 [facility] Work Phone: Potassium [Moles/Vol] 4.2 mmol/L 3.5-5.1 [facility] Work Phone: Protein [Mass/Vol] 6.8 g/dL 6.4-8.2 [facility] Work Phone: Sodium [Moles/Vol] 142 mmol/L 136-145 [facility] Work Phone: Triglyceride [Mass/Vol] 120 mg/dL <199 [facility] Work Phone: Comment on above: The drugs N-Acetylcy steine and Metamizole may falsely depress this assay.Serum Triglycerides Reference Interval Normal <150 mg/dL Borderline high 150 - 199 mg/dL High 200 - 499 mg/dL Very High > or = 500 mg/dL WBC (Bld) [#/Vol] 6.2 10*3/uL 4.4-11.0 [facility] Work Phone: Blood erythrocytes count (nu mber/volume)on 04-23-2022 RBC (Bld) [#/Vol] 3.71 10*6/uL 4.2-5.4 [facility] Work Phone: Blood hemoglobin measurement (mass/volume)on 04-23-2022 Hemoglobin (Bld) [Mass/Vol] 12.5 g/dL 12.0-15.0 [facility] Work Phone: Blood lymphocytes/100 leukoc yteson 04-23-2022 Lymphocytes/100 WBC (Bld) 37.7 % 19-41 [facility] Work Phone: Blood monocytes/100 leukocyt eson 04-23-2022 Monocytes/100 WBC (Bld) 8.7 % 0-10 [facility] Work Phone: Blood platelet mean volumeon 04-23-2022 Platelet mean volume (Bld) [Entitic vol] 10.7 fL 6.2-12.0 [facility] Work Phone: Determination of erythrocyte mean corpuscular volume (MCV)on 04-23-2022 MCV (RBC) [Entitic vol] 103.5 fL 81-99 [facility] Work Phone: Hematocrit Auto (Bld) [Volum e fraction]on 04-23-2022 Hematocrit (Bld) [Volume fraction] 38.4 % 37-47 [facility] Work Phone: Laboratory - Chemistry and C hemistry - challengeon 04-23-2022 ALP [Catalytic activity/Vol] 77 U/L 45-117 [facility] Work Phone: ALT [Catalytic activity/Vol] 20 U/L 13-56 [facility] Work Phone: CO2 [Moles/Vol] 29.0 mmol/L 21.0-32.0 [facility] Work Phone: Globulin (S) [Mass/Vol] 3.6 g/dL 2.2-4.2 [facility] Work Phone: Urea nitrogen/Creatinine [Mass ratio] 10.1 mg/mg 10-20 [facility] Work Phone: Laboratory - Hematology and Cell countson 04-23-2022 Erythrocyte distribution width (RBC) [Entitic vol] 52.6 fL 35.1-43.9 [facility] Work Phone: [phone] Erythrocyte distribution width (RBC) [Ratio] 13.7 % 11.6-14.6 [facility] Work Phone: [phone] Immature granulocytes/100 WBC (Bld) 0.500 % 0.0-0.9 [facility] Work Phone: [phone] Comment on above: IG% - Immature Granu locytes (promyelocytes, myelocytes and metamyelocytes) > 1% indicates that a LEFT SHIFT is Present. MCH (RBC) [Entitic mass] 33.7 pg 27.0-32.0 [facility] Work Phone: Nucleated RBC/100 WBC (Bld) [Ratio] 0 % 0-5 [facility] Work Phone: [phone] MCHC Auto (RBC) [Mass/Vol]on 04-23-2022 MCHC (RBC) [Mass/Vol] 32.6 g/dL 32-36 [facility] Work Phone: No Panel Informationon 04-23 Estimated GFR (MDRD) Amer 46 mL/min >60 [facility] Work Phone: Comment on above: GFR Calc Estimated GFR (MDRD) Non-Af Amer 38 mL/min >60 [facility] Work Phone: [phone] Comment on above: Non- GFR Calc Parathyroid Hormone (Intact) 102.4 pg/mL 18.4-80.1 [facility] Work Phone: [phone] Thyroid Stimulating Hormone (TSH) 1.32 uIU/mL 0.358-3.74 [facility] Work Phone: [phone] Vitamin D 25-Hydroxy 30.5 ng/mL [facility] Work Phone: [phone] Comment on above: Vitamin D 25(OH) Sta tus Range Deficiency <20 ng/mL (50nmol/L) Insufficiency 20 - 30 ng/mL (50 - 75 nmol/L) Sufficiency 30 - 100 ng/mL (75 - 250 nmol/L) Toxicity >100 ng/mL (>250 nmol/L) Platelets bldon 04-23-2022 Platelets (Bld) [#/Vol] 275 10*3/uL 150-450 [facility] Work Phone: Serum or plasma albumin liza urement (mass/volume)on 04-23-2022 Albumin [Mass/Vol] 3.2 g/dL 3.2-5.0 [facility] Work Phone: Serum or plasma albumin/glob ulin mass ratioon 04-23-2022 Albumin/Globulin [Mass ratio] 0.9 {ratio} 0.9-2.4 [facility] Work Phone: Serum or plasma calcium liza urement (mass/volume)on 04-23-2022 Calcium [Mass/Vol] 9.3 mg/dL 8.5-10.1 [facility] Work Phone: Serum or plasma cholesterol in HDL measurement (mass/volume)on 04-23-2022 Cholesterol in HDL [Mass/Vol] 76 mg/dL >40 [facility] Work Phone: Comment on above: The drugs N-Acetylcy steine and Metamizole may falsely depress this assay. Reference Range HDL <40 mg/dL Low HDL Cholesterol HDL >or= 60 mg/dL High HDL Cholesterol Serum or plasma cholesterol in VLDL measurement (mass/volume)on 04-23-2022 Cholesterol in VLDL [Mass/Vol] 24 mg/dL 5-40 [facility] Work Phone: Serum or plasma creatinine m easurement (mass/volume)on 04-23-2022 Creatinine [Mass/Vol] 1.39 mg/dL 0.55-1.02 [facility] Work Phone: Comment on above: The validity of the calculated GFR & GFRAA in patients over 70 years has not been determined. Clinical correlation is essential. Serum or plasma low density lipoprotein (LDL) cholesterol measurement (mass/volume)on 04-23-2022 Cholesterol in LDL [Mass/Vol] 89 mg/dL 0-130 [facility] Work Phone: Serum or plasma urea nitroge n measurement (mass/volume)on 04-23-2022 Urea nitrogen [Mass/Vol] 14 mg/dL 7-18 [facility] Work Phone: [phone] Thin prep Papanicolaou smear with manual screeningon 04-23-2022 Thin prep Papanicolaou smear with manual screening 23 U/L 15-37 [facility] Work Phone: [phone] Thin prep Papanicolaou smear with manual screening 6 5-15 [facility] Work Phone: [phone] Laboratory - Microbiology an d Antimicrobial susceptibilityon 03-30-2022 SARS-CoV-2 (COVID-19) RNA ALYSSA+probe Ql (Unsp spec) Not detected [facility] Work Phone: [phone] No Panel Informationon 03-30 Influenza Types A,B Rapid (Clinic) Not detected [facility] Work Phone: Basophil percentageon 2021 Bilirubin [Mass/Vol] 0.60 mg/dL 0.20-1.00 [facility] Work Phone: [phone] Comment on above: For patients on eltr ombopag therapy, use of Dimension [place] TBIL is not recommended. Cholesterol [Mass/Vol] 166 mg/dL <200 [facility] Work Phone: [phone] Comment on above: <200 mg/dL Desirable 200-240 mg/dL Borderline >240 mg/dL High Risk Protein [Mass/Vol] 6.6 g/dL 6.4-8.2 [facility] Work Phone: [phone] Triglyceride [Mass/Vol] 95 mg/dL [facility] Work Phone: [phone] Comment on above: The drugs N-Acetylcy steine and Metamizole may falsely depress this assay.Serum Triglycerides Reference Interval Normal <150 mg/dL Borderline high 150 - 199 mg/dL High 200 - 499 mg/dL Very High > or = 500 mg/dL Direct bilirubinon Bilirubin.direct [Mass/Vol] 0.15 mg/dL 0.00-0.30 [facility] Work Phone: [phone] Laboratory - Chemistry and C hemistry - challengeon 03-15-2022 ALP [Catalytic activity/Vol] 84 U/L 45-117 [facility] Work Phone: [phone] ALT [Catalytic activity/Vol] 16 U/L 13-56 [facility] Work Phone: [phone] Globulin (S) [Mass/Vol] 3.3 g/dL 2.2-4.2 [facility] Work Phone: [phone] [Mass/Vol] 13.0 ug/dL 4.8-13.9 [facility] Work Phone: [phone] Panel Informationon 10-27 Thyroid Stimulating Hormone (TSH) 1.42 uIU/mL 0.358-3.74 [facility] Work Phone: [phone] Serum or plasma albumin liza urement (mass/volume)on 10-27-2021 Albumin [Mass/Vol] 3.3 g/dL 3.2-5.0 [facility] Work Phone: [phone] Serum or plasma cholesterol in HDL measurement (mass/volume)on 10-27-2021 Cholesterol in HDL [Mass/Vol] 64 mg/dL [facility] Work Phone: [phone] Comment on above: The drugs N-Acetylcy steine and Metamizole may falsely depress this assay. Reference Range HDL <40 mg/dL Low HDL Cholesterol HDL >or= 60 mg/dL High HDL Cholesterol Serum or plasma cholesterol in VLDL measurement (mass/volume)on 10-27-2021 Cholesterol in VLDL [Mass/Vol] 19 mg/dL 5-40 [facility] Work Phone: [phone] Serum or plasma low density lipoprotein (LDL) cholesterol measurement (mass/volume)on 10-27-2021 Cholesterol in LDL [Mass/Vol] 83 mg/dL 0-130 [facility] Work Phone: [phone] Thin prep Papanicolaou smear with manual screeningon 10-27-2021 Thin prep Papanicolaou smear with manual screening 18 U/L 15-37 [facility] Work Phone: [phone] Bronchoalveolar lavage cultu re with Gram stain Respiratory Culture Haemophilus influenzae [facility] Work Phone: [phone] Respiratory Culture Mixed Velma [facility] Work Phone: Gram stain for investigation of transfusion reaction Microscopic observation Gram stain Nom (Unsp spec) [facility] Work Phone: Vital Signs Date Time Vital Sign Value Performing Clinician Mateo conti 02-06-2025 10:30-0400 Body height 157.[address] Odette Farmer DO Work Phone: [facility] 02-06-2025 10:30-0400 Body mass index (BMI) [Ratio] 27.4 kg/m2 Dr. Odette Farmer DO Work Phone: [facility] 02-06-2025 10:30-0400 Body weight 68.[address] Odette Farmer DO Work Phone: [facility] 02-06-2025 10:30-0400 Diastolic blood pressure 66 mm[Hg] Dr. Odette Farmer DO Work Phone: [facility] 02-06-2025 10:30-0400 Heart rate 61 /min Dr. Odette Farmer DO Work Phone: [facility] 02-06-2025 10:30-0400 Respiratory rate 16 /min Dr. Odette Farmer DO Work Phone: [facility] 02-06-2025 10:30-0400 Systolic blood pressure 132 mm[Hg] Dr. Odette Farmer DO Work Phone: [facility] 10-09-2024 13:09-0500 Body height 157.[address] Odette Farmer DO Work Phone: [facility] 10-09-2024 13:09-0500 Body mass index (BMI) [Ratio] 27.3 kg/m2 Dr. Odette Farmer DO Work Phone: [facility] 10-09-2024 13:09-0500 Body weight 67.[address] Odette Farmer DO Work Phone: [facility] 02-25-2025 13:09-0500 Diastolic blood pressure 71 mm[Hg] Dr. Odette Farmer DO Work Phone: [facility] 10-09-2024 13:09-0500 Systolic blood pressure 116 mm[Hg] Dr. Odette Farmer DO Work Phone: [facility] 08-10-2024 12:58-0500 Body mass index (BMI) [Ratio] 28 kg/m2 Dr. Odette Farmer DO Work Phone: [facility] 08-10-2024 12:58-0500 Body weight 69.[address] Odette Farmer DO Work Phone: [facility] 08-10-2024 12:58-0500 Diastolic blood pressure 70 mm[Hg] Dr. Odette Farmer DO Work Phone: [facility] 08-10-2024 12:58-0500 Heart rate 98 /min Dr. Odette Farmer DO Work Phone: [facility] 08-10-2024 12:58-0500 Respiratory rate 16 /min Dr. Odette Farmer DO Work Phone: [facility] 08-10-2024 12:58-0500 Systolic blood pressure 127 mm[Hg] Dr. Odette Farmer DO Work Phone: [facility] 11-08-2023 13:31-0400 Body height 157.[address] Odette Farmer Work Phone: [facility] 11-08-2023 13:31-0400 Body mass index (BMI) [Ratio] 27.6 kg/m2 Dr. Odette Farmer Work Phone: [facility] 11-08-2023 13:31-0400 Body weight 68.[address] Odette Farmer Work Phone: [facility] 11-08-2023 13:31-0400 Diastolic blood pressure 62 mm[Hg] Dr. Odette Farmer Work Phone: [facility] 11-08-2023 13:31-0400 Heart rate 55 /min Dr. Odette Farmer Work Phone: [facility] 11-08-2023 13:31-0400 Respiratory rate 16 /min Dr. Odette Farmer Work Phone: [facility] 11-08-2023 13:31-0400 Systolic blood pressure 156 mm[Hg] Dr. Odette Farmer Work Phone: [facility] 10-03-2023 10:04-0500 Body mass index (BMI) [Ratio] 28 kg/m2 Dr. Odette Farmer Work Phone: [facility] 10-03-2023 10:04-0500 Body weight 69.[address] Odette Farmer Work Phone: [facility] 10-03-2023 10:04-0500 Diastolic blood pressure 69 mm[Hg] Dr. Odette Farmer Work Phone: [facility] 10-03-2023 10:04-0500 Systolic blood pressure 164 mm[Hg] Dr. Odette Farmer Work Phone: [facility] 09-29-2023 12:11-0500 Body mass index (BMI) [Ratio] 27.2 kg/m2 Dr. Odette Farmer Work Phone: [facility] 09-29-2023 12:11-0500 Body temperature 97.8 [degF] Dr. Odette Farmer Work Phone: [facility] 09-29-2023 12:11-0500 Body weight 67.[address] Odette Farmer Work Phone: [facility] 09-29-2023 12:11-0500 Diastolic blood pressure 50 mm[Hg] Dr. Odette Farmer Work Phone: [facility] 09-29-2023 12:11-0500 Heart rate 63 /min Dr. Odette Farmer Work Phone: [facility] 09-29-2023 12:11-0500 Respiratory rate 16 /min Dr. Odette Farmer Work Phone: [facility] 09-29-2023 12:11-0500 SaO2% (BldA) [Mass fraction] 98 % Dr. Odette Farmer Work Phone: [facility] 09-29-2023 12:11-0500 Systolic blood pressure 127 mm[Hg] Dr. Odette Farmer Work Phone: [facility] 03-22-2023 13:27-0400 Body height 157.[address] Odette Farmer Work Phone: [facility] 03-22-2023 13:15-0400 Body mass index (BMI) [Ratio] 26.9 kg/m2 Dr. Odette Farmer Work Phone: [facility] 03-22-2023 13:15-0400 Body temperature 97.5 [degF] Dr. Odette Farmer Work Phone: [facility] 03-22-2023 13:15-0400 Body weight 66.[address] Odette Farmer Work Phone: [facility] 03-22-2023 13:15-0400 Diastolic blood pressure 54 mm[Hg] Dr. Odette Farmer Work Phone: [facility] 03-22-2023 13:15-0400 Heart rate 62 /min Dr. Odette Farmer Work Phone: [facility] 03-22-2023 13:15-0400 Respiratory rate 17 /min Dr. Odette Farmer Work Phone: [facility] 03-22-2023 13:15-0400 Systolic blood pressure 133 mm[Hg] Dr. Odette Farmer Work Phone: [facility] 01-27-2023 07:47-0400 Body mass index (BMI) [Ratio] 26.2 kg/m2 Dr. Odette Farmer Work Phone: [facility] 01-27-2023 07:47-0400 Body temperature 97.6 [degF] Dr. Odette Farmer Work Phone: [facility] 01-27-2023 07:47-0400 Body weight 64.[address] Odette Farmer Work Phone: [facility] 01-27-2023 07:47-0400 Diastolic blood pressure 65 mm[Hg] Dr. Odette Farmer Work Phone: [facility] 01-27-2023 07:47-0400 Heart rate 55 /min Dr. Odette Farmer Work Phone: [facility] 01-27-2023 07:47-0400 Respiratory rate 18 /min Dr. Odette Farmer Work Phone: [facility] 01-27-2023 07:47-0400 SaO2% (BldA) [Mass fraction] 96 % Dr. Odette Farmer Work Phone: [facility] 01-27-2023 07:47-0400 Systolic blood pressure 128 mm[Hg] Dr. Odette Farmer Work Phone: [facility] 01-21-2023 14:29-0400 Body mass index (BMI) [Ratio] 26.2 kg/m2 Dr. Odette Farmer Work Phone: [facility] 01-21-2023 14:29-0400 Body weight 64.[address] Odette Farmer Work Phone: [facility] 01-21-2023 14:29-0400 Diastolic blood pressure 72 mm[Hg] Dr. Odette Farmer Work Phone: [facility] 01-21-2023 14:29-0400 Heart rate 57 /min Dr. Odette Farmer Work Phone: [facility] 01-21-2023 14:29-0400 SaO2% (BldA) [Mass fraction] 91 % Dr. Odette Farmer Work Phone: [facility] 01-21-2023 14:29-0400 Systolic blood pressure 130 mm[Hg] Dr. Odette Farmer Work Phone: [facility] 01-07-2023 11:36-0400 Body height 157.[address] Odette Farmer Work Phone: [facility] 01-07-2023 11:36-0400 Body mass index (BMI) [Ratio] 26.9 kg/m2 Dr. Odette Farmer Work Phone: [facility] 01-07-2023 11:36-0400 Body weight 66.[address] Odette Farmer Work Phone: [facility] 01-07-2023 11:36-0400 Diastolic blood pressure 64 mm[Hg] Dr. Odette Farmer Work Phone: [facility] 01-07-2023 11:36-0400 Heart rate 61 /min Dr. Odette Farmer Work Phone: [facility] 01-07-2023 11:36-0400 Respiratory rate 18 /min Dr. Odette Farmer Work Phone: [facility] 01-07-2023 11:36-0400 Systolic blood pressure 123 mm[Hg] Dr. Odette Farmer Work Phone: [facility] 12-30-2022 16:57-0400 Body temperature 98.3 [degF] Dr. Odette Farmer Work Phone: [facility] 12-30-2022 16:57-0400 Diastolic blood pressure 41 mm[Hg] Dr. Odette Farmer Work Phone: [facility] 12-30-2022 16:57-0400 Heart rate 62 /min Dr. Odette Farmer Work Phone: [facility] 12-30-2022 16:57-0400 Respiratory rate 18 /min Dr. Odette Farmer Work Phone: [facility] 12-30-2022 16:57-0400 SaO2% (BldA) [Mass fraction] 95 % Dr. Odette Farmer Work Phone: [facility] 12-30-2022 16:57-0400 Systolic blood pressure 109 mm[Hg] Dr. Odette Farmer Work Phone: [facility] 12-30-2022 03:49-0400 Body mass index (BMI) [Ratio] 27.3 kg/m2 Dr. Odette Farmer Work Phone: [facility] 12-30-2022 03:49-0400 Body weight 69.[address] Odette Farmer Work Phone: [facility] 09-21-2022 12:57-0500 Body height 157.[address] Odette Farmer Work Phone: [facility] 09-21-2022 12:50-0500 Body mass index (BMI) [Ratio] 26.5 kg/m2 Dr. Odette Farmer Work Phone: [facility] 09-21-2022 12:50-0500 Body temperature 97.2 [degF] Dr. Odette Farmer Work Phone: [facility] 09-21-2022 12:50-0500 Body weight 68.[address] Odette Farmer Work Phone: [facility] 09-21-2022 12:50-0500 Diastolic blood pressure 70 mm[Hg] Dr. Odette Farmer Work Phone: [facility] 09-21-2022 12:50-0500 Heart rate 50 /min Dr. Odette Farmer Work Phone: [facility] 09-21-2022 12:50-0500 Respiratory rate 18 /min Dr. Odette Farmer Work Phone: [facility] 09-21-2022 12:50-0500 SaO2% (BldA) [Mass fraction] 97 % Dr. Odette Farmer Work Phone: [facility] 09-21-2022 12:50-0500 Systolic blood pressure 152 mm[Hg] Dr. Odette Farmer Work Phone: [facility] 09-17-2022 13:32-0500 Body mass index (BMI) [Ratio] 27.1 kg/m2 Dr. Odette Farmer Work Phone: [facility] 09-17-2022 13:32-0500 Body weight 67.[address] Odette Farmer Work Phone: [facility] 09-17-2022 13:32-0500 Diastolic blood pressure 58 mm[Hg] Dr. Odette Farmer Work Phone: [facility] 09-17-2022 13:32-0500 Heart rate 80 /min Dr. Odette Farmer Work Phone: [facility] 09-17-2022 13:32-0500 Respiratory rate 16 /min Dr. Odetet Farmer Work Phone: [facility] 09-17-2022 13:32-0500 Systolic blood pressure 121 mm[Hg] Dr. Odette Farmer Work Phone: [facility] 09-03-2022 10:41-0500 Body height 157.[address] Odette Farmer Work Phone: [facility] 09-03-2022 10:41-0500 Body weight 67.[address] Odette Farmer Work Phone: [facility] 09-03-2022 10:40-0500 Body mass index (BMI) [Ratio] 27.1 kg/m2 Dr. Odette Farmer Work Phone: [facility] 07-29-2022 08:40-0500 Body height 158.[address] Odette Farmer Work Phone: [facility] Work Phone: 07-29-2022 08:40-0500 Body mass index (BMI) [Ratio] 27.8 kg/m2 Dr. Odette Farmer Work Phone: [facility] 07-29-2022 08:40-0500 Body weight 70.[address] Odette Farmer Work Phone: [facility] 07-29-2022 08:40-0500 Diastolic blood pressure 79 mm[Hg] Dr. Odette Farmer Work Phone: [facility] 07-29-2022 08:40-0500 Heart rate 64 /min Dr. Odette Farmer Work Phone: [facility] 07-29-2022 08:40-0500 Respiratory rate 18 /min Dr. Odette Farmer Work Phone: [facility] 07-29-2022 08:40-0500 SaO2% (BldA) [Mass fraction] 97 % Dr. Odette Farmer Work Phone: [facility] 07-29-2022 08:40-0500 Systolic blood pressure 131 mm[Hg] Dr. Odette Farmer Work Phone: [facility] 03-30-2022 15:39-0400 Body height 158.[address] Odette Farmer Work Phone: [facility] Work Phone: 03-30-2022 15:39-0400 Body mass index (BMI) [Ratio] 28 kg/m2 Dr. Odette Farmer Work Phone: [facility] Work Phone: 03-30-2022 15:39-0400 Body temperature 97.7 [degF] Dr. Odette Farmer Work Phone: [facility] Work Phone: 03-30-2022 15:39-0400 Body weight 70.[address] Odette Farmer Work Phone: [facility] Work Phone: 03-30-2022 15:39-0400 Diastolic blood pressure 76 mm[Hg] Dr. Odette Farmer Work Phone: [facility] Work Phone: 03-30-2022 15:39-0400 Heart rate 62 /min Dr. Odette Farmer Work Phone: [facility] Work Phone: 03-30-2022 15:39-0400 Respiratory rate 16 /min Dr. Odette Farmer Work Phone: [facility] Work Phone: 03-30-2022 15:39-0400 Systolic blood pressure 134 mm[Hg] Dr. Odette Farmer Work Phone: [facility] Work Phone: 03-29-2022 12:48-0400 Body mass index (BMI) [Ratio] 28.8 kg/m2 Dr. Odette Farmer Work Phone: [facility] Work Phone: 03-29-2022 12:48-0400 Body temperature 97.3 [degF] Dr. Odette Farmer Work Phone: [facility] Work Phone: 03-29-2022 12:48-0400 Body weight 71.[address] Odette Farmer Work Phone: [facility] Work Phone: 03-29-2022 12:48-0400 Diastolic blood pressure 77 mm[Hg] Dr. Odette Farmer Work Phone: [facility] Work Phone: 03-29-2022 12:48-0400 Heart rate 54 /min Dr. Odette Farmer Work Phone: [facility] Work Phone: 03-29-2022 12:48-0400 Respiratory rate 16 /min Dr. Odette Farmer Work Phone: [facility] Work Phone: 03-29-2022 12:48-0400 Systolic blood pressure 149 mm[Hg] Dr. Odette Farmer Work Phone: [facility] Work Phone: 10-27-2021 08:42-0400 Body height 157.[address] Odette Farmer Work Phone: [facility] Work Phone: 10-27-2021 08:42-0400 Body weight 73.[address] Odette Farmer Work Phone: [facility] Work Phone: 10-27-2021 08:42-0400 Diastolic blood pressure 54 mm[Hg] Dr. Odette Farmer Work Phone: [facility] Work Phone: 10-27-2021 08:42-0400 Heart rate 54 /min Dr. Odette Farmer Work Phone: [facility] Work Phone: 10-27-2021 08:42-0400 Respiratory rate 16 /min Dr. Odette Farmer Work Phone: [facility] Work Phone: 10-27-2021 08:42-0400 SaO2% (BldA) [Mass fraction] 96 % Dr. Odette Farmer Work Phone: [facility] Work Phone: 10-27-2021 08:42-0400 Systolic blood pressure 126 mm[Hg] Dr. Odette Farmer Work Phone: [facility] Work Phone: 02-24-2021 10:35-0400 Body mass index (BMI) [Ratio] 30.1 kg/m2 Dr. Odette Farmer Work Phone: [facility] Work Phone: 01-29-2021 13:14-0400 Body mass index (BMI) [Ratio] 30.1 kg/m2 Dr. Odette Farmer Work Phone: [facility] Work Phone: Encounters Encounter Date Encounter Type Care Provider Facility Start: 04-04-2025 End: 04-04-2025 ambulatory TANVI LORETTAWYATT Facility:[facility] Start: 04-04-2025 End: 04-04-2025 Patient encounter procedure Tanvi Moran Work Phone: Podiatry Comment on above: Ingrowing toenail of right foot (Primary Dx); Onychomycosis; Pain in toe of left foot; Pain in toe of right foot; PAD (peripheral artery disease) Start: 03-21-2025 End: 03-21-[address] Odette Farmer DO Work Phone: -Physical Therapy Start: 03-21-2025 End: 03-21-[address] Odette Farmer DO -Physical Therapy Work Phone: Start: 02-28-2025 End: 02-28-2025 Patient encounter procedure Tanvi Moran Work Phone: Podiatry Comment on above: Ingrowing toenail of right foot (Primary Dx); PAD (peripheral artery disease); Hammer toe of right foot Start: 02-28-2025 End: 02-28-2025 ambulatory TANVI MORAN Facility:[facility] Start: 02-06-2025 End: 02-06-2025 Patient encounter procedure Tawanda BARTH -[facility] Work Phone: Start: 02-06-2025 End: 02-06-[address] Odette Farmer DO Work Phone: [facility] Work Phone: Start: 02-05-[address] Odette diez DO -Physical Therapy Work Phone: Start: 01-10-2025 End: 01-10-2025 Patient encounter procedure Tanvi Lorettaandres Work Phone: Podiatry Comment on above: Onychomycosis (Prima ry Dx); Pain in toe of left foot; Pain in toe of right foot; Ingrowing toenail of left foot; PAD (peripheral artery disease) Start: 01-10-2025 End: 01-10-2025 ambulatory TANVI MORAN Facility:[facility] Start: 12-05-2024 End: 02-04-2025 Follow-up encounter Tanvi Moran Work Phone: Podiatry Start: 12-05-2024 End: 12-05-2024 ambulatory TANVI MORAN Facility:[facility] Start: 11-26-2024 End: 11-26-2024 ambulatory TANVI MORAN Facility:[facility] Start: 11-26-2024 End: 11-26-2024 Patient encounter procedure Tanvi Burgosandres Work Phone: Podiatry Comment on above: Ingrowing toenail of left foot (Primary Dx); Pain in toe of left foot; Diminished pulses in lower extremity Start: 11-23-2024 End: 11-26-2024 ambulatory Tanvi Moran Work Phone: Podiatry Comment on above: Left toe Start: 11-15-2024 End: 11-15-[address] Odette Farmer DO Work Phone: [facility] Work Phone: Start: 11-15-2024 End: 11-15-[address] Josseline Rodney MD -Outpatient Breast Imaging Work Phone: Start: 11-15-2024 End: 11-15-2024 ambulatory Josseline Rodney Facility:[facility] Start: 11-02-2024 End: 11-02-2024 ambulatory TANVI MORAN Facility:[facility] Start: 11-02-2024 End: 11-02-2024 Patient encounter procedure Tanvi Moran Work Phone: Podiatry Comment on above: Onychomycosis (Prima ry Dx); Pain in toe of left foot; Pain in toe of right foot; Tailor's bunion of both feet Start: 10-09-2024 Encounter for gynecological examination (general) (routine) with abnormal findings Josseline Rodney [facility] Start: 10-09-2024 End: 10-09-[address] Josseline Rodney MD -[facility] Work Phone: Start: 10-09-2024 End: 10-09-[address] Josseline Rodney MD [facility] Start: 10-09-2024 End: 10-09-2024 ambulatory Josseline Rodney Facility:[facility] Start: 10-08-2024 End: 10-08-2024 ambulatory TANVI BURGOSWYATT Facility:[facility] Start: 10-08-2024 End: 10-08-2024 Patient encounter procedure Tanvi Moran Work Phone: Podiatry Comment on above: Ingrowing toenail of left foot (Primary Dx); Diminished pulses in lower extremity; Plantar fasciitis Start: 09-28-2024 End: 09-28-[address] Odette Farmer DO [facility] Start: 09-28-2024 End: 09-28-2024 ambulatory Odette Farmer Facility:[facility] Start: 08-30-2024 End: 08-30-2024 ambulatory TANVINOREEN MORAN Facility:[facility] Start: 08-30-2024 End: 08-30-2024 Patient encounter procedure Tanvi Moran Work Phone: Podiatry Comment on above: Onychomycosis (Prima ry Dx); Pain in toe of left foot; Pain in toe of right foot; Hammer toe of left foot; Hammer toe of right foot Start: 08-10-2024 End: 08-10-[address] Obi Clark MD -[facility] Work Phone: Start: 08-10-2024 End: 08-10-2024 ambulatory Odette MolinaRosemary Facility:[facility] Start: 07-20-2024 ambulatory Odette Farmer Facility: [facility] Start: 07-20-2024 End: 07-20-2024 ambulatory Odette MolinaRosemary Facility:[facility] Start: 06-28-2024 End: 06-28-2024 ambulatory Odette Rosemary Facility:[facility] Start: 06-05-2024 End: 06-05-2024 ambulatory TANVI MORAN Facility:[facility] Start: 06-05-2024 End: 06-05-2024 Patient encounter procedure Tanvi Moran Work Phone: Podiatry Comment on above: Onychomycosis (Prima ry Dx); Pain in toe of left foot; Pain in toe of right foot Start: 05-29-2024 End: 05-29-2024 ambulatory Odette Farmer Facility:[facility] Start: 05-21-2024 End: 05-21-2024 ambulatory Odette MolinaRosemary Facility:[facility] Start: 03-30-2024 End: 03-30-2024 Patient encounter procedure Tanvi Moran Work Phone: Podiatry Comment on above: Onychomycosis (Prima ry Dx); Pain in toe of left foot; Pain in toe of right foot; Ingrowing toenail of left foot Start: 01-26-2024 End: 01-26-2024 Patient encounter procedure Tanvi Moran Work Phone: Podiatry Comment on above: Onychomycosis (Prima ry Dx); Pain in toe of left foot; Pain in toe of right foot; Hammer toe of left foot; Hammer toe of right foot Start: 11-22-2023 End: 11-22-[address] Odette Farmer Work Phone: [facility] Work Phone: Start: 11-22-2023 End: 11-22-[address] [facility] Start: 11-15-2023 End: 11-15-2023 Patient encounter procedure Tanvi Moran Work Phone: Podiatry Comment on above: Onychomycosis (Prima ry Dx); Pain in toe of left foot; Pain in toe of right foot; Hammer toe of left foot; Hammer toe of right foot Start: 11-08-2023 End: 11-08-[address] Odette Farmer Work Phone: [facility] Work Phone: Start: 11-01-2023 End: 11-01-[address] Odette Farmer Work Phone: [facility] Work Phone: Start: 11-01-2023 End: 11-01-[address] Odette Farmer Work Phone: [facility]-Outpatient Bone Densitometry Work Phone: Start: 10-03-2023 End: 10-03-[address] Odette Farmer Work Phone: [facility] Work Phone: Start: 09-29-2023 End: 09-29-[address] Odette Farmer Work Phone: [facility]-Pulmonary Medicine [facility] Work Phone: Start: 07-01-2023 End: 07-01-2023 Patient encounter procedure Tanvi Moran Work Phone: Podiatry Comment on above: Onychomycosis (Prima ry Dx); Pain in toe of left foot; Pain in toe of right foot; Plantar fascial fibromatosis Start: 04-29-2023 End: 04-29-2023 Patient encounter procedure Tanvi Moran Work Phone: Podiatry Comment on above: Onychomycosis (Prima ry Dx); Pain in toe of left foot; Pain in toe of right foot Start: 03-22-2023 End: 03-22-[address] [facility] Work Phone: Start: 03-17-2023 End: 03-17-[address] Odette Farmer Work Phone: [facility] Work Phone: Start: 03-17-2023 End: 03-17-[address] Odette Farmer Work Phone: [facility] Start: 01-27-2023 End: 01-27-[address] Odette Farmer Work Phone: [facility] Work Phone: Start: 01-21-2023 End: 01-21-[address] Odette Farmer Work Phone: [facility] Work Phone: Start: 01-14-2023 End: 01-14-2023 Patient encounter procedure Tanvi Moran Work Phone: Podiatry Comment on above: Onychomycosis (Prima ry Dx); Pain in toe of left foot; Pain in toe of right foot Start: 01-12-2023 End: 01-12-[address] Odette Farmer Work Phone: [facility] Work Phone: Start: 01-12-2023 End: 01-12-[address] Odette Farmer Work Phone: [facility] Start: 01-07-2023 End: 01-07-[address] Odette Farmer Work Phone: [facility] Heart Group Start: 12-30-2022 Non-patient / Non-visit Dr. Odette Farmer Work Phone: [facility] Inpatient Physicians Start: 12-30-2022 Non-patient / Non-visit Dr. Odette Farmer Work Phone: [facility] Start: 12-29-2022 End: 12-30-2022 Evaluation and management of inpatient Dr. Odette Farmer Work Phone: [facility]-Medical Surgical 3 Start: 10-15-2022 End: 10-15-[address] Odette Farmer Work Phone: [facility] Work Phone: Start: 10-15-2022 End: 10-15-[address] Odette Farmer Work Phone: [facility]-Laboratory Start: 09-27-2022 End: 09-27-[address] Odette Farmer Work Phone: [facility] Work Phone: Start: 09-27-2022 End: 09-27-[address] Odette Farmer Work Phone: [facility]-Laboratory Start: 09-21-2022 End: 09-21-[address] Odette Farmer Work Phone: [facility]-Pulmonary Medicine [facility] Start: 09-17-2022 End: 09-17-[address] Odette Farmer Work Phone: [facility] Heart Group Start: 09-13-2022 Documentation procedure Mammography Coordinator [facility] Start: 09-13-2022 Letter encounter Mammography Coordinator [facility] Department Start: 09-13-2022 End: 09-13-2022 Subsequent hospital visit by physician Deepti Saxena Work Phone: Mammogram Start: 09-10-2022 End: 09-10-[address] Odette Farmer Work Phone: [facility] Heart [facility] Start: 09-07-2022 End: 09-07-2022 Patient encounter procedure Tanvi Moran Work Phone: Podiatry Comment on above: Onychomycosis (Prima ry Dx); Pain in toe of left foot; Pain in toe of right foot Start: 09-03-2022 Non-patient / Non-visit Dr. Odette Farmer Work Phone: [facility] Start: 09-03-2022 Non-patient / Non-visit Dr. Odette Farmer Work Phone: [facility] Start: 09-03-2022 End: 09-03-2022 Admission to same day surgery center Dr. Odette Farmer Work Phone: [facility]-Patch Washer/Special Procedures Start: 09-03-2022 End: 09-03-[address] Odette Farmer Work Phone: [facility] Work Phone: Start: 08-26-2022 Non-patient / Non-visit Dr. Odette Farmer Work Phone: [facility] Start: 08-19-2022 Non-patient / Non-visit Dr. Odette Farmer Work Phone: [facility] Start: 08-19-2022 End: 08-19-[address] Odette Farmer Work Phone: [facility]-Cardiovascular Services Start: 08-12-2022 End: 08-12-[address] Odette Farmer Work Phone: [facility] Work Phone: Start: 08-12-2022 End: 08-12-[address] Odette Farmer Work Phone: [facility]-Pulmonary Services/Neurology Start: 07-29-2022 End: 07-29-[address] [facility] Start: 07-29-2022 End: 07-29-[address] Odette Farmer Work Phone: [facility] Start: 07-01-2022 End: 07-01-[address] Odette Farmer Work Phone: [facility] Work Phone: Start: 07-01-2022 End: 07-01-[address] Odette Farmer [facility] Start: 07-01-2022 End: 07-01-2022 Patient encounter procedure Tanvi Moran Work Phone: Podiatry Comment on above: Onychomycosis (Prima ry Dx); Pain in toe of left foot; Pain in toe of right foot Start: 05-28-2022 End: 05-28-[address] Odette Farmer Work Phone: [facility] Work Phone: Start: 05-28-2022 End: 05-28-[address] Odette [facility] Start: 05-26-2022 End: 05-26-[address] Odette Farmer [facility] Start: 05-18-2022 End: 05-18-[address] Odette Farmer Work Phone: [facility] Work Phone: Start: 05-18-2022 End: 05-18-[address] Odette [facility] Start: 04-27-2022 End: 04-27-2022 Patient encounter procedure Tanvi Moran Work Phone: Podiatry Comment on above: Onychomycosis (Prima ry Dx); Pain in toe of left foot; Pain in toe of right foot; Plantar fascial fibromatosis Start: 04-26-2022 End: 04-26-[address] Odette Farmer Work Phone: [facility] Work Phone: Start: 04-26-2022 End: 04-26-[address] Odette Farmer Work Phone: [facility]-Radiology, [facility] Start: 04-23-2022 End: 04-23-[address] Odette Farmer [facility] Start: 03-30-2022 End: 03-30-[address] Odette Farmer Work Phone: [facility] Start: 03-29-2022 End: 03-29-[address] Odette Farmer Work Phone: [facility]-Pulmonary Medicine [facility] Start: 02-19-2022 End: 02-19-2022 Patient encounter procedure Tanvi Moran Work Phone: Podiatry Comment on above: Onychomycosis (Prima ry Dx); Pain in toe of left foot; Pain in toe of right foot Start: 11-17-2021 End: 11-17-[address] Odette Farmer Work Phone: [facility]-Occupational Therapy Start: 10-27-[address] Odette Farmer Work Phone: [facility]-Occupational Therapy Start: 10-27-2021 End: 10-27-[address] Odette Farmer Work Phone: [facility]-Laboratory Start: 09-02-2021 End: 09-02-[address] Odette Farmer Work Phone: [facility]-Pulmonary Medicine [facility] Procedures Date Procedure Procedure Detail Performing Clinician Start: 11-15-2024 Dual energy X-ray absorptiometry Dr. Odette Farmer DO Work Phone: Start: 11-15-2024 Screening mammography Rebecca Farmer DO Work Phone: Start: 11-01-2023 Screening mammography Rebecca Farmer Work Phone: Start: 12-30-2022 Investigation of transfusion reaction Dr. Odette Farmer Work Phone: Start: 12-30-20[address] l culture Dr. Odette Farmer Work Phone: Start: 12-29-2022 Plain chest X-ray Dr. Aliyah Farmer Work Phone: Start: 12-29-2022 Measurement of occul t blood in stool specimen using immunoassay Dr. Odette Farmer Work Phone: Start: 09-13-2022 Screening mammograph y bi 2-view breast inc cad [facility] Provider Start: 05-26-2022 Plain chest X-ray Dr. Aliyah Farmer Work Phone: Start: 04-26-2022 Plain chest X-ray Dr. Aliyah Farmer Work Phone: Investigation of transfusion reaction Dr. Odette Farmer Work Phone: Investigation of transfusion reaction Dr. Odette Farmer Work Phone: Respiratory microbia l culture Dr. Odette Farmer Work Phone: Respiratory microbia l culture Dr. Odette Farmer Work Phone: Respiratory microbia l culture Dr. Odette Farmer Work Phone: Plan of Treatment Date Care Activity Detail Author Start: 07-04-2025 End: 07-04-2025 Patient encounter procedure 07/04/2025 1:00 PM EST Office Visit Podiatry [address] [place] [address] Tanvi Moran [address] [place] [address] 9 week follow up nail care Podiatry Comment on above: 9 week follow up nail care Start: 06-15-2025 ambulatory Ambulatory Facility:[facility] Start: 04-15-2025 Influenza vaccination Influenza Vaccine (#1) [facility] Start: 04-04-2025 End: 04-04-2025 Patient encounter procedure 04/04/2025 11:15 AM EDT Office Visit Podiatry [address] [place] [address] Tanvi Moran [address] [place] [address] 9 week follow up nail care Podiatry Comment on above: 9 week follow up nail care Start: 03-21-2025 End: 03-21-2025 Patient encounter procedure 03/21/2025 1:00 PM EDT Office Visit Podiatry [address] [place] [address] Tanvi Moran [address] [place] [address] 9 week follow up nail care Podiatry Comment on above: 9 week follow up nail care Start: 01-10-2025 End: 01-10-2025 Patient encounter procedure 01/10/2025 1:00 PM EDT Office Visit Podiatry [address] [place] [address] Tanvi Moran [address] [place] [address] 9 week follow up nail care Podiatry Comment on above: 9 week follow up nail care Start: 12-10-2024 DIABETES SCREEN DIABETES SCREEN [facility] Start: 12-10-2024 Diabetes Screening Diabetes Screening [facility] Start: 12-05-2024 End: 12-05-2024 Patient encounter procedure 12/05/2024 11:30 AM EDT Office Visit Vasculary Surgery [address] [place] [address] Ingrowing toenail of left foot [L60.0] Vasculary Surgery Comment on above: Ingrowing toenail of left foot [L60.0] Start: 11-29-2024 End: 11-29-2024 Patient encounter procedure 11/29/2024 4:00 PM EDT Office Visit Podiatry [address] [place] [address] Tanvi Moran [address] [place] [address] Sore toe Podiatry Comment on above: Sore toe Start: 11-26-2024 End: 11-26-2024 Patient encounter procedure 11/26/2024 2:00 PM EDT Office Visit Podiatry [address] [place] [address] Tanvi Moran [address] [place] [address] left great toe ingrown Podiatry Comment on above: left great toe ingrown Start: 11-02-2024 End: 11-02-2024 Patient encounter procedure 11/02/2024 11:30 AM EDT Office Visit Podiatry [address] [place] [address] Tanvi Moran [address] [address] 9 week follow up nail care Podiatry Comment on above: 9 week follow up nail care Start: 08-15-2024 Advance Directive Discussion Advance Directive Discussion [facility] Start: 08-15-2024 Medicare Advantage Annual Wellness Visit Medicare Advantage Annual Wellness Visit [facility] Start: 08-13-2024 End: 08-13-2024 Patient encounter procedure 08/13/2024 11:15 AM EST Office Visit Podiatry [address] [place] [address] Tanvi Moran [address] [place] [address] 9 week follow up nail care Podiatry Comment on above: 9 week follow up nail care Start: 06-05-2024 End: 06-05-2024 Patient encounter procedure 06/05/2024 1:15 PM EDT Office Visit Podiatry [address] [place] [address] Tanvi Moran [address] [place] [address] 61 day follow up nail care Podiatry Comment on above: 61 day follow up nail care Start: 04-15-2024 Covid-19 Vaccine () Covid-19 Vaccine () [facility] Start: 04-15-2024 Influenza vaccination Influenza Vaccine (#1) [facility] Start: 03-30-2024 End: 03-30-2024 Patient encounter procedure 03/30/2024 11:30 AM EDT Office Visit Podiatry [address] [place] [address] Tanvi Moran [address] [place] [address] 3 mo follow up nail care Podiatry Comment on above: 3 mo follow up nail care Start: 09-08-2023 Covid-19 Vaccine () Covid-19 Vaccine () [facility] Start: 08-15-2023 Advance Directive Discussion Advance Directive Discussion [facility] Start: 08-15-2023 Behavioral Health Screening Behavioral Health Screening [facility] Start: 08-15-2023 Depression Assessment Depression Assessment [facility] Start: 04-15-2023 Covid-19 Vaccine () Covid-19 Vaccine () [facility] Start: 04-15-2023 Influenza vaccination Influenza Vaccine (#1) [facility] Start: 12-30-2022 Catheterization of vein [facility] Start: 12-30-2022 Patient discharge [facility] Start: 12-30-2022 Assessment of risk of venous thromboembolism [facility] Start: 12-30-2022 Fall prevention [facility] Start: 12-30-2022 Incentive spirometry [facility] Start: 12-30-2022 Insertion of catheter into peripheral vein [facility] Start: 12-30-2022 Introduction of urinary catheter [facility] Start: 12-30-2022 Measuring intake and output [facility] Start: 12-30-2022 Oxygen therapy [facility] Start: 12-30-2022 Providing care according to standard [facility] Start: 12-30-2022 Provision of activity privileges [facility] Start: 12-30-2022 Referral to gastroenterology service [facility] Start: 12-30-2022 Referral to occupational therapist [facility] Start: 12-30-2022 Referral to service [facility] Start: 12-30-2022 [facility] Start: 12-30-2022 Following clinical pathway protocol [facility] Start: 12-30-2022 Inhalation therapy procedure [facility] Start: 12-29-2022 Admission procedure [facility] Start: 12-29-2022 Esophagogastroduodenoscopy transoral diagnostic EGD DIAGNOSTIC BRUSH WASH [facility] Start: 08-15-2022 ADVANCE DIRECTIVE DISCUSSION ADVANCE DIRECTIVE DISCUSSION [facility] Start: 08-15-2022 DEPRESSION ASSESSMENT DEPRESSION ASSESSMENT [facility] Start: 04-15-2022 Influenza vaccination INFLUENZA (#1) [facility] Start: 11-09-2021 COVID-19 VACCINE (4 - Booster for Moderna series) COVID-19 VACCINE (4 - Booster for Moderna series) [facility] Start: 09-06-2021 COVID-19 VACCINE (4 - Booster for Moderna series) COVID-19 VACCINE (4 - Booster for Moderna series) [facility] Start: 09-06-2021 Covid-19 Vaccine (4 - Moderna series) Covid-19 Vaccine (4 - Moderna series) [facility] Start: 08-15-2021 ADVANCE DIRECTIVE DISCUSSION ADVANCE DIRECTIVE DISCUSSION [facility] Start: 08-15-2021 DEPRESSION ASSESSMENT DEPRESSION ASSESSMENT [facility] Start: 03-02-2021 COVID-19 VACCINE (3 - Booster for Moderna series) COVID-19 VACCINE (3 - Booster for Moderna series) [facility] Start: 08-16-2009 Pneumococcal Vaccine: 50+ (2 of 2 - PCV) Pneumococcal Vaccine: 50+ (2 of 2 - PCV) [facility] Start: 08-16-2009 Pneumococcal Vaccine: 65+ (2 - PCV) Pneumococcal Vaccine: 65+ (2 - PCV) [facility] Start: 08-16-2009 Pneumococcal Vaccine: 65+ (2 of 2 - PCV) Pneumococcal Vaccine: 65+ (2 of 2 - PCV) [facility] Start: 08-16-2009 PNEUMOCOCCAL: 65+ (2 - PCV) PNEUMOCOCCAL: 65+ (2 - PCV) [facility] Start: 1997 RSV Vaccine (1 - 1-dose 60+ series) RSV Vaccine (1 - 1-dose 60+ series) [facility] Start: 1987 SHINGRIX VACCINE (1 of 2) SHINGRIX VACCINE (1 of 2) [facility] Start: 1956 Urine microalbumin profile [facility] Start: 1955 Anxiety Screening Anxiety Screening [facility] Start: 1955 Depression Screening [facility]ening [facility] [facility] Patient referral [facility] Work Phone: End: 11-26-2025 US.doppler Extremity arteries - bilateral for physiologic artery study PVR ANK PRESS [facility] Vascular Lab Routine Ingrowing toenail of left foot Pain in toe of left foot Diminished pulses in lower extremity 1 Occurrences starting 11/26/2024 until 11/26/2025 [facility] Work Phone: Comment on above: 1 Occurrences starting 11/26/2024 until 11/26/2025 [facility] Immunizations Immunization Date Immunization Notes Care Provider Fa cilirobyn 05-29-2024 influenza virus vacc ine, unspecified formulation Tanvi Moran Work Phone: [facility] 05-20-2023 influenza virus vacc ine, unspecified formulation Tanvi Moran Work Phone: [facility] 08-19-2022 influenza virus vacc ine, unspecified formulation Tanvi Moran Work Phone: [facility] 10-03-2020 Covid (Moderna) Dr. Odette riggs Work Phone: [facility] 09-05-2020 Covid (Moderna) Dr. Odette riggs Work Phone: [facility] 08-16-2008 pneumococcal polysaccharide vaccine, 23 valent Tanvi Moran Work Phone: [facility] Work Phone: 06-14-2008 influenza virus vacc ine, unspecified formulation Tanvi Moran Work Phone: [facility] Work Phone: Payers Date Payer Category Payer Self-pay [id number] 2022 Medicare [id number] 2022 Medicare (Managed Care) [employer] PPO [id number] 2022 Medicare [id number] 2019 Unknown ANTHEM BLUE CROS S AND BLUE SHIELD ANTHEM MEDIBLUE ACCESS [id number] 2019-Present [phone] [address] [place] [address] PPO [id number] 2019 Unknown ANTHEM BLUE CROS S AND BLUE SHIELD ANTHEM MEDIBLUE ACCESS [id number] 2019-Present [phone] [address] [place] [address] PPO [id number] 2015 Medicare [id number] Unknown [id number] Unknown [id number] .[id number] Unknown [id number] .2.462 Unknown [id number] .2.462 Unknown [id number] .2.462 Unknown [id number] .2.462 Unknown [id number] .2.462 Unknown [id number] .2.462 Unknown [id number] .2.462 Unknown [id number] .2.462 Unknown [id number] .2.462 Unknown [id number] .2.462 Social History Date Type Detail Facility Start: 10-17-2020 End: 11-08-2023 Tobacco smoking status NHIS Unknown if ever smoked [facility] Start: 1935 Sex Assigned At Female W [facility] Start: 08-11-2011 End: 07-01-2022 Tobacco smoking status NHIS Ex-smoker [facility] Start: 09-02-1968 End: 09-02-1978 History of tobacco use Current smoker [facility] Start: 09-02-1968 End: 09-02-1978 History of tobacco use Cigarette Smoker [facility] Start: 02-19-2022 End: 04-27-2022 Alcohol intake Current drinker of alcohol (finding) [facility] Start: 1935 Sex Assigned At Not on file [facility] Start: 02-09-2022 End: 07-01-2022 Exposure to SARS-CoV-2 (event) Not sure [facility] Start: 08-11-2011 End: 01-14-2023 Cigarettes smoked current (pack per day) - Reported 1 [facility] Start: 08-11-2011 End: 07-01-2022 Tobacco use and exposure Smokeless tobacco non-user [facility] Start: 07-01-2022 End: 04-04-2025 Alcohol intake Ex-drinker (finding) [facility] Start: 01-14-2023 End: 04-29-2023 Tobacco use panel [facility] Start: 07-16-2012 National Score (1-100), lower number is lower risk 75 [facility] Start: 11-22-2024 Sex Female (finding) [facility] NEGATED: Highlighted row [facility] Goals Date Patient Goal Desired Activity /State Functional Status Date Assessment Result Facility 12-30-2022 Functional status [facility] Work Phone: 01-31-2015 Are you deaf, or do you have serious difficulty hearing No 01/31/2015 9:36 AM Leyla Jenkins LPN No [facility] 01-31-2015 Are you blind, or do you have serious difficulty seeing, even when wearing glasses No 01/31/2015 9:36 AM Leyla Jenkins LPN No [facility] 01-31-2015 Do you have serious difficulty walking or climbing stairs No 01/31/2015 9:36 AM EDT Leyla Beatty LPN No [facility] 01-31-2015 Do you have difficul ty dressing or bathing No 01/31/2015 9:36 AM MARYT Leyla Beatty LPN No [facility] 01-31-2015 Because of a physica l, mental, or emotional condition, do you have difficulty doing errands alone such as visiting a physician's office or shopping No 01/31/2015 9:36 AM EDT Leyla Beatty LPN No [facility] Mental Status Date Assessment Result Facility 12-30-2022 Cognitive function Voice/Name [facility] Work Phone: 12-30-2022 Cognitive function Appropriate [facility] Work Phone: 01-31-2015 Because of a physica l, mental, or emotional condition, do you have serious difficulty concentrating, remembering, or making decisions No 01/31/2015 9:36 AM EDT Leyla Beatty LPN No [facility] Clinical Notes 02-19-2022 to 04-04-2025 Tanvi Moran - 04/04/2025 11:27 AM Shante Parra LPN - 04/04/2025 11:23 AM EDT Note Date & Type Note Facility 04-04-2025 Note HNO ID: [id number] Author: TANVI MORAN, ? Service: ? Author Type: Physician Type: Progress Notes Filed: 04/04/2025 11:38 Note Text: Subjective: Patient presents to clinic c/o painful toenails. They state that the nails are especially painful with shoe gear and pressure. Patient states that nails left hallux are painful. No other pedal complaints at this time. Patient states no change in medications or medical history since last visit. Objective: Patient presents to clinic ambulating in roy Vasc: DP and PT pulses are faintly palpable bilateral. CFT is less than 5 seconds bilateral. Skin temperature is warm to cool proximal to distal bilateral. There is mild edema or varicosities noted. Neuro: Protective sensation is intact to the foot and toes when tested with the 5.07 SWM bilateral. Vibratory sensation is decreased at the hallux IPJ bilateral. The hallux is downgoing bilateral. Derm: Nails 1-5 b/l are painful, discolored-yellow, thick, crumbly, dystrophic and with subungal debris. Skin is of normal turgor, texture and hair growth is absent bilateral. There are no hyperkeratosis, ulcerations, scars, verruca or other lesions noted. Ortho: Muscle strength is 5/5 for all pedal groups tested. Ankle joint DF is decreased with the knee extended with no pain or crepitus noted. 1st MPJ ROM is decreased bilateral. Assessment: (L60.0) Ingrowing toenail of right foot (primary encounter diagnosis) (B35.1) Onychomycosis (M79.675) Pain in toe of left foot (M79.674) Pain in toe of right foot (I73.9) PAD (peripheral artery disease) Plan: Patient was seen and evaluated. Nails 1-5 bilateral were debrided in length and thickness. Small bleed to right 5th toe. Band aide applied. Patient is to RTC in 3-4 months. Tanvi Moran DPM [facility] 04-04-2025 History of Present illness Narrative Subjective: Patient presents to clinic c/o painful toenails. They state that the nails are especially painful with shoe gear and pressure. Patient states that nails left hallux are painful. No other pedal complaints at this time. Patient states no change in medications or medical history since last visit. Objective: Patient presents to clinic ambulating in roy Vasc: DP and PT pulses are faintly palpable bilateral. CFT is less than 5 seconds bilateral. Skin temperature is warm to cool proximal to distal bilateral. There is mild edema or varicosities noted. Neuro: Protective sensation is intact to the foot and toes when tested with the 5.07 SWM bilateral. Vibratory sensation is decreased at the hallux IPJ bilateral. The hallux is downgoing bilateral. Derm: Nails 1-5 b/l are painful, discolored-yellow, thick, crumbly, dystrophic and with subungal debris. Skin is of normal turgor, texture and hair growth is absent bilateral. There are no hyperkeratosis, ulcerations, scars, verruca or other lesions noted. Ortho: Muscle strength is 5/5 for all pedal groups tested. Ankle joint DF is decreased with the knee extended with no pain or crepitus noted. 1st MPJ ROM is decreased bilateral. Assessment: (L60.0) Ingrowing toenail of right foot (primary encounter diagnosis) (B35.1) Onychomycosis (M79.675) Pain in toe of left foot (M79.674) Pain in toe of right foot (I73.9) PAD (peripheral artery disease) Plan: Patient was seen and evaluated. Nails 1-5 bilateral were debrided in length and thickness. Small bleed to right 5th toe. Band aide applied. Patient is to RTC in 3-4 months. Tanvi Moran DPM AMB ROOMING INTAKE FLOWSHEET DATA Patient presents with: Left Foot - Established Patient: Nail care Right Foot - Established Patient: Nail care Shante Knapp LPN documented in this encounter [facility] 04-04-2025 Note HNO ID: [id number] Author: SHANTE KNAPP LPN Service: ? Author Type: Licensed Nurse Type: Progress Notes Filed: 04/04/2025 11:38 Note Text: AMB ROOMING INTAKE FLOWSHEET DATA Patient presents with: Left Foot - Established Patient: Nail care Right Foot - Established Patient: Nail care Shante Knapp LPN [facility] 03-21-2025 Discharge summary Note Date/Time March 21, 2025 7:0 0pm [facility] Physical [facility] [address] [place] [address]. [address] [place] [address] / REHABILITATION SERVICES DISCHARGE SUMMARY MR#: [id number] Acct: [id number] Name: GIANNA WRIGHT Rep #: [id number] 2 : 1935 89 From: Wei Hamilton DPT, OCS, CSCS Referring Dr.: Dr. Odette Farmer, DO Status: REG RCR Insurance: O MEDICARE SELF PAY INSURANCE Discharge Summary D/C summary: It has been my pleasure to treat GIANNA WRIGHT referred by Dr. Odette Farmer DO, with the diagnosis of dizzyness for a total of 8 visit(s). Discharge Date: 03/21/25 Please see the following information for a summary of their discharge status. Subjective Subjective: No recurrenc of spinning. Balance feels 50% better. Wants to continue via HEP. Sister and that took a while to get all visits in. HEP: Doing them daily sink No falls, using cane to gt around Pain Left LE: Pain Intensity (Out of 10): 0 Right LE: Pain Intensity (Out of 10): 0 Overall Improvement % Improvement: 50 Objective Objective/Function: FGA is 3 points improved. Feeling better overall. Reeady to try HEP vs more therapy. Goals Goal 1:: Dizzyness abolished x 2 weeks including rolling R in bed. Goal Progress: Goal Met Goal 2:: Balance FGA score 24/30 to decreasee fallr isk. Goal Progress: Goal Met Goal 3:: Pt fel 50% steadier and more confident with movement Goal Progress: Goal Met Goal 4:: I appropriate HEP for balance and general strength Goal Progress: Goal Met Plan Plan: d/c to HEP D/C Information d/c sentence: If there are questions or concerns regarding this patient's physical therapy, please feel free to call me at [phone]. Thank you for the referral of this patient. Sincerely, Wei Hamilton, ARNOLDT, OCS, CSCS Balance/Gait/Functional tests Balance/Special Test Scores Functional Gait Assessment Score: 24 % Disability: 20.0000 CATSIB Score (Max score 120 seconds): 98 Dizziness Score: 4 Improvement % Improvement: 50 <Electronically signed by Wei Hamilton DPT, OCS, CSCS> 03/21/25 1650 CC: Dr. Odette Farmer DO ~ ELIZA Signed [facility] Work Phone: 1(247) 391-950508-07-2025 Discharge summary [facility] Physical Therapy [facility] [address] [place] [address]. [address] [place] [address] / REHABILITATION SERVICES DISCHARGE SUMMARY MR#: [id number] Acct: [id number] Name: GIANNA WRIGHT Rep #: [id number] 2 : 1935 89 From: Wei Hamilton DPT, OCS, CSCS Referring Dr.: Dr. Odette Farmer DO Status: REG RCR Insurance: [employer] MEDICARE SELF PAY INSURANCE Discharge Summary D/C summary: It has been my pleasure to treat GIANNA WRIGHT referred by Dr. Odette Farmer DO, with the diagnosis of dizzyness for a total of 8 visit(s). Discharge Date: 03/21/25 Please see the following information for a summary of their discharge status. Subjective Subjective: No recurrenc of spinning. Balance feels 50% better. Wants to continue via HEP. Sister and that took a while to get all visits in. HEP: Doing them daily sink No falls, using cane to gt around Pain Left LE: Pain Intensity (Out of 10): 0 Right LE: Pain Intensity (Out of 10): 0 Overall Improvement % Improvement: 50 Objective Objective/Function: FGA is 3 points improved. Feeling better overall. Reeady to try HEP vs more therapy. Goals Goal 1:: Dizzyness abolished x 2 weeks including rolling R in bed. Goal Progress: Goal Met Goal 2:: Balance FGA score 24/30 to decreasee fallr isk. Goal Progress: Goal Met Goal 3:: Pt fel 50% steadier and more confident with movement Goal Progress: Goal Met Goal 4:: I appropriate HEP for balance and general strength Goal Progress: Goal Met Plan Plan: d/c to HEP D/C Information d/c sentence: If there are questions or concerns regarding this patient's physical therapy, please feel free to call me at [phone]. Thank you for the referral of this patient. Sincerely, Wei Hamilton, SHERMAN, OCS, CSCS Balance/Gait/Functional tests Balance/Special Test Scores Functional Gait Assessment Score: 24 % Disability: 20.0000 CATSIB Score (Max score 120 seconds): 98 Dizziness Score: 4 Improvement % Improvement: 50 03/21/25 1650 CC: Dr. Odette Farmer DO ~ EBG Signed [facility]07-17-2025 NoteHNO ID: [id number] Author: TANVI MORAN, ? Service: ? Author Type: Physician Type: Progress Notes Filed: 02/28/2025 23:10 Note Text: Subjective Gianna Wright is an 89-year-old female presenting for right hallux pain. Right Hallux Pain: - Pain localized to the lateral border and top of the right hallux. - Believes pain may be due to the right second toe rubbing against the hallux. - Has been using toe guards on both the right hallux and second toe. - History of ingrown toenails on the hallux, previously treated with slant back trimming. - Denies similar issues with other toes. Musculoskeletal: (+) right great toe pain PAST MEDICAL HISTORY Diagnosis Date Hemorrhage of gastrointestinal tract, unspecified History of cardioversion 09/03/2022 Current Outpatient Medications Medication Sig Dispense Refill metoprolol succinate ER (TOPROL XL) 25 mg 24 hr tablet Take 25 mg by mouth once daily. 1/2 tablet L.acidoph,saliva/B.bif/S.therm (ACIDOPHILUS PROBIOTIC BLEND ORAL) Take 1 tablet by mouth once daily. spironolactone (ALDACTONE) 25 mg tablet Take 25 mg by mouth once daily. ascorbic acid, vitamin C, (VITAMIN C) 500 mg tablet Take 500 mg by mouth twice daily. ALBUTEROL INHALATION Inhale as instructed. Nebulizer triamcinolone acetonide (KENALOG) 0.1 % cream Apply to affected area twice daily. montelukast (SINGULAIR) 10 mg tablet Take 10 mg by mouth daily at bedtime. budesonide-formoterol (SYMBICORT) 160-4.5 mcg/actuation inhaler Inhale 2 Puffs as instructed twice daily. Cholecalciferol, Vitamin D3, 50 mcg (2,000 unit) cap Take 2,000 Units by mouth once daily. biotin 5,000 mcg chew Take 5,000 mcg by mouth once daily. ferrous sulfate (IRON) 325 mg (65 mg iron) tablet Take 325 mg by mouth. [id number]-[id number] 312 500 mg-15 mcg- 1,000 mcg-16 mg cap Take 1 tablet by mouth once daily. levothyroxine (SYNTHROID) 50 mcg tablet Take 50 mcg by mouth daily before breakfast. amiodarone (PACERONE) 200 mg tablet Take 200 mg by mouth once daily. ELIQUIS 5 mg tab(s) Take 5 mg by mouth twice daily. ATORVASTATIN 20 mg tablet Take 20 mg by mouth once daily. CALCIUM CARBONATE/VITAMIN D3 (VITAMIN D-3 ORAL) Take 1 tablet by mouth once daily. diclofenac sodium(VOLTAREN 1 % TOPICAL GEL) daily as needed 0 tiZANidine (ZANAFLEX) 2 mg tablet cetirizine HCl (ZYRTEC) 10 mg chewable tablet Take 10 mg by mouth once daily. METOPROLOL TARTRATE, SHORT ACTING, 25 mg tablet Take 25 mg by mouth once daily. No current facility-administered medications for this visit. Family History Problem Relation Age of Onset Heart Brother Objective There were no vitals taken for this visit. - Cardiovascular: Dorsalis pedis and posterior tibial pulses faintly palpable bilaterally; capillary refill <5 seconds; skin temperature warm to cool bilaterally; absence of hair growth on both feet. - Skin: Toenails 1-5 bilaterally previously trimmed; no signs of infection, erythema, or drainage; pain noted on the lateral border of the right hallux. - Musculoskeletal: - Right Foot: Dorsomedial deviation of the right second toe with pressure noted against the lateral nail border of the right hallux; no open wounds observed. Tests - Toe Pressure Measurement: - Left Side: 0.42 (normal greater than or equal to0.7) - Right Side: Not performed Assessment AND Plan 1. PAD (peripheral artery disease) (I73.9) - Dorsalis pedis and posterior tibial pulses are faintly palpable bilaterally; capillary refill time is less than 5 seconds. - Skin temperature is warm to cool bilaterally; hair growth is absent on both feet. - Previous toe pressure on the left side was 0.42 (normal >0.7); no toe pressure recorded on the right side. - Discussed potential referral to Dr. Patricia Marie, vascular surgeon, for evaluation of healing potential if recurrent ingrown toenails persist. 2. Ingrowing toenail of right foot (L60.0) - Pain noted on the lateral border of the right hallux; no signs of infection, erythema, or drainage observed. the pain in right great toe lateral border may be related to thick nail or may be from pressure from hammertoe - Performed a slant back trim on the lateral nail border to alleviate pressure and pain. debridement performed as courtesy. - Advised continued use of toe padding to prevent rubbing and pressure from the second toe. - Discussed potential for a chemical matrixectomy if ingrown toenails persist, contingent on vascular evaluation. 3. Hammer toe of right foot (M20.41) - Dorsal medial deviation of the right second toe observed, causing pressure against the lateral nail border of the right hallux. - Advised use of toe guards to minimize friction and pressure. can follow-up every 9 weeks for nail debridement. Recording using [employer] software for draft documentation of the visit was discussed with the patient/authorized mortician supplies sales representative; all questions welcomed and answered. P (more content not included)...[facility]07-17-2025 History of Present illness Narrative* Tanvi Moran - 02/28/2025 11:10 PM EDT Subjective Gianna Wright is an 89-year-old female presenting for right hallux pain. Right Hallux Pain: - Pain localized to the lateral border and top of the right hallux. - Believes pain may be due to the right second toe rubbing against the hallux. - Has been using toe guards on both the right hallux and second toe. - History of ingrown toenails on the hallux, previously treated with slant back trimming. - Denies similar issues with other toes. Musculoskeletal: (+) right great toe pain PAST MEDICAL HISTORY Diagnosis Date Hemorrhage of gastrointestinal tract, unspecified History of cardioversion 09/03/2022 Current Outpatient Medications Medication Sig Dispense Refill metoprolol succinate ER (TOPROL XL) 25 mg 24 hr tablet Take 25 mg by mouth once daily. 1/2 tablet L.acidoph,saliva/B.bif/S.therm (ACIDOPHILUS PROBIOTIC BLEND ORAL) Take 1 tablet by mouth once daily. spironolactone (ALDACTONE) 25 mg tablet Take 25 mg by mouth once daily. ascorbic acid, vitamin C, (VITAMIN C) 500 mg tablet Take 500 mg by mouth twice daily. ALBUTEROL INHALATION Inhale as instructed. Nebulizer triamcinolone acetonide (KENALOG) 0.1 % cream Apply to affected area twice daily. montelukast (SINGULAIR) 10 mg tablet Take 10 mg by mouth daily at bedtime. budesonide-formoterol (SYMBICORT) 160-4.5 mcg/actuation inhaler Inhale 2 Puffs as instructed twice daily. Cholecalciferol, Vitamin D3, 50 mcg (2,000 unit) cap Take 2,000 Units by mouth once daily. biotin 5,000 mcg chew Take 5,000 mcg by mouth once daily. ferrous sulfate (IRON) 325 mg (65 mg iron) tablet Take 325 mg by mouth. [id number]-tarf 312 500 mg-15 mcg- 1,000 mcg-16 mg cap Take 1 tablet by mouth once daily. levothyroxine (SYNTHROID) 50 mcg tablet Take 50 mcg by mouth daily before breakfast. amiodarone (PACERONE) 200 mg tablet Take 200 mg by mouth once daily. ELIQUIS 5 mg tab(s) Take 5 mg by mouth twice daily. ATORVASTATIN 20 mg tablet Take 20 mg by mouth once daily. CALCIUM CARBONATE/VITAMIN D3 (VITAMIN D-3 ORAL) Take 1 tablet by mouth once daily. diclofenac sodium(VOLTAREN 1 % TOPICAL GEL) daily as needed 0 tiZANidine (ZANAFLEX) 2 mg tablet cetirizine HCl (ZYRTEC) 10 mg chewable tablet Take 10 mg by mouth once daily. METOPROLOL TARTRATE, SHORT ACTING, 25 mg tablet Take 25 mg by mouth once daily. No current facility-administered medications for this visit. Family History Problem Relation Age of Onset Heart Brother Objective There were no vitals taken for this visit. - Cardiovascular: Dorsalis pedis and posterior tibial pulses faintly palpable bilaterally; capillary refill <5 seconds; skin temperature warm to cool bilaterally; absence of hair growth on both feet. - Skin: Toenails 1-5 bilaterally previously trimmed; no signs of infection, erythema, or drainage; pain noted on the lateral border of the right hallux. - Musculoskeletal: - Right Foot: Dorsomedial deviation of the right second toe with pressure noted against the lateralnail border of the right hallux; no open wounds observed. Tests - Toe Pressure Measurement: - Left Side: 0.42 (normal greater than or equal to0.7) - Right Side: Not performed Assessment & Plan 1. PAD (peripheral artery disease) (I73.9) - Dorsalis pedis and posterior tibial pulses are faintly palpable bilaterally; capillary refill time is less than 5 seconds. - Skin temperature is warm to cool bilaterally; hair growth is absent on both feet. - Previous toe pressure on the left side was 0.42 (normal >0.7); no toe pressure recorded on theright side. - Discussed potential referral to Dr. Patricia Marie, vascular surgeon, for evaluation of healing potential if recurrent ingrown toenails persist. 2. Ingrowing toenail of right foot (L60.0) - Pain noted on the lateral border of the right hallux; no signs of infection, erythema, or drainage observed. the pain in right great toe lateral border may be related to thick nail or may be from pressure from hammertoe - Performed a slant back trim on the lateral nail border to alleviate pressure and pain. debridement performed as courtesy. - Advised continued use of toe padding to prevent rubbing and pressure from the second toe. - Discussed potential for a chemical matrixectomy if ingrown toenails persist, contingent on vascular evaluation. 3. Hammer toe of right foot (M20.41) - Dorsal medial deviation of the right second toe observed, causing pressure against the lateral nail border of the right hallux. - Advised use of toe guards to minimize friction and pressure. can follow-up every 9 weeks for nail debridement. Recording using [employer] software for draft documentation of the visit was discussed with the patient/authorized mortician supplies sales representative; all questions welcomed and answered. Patient/authorized mortician supplies sales representative agreed to proceed Tanvi Moran DPM * Beena Leblanc RN - 02/28/2025 3:47 PM EDT AMB ROOMING INTAKE FLOWSHEET DATA Pain Pain Level: 6 Pain Location: Foot-Right (great toe) Description: Aching Duration Amount of Time: 2 Duration Units: Weeks Frequency: Intermittent Intervention/Comfort measure: Other: See comment Comments: I applied neosporin on right big toe & put bandaid on it. Patient presents with: Right Foot - Established Patient, Pain: Great toe pain documented in this encounterUniversity [facility]07-17-2025 NoteHNO ID: [id number] Author: BEENA LEBLANC RN Service: ? Author Type: Registered Nurse Type: Progress Notes Filed: 02/28/2025 23:10 Note Text: AMB ROOMING INTAKE FLOWSHEET DATA Pain Pain Level: 6 Pain Location: Foot-Right (great toe) Description: Aching Duration Amount of Time: 2 Duration Units: Weeks Frequency: Intermittent Intervention/Comfort measure: Other: See comment Comments: I applied neosporin on right big toe AND put bandaid on it. Patient presents with: Right Foot - Established Patient, Pain: [facility]* Diagnosis Onset Date Resolution Status Admit Date Dizziness acute February 06 10:28am Persistent atrial fibrillation acute February 06, 2025 10:28am Chronic diastolic (congestiv e) heart failure chronic February 06, 2025 10:28am Hyperlipemia chronic February 06, 10:28am [facility] Work Phone: [phone]) 136-835405-29-2025 NoteHNO ID: [id number] Author: TANVI MORAN, ? Service: ? Author Type: Physician Type: Progress Notes Filed: 01/10/2025 13:35 Note Text: Subjective: Patient presents to clinic c/o painful toenails. They state that the nails are especially painful with shoe gear and pressure. Patient states that nails b/l hallux are painful. No other pedal complaints at this time. Patient states no change in medications or medical history since last visit. Objective: Patient presents to clinic ambulating in roy Vasc: DP and PT pulses are faintly palpable bilateral. CFT is less than 5 seconds bilateral. Skin temperature is warm to cool proximal to distal bilateral. There is mild edema or varicosities noted. Toes are dusky. Non-Invasive Vascular Laboratory [facility] Lower Extremity Arterial Physiology Study Bilateral/Complete Date of service/time: 12/05/2024 11:31:45 AM Name: MS. GIANNA WRIGHT Date of : 1935 Age: 89 years Gender: F Clinical Indication Abnormal pulses. TECHNIQUE -------- An arterial physiological examination was performed, including measurement of blood pressures using continuous wave Doppler and recording of plethysmographic with or without Doppler waveforms at the below-mentioned limb segments. FINDINGS -------- RIGHT SIDE AT REST Right Doppler Waveforms Dorsalis pedis: Multiphasic. Post tibial: Multiphasic. Right Pressures Brachial: 126 mmHg Ankle dorsalis pedis: 133 mmHg SAMANTA: 0.99 Ankle posterior tibial: 170 mmHg SAMANTA: 1.27 Digit: Unable to do, see tracings. Right PVR Waveforms Ankle: Normal. Digit: Severely dampened. LEFT SIDE AT REST Left Doppler Waveforms Dorsalis pedis: Multiphasic. Post tibial: Multiphasic. Left Pressures Brachial: 134 mmHg Ankle dorsalis pedis: 166 mmHg SAMANTA: 1.24 Ankle posterior tibial: 156 mmHg SAMANTA: 1.16 Digit: 56 mmHg Left PVR Waveforms Ankle: Normal. Digit: Severely dampened. IMPRESSION Irregular cardiac rhythm noted. Compared to prior study of 03/25/2021, Decrease in bilateral great toe PPG waveforms on today's exam. RIGHT SIDE Resting right ankle brachial index: 1.27 Normal ankle brachial index at rest in the right leg. Right ankle: Normal at rest. Right small vessel disease versus vasoconstriction. LEFT SIDE Resting left ankle brachial index: 1.24 Left toe brachial index: 0.42 Normal ankle brachial index at rest in the left leg. Abnormal toe brachial index at rest is evidence of peripheral artery disease. Left ankle: Normal at rest. Left small vessel disease versus vasoconstriction. Technologist: Dee Bradshaw BA, RVT Ordering physician: TANVI MORAN Interpreting physician: Michael Sheffield MD, COLLEEN Neuro: Protective sensation is intact to the foot and toes when tested with the 5.07 SWM bilateral. Vibratory sensation is absent at the hallux IPJ bilateral. The hallux is downgoing bilateral. Derm: Nails 1-5 b/l are incurvated, painful, discolored-yellow, thick, crumbly, dystrophic and with subungal debris. Skin is of normal turgor, texture and hair growth is absent bilateral. There are no hyperkeratosis, ulcerations, scars, verruca or other lesions noted. Ortho: Muscle strength is 5/5 for all pedal groups tested. Ankle joint DF is decreased with the knee extended with no pain or crepitus noted. 1st MPJ ROM is decreased bilateral. Assessment: (B35.1) Onychomycosis (primary encounter diagnosis) (M79.675) Pain in toe of left foot (M79.674) Pain in toe of right foot (L60.0) Ingrowing toenail of left foot (I73.9) PAD (peripheral artery disease) Plan: Patient was seen and evaluated. Nails 1-5 bilateral were debrided in length and thickness. Discussed ingrowing toenail of b/l hallux, primarily with the left. No signs of infection currently. I do feel this will be a chronic problem for patient. I reviewed pvr from November 2024. Her samanta to the foot is normal but tbi is not. If she wishes to do a nail procedure, chemical matrixectomy, I would have her see vascular prior for clearance. Patient wishes to continue with conservative care for now. Follow-up in 9 week Tanvi Moran [facility]05-29-2025 History of Present illness Narrative* Tanvi Moran - 01/10/2025 1:11 PM EDT Subjective: Patient presents to clinic c/o painful toenails. They state that the nails are especially painful with shoe gear and pressure. Patient states that nails b/l hallux are painful. No other pedal complaints at this time. Patient states no change in medications or medical history since last visit. Objective: Patient presents to clinic ambulating in [facility]: DP and PT pulses are faintly palpable bilateral. CFT is less than 5 seconds bilateral. Skin temperature is warm to cool proximal to distal bilateral. There is mild edema or varicosities noted. Toes are dusky. Non-Invasive Vascular Laboratory [facility] Lower Extremity Arterial Physiology Study Bilateral/Complete Date of service/time: 12/05/2024 11:31:45 AM Name: MS. GIANNA WRIGHT Date of : 1935 Age: 89 years Gender: F Clinical Indication Abnormal pulses. TECHNIQUE -------- An arterial physiological examination was performed, including measurement of blood pressures using continuous wave Doppler and recording of plethysmographic with or without Doppler waveforms at the below-mentioned limb segments. FINDINGS -------- RIGHT SIDE AT REST Right Doppler Waveforms Dorsalis pedis: Multiphasic. Post tibial: Multiphasic. Right Pressures Brachial: 126 mmHg Ankle dorsalis pedis: 133 mmHg SAMANTA: 0.99 Ankle posterior tibial: 170 mmHg SAMANTA: 1.27 Digit: Unable to do, see tracings. Right PVR Waveforms Ankle: Normal. Digit: Severely dampened. LEFT SIDE AT REST Left Doppler Waveforms Dorsalis pedis: Multiphasic. Post tibial: Multiphasic. Left Pressures Brachial: 134 mmHg Ankle dorsalis pedis: 166 mmHg SAMANTA: 1.24 Ankle posterior tibial: 156 mmHg SAMANTA: 1.16 Digit: 56 mmHg Left PVR Waveforms Ankle: Normal. Digit: Severely dampened. IMPRESSION Irregular cardiac rhythm noted. Compared to prior study of 03/25/2021, Decrease in bilateral great toe PPG waveforms on today's exam. RIGHT SIDE Resting right ankle brachial index: 1.27 Normal ankle brachial index at rest in the right leg. Right ankle: Normal at rest. Right small vessel disease versus vasoconstriction. LEFT SIDE Resting left ankle brachial index: 1.24 Left toe brachial index: 0.42 Normal ankle brachial index at rest in the left leg. Abnormal toe brachial index at rest is evidence of peripheral artery disease. Left ankle: Normal at rest. Left small vessel disease versus vasoconstriction. Technologist: Dee Bradshaw BA, RVT Ordering physician: TANVI MORAN Interpreting physician: COLLEEN Eubanks MD Neuro: Protective sensation is intact to the foot and toes when tested with the 5.07 SWM bilateral.Vibratory sensation is absent at the hallux IPJ bilateral. The hallux is downgoing bilateral. Derm: Nails 1-5 b/l are incurvated, painful, discolored-yellow, thick, crumbly, dystrophic and withsubungal debris. Skin is of normal turgor, texture and hair growth is absent bilateral. There are no hyperkeratosis, ulcerations, scars, verruca or other lesions noted. Ortho: Muscle strength is 5/5 for all pedal groups tested. Ankle joint DF is decreased with the knee extended with no pain or crepitus noted. 1st MPJ ROM is decreased bilateral. Assessment: (B35.1) Onychomycosis (primary encounter diagnosis) (M79.675) Pain in toe of left foot (M79.674) Pain in toe of right foot (L60.0) Ingrowing toenail of left foot (I73.9) PAD (peripheral artery disease) Plan: Patient was seen and evaluated. Nails 1-5 bilateral were debrided in length and thickness. Discussed ingrowing toenail of b/l hallux, primarily with the left. No signs of infection currently. I do feel this will be a chronic problem for patient. I reviewed pvr from November 2024. Her samanta to the foot is normal but tbi is not. If she wishes to do a nail procedure, chemical matrixectomy, I would have her see vascular prior for clearance. Patient wishes to continue with conservative care for now. Follow-up in 9 week Tanvi Moran DPM * Shante Knapp LPN - 01/10/2025 1:08 PM EDT AMB ROOMING INTAKE FLOWSHEET DATA Patient presents with: Left Foot - Established Patient, nail care Right Foot - Established Patient, nail care Shante Knapp LPN documented in this encounterUniversity [facility]als [facility]05-29-2025 NoteHNO ID: [id number] Author: SHANTE KNAPP LPN Service: ? Author Type: LICENSED NURSE Type: Progress Notes Filed: 01/10/2025 13:35 Note Text: AMB ROOMING INTAKE FLOWSHEET DATA Patient presents with: Left Foot - Established Patient, nail care Right Foot - Established Patient, nail care [facility] NoteHNO ID: [id number] Author: TANVI MORAN, ? Service: ? Author Type: Physician Type: Progress Notes Filed: 11/27/2024 08:03 Note Text: Subjective Gianna is an 89-year-old female presenting for evaluation of a chronic ingrown toenail on the left hallux. PAST MEDICAL HISTORY Diagnosis Date Hemorrhage of gastrointestinal tract, unspecified History of cardioversion 09/03/2022 Current Outpatient Medications Medication Sig Dispense Refill metoprolol succinate ER (TOPROL XL) 25 mg 24 hr tablet Take 25 mg by mouth once daily. 1/2 tablet L.acidoph,saliva/B.bif/S.therm (ACIDOPHILUS PROBIOTIC BLEND ORAL) Take 1 tablet by mouth once daily. spironolactone (ALDACTONE) 25 mg tablet Take 25 mg by mouth once daily. ascorbic acid, vitamin C, (VITAMIN C) 500 mg tablet Take 500 mg by mouth twice daily. ALBUTEROL INHALATION Inhale as instructed. Nebulizer triamcinolone acetonide (KENALOG) 0.1 % cream Apply to affected area twice daily. montelukast (SINGULAIR) 10 mg tablet Take 10 mg by mouth daily at bedtime. budesonide-formoterol (SYMBICORT) 160-4.5 mcg/actuation inhaler Inhale 2 Puffs as instructed twice daily. biotin 5,000 mcg chew Take 5,000 mcg by mouth once daily. ferrous sulfate (IRON) 325 mg (65 mg iron) tablet Take 325 mg by mouth. [id number] 312 500 mg-15 mcg- 1,000 mcg-16 mg cap Take 1 tablet by mouth once daily. levothyroxine (SYNTHROID) 50 mcg tablet Take 50 mcg by mouth daily before breakfast. amiodarone (PACERONE) 200 mg tablet Take 200 mg by mouth once daily. ELIQUIS 5 mg tab(s) Take 5 mg by mouth twice daily. ATORVASTATIN 20 mg tablet Take 20 mg by mouth once daily. CALCIUM CARBONATE/VITAMIN D3 (VITAMIN D-3 ORAL) Take 1 tablet by mouth once daily. diclofenac sodium(VOLTAREN 1 % TOPICAL GEL) daily as needed 0 tiZANidine (ZANAFLEX) 2 mg tablet take 1-2 tablets by mouth three times a day if needed for up to 5 days (Patient not taking: Reported on 08/30/2024) cetirizine HCl (ZYRTEC) 10 mg chewable tablet Take 10 mg by mouth once daily. (Patient not taking: Reported on 08/30/2024) Cholecalciferol, Vitamin D3, 50 mcg (2,000 unit) cap Take 2,000 Units by mouth once daily. (Patient not taking: Reported on 08/30/2024) METOPROLOL TARTRATE, SHORT ACTING, 25 mg tablet Take 25 mg by mouth once daily. (Patient not taking: Reported on 04/29/2023) No current facility-administered medications for this visit. Family History Problem Relation Age of Onset Heart Brother ALLERGIES Allergen Reactions Dust, Trees, Cats, * Cough runny nose, headache Fluoxetine Mental Status Change Hallucinations. Potassium Rash Ingrown Toenail: - Chronic ingrown toenail on the left hallux, particularly in the corner of the nail. - Reports persistent aching pain in the affected area. - Noted a "little red green spot" on the nail, previously identified as a blood blister. - History of ingrown toenails; has had the nail trimmed previously. - Denies current signs of infection. - Reports feet and toes are "always cold." Vascular Studies: - Circulation studies from 2020 show normal pressures between the foot and ankle: - Right side: 1.06 and 1.11. - Left side: 1.02 and 1.01. - Digital pressures: - Left side: 40. - Right side: 61. - Toe pressures from 2020: - Right side: 0.36. - Left side: 0.24. Cardiovascular: (+) cold feet Ears/Nose/Mouth/Throat: (+) cold nose Musculoskeletal: (+) left great toe pain Objective There were no vitals taken for this visit. - Musculoskeletal: - Left Great Toe: - Nail curvature noted with ingrown tendency at the medial corner; no signs of infection observed; mild edema present. - Tenderness elicited upon palpation of the medial nail fold. - Vascular: DP and PT pulses faint to b/l feet. CFT is delayed. Skin temperature is cool to cool.. Hair growth is absent b/l. Skin is ruborous. Tests (2020) Lower Extremity Circulation Studies: - Right side: 1.06 and 1.11 (within normal range of 0.9-1.3) - Left side: 1.02 and 1.01 (within normal range of 0.9-1.3) - Digital pressures: - Right side: 61 - Left side: 40 - Toe pressures: - Right side: 0.36 - Left side: 0.24 (indicating small vessel disease or vasoconstriction) 1. Ingrowing toenail of left foot (L60.0) 2. Pain in toe of left foot (M79.675) - Recurrent ingrown toenail on the left hallux with associated tenderness; no signs of infection currently. - Discussed the chronic nature of the condition and the potential for recurrent episodes. - Educated on the risks of infection with recurrent ingrown toenails. - Trimmed the nail corner to alleviate pressure and reduce pain using cold spray for anesthesia. debridement x 1 nail. small bleed present. band aide and topical antibiotic applied. - Discussed definitive treatment options, including partial nail avulsion with chemical matricectomy, but deferred due to concerns about adequate blood flow for healing. (more content not included)...[facility]04[facility] History of Present illness Narrative* Tanvi Moran - 11/27/2024 8:02 AM EDT Zach Katz is an 89-year-old female presenting for evaluation of a chronic ingrown toenail on the left hallux. PAST MEDICAL HISTORY Diagnosis Date Hemorrhage of gastrointestinal tract, unspecified History of cardioversion 09/03/2022 Current Outpatient Medications Medication Sig Dispense Refill metoprolol succinate ER (TOPROL XL) 25 mg 24 hr tablet Take 25 mg by mouth once daily. 1/2 tablet L.acidoph,saliva/B.bif/S.therm (ACIDOPHILUS PROBIOTIC BLEND ORAL) Take 1 tablet by mouth once daily. spironolactone (ALDACTONE) 25 mg tablet Take 25 mg by mouth once daily. ascorbic acid, vitamin C, (VITAMIN C) 500 mg tablet Take 500 mg by mouth twice daily. ALBUTEROL INHALATION Inhale as instructed. Nebulizer triamcinolone acetonide (KENALOG) 0.1 % cream Apply to affected area twice daily. montelukast (SINGULAIR) 10 mg tablet Take 10 mg by mouth daily at bedtime. budesonide-formoterol (SYMBICORT) 160-4.5 mcg/actuation inhaler Inhale 2 Puffs as instructed twice daily. biotin 5,000 mcg chew Take 5,000 mcg by mouth once daily. ferrous sulfate (IRON) 325 mg (65 mg iron) tablet Take 325 mg by mouth. [id number] 312 500 mg-15 mcg- 1,000 mcg-16 mg cap Take 1 tablet by mouth once daily. levothyroxine (SYNTHROID) 50 mcg tablet Take 50 mcg by mouth daily before breakfast. amiodarone (PACERONE) 200 mg tablet Take 200 mg by mouth once daily. ELIQUIS 5 mg tab(s) Take 5 mg by mouth twice daily. ATORVASTATIN 20 mg tablet Take 20 mg by mouth once daily. CALCIUM CARBONATE/VITAMIN D3 (VITAMIN D-3 ORAL) Take 1 tablet by mouth once daily. diclofenac sodium(VOLTAREN 1 % TOPICAL GEL) daily as needed 0 tiZANidine (ZANAFLEX) 2 mg tablet take 1-2 tablets by mouth three times a day if needed for up to 5days (Patient not taking: Reported on 08/30/2024) cetirizine HCl (ZYRTEC) 10 mg chewable tablet Take 10 mg by mouth once daily. (Patient not taking: Reported on 08/30/2024) Cholecalciferol, Vitamin D3, 50 mcg (2,000 unit) cap Take 2,000 Units by mouth once daily. (Patientnot taking: Reported on 08/30/2024) METOPROLOL TARTRATE, SHORT ACTING, 25 mg tablet Take 25 mg by mouth once daily. (Patient not taking: Reported on 04/29/2023) No current facility-administered medications for this visit. Family History Problem Relation Age of Onset Heart Brother ALLERGIES Allergen Reactions Dust, Trees, Cats, * Cough runny nose, headache Fluoxetine Mental Status Change Hallucinations. Potassium Rash Ingrown Toenail: - Chronic ingrown toenail on the left hallux, particularly in the corner of the nail. - Reports persistent aching pain in the affected area. - Noted a "little red green spot" on the nail, previously identified as a blood blister. - History of ingrown toenails; has had the nail trimmed previously. - Denies current signs of infection. - Reports feet and toes are "always cold." Vascular Studies: - Circulation studies from 2020 show normal pressures between the foot and ankle: - Right side: 1.06 and 1.11. - Left side: 1.02 and 1.01. - Digital pressures: - Left side: 40. - Right side: 61. - Toe pressures from 2020: - Right side: 0.36. - Left side: 0.24. Cardiovascular: (+) cold feet Ears/Nose/Mouth/Throat: (+) cold nose Musculoskeletal: (+) left great toe pain Objective There were no vitals taken for this visit. - Musculoskeletal: - Left Great Toe: - Nail curvature noted with ingrown tendency at the medial corner; no signs of infection observed; mild edema present. - Tenderness elicited upon palpation of the medial nail fold. - Vascular: DP and PT pulses faint to b/l feet. CFT is delayed. Skin temperature is cool to cool.. Hair growth is absent b/l. Skin is ruborous. Tests (2020) Lower Extremity Circulation Studies: - Right side: 1.06 and 1.11 (within normal range of 0.9-1.3) - Left side: 1.02 and 1.01 (within normal range of 0.9-1.3) - Digital pressures: - Right side: 61 - Left side: 40 - Toe pressures: - Right side: 0.36 - Left side: 0.24 (indicating small vessel disease or vasoconstriction) 1. Ingrowing toenail of left foot (L60.0) 2. Pain in toe of left foot (M79.675) - Recurrent ingrown toenail on the left hallux with associated tenderness; no signs of infection currently. - Discussed the chronic nature of the condition and the potential for recurrent episodes. - Educated on the risks of infection with recurrent ingrown toenails. - Trimmed the nail corner to alleviate pressure and reduce pain using cold spray for anesthesia. debridement x 1 nail. small bleed present. band aide and topical antibiotic applied. - Discussed definitive treatment options, including partial nail avulsion with chemical matricectomy, but deferred due to concerns about adequate blood flow for healing. 3. Diminished pulses in lower extremity (R09.89) - Previous circulation studies from 2020 showed normal SAMANTA values (1.02 and 1.01 on the left), but low toe pressures (0.24 on the left). - Physical exam reveals absent hair growth and purple discoloration, indicating potential vascular insufficiency. - Palpable pulse in the left foot, suggesting adequate blood flow to the foot but uncertain perfusion to the toe. - Ordered repeat circulation study to assess current blood flow to the toe. - Will refer to vascular surgery for evaluation if repeat study shows diminished flow. Attestation Recording using [employer] software for draft documentation of the visit was discussed with the patient/authorized mortician supplies sales representative; all questions welcomed and answered. Patient/authorized mortician supplies sales representative agreed to proceed Tanvi Moran DPM * Suzie Bergeron RN - 11/26/2024 2:02 PM EDT Patient presents with: Left Great Toe - Established Patient, Follow Up, Ingrown Toenail AMB ROOMING INTAKE FLOWSHEET DATA Pain Pain Level: 8 Pain Location: Toe Description: Throbbing Frequency: Intermittent Patient presents for left big toe ingrown. States that it is red, throbbing and painful. Pain is tomedial border of nail. [facility] 11/02/24 documented in this encounterUniversity Hospitals [facility]04-14-2025 NoteHNO ID: [id number] Author: SUZIE BERGERON, RN Service: ? Author Type: Registered Nurse Type: Progress Notes Filed: 11/27/2024 08:03 Note Text: Patient presents with: Left Great Toe - Established Patient, Follow Up, Ingrown Toenail AMB ROOMING INTAKE FLOWSHEET DATA Pain Pain Level: 8 Pain Location: Toe Description: Throbbing Frequency: Intermittent Patient presents for left big toe ingrown. States that it is red, throbbing and painful. Pain is to medial border of nail. [facility] 11/02/24[facility] Telephone encounter Note* Telephone Encounter - Shante Knapp LPN - 11/26/2024 8:04 AM EDT Patient scheduled for 11/26/2024. Shante Knapp LPN [facility] Work Phone: [phone]) 730-867604-14-2025 Miscellaneous Notes* Telephone Encounter - Shante Knapp LPN - 11/26/2024 8:04 AM EDT Patient scheduled for 11/26/2024. Shante Knapp LPN * Telephone Encounter - Shante Knapp LPN - 11/23/2024 1:05 PM EDT Per nico Lottr patient is now out of town for a wedding. Patient is requesting appointment on Tuesday. Shante Knapp LPN documented in this encounterUniversity Hospitals [facility]04-11-2025 Telephone encounter Note * Telephone Encounter - Shante Knapp LPN - 11/23/2024 1:05 PM EDT Per nico Lottr patient is now out of town for a wedding. Patient is requesting appointment on Tuesday. Shante Knapp LPN [facility]03-21-2025 NoteHNO ID: [id number] Author: TANVI MORAN, ? Service: ? Author Type: Physician Type: Progress Notes Filed: 11/02/2024 12:04 Note Text: Subjective: Patient presents to clinic c/o painful toenails. They state that the nails are especially painful with shoe gear and pressure. Patient states that nails 1-5 b/l are painful. Patient admits to having painful tailors bunion of both feet. She is planning to attend a wedding in November. Wishes to discuss options for padding. No other pedal complaints at this time. Patient states no change in medications or medical history since last visit. Objective: Patient presents to clinic ambulating in roy Vasc: DP and PT pulses are nonpalpable bilateral. CFT is less than 5 seconds bilateral. Skin temperature is warm to cool proximal to distal bilateral. There is mild edema or varicosities noted. Neuro: Protective sensation is intact to the foot and toes when tested with the 5.07 SWM bilateral. Vibratory sensation is absent at the hallux IPJ bilateral. The hallux is downgoing bilateral. Derm: Nails 1-5 b/l are painful, discolored-yellow, thick, crumbly, dystrophic and with subungal debris. Skin is of normal turgor, texture and hair growth is absent bilateral. There are no hyperkeratosis, ulcerations, scars, verruca or other lesions noted. Ortho: Muscle strength is 5/5 for all pedal groups tested. Ankle joint DF is decreased with the knee extended with no pain or crepitus noted. 1st MPJ ROM is decreased bilateral. Tailors bunion is present to b/l feet Assessment: (B35.1) Onychomycosis (primary encounter diagnosis) (M79.675) Pain in toe of left foot (M79.674) Pain in toe of right foot (M21.621, M21.622) Tailor's bunion of both feet Plan: Patient was seen and evaluated. Nails 1-5 bilateral were debrided in length and thickness. Discussed tailors bunion of b/l feet. Recommend wider shoes. Offered gel padding she declined. Dispensed donut hole padding for tailors bunion. Patient is to RTC in 9 weeks Tanvi Moran [facility]03-21-2025 History of Present illness Narrative* Luisa Tanvi - 11/02/2024 11:29 AM EDT Subjective: Patient presents to clinic c/o painful toenails. They state that the nails are especially painful with shoe gear and pressure. Patient states that nails 1-5 b/l are painful. Patient admits to having painful tailors bunion of both feet. She is planning to attend a wedding in November. Wishes to discuss options for padding. No other pedal complaints at this time. Patient states no change in medications or medical history since last visit. Objective: Patient presents to clinic ambulating in roy Vasc: DP and PT pulses are nonpalpable bilateral. CFT is less than 5 seconds bilateral. Skin temperature is warm to cool proximal to distal bilateral. There is mild edema or varicosities noted. Neuro: Protective sensation is intact to the foot and toes when tested with the 5.07 SWM bilateral.Vibratory sensation is absent at the hallux IPJ bilateral. The hallux is downgoing bilateral. Derm: Nails 1-5 b/l are painful, discolored-yellow, thick, crumbly, dystrophic and with subungal debris. Skin is of normal turgor, texture and hair growth is absent bilateral. There are no hyperkeratosis, ulcerations, scars, verruca or other lesions noted. Ortho: Muscle strength is 5/5 for all pedal groups tested. Ankle joint DF is decreased with the knee extended with no pain or crepitus noted. 1st MPJ ROM is decreased bilateral. Tailors bunion is present to b/l feet Assessment: (B35.1) Onychomycosis (primary encounter diagnosis) (M79.675) Pain in toe of left foot (M79.674) Pain in toe of right foot (M21.621, M21.622) Tailor's bunion of both feet Plan: Patient was seen and evaluated. Nails 1-5 bilateral were debrided in length and thickness. Discussed tailors bunion of b/l feet. Recommend wider shoes. Offered gel padding she declined. Dispensed donut hole padding for tailors bunion. Patient is to RTC in 9 weeks Tanvi Moran DPM * Flor Philippe MA Student - 11/02/2024 11:21 AM EDT AMB ROOMING INTAKE FLOWSHEET DATA Risk Screening Do you have concerns about personal safety or safety in the home?: No Pain Pain Level: 8 Pain Location: Other: See Comment Description: Sharp Duration Amount of Time: 6 Duration Units: Weeks Frequency: Intermittent Intervention/Comfort measure: Reposition, Relaxation Patient presents with: Left Foot - Established Patient, Follow Up, nail care Right Foot - Established Patient, Follow Up, nail care Flor Philippe MA Student documented in [facility] encounterUniversity [facility]25 NoteHNO ID: [id number] Author: FLOR PHILIPPE MA Student Service: ? Author Type: Student Type: Progress Notes Filed: 11/02/2024 12:04 Note Text: AMB ROOMING INTAKE FLOWSHEET DATA Risk Screening Do you have concerns about personal safety or safety in the home?: No Pain Pain Level: 8 Pain Location: Other: See Comment Description: Sharp Duration Amount of Time: 6 Duration Units: Weeks Frequency: Intermittent Intervention/Comfort measure: Reposition, Relaxation Patient presents with: Left Foot - Established Patient, Follow Up, nail care Right Foot - Established Patient, Follow Up, nail care 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 Author Type: LICENSED NURSE Type: Progress Notes Filed: 10/08/2024 12:12 Note Text: Per Dr. Moran Gianna was provided with powerstep gel inserts, size 3, and instructed/educated in its application, wear, and care. All questions were answered, and patient was able to demonstrate competence with the necessary skills to utilize the above equipment. [facility] History of Present illness Narrative* Shante Knapp LPN - 10/08/2024 12:05 PM EST Per Gianna Burt was provided with powerstep gel inserts, size 3, and instructed/educated inits application, wear, and care. All questions were answered, and patient was able to demonstrate competence with the necessary skills to utilize the above equipment. Shante Knapp LPN * Tanvi Moran - 10/08/2024 11:37 AM EST FOLLOW UP PODIATRIC OFFICE VISIT Chief Complaint: This 89 year old who presents for ingrowing toenai of left hallux Patient presnets to clinic for evaluation of left hallux Complains of split/ingrowing toenail of left hallux medial nail border Has been going on for about 1 week Wonders if she bumped her toe Complains of pain. Is applying topical antibiotic. Patient does request new insert for heel. Has plantar fasciitis. Inserts do help to reduce pain in heels PAIN EVALUATION 10/08/2024 1115 Pain Level: 8 Pain Location: Toe Description: Throbbing Duration Amount of Time: 1 Duration Units: Weeks Frequency: Intermittent Intervention/Comfort measure: Relaxation;Reposition No results found for: "HBA1C" PCP: Odette Farmer DO PAST MEDICAL HISTORY Diagnosis Date Hemorrhage of gastrointestinal tract, unspecified History of cardioversion 09/03/2022 Current Outpatient Medications Medication Sig tiZANidine (ZANAFLEX) 2 mg tablet take 1-2 tablets by mouth three times a day if needed for up to 5days (Patient not taking: Reported on 08/30/2024) metoprolol succinate ER (TOPROL XL) 25 mg 24 hr tablet Take 25 mg by mouth once daily. 1/2 tablet L.acidoph,saliva/B.bif/S.therm (ACIDOPHILUS PROBIOTIC BLEND ORAL) Take 1 tablet by mouth once daily. spironolactone (ALDACTONE) 25 mg tablet Take 25 mg by mouth once daily. ascorbic acid, vitamin C, (VITAMIN C) 500 mg tablet Take 500 mg by mouth twice daily. cetirizine HCl (ZYRTEC) 10 mg chewable tablet Take 10 mg by mouth once daily. (Patient not taking: Reported on 08/30/2024) ALBUTEROL INHALATION Inhale as instructed. Nebulizer triamcinolone acetonide (KENALOG) 0.1 % cream Apply to affected area twice daily. montelukast (SINGULAIR) 10 mg tablet Take 10 mg by mouth daily at bedtime. budesonide-formoterol (SYMBICORT) 160-4.5 mcg/actuation inhaler Inhale 2 Puffs as instructed twice daily. Cholecalciferol, Vitamin D3, 50 mcg (2,000 unit) cap Take 2,000 Units by mouth once daily. (Patientnot taking: Reported on 08/30/2024) biotin 5,000 mcg chew Take 5,000 mcg by mouth once daily. ferrous sulfate (IRON) 325 mg (65 mg iron) tablet Take 325 mg by mouth. [id number] 312 500 mg-15 mcg- 1,000 mcg-16 mg cap Take 1 tablet by mouth once daily. levothyroxine (SYNTHROID) 50 mcg tablet Take 50 mcg by mouth daily before breakfast. amiodarone (PACERONE) 200 mg tablet Take 200 mg by mouth once daily. ELIQUIS 5 mg tab(s) Take 5 mg by mouth twice daily. ATORVASTATIN 20 mg tablet Take 20 mg by mouth once daily. METOPROLOL TARTRATE, SHORT ACTING, 25 mg tablet Take 25 mg by mouth once daily. (Patient not taking: Reported on 04/29/2023) CALCIUM CARBONATE/VITAMIN D3 (VITAMIN D-3 ORAL) Take 1 tablet by mouth once daily. diclofenac sodium(VOLTAREN 1 % TOPICAL GEL) daily as needed No current facility-administered medications for this visit. ALLERGIES Allergen Reactions Dust, Trees, Cats, * Cough runny nose, headache Fluoxetine Mental Status Change Hallucinations. Potassium Rash PAST SURGICAL HISTORY Procedure Laterality Date BREAST BIOPSY MAMOTOME LEFT 09/06/05 LEFT COLONOSCOPY FLX DX W/COLLJ SPEC WHEN PFRMD 10/31/09 Tortuous, mild tics, internal roids EXC BREAST LES PREOP PLMT RAD MARKER OPEN 1 LES 09/13/05 LEFT MAMMOGRAM NEEDLE LOC LEFT 09/13/05 LEFT PREOP PLACEMENT NEEDLE LOC 09/13/05 LEFT RADIOLOGICAL EXAMINATION SURGICAL SPECIMEN 09/06/05 LEFT TOTAL ABDOMINAL HYSTERECT W/WO RMVL TUBE OVARY Hysterectomy, GIL Physical Exam: OBJECTIVE: Constitutional: Pt is a well developed 89 year old female who is alert, oriented, cooperative and in no apparent distress. Eyes: Following during examination. No redness or drainage. Respiratory: RR normal and nonlabored. Even breathing. No evidence of distress. Psychology: Patient is engaged during conversation. Normal affect and mood. Does not appear depressed or anxious. Vascular: DP and PT pulses are nonpalpable to b/l feet Non-Invasive Vascular Laboratory [facility] Lower Extremity Arterial Physiology Study Bilateral/Complete Date of service/time: 03/25/2021 9:56:55 AM Name: MS. GIANNA WRIGHT Date of : 1935 Age: 85 years Gender: F Clinical Indication Abnormal pulses. TECHNIQUE -------- An arterial physiological examination was performed, including measurement of blood pressures using continuous wave Doppler and recording of plethysmographic with or without Doppler waveforms at the below-mentioned limb segments. FINDINGS -------- RIGHT SIDE AT REST Right Doppler Waveforms Dorsalis pedis: Biphasic. Post tibial: Biphasic. Right Pressures Brachial: 170 mmHg Ankle dorsalis pedis: 180 mmHg SAMANTA: 1.06 Ankle posterior tibial: 189 mmHg SAMANTA: 1.11 Digit: 61 mmHg Right PVR Waveforms Ankle: Normal. Digit: Mildly dampened. LEFT SIDE AT REST Left Doppler Waveforms Dorsalis pedis: Triphasic. Post tibial: Triphasic. Left Pressures Brachial: 170 mmHg Ankle dorsalis pedis: 173 mmHg SAMANTA: 1.02 Ankle posterior tibial: 171 mmHg SAMANTA: 1.01 Digit: 40 mmHg Left PVR Waveforms Ankle: Normal. Digit: Moderately dampened. IMPRESSION RIGHT SIDE Resting right ankle brachial index: 1.11 Right toe brachial index: 0.36 Normal ankle brachial index at rest in the right leg. Abnormal toe brachial index at rest is evidence of peripheral artery disease. Right ankle: Normal at rest. Right small vessel disease versus vasoconstriction. LEFT SIDE Resting left ankle brachial index: 1.02 Left toe brachial index: 0.24 Normal ankle brachial index at rest in the left leg. Abnormal toe brachial index at rest is evidence of peripheral artery disease. Left ankle: Normal at rest. Left small vessel disease versus vasoconstriction. Technologist: Tabatha Lewis T Ordering physician: TANVI MORAN Interpreting physician: Bernard Land MD Dermatological: Medial border of left hallux is ingrowing with small blood bllister. No signs of infection. Musculoskeletal/Orthopaedic: Patient has no pain to palpation of b/l heel Pain present to left medial border of left hallux ASSESSMENT: (L60.0) Ingrowing toenail of left foot (primary encounter diagnosis) Pain in toe (R09.89) Diminished pulses in lower extremity (M72.2) Plantar fasciitis PLAN: Discussed ingrowing toenail of left hallux medial nail border. No signs of infection present. No need for antibiotic. Discussed options not limited to monitoring vs slant back vs avulsion. Reviewed pvr from 2020. She does have small vessel disease so would avoid avulsion if not clinically infected. Informed patient that even with slant back, there is risk of slow or nonhealing and potential risk of toe amputation. Patient elected to proceed with slant back due to the pain. Under sterild conditions, the left hallux was injected with 3 cc of 1% lidocaine plain. The medial border was debirded with slant back. Small bleed present and treated with topical antibiotic and band aide. Will have pateint apply band aide and topical antibiotic until healed. She is to call if shehas any issues. Discussed the inserts for shoes for plantar fasciitis. This does appear to be helping. She is to continue with stretching and inserts Tanvi Moran DPM * Shante Knapp LPN - 10/08/2024 11:15 AM EST AMB ROOMING INTAKE FLOWSHEET DATA Pain Pain Level: 8 Pain Location: Toe Description: Throbbing Duration Amount of Time: 1 Duration Units: Weeks Frequency: Intermittent Intervention/Comfort measure: Relaxation, Reposition Patient presents with: Left Foot - Ingrown Toenail, Pain, Established Patient, Follow Up Shante Knapp LPN documented in this encounterUniversity [facility]02-24-2025 NoteHNO ID: [id number] Author: TANVI MORAN, ? Service: ? Author Type: Physician Type: Progress Notes Filed: 10/08/2024 12:12 Note Text: FOLLOW UP PODIATRIC OFFICE VISIT Chief Complaint: This 89 year old who presents for ingrowing toenai of left hallux Patient presnets to clinic for evaluation of left hallux Complains of split/ingrowing toenail of left hallux medial nail border Has been going on for about 1 week Wonders if she bumped her toe Complains of pain. Is applying topical antibiotic. Patient does request new insert for heel. Has plantar fasciitis. Inserts do help to reduce pain in heels PAIN EVALUATION 10/08/2024 1115 Pain Level: 8 Pain Location: Toe Description: Throbbing Duration Amount of Time: 1 Duration Units: Weeks Frequency: Intermittent Intervention/Comfort measure: Relaxation;Reposition No results found for: "HBA1C" PCP: Odette Farmer, PAST MEDICAL HISTORY Diagnosis Date Hemorrhage of gastrointestinal tract, unspecified History of cardioversion 09/03/2022 Current Outpatient Medications Medication Sig tiZANidine (ZANAFLEX) 2 mg tablet take 1-2 tablets by mouth three times a day if needed for up to 5 days (Patient not taking: Reported on 08/30/2024) metoprolol succinate ER (TOPROL XL) 25 mg 24 hr tablet Take 25 mg by mouth once daily. 1/2 tablet L.acidoph,saliva/B.bif/S.therm (ACIDOPHILUS PROBIOTIC BLEND ORAL) Take 1 tablet by mouth once daily. spironolactone (ALDACTONE) 25 mg tablet Take 25 mg by mouth once daily. ascorbic acid, vitamin C, (VITAMIN C) 500 mg tablet Take 500 mg by mouth twice daily. cetirizine HCl (ZYRTEC) 10 mg chewable tablet Take 10 mg by mouth once daily. (Patient not taking: Reported on 08/30/2024) ALBUTEROL INHALATION Inhale as instructed. Nebulizer triamcinolone acetonide (KENALOG) 0.1 % cream Apply to affected area twice daily. montelukast (SINGULAIR) 10 mg tablet Take 10 mg by mouth daily at bedtime. budesonide-formoterol (SYMBICORT) 160-4.5 mcg/actuation inhaler Inhale 2 Puffs as instructed twice daily. Cholecalciferol, Vitamin D3, 50 mcg (2,000 unit) cap Take 2,000 Units by mouth once daily. (Patient not taking: Reported on 08/30/2024) biotin 5,000 mcg chew Take 5,000 mcg by mouth once daily. ferrous sulfate (IRON) 325 mg (65 mg iron) tablet Take 325 mg by mouth. [id number] 312 500 mg-15 mcg- 1,000 mcg-16 mg cap Take 1 tablet by mouth once daily. levothyroxine (SYNTHROID) 50 mcg tablet Take 50 mcg by mouth daily before breakfast. amiodarone (PACERONE) 200 mg tablet Take 200 mg by mouth once daily. ELIQUIS 5 mg tab(s) Take 5 mg by mouth twice daily. ATORVASTATIN 20 mg tablet Take 20 mg by mouth once daily. METOPROLOL TARTRATE, SHORT ACTING, 25 mg tablet Take 25 mg by mouth once daily. (Patient not taking: Reported on 04/29/2023) CALCIUM CARBONATE/VITAMIN D3 (VITAMIN D-3 ORAL) Take 1 tablet by mouth once daily. diclofenac sodium(VOLTAREN 1 % TOPICAL GEL) daily as needed No current facility-administered medications for this visit. ALLERGIES Allergen Reactions Dust, Trees, Cats, * Cough runny nose, headache Fluoxetine Mental Status Change Hallucinations. Potassium Rash PAST SURGICAL HISTORY Procedure Laterality Date BREAST BIOPSY MAMOTOME LEFT 09/06/05 LEFT COLONOSCOPY FLX DX W/COLLJ SPEC WHEN PFRMD 10/31/09 Tortuous, mild tics, internal roids EXC BREAST LES PREOP PLMT RAD MARKER OPEN 1 LES 09/13/05 LEFT MAMMOGRAM NEEDLE LOC LEFT 09/13/05 LEFT PREOP PLACEMENT NEEDLE LOC 09/13/05 LEFT RADIOLOGICAL EXAMINATION SURGICAL SPECIMEN 09/06/05 LEFT TOTAL ABDOMINAL HYSTERECT W/WO RMVL TUBE OVARY Hysterectomy, GIL Physical Exam: OBJECTIVE: Constitutional: Pt is a well developed 89 year old female who is alert, oriented, cooperative and in no apparent distress. Eyes: Following during examination. No redness or drainage. Respiratory: RR normal and nonlabored. Even breathing. No evidence of distress. Psychology: Patient is engaged during conversation. Normal affect and mood. Does not appear depressed or anxious. Vascular: DP and PT pulses are nonpalpable to b/l feet Non-Invasive Vascular Laboratory [facility] Lower Extremity Arterial Physiology Study Bilateral/Complete Date of service/time: 03/25/2021 9:56:55 AM Name: MS. GIANNA WRIGHT Date of : 1935 Age: 85 years Gender: F Clinical Indication Abnormal pulses. TECHNIQUE -------- An arterial physiological examination was performed, including measurement of blood pressures using continuous wave Doppler and recording of plethysmographic with or without Doppler waveforms at the below-mentioned limb segments. FINDINGS -------- RIGHT SIDE AT REST Right Doppler Waveforms Dorsalis pedis: Biphasic. Post tibial: Biphasic. Right Pressures Brachial: 170 mmHg Ankle dorsalis pedis: 180 mmHg SAMANTA: 1 (more content not included)...[facility]02-[facility]25 NoteHNO ID: [id number] Author: SHANTE KNAPP LPN Service: ? Author Type: LICENSED NURSE Type: Progress Notes Filed: 10/08/2024 12:12 Note Text: AMB ROOMING INTAKE FLOWSHEET DATA Pain Pain Level: 8 Pain Location: Toe Description: Throbbing Duration Amount of Time: 1 Duration Units: Weeks Frequency: Intermittent Intervention/Comfort measure: Relaxation, Reposition Patient presents with: Left Foot - Ingrown Toenail, Pain, Established Patient, [facility] NoteHNO ID: [id number] Author: TANVI MORAN, ? Service: ? Author Type: Physician Type: Progress Notes Filed: 08/30/2024 13:40 Note Text: Subjective: Patient presents to clinic c/o painful toenails. They state that the nails are especially painful with shoe gear and pressure. Patient states that nails 1-5 b/l are painful. Also complains of painful hammertoe of left 2nd toe. No other pedal complaints at this time. Patient states no change in medications or medical history since last visit. Objective: Patient presents to clinic ambulating in roy Vasc: DP and PT pulses are faintly palpable bilateral. CFT is less than 5 seconds bilateral. Skin temperature is warm to cool proximal to distal bilateral. There is mild edema or varicosities noted. Neuro: Protective sensation is intact to the foot and toes when tested with the 5.07 SWM bilateral. Vibratory sensation is absent at the hallux IPJ bilateral. The hallux is downgoing bilateral. Derm: Nails 1-5 b/l are painful, discolored-yellow, thick, crumbly, dystrophic and with subungal debris. Skin is of normal turgor, texture and hair growth is decreased bilateral. There are no hyperkeratosis, ulcerations, scars, verruca or other lesions noted. Ortho: Muscle strength is 5/5 for all pedal groups tested. Ankle joint DF is decreased with the knee extended with no pain or crepitus noted. 1st MPJ ROM is decreased bilateral. Rigid hammertoe of b/l 2nd toe. Medial deviation of lesser toes of b/l feet Assessment: (B35.1) Onychomycosis (primary encounter diagnosis) (M79.675) Pain in toe of left foot (M79.674) Pain in toe of right foot (M20.42) Hammer toe of left foot (M20.41) Hammer toe of right foot Plan: Patient was seen and evaluated. Nails 1-5 bilateral were debrided in length and thickness. Small bleed to right 3rd toe. Band aide applied Discussed hammertoe of b/l 2nd toe. Discussed use of wider shoes and /or gel padding. She does use inserts for her prior heel pain. She can continue with the inserts but it is important to make sure she wear a wider sneaker/deeper toe box as the insert may lead to rubbing on toes. Other options for the hammertoe include correction vs amputation. For now, will continue with padding. Patient is to RTC in 3-4 months. Tanvi Moran, [facility]01-16-2025 History of Present illness Narrative* Luisa Tanvi - 08/30/2024 1:11 PM EST Subjective: Patient presents to clinic c/o painful toenails. They state that the nails are especially painful with shoe gear and pressure. Patient states that nails 1-5 b/l are painful. Also complains of painful hammertoe of left 2nd toe. No other pedal complaints at this time. Patient states no change in medications or medical history since last visit. Objective: [facility] and PT pulses are faintly palpable bilateral. CFT is less than 5 seconds bilateral. Skin temperature is warm to cool proximal to distal bilateral. There is mild edema or varicosities noted. Neuro: Protective sensation is intact to the foot and toes when tested with the 5.07 SWM bilateral.Vibratory sensation is absent at the hallux IPJ bilateral. The hallux is downgoing bilateral. Derm: Nails 1-5 b/l are painful, discolored-yellow, thick, crumbly, dystrophic and with subungal debris. Skin is of normal turgor, texture and hair growth is decreased bilateral. There are no hyperkeratosis, ulcerations, scars, verruca or other lesions noted. Ortho: Muscle strength is 5/5 for all pedal groups tested. Ankle joint DF is decreased with the knee extended with no pain or crepitus noted. 1st MPJ ROM is decreased bilateral. Rigid hammertoe of b/l 2nd toe. Medial deviation of lesser toes of b/l feet Assessment: (B35.1) Onychomycosis (primary encounter diagnosis) (M79.675) Pain in toe of left foot (M79.674) Pain in toe of right foot (M20.42) Hammer toe of left foot (M20.41) Hammer toe of right foot Plan: Patient was seen and evaluated. Nails 1-5 bilateral were debrided in length and thickness. Small bleed to right 3rd toe. Band aide applied Discussed hammertoe of b/l 2nd toe. Discussed use of wider shoes and /or gel padding. She does use inserts for her prior heel pain. She can continue with the inserts but it is important to make sure she wear a wider sneaker/deeper toe box as the insert may lead to rubbing on toes. Other options forthe hammertoe include correction vs amputation. For now, will continue with padding. Patient is to RTC in 3-4 months. Tanvi Moran DPM * Suzie Bergeron RN - 08/30/2024 1:03 PM EST AMB ROOMING INTAKE FLOWSHEET DATA Pain Pain Level: 5 Pain Location: Foot-Left Frequency: Intermittent Patient presents with: Left Foot - Established Patient, Follow Up, nail care Right Foot - Established Patient, Follow Up, nail care Patient presents for follow up nail care. Tender hammertoe to the left foot. PROSPER 06/05/24 documented in this encounterUniversity [facility]als [facility]01-16-2025 NoteHNO ID: [id number] Author: SUZIE BERGERON, SONIA Service: ? Author Type: Registered Nurse Type: Progress Notes Filed: 08/30/2024 13:40 Note Text: AMB ROOMING INTAKE FLOWSHEET DATA Pain Pain Level: 5 Pain Location: Foot-Left Frequency: Intermittent Patient presents with: Left Foot - Established Patient, Follow Up, nail care Right Foot - Established Patient, Follow Up, nail care Patient presents for follow up nail care. Tender hammertoe to the left foot. PROSPER 06/05/24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 Service: ? Author Type: Physician Type: Progress Notes Filed: 06/05/2024 13:22 Note Text: Subjective: Patient presents to clinic c/o painful toenails. They state that the nails are especially painful with shoe gear and pressure. Patient states that nails left hallux are painful. No other pedal complaints at this time. Patient states no change in medications or medical history since last visit. Objective: Patient presents to clinic ambulating in roy Vasc: DP and PT pulses are faintly palpable bilateral. CFT is less than 5 seconds bilateral. Skin temperature is warm to cool proximal to distal bilateral. There is mild edema or varicosities noted. Neuro: Protective sensation is intact to the foot and toes when tested with the 5.07 SWM bilateral. Vibratory sensation is decreased at the hallux IPJ bilateral. The hallux is downgoing bilateral. Derm: Nails 1-5 b/l are painful, incurvated discolored-yellow, thick, crumbly, dystrophic and with subungal debris. Skin is of normal turgor, texture and hair growth is absent bilateral. There are no hyperkeratosis, ulcerations, scars, verruca or other lesions noted. Ortho: Muscle strength is 5/5 for all pedal groups tested. Ankle joint DF is decreased with the knee extended with no pain or crepitus noted. 1st MPJ ROM is decreased bilateral. Assessment: (B35.1) Onychomycosis (primary encounter diagnosis) (M79.675) Pain in toe of left foot (M79.674) Pain in toe of right foot Plan: Patient was seen and evaluated. Nails 1-5 bilateral were debrided in length and thickness. Discussed removal of toenails but given faint pulses, would defer to continued conservative care for now Patient is to RTC in 9 weeks Tanvi Moran [facility]10-22-2024 History of Present illness Narrative* Tanvi Moran - 06/05/2024 1:14 PM EDT Subjective: Patient presents to clinic c/o painful toenails. They state that the nails are especially painful with shoe gear and pressure. Patient states that nails left hallux are painful. No other pedal complaints at this time. Patient states no change in medications or medical history since last visit. Objective: Patient presents to clinic ambulating in roy Vasc: DP and PT pulses are faintly palpable bilateral. CFT is less than 5 seconds bilateral. Skin temperature is warm to cool proximal to distal bilateral. There is mild edema or varicosities noted. Neuro: Protective sensation is intact to the foot and toes when tested with the 5.07 SWM bilateral.Vibratory sensation is decreased at the hallux IPJ bilateral. The hallux is downgoing bilateral. Derm: Nails 1-5 b/l are painful, incurvated discolored-yellow, thick, crumbly, dystrophic and with subungal debris. Skin is of normal turgor, texture and hair growth is absent bilateral. There are nohyperkeratosis, ulcerations, scars, verruca or other lesions noted. Ortho: Muscle strength is 5/5 for all pedal groups tested. Ankle joint DF is decreased with the knee extended with no pain or crepitus noted. 1st MPJ ROM is decreased bilateral. Assessment: (B35.1) Onychomycosis (primary encounter diagnosis) (M79.675) Pain in toe of left foot (M79.674) Pain in toe of right foot Plan: Patient was seen and evaluated. Nails 1-5 bilateral were debrided in length and thickness. Discussed removal of toenails but given faint pulses, would defer to continued conservative care for now Patient is to RTC in 9 weeks Tanvi Moran DPM * Shante Knapp LPN - 06/05/2024 1:06 PM EDT AMB ROOMING INTAKE FLOWSHEET DATA Pain Pain Level: 5 Description: Aching Frequency: Intermittent Intervention/Comfort measure: Cold Patient presents with: Left Foot - Established Patient, nail care Right Foot - Established Patient, nail care , Ingrown Toenail Shante Knapp LPN documented in this encounterUniversity [facility]als [facility]10-22-2024 NoteHNO ID: [id number] Author: SHANTE KNAPP LPN Service: ? Author Type: LICENSED NURSE Type: Progress Notes Filed: 06/05/2024 13:22 Note Text: AMB ROOMING INTAKE FLOWSHEET DATA Pain Pain Level: 5 Description: Aching Frequency: Intermittent Intervention/Comfort measure: Cold Patient presents with: Left Foot - Established Patient, nail care Right Foot - Established Patient, nail care , Ingrown Toen[facility] of Present illness Narrative* Tanvi Moran - 03/30/2024 11:38 AM EDT Subjective: Patient presents to clinic c/o painful toenails. They state that the nails are especially painful with shoe gear and pressure. Patient states that nails right hallux nail is painful. No other pedal complaints at this time. Patient states no change in medications or medical history since last visit. Objective: Patient presents to clinic ambulating in roy Vasc: DP and PT pulses are nonpalpable bilateral. CFT is less than 5 seconds bilateral. Skin temperature is warm to cool proximal to distal bilateral. There is no edema or varicosities noted. Neuro: Protective sensation is intact to the foot and toes when tested with the 5.07 SWM bilateral.The hallux is downgoing bilateral. Derm: Nails 1-5 b/l are painful, discolored-yellow, thick, crumbly, dystrophic and with subungal debris. Right hallux medial nail border is ingrowing. No signs of infection present. Skin is of normalturgor, texture and hair growth is absent bilateral. There are no hyperkeratosis, ulcerations, scars, verruca or other lesions noted. Ortho: Muscle strength is 5/5 for all pedal groups tested. Ankle joint DF is full with the knee extended with no pain or crepitus noted. 1st MPJ ROM is decreased bilateral. Assessment: (B35.1) Onychomycosis (primary encounter diagnosis) (M79.675) Pain in toe of left foot (M79.674) Pain in toe of right foot (L60.0) Ingrowing toenail of left foot Plan: Patient was seen and evaluated. Nails 1-5 bilateral were debrided in length and thickness. Small ingrown of right hallux medial nail border. No signs of infection. Discussed options not limited to avulsion vs partial nail matrixectomy. Given her clinical appearance concerning for decreased perfusion, would hold on removal in favor of slant back. Slant back debridement was performed to right hallux medial nail border. Small bleed present. Band aide and topical antibiotic was applied. Continue with gel hammertoe pads F/u in 9 weeks Tanvi Moran DPM * Shante Knapp LPN - 03/30/2024 11:27 AM EDT AMB ROOMING INTAKE FLOWSHEET DATA Pain Pain Level: 4 Pain Location: Toe Description: Sore Duration Units: Days Frequency: Intermittent Intervention/Comfort measure: Reposition, Relaxation Patient presents with: Left Foot - Established Patient, nail care Right Foot - nail care , Established Patient, Ingrown Toenail Shante Knapp LPN documented in this encounterUniversity Hospitals [facility]06-13-2024 History of Present illness Narrative* Tanvi Moran - 01/26/2024 1:35 PM EDT Subjective: Patient presents to clinic c/o painful toenails. They state that the nails are especially painful with shoe gear and pressure. Patient states that recently visited her sister and did a lot of walking. She states her 2nd toe rubbed on her shoe and she now has a small wound to her 2nd toe. She is treating with band aide and topical antibiotic. No other pedal complaints at this time. Patient states no change in medications or medical history since last visit. Objective: Patient presents to clinic ambulating in roy Vasc: DP and PT pulses are palpable bilateral. CFT is less than 5 seconds bilateral. Skin temperature is warm to cool proximal to distal bilateral. There is no edema or varicosities noted. Neuro: Protective sensation is intact to the foot and toes when tested with the 5.07 SWM bilateral.Vibratory sensation is intact at the hallux IPJ bilateral. The hallux is downgoing bilateral. Derm: Nails 1-5 b/l are painful, discolored-yellow, thick, crumbly, dystrophic and with subungal debris. Skin is of normal turgor, texture and hair growth is present bilateral. Very small opening of left 2nd toe without signs of infection. Ortho: Muscle strength is 5/5 for all pedal groups tested. Ankle joint DF is full with the knee extended with no pain or crepitus noted. 1st MPJ ROM is decreased bilateral. Hammertoes are present 2-5b/l Assessment: (B35.1) Onychomycosis (primary encounter diagnosis) (M79.675) Pain in toe of left foot (M79.674) Pain in toe of right foot (M20.42) Hammer toe of left foot (M20.41) Hammer toe of right foot Plan: Patient was seen and evaluated. Nails 1-5 bilateral were debrided in length and thickness. Patient has very small opening of left 2nd toe that is almost healed. Would continue with topical antibiotic cream and band aide until completely healed. Patient provided gel hammertoe caps that she can use once wound is healed. Other options for meg discussed not limited to padding, surgical correction vs amputation. Patient would like to continue with padding. Patient was instructed on the continued importance of diabetic foot care along with proper diet andkeeping their blood sugar under control to prevent complications. Patient is to RTC in 9 weeks Tanvi Moran DPM * Shante Knapp LPN - 01/26/2024 1:16 PM EDT AMB ROOMING INTAKE FLOWSHEET DATA Pain Pain Level: 5 Pain Location: Toe Description: Aching, Burning Frequency: Intermittent Patient presents with: Left Foot - nail care , Established Patient Right Foot - nail care , Established Patient Shante Knapp LPN documented in this encounterUniversity Hospitals [facility]04-02-2024 History of Present illness Narrative* Tanvi Moran - 11/15/2023 1:23 PM EDT Subjective: Patient presents to clinic c/o painful toenails. They state that the nails are especially painful with shoe gear and pressure. Patient states that nails 1-5 b/l are painful. Does complainof pain in b/l 5th toe. Reports to bumping them last week. No other pedal complaints at this time. Patient states no change in medications or medical history since last visit. Objective: Patient presents to clinic ambulating in roy Vasc: DP and PT pulses are palpable bilateral. CFT is less than 5 seconds bilateral. Skin temperature is warm to cool proximal to distal bilateral. There is no edema or varicosities noted. Neuro: Protective sensation is intact to the foot and toes when tested with the 5.07 SWM bilateral.The hallux is downgoing bilateral. Derm: Nails 1-5 b/l are painful, discolored-yellow, thick, crumbly, dystrophic and with subungal debris. Skin is of normal turgor, texture and hair growth is present bilateral. There are no hyperkeratosis, ulcerations, scars, verruca or other lesions noted. Ortho: Muscle strength is 5/5 for all pedal groups tested. Ankle joint DF is decreased with the knee extended with no pain or crepitus noted. 1st MPJ ROM is decreased bilateral. 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 Nails 1-5 bilateral were debrided in length and thickness. Small bleed present to right 3rd toe. Band aide appied Discussed pain in b/l 5th toe. Offered xray but patient declined. Suspect pain may be related to adductovarus deformity of b/l 5th toe. Gel padding dispensed. Patient is to RTC in 9 week Tanvi Moran DPM * Suzie Bergeron RN - 11/15/2023 1:13 PM EDT AMB ROOMING INTAKE FLOWSHEET DATA Pain Pain Level: 6 Pain Location: Toe Description: Aching Frequency: Intermittent Patient presents with: Left Foot - Established Patient, Follow Up, nail care Right Foot - Established Patient, Follow Up, nail care Patient presents for nail care follow up. PROSPER 09/05/23. States some pain to bilateral 5th toes. documented in this encounterUniversity Hospitals [facility]11-17-2023 History of Present illness Narrative* Tanvi Moran - 07/01/2023 11:03 AM EST Subjective: Patient presents to clinic c/o painful toenails. They state that the nails are especially painful with shoe gear and pressure. Patient states that nails 1-5 b/l are painful. Patient admits to having on/off heel pain, right. No other pedal complaints at this time. Patient states no change in medications or medical history since last visit. Objective: Patient presents to clinic ambulating in [facility]: DP and PT pulses are palpable bilateral. CFT is less than 5 seconds bilateral. Skin temperature is warm to cool proximal to distal bilateral. There is no edema or varicosities noted. Neuro: Protective sensation is intact to the foot and toes when tested with the 5.07 SWM bilateral.- tinel b/l. The hallux is downgoing bilateral. Derm: Nails 1-5 b/l are painful, discolored-yellow, thick, crumbly, dystrophic and with subungal debris. Skin is of normal turgor, texture and hair growth is present bilateral. There are no hyperkeratosis, ulcerations, scars, verruca or other lesions noted. Ortho: Muscle strength is 5/5 for all pedal groups tested. Ankle joint DF is full with the knee extended with no pain or crepitus noted. 1st MPJ ROM is full bilateral. Pain present to right plantar heel Assessment: (B35.1) Onychomycosis (primary encounter diagnosis) (M79.675) Pain in toe of left foot (M79.674) Pain in toe of right foot (M72.2) Plantar fascial fibromatosis Plan: Patient was seen and evaluated. Nails 1-5 bilateral were debrided in length and thickness. Discussed right heel pain. Recommend continued use of inserts, stretching, icing. If pain becomes more severe, consider injection. Patient is to RTC in 3-4 months. Tanvi Moran DPM * Ivette Dee RN - 07/01/2023 10:47 AM EST AMB ROOMING INTAKE FLOWSHEET DATA Pain Pain Level: 4 Pain Location: Heel-Right Description: Tingling Frequency: Continuous (pain while ambulating) Patient presents with: Right Foot - Follow Up, Pain: Heel pain, nail care Left Foot - Follow Up, nail care: Nail care Pt presents today for bilateral foot nailcare and heel pain right foot. Pt has tried stretching, ice, and inserts. "Nothing has helped" documented in this encounterUniversity Hospitals [facility]09-15-2023 Instructions* Patient Instructions* Tanvi Moran - 04/29/2023 1:39 PM EDT Images from the original note were not included. What is Plantar Fasciitis? Plantar fasciitis is the most common cause of heel pain. The pain is caused by inflammation of the plantar fascia. If you strain your plantar fascia, it becomes weak, swollen and irritated (inflamed). The resulting pain may be isolated in the heel or may appear at different points on the bottom of the foot, from time to time; it may occur in one foot or both. Some think that plantar fasciitis pain is caused by irritation of nerves from tissue swelling or inflammation, but it is debatable. Plantar fasciitis is common in middle-aged people; it also occurs in younger people who are on their feeta lot, such as athletes or soldiers. The plantar fascia is a strong band of connective tissue that extends from the base of the toes, along the bottom of the foot, to the bottom of the heel (calcaneous bone); it acts like a bowstring tomaintain the arch of the foot. What are heel spurs? The inflammatory reaction of the heel bone may produce spike-like projections of new bone, called heel spurs. The spurs sometimes show on X-rays. They neither cause the initial pain nor do they causethe initial problem. However, later, having to walk on spurs may cause sharp pain. What causes plantar fasciitis? Plantar fasciitis is caused by straining the ligament that supports your arch. Repeated strain can cause tiny tears in the ligament. These lead to pain and swelling. During walking, the plantar fascia experiences tension up to twice the body weight with each step. While this is normal, those who spend much time on their feet, such as nurses, asphalt tamper/waiters, andmail carriers, often experience plantar fasciitis. Athletes involved in tennis or other racquet sports, race walking, jogging or running also show a higher incidence of plantar fasciitis than do those participating in other activities. Thus, it's clear that plantar fasciitis is predominantly an overuse injury. In fact, any activity that results in prolonged tension and stress on the plantar fascia may cause plantar fasciitis. It is possible that changes in footwear may play a role in causing plantar fasciitis, no matter what activity is occurring. Those who are overweight are prone to plantarfasciitis. This is true even for sedentary people who get little physical activity. Abnormalities of the foot and ankle joints may predispose some individuals to development of plantar fasciitis (spec ifically, over pronation of the subtalar joint). Contributing Factors * Flat feet * Toe running, hill running * Sudden weight increase * High-arched, rigid feet * Soft terrain, e.g. running on sand * Obesity * Pronated feet (rolled inward) * Sudden increase in activity* Family tendency * Poor shoe support * Worn out or poorly fitted shoes * Increasing age * Walking,standing or running for long periods of time, especially on hard surfaces. How is the Injury Treated? Rest Your Feet: Limit, or if possible, stop activities that are causing your heel pain. Try to avoid running or walking on hard surfaces, such as concrete. Use pain as your guide. If your foot is toopainful, rest it. Ice: Ice the sore area for 30 to 60 minutes, several times a day, to reduce inflammation and relieve pain. Apply a plastic bag of crushed ice (or a bag of frozen peas) over a towel. Ice the sore areafor 15 minutes after activity/exercise. Application of heat is not generally recommended, as heat ex pands the bone and connective tissue, perhaps exerting greater pressure on nerves and thereby increasing pain. If heat is used, follow it with ice. Medication: If your condition developed recently, anti-inflammatory/analgesic medication, combined with heel pads (see below) may be all that is necessary to relieve pain and to reduce inflammation. If no pain relief has occurred after 2- 3 weeks, however, your doctor may inject either cortisone or local anesthetic directly into the tender area. Exercises: Do simple exercises, such as calf stretches and towel stretches (see below) several times a day, especially when you first get up in the morning. These can help your ligament become more flexible and strengthen the muscles that support your arch. Shoes: Poorly fitting shoes can cause plantar fasciitis. The best type of shoe to wear is a good walking or running shoe with good shock absorption and excellent arch support. You should choose the one that fits the best. [place] with your athletic shoes to find a pair that is comfortable and causes fewer symptoms. Put your shoes on as soon as you get out of bed; going barefoot or wearing slippers may make your pain worse. Good brands include (but are not limited to): New Balance, Asics, Saucony, SAS and Merrel s. Taping: Your doctor may tape your foot to maintain the arch. This takes some of the tension off theplantar fascia. Weight Loss: If your weight is putting extra stress on your feet, your doctor may encourage you to try a weight-loss program. Orthotics: An orthotic insole is a molded piece of rubber, plastic, or other material that you insert into your shoe. It corrects the alignment of your foot and cushions your foot from excessive pounding. These may be prescription or non-prescription. Prescription orthotics are custom-fitted and may fit better and control pain better, but are very expensive. Night Splints: A night splint holds the foot with the toes pointed up and the ankle at a 90-degree angle. This position applies a constant, gentle stretch to the plantar fascia. Corticosteroid Shots: Steroids may be injected into the tender area to reduce inflammation. REHAB Exercises to stretch the plantar fascia, the calf muscles, and the Achilles tendon. Tightness of the muscles of the calves may contribute to plantar fasciitis, so stretching the calf muscles is important to rehabilitation, as is stretching of the plantar fascia itself. Plantar fascial stretches Assisted Dorsiflexion/Plantar Fascia Stretch: Sit on the floor or ground, barefoot, with both legs outstretched. Use a towel or elastic band and wrap it around the ball (and not the toes) of the affected foot. Use the towel or elastic band to provide resistance to upward movement of the forefoot. Pull foot upward (toward your body) with the help of the elastic band or towel, and then return to the starting position. Ten repetitions are recommended. Perform the sequence at least three times a day. Alternate Plantar Fascia Stretch: Sit upright in a chair, barefoot. Place the ankle of the affectedfoot on your opposite knee. Using the same hand as the affected foot, reach across and grab the toes. Flex the ankle toward and pull the toes toward the lyn. To test the stretch, place the thumb of your hand on the bottom of the foot. You should be able to feel the cord-like plantar fascia, running the length of the foot. Hold the stretch for a count of 10, then relax. Repeat 10 times. Do the sequence at least three times a day. Achilles/Calf Stretches Strengthening the muscles of the calves may contribute to successful rehabilitation of plantar fasciitis, as well as prevent reoccurrence. The exercises below will help strengthen the calf muscles. Calf and Achilles Tendon Stretch (Gastrocnemius Stretch): Face a wall, standing an arm's length away. Place one foot back. Place both hands on the wall. Bend the elbows and knee of your forward leg, keeping the heel of the backward foot on the floor and keeping your body straight (aligned), until your forehead nearly touches the wall, or until significant stretch is felt in the muscles of the calf of the backward leg. Hold this position for 10 to 15 seconds. Extend elbows (straighten your arms and stand upright again) and maintain this position for 10 seconds. Repeat this cycle 15 to 20 times. Switch legs and repeat the exercise. Powerstep Original Full length. Can purchase at [employer] here in [place], [employer] in [place] or [place]. Also can find in [facility] in [facility]. Powersteps can also be purchased online, starting around $45.00 If you have a metatarsal or dancer pad for your feet apply the pad directly to the insole so you can interchange between your shoes. Find a shoe with a removable insole and take this out and replace with your powerstep insole. Always bring powersteps with you when shopping for shoes so that you can make sure that everything fits well together documented in this encounterUniversity Hospitals [facility] Center09-15-2023 History of Present illness Narrative* Tanvi Moran - 04/29/2023 1:31 PM EDT Subjective: Patient presents to clinic c/o painful toenails. They state that the nails are especially painful with shoe gear and pressure. Patient states that nails 1-5 b/l are painful. Patient admits to having right heel pain. No other pedal complaints at this time. Patient states no change in medications or medical history since last visit. Objective: Patient presents to clinic ambulating in roy Vasc: DP and PT pulses are palpable bilateral. CFT is less than 5 seconds bilateral. Skin temperature is warm to cool proximal to distal bilateral. There is no edema or varicosities noted. Neuro: Protective sensation is intact to the foot and toes when tested with the 5.07 SWM bilateral.Vibratory sensation is decreased at the hallux IPJ bilateral. The hallux is downgoing bilateral. Derm: Nails 1-5 b/l are painful, discolored-yellow, thick, crumbly, dystrophic and with subungal debris. Skin is of normal turgor, texture and hair growth is present bilateral. There are no hyperkeratosis, ulcerations, scars, verruca or other lesions noted. Ortho: Muscle strength is 5/5 for all pedal groups tested. Ankle joint DF is full with the knee extended with no pain or crepitus noted. 1st MPJ ROM is full bilateral. Painp resent in right heel. Assessment: (B35.1) Onychomycosis (primary encounter diagnosis) (M79.675) Pain in toe of left foot (M79.674) Pain in toe of right foot Plantar fasciitis, right foot Plan: Patient was seen and evaluated. Nails 1-5 bilateral were debrided in length and thickness. Discussed right heel pain. Recommend stretching, icing, inserts. If pain persists, consider steroidinjection. Patient is to RTC in 3-4 months. Tanvi Moran DPM * Suzie Bergeron RN - 04/29/2023 1:01 PM EDT AMB ROOMING INTAKE FLOWSHEET DATA Pain Pain Level: 8 Pain Location: Heel-Right Description: Dull Duration Amount of Time: 3 Duration Units: Weeks Frequency: Intermittent Intervention/Comfort measure: Relaxation, Reposition Patient presents with: Left Foot - Established Patient, Follow Up, nail care Right Foot - Established Patient, Follow Up, nail care Patient presents for 3 month nail care. States that she has been having right heel pain over the past 3 weeks as well. documented in this encounterUniversity [facility]-02-[facility]23 History of Present illness Narrative* Tanvi Moran - 01/14/2023 12:29 PM EDT Subjective: Patient presents to clinic c/o painful toenails. They state that the nails are especially painful with shoe gear and pressure. Patient states that nails 1-5 b/l are painful. No other pedal complaints at this time. Patient states no change in medications or medical history since last visit. Objective: Patient presents to clinic ambulating in valerio tennis shoes Vasc: DP and PT pulses are palpable bilateral. CFT is less than 5 seconds bilateral. Skin temperature is warm to cool proximal to distal bilateral. There is no edema or varicosities noted. Neuro: Protective sensation is intact to the foot and toes when tested with the 5.07 SWM bilateral.Vibratory sensation is decreased at the hallux IPJ bilateral. The hallux is downgoing bilateral. Derm: Nails 1-5 b/l are painful, discolored-yellow, thick, crumbly, dystrophic and with subungal debris. Skin is of normal turgor, texture and hair growth is present bilateral. There are no hyperkeratosis, ulcerations, scars, verruca or other lesions noted. Ortho: Muscle strength is 5/5 for all pedal groups tested. Ankle joint DF is full with the knee extended with no pain or crepitus noted. 1st MPJ ROM is full bilateral. Assessment: (B35.1) Onychomycosis (primary encounter diagnosis) (M79.675) Pain in toe of left foot (M79.674) Pain in toe of right foot Plan: Patient was seen and evaluated. Nails 1-5 bilateral were debrided in length and thickness. Patient is to RTC in 3-4 months. Tanvi Moran DPM * Giancarlo Da Silva MA - 01/14/2023 11:15 AM EDT Patient presents for 9 week follow up nail are. Denies any sort of pain. documented in this encounterUniversity Hospitals [facility]01-30-2023 Miscellaneous Notes* Letter - Mammography Coordinator - 09/13/2022 1:43 PM EST September 15, 2022 PID: [id number] Gianna Wright [address] [facility] [address] [place] [address] Dear Ms. Wright, We are pleased to inform you that the results of your recent breast imaging exam on 09/13/2022 are normal. Early detection of cancer is very important. We also understand recommendations regarding breast cancer screening are controversial. Please discuss with your primary care provider which strategy is best for you and whether a mammogram is right for you. Your imaging studies and report will be kept on [facility] at [facility] as part of your permanent medical record and are available for your continuing care. Thank you for allowing us to help in meeting your health care needs. Sincerely, Dr. Santos Interpreting Radiologist [facility] (Normal over 40) documented in this encounterUniversity Hospitals Cleveland [facility] Center01-24-2023 History of Present illness Narrative* Tanvi Moran - 09/07/2022 11:35 AM EST Subjective: Patient presents to clinic c/o painful toenails. They state that the nails are especially painful with shoe gear and pressure. Patient states that nails left 2nd toenail is painful. No other pedal complaints at this time. Patient states no change in medications or medical history since last visit. Objective: Patient presents to clinic ambulating in roy Vasc: DP and PT pulses are nonpalpable bilateral. CFT is less than 5 seconds bilateral. Skin temperature is warm to cool proximal to distal bilateral. There is mild edema or varicosities noted. Neuro: Protective sensation is intact to the foot and toes when tested with the 5.07 SWM bilateral.Vibratory sensation is decreased at the hallux IPJ bilateral. The hallux is downgoing bilateral. Derm: Nails 1-5 b/l are painful, discolored-yellow, thick, crumbly, dystrophic and with subungal debris. Skin is cold, pallor and hair growth is absent bilateral. There are no hyperkeratosis, ulcerations, scars, verruca or other lesions noted. Ortho: Muscle strength is 5/5 for all pedal groups tested. Ankle joint DF is decreased with the knee extended with no pain or crepitus noted. 1st MPJ ROM is decreased bilateral. Assessment: Onychomycosis with pain Diabetes Plan: Patient was seen and evaluated. Nails 1-5 bilateral were debrided in length and thickness. Small bleed to right 3rd toe. Band aide applied Call if any issues arise F/u in 9 weeks Tanvi Moran DPM * Suzie Bergeron RN - 09/07/2022 11:12 AM EST Patient presents with: Right Foot - Established Patient, Follow Up, nail care Left Foot - Established Patient, Follow Up, nail care Patient presents for nail care, denies any pain at this time. documented in this encounterUniversity Hospitals [facility] Center01-20-2023 Procedure [facility]01-20-2023 Procedure [facility]01-12-2023 History and physical note Author Mikki Arechiga [facility] August 26, 2022 4:57pm Note Date/Time August 26, 2022 4 :57pm [facility] Medical Records Department [address] [place] [id number] History & Physical Exam 08/26/22 1653 MR#: [id number] Acct: [id number] Name: GIANNA WRIGHT Rep #:[id number] : 1935 87 From: Mikki GRIGSBY PCP: Dr. Odette Farmer, DO Status:PRE [facility] Location: [facility] History and Physical Gianna Wright is an 87 year old female with a history of diastolic heart failure, paroxysmal atrial fibrillation and hyperlipidemia. At her last OV she had concerns over increase in edema, fatigue and SOB. She was noted to be in Afib. Echocardiogram demonstrated Normal LV size. Left ventricular systolic function is normal. The estimated ejection fraction is55 %. Stage 2 diastolic dysfunction. Pulmonary artery systolic pressure is 49 mmHg. She would like to proceed with a DCCV. She has been anticoagulated. [facility] Medical History?(Updated 07/29/22 @ 11:37 by Mikki GRIGSBY, PA) Allergic rhinitis Arthritis Bronchitis Cataract Cervical muscle strain Chronic cough Chronic diastolic (congestive) heart failure History of lobular carcinoma of breast Hyperlipemia Paroxysmal atrial fibrillation Paroxysmal supraventricular tachycardia PND (post-nasal drip) Surgical History? H/O: hysterectomy History of arthroscopy of right shoulder History of total knee replacement Family History? Brother A-fibSister A-fib Hypertension Hyperlipemia Social History? how long ago did patient quit smoking:? 47 second hand exposure:? No alcohol intake:? current alcohol intake frequency: a few times a week substance use type:? does not use caffeine:? No what type of physical activity do you participate in:? none ROS Const Const: Positive for fatigue; Negative for weakness, headache(s), frequent falls, excessive sweating, weight gain or weight loss Eyes Eyes: Negative for blind spots, loss of peripheral vision, transient loss of vision, blurry vision, change in vision or double vision ENT ENT: Negative for headache(s), dizziness, tinnitus, Nosebleed/epistaxis or balance problems Cardio Chest Pain: No Palpitations: No Edema: Bilateral Muscle aches with walking: None Resp Respiratory: Negative for SOB with activity, SOB at rest, SOB orthopnea\\SOB lying down or Cough GI GI: Negative nausea, vomiting, heartburn, bloating, vomiting blood/hematemesis, bright, red blood in stools or black,tarry stools : Negative for hematuria Musc Musc: Negative for muscle aches/ myalgia, muscle weakness, joint pain or balanceproblems Skin Skin: Negative rash or wounds Neuro Neuro: Negative for dizziness, lightheadedness, near syncope, syncope, orthostatic symptoms, frequent falls, headache(s), weakness, confusion, memory loss, restless legs, blurry vision or double vision Saman Hematologic/Lymphatic: Negative for easy bleeding or easy bruising Endo Endo: Positive for fatigue; Negative for cold intolerance, heat intolerance or excessive sweating Psych Psych: Negative for anxiety or depression Allergy Allergy/Immunology: Negative for rash Cardiology Exam Const Appearance: cooperative, healthy appearing, comfortable, no acute distress and well developed Orientation: alert, awake and oriented x3 Head Head: normal to inspection Ears: hearing grossly normal bilaterally Nose: external nose normal Face and Sinus: face symmetric Mouth: oral mucosae normal, lip normal and moist mucous membranes Eyes General: appearance normal, both eyes and all related structures Eyelids: eyelids normal Conjunctivae: conjunctivae normal Pupils: PERRL EOM: EOM intact bilaterally Neck Neck: normal visual inspection and trachea midline; Negative no JVD Carotids: Negative bruit Chest Chest inspection: normal inspection of the chest Auscultation: Bilateral: Clear to Auscultation Cardio Palpation: normal PMI Rate: regular rate Rhythm: regular rhythm Heart sounds: S1 normal and S2 normal; Negative rub, gallop or murmur GI GI: soft, no hepatosplenomegaly and bowel sounds present Neuro General: patient alert, patient awake, patient oriented x3 and CN's II-XI intactbilaterally Extremities Pulses: Normal: Right Posterior Tibial Pulse, Left Posterior Tibial Pulse, RightRadial Pulse and Left Radial Pulse Lower Extremity Edema: +2: Bilateral Psych Psychological: normal affect Assessment & Plan Assessment/Plan (1) Persistent atrial fibrillation: (2) Chronic diastolic (congestive) heart failure: PLAN: Plan Pt will undergo a DCCV and follow up in the office accordingly after. 08/26/221656 <Electronically signed by Mikki GRIGSBY> Cosigner Signature (if applicable): CC: SEB Arechiga; Dr. Odette Farmer, DO~ Signed [facility] Work Phone: [phone]) 516-300911-17-2022 History of Present illness Narrative* Tanvi Moran - 07/01/2022 11:24 AM EST Subjective: Patient presents to clinic c/o painful toenails. They state that the nails are especially painful with shoe gear and pressure. Patient states that nails 1-5 b/l are painful. No other pedal complaints at this time. Patient states no change in medications or medical history since last visit. Objective: Patient presents to clinic ambulating in roy Vasc: DP and PT pulses are nonpalpable bilateral. CFT is less than 5 seconds bilateral. Skin temperature is warm to cool proximal to distal bilateral. There is mild edema or varicosities noted. Neuro: Protective sensation is decreased to the foot and toes when tested with the 5.07 SWM bilateral. Vibratory sensation is absent at the hallux IPJ bilateral. The hallux is downgoing bilateral. Derm: Nails 1-5 b/l are painful, discolored-yellow, thick, crumbly, dystrophic and with subungal debris. Skin is of normal turgor, texture and hair growth is absent bilateral. There are no hyperkeratosis, ulcerations, scars, verruca or other lesions noted. Ortho: Muscle strength is 5/5 for all pedal groups tested. Ankle joint DF is decreased with the knee extended with no pain or crepitus noted. 1st MPJ ROM is decreased bilateral. Assessment: (B35.1) Onychomycosis (primary encounter diagnosis) (M79.675) Pain in toe of left foot (M79.674) Pain in toe of right foot Plan: Patient was seen and evaluated. Nails 1-5 bilateral were debrided in length and thickness. Patient is to RTC in 3-4 months. Tanvi Moran DPM * Suzie Bergeron RN - 07/01/2022 11:15 AM EST Patient presents with: Right Foot - Established Patient, Follow Up, nail care Left Foot - Established Patient, Follow Up, nail care Patient presents for follow up nail care. Denies any pain. documented in this encounterUniversity [facility]als [facility]09-13-2022 History of Present illness Narrative* Tanvi Moran - 04/27/2022 11:24 AM EDT Subjective: Patient presents to clinic c/o painful toenails. They state that the nails are especially painful with shoe gear and pressure. Patient states that nails left hallux are painful. No other pedal complaints at this time. Patient states no change in medications or medical history since last visit. Objective: Patient presents to clinic ambulating in valerio Vasc: DP and PT pulses are palpable bilateral. CFT is less than 5 seconds bilateral. Skin temperature is warm to cool proximal to distal bilateral. There is no edema or varicosities noted. Neuro: Protective sensation is intact to the foot and toes when tested with the 5.07 SWM bilateral.Vibratory sensation is decreased at the hallux IPJ bilateral. The hallux is downgoing bilateral. Derm: Nails 1-5 b/l are painful, discolored-yellow, thick, crumbly, dystrophic and with subungal debris. Skin is of normal turgor, texture and hair growth is present bilateral. There are no hyperkeratosis, ulcerations, scars, verruca or other lesions noted. Ortho: Muscle strength is 5/5 for all pedal groups tested. Ankle joint DF is full with the knee extended with no pain or crepitus noted. 1st MPJ ROM is full bilateral. Pain present to right heel Assessment: (B35.1) Onychomycosis (primary encounter diagnosis) (M79.675) Pain in toe of left foot (M79.674) Pain in toe of right foot (M72.2) Plantar fascial fibromatosis Plan: Patient was seen and evaluated. Nails 1-5 bilateral were debrided in length and thickness. Discussed her complaint of ingrowing toenail of left hallux. No signs of infection. If pain continues, one option to consider would be matrixectomy Discussed chronic right heel pain. We have discused in the past doing a fasciotomy but her ability to navigate nwb post-op leaves me concerned. If she is having pain, one option to consider is shock wave therapy with pain management. Patient to consider Tanvi Moran DPM * Shante Knapp LPN - 04/27/2022 11:18 AM EDT AMB ROOMING INTAKE FLOWSHEET DATA Risk Screening Do you have concerns about personal safety or safety in the home?: No Patient presents with: Left Foot - Established Patient, Follow Up, Diabetic Foot Care Right Foot - Established Patient, Follow Up, Diabetic Foot Care Shante Knapp LPN documented in this encounterUniversity [facility]als [facility]07-08-2022 History of Present illness Narrative* Tanvi Moran - 02/19/2022 11:38 AM EDT Subjective: Patient presents to clinic c/o painful toenails. They state that the nails are especially painful with shoe gear and pressure. Patient states that nails 1-5 b/l are painful. Patient did have heel pain and that is now resolved but she now has back pain. She sees Dr. [place] in pain management who performes injections. No other pedal complaints at this time. Patient states no change in medications or medical history since last visit. Objective: Patient presents to clinic ambulating in valerio tennis shoes Vasc: DP and PT pulses are palpable bilateral. CFT is less than 5 seconds bilateral. Skin temperature is warm to cool proximal to distal bilateral. There is mild edema or varicosities noted. Neuro: Protective sensation is intact to the foot and toes when tested with the 5.07 SWM bilateral.Vibratory sensation is decreased at the hallux IPJ bilateral. The hallux is downgoing bilateral. Derm: Nails 1-5 b/l are painful, discolored-yellow, thick, crumbly, dystrophic and with subungal debris. Skin is of normal turgor, texture and hair growth is present bilateral. There are no hyperkeratosis, ulcerations, scars, verruca or other lesions noted. Ortho: Muscle strength is 5/5 for all pedal groups tested. Ankle joint DF is full with the knee extended with no pain or crepitus noted. 1st MPJ ROM is full bilateral. Assessment: (B35.1) Onychomycosis (primary encounter diagnosis) (M79.675) Pain in toe of left foot (M79.674) Pain in toe of right foot Plan: Patient was seen and evaluated. Nails 1-5 bilateral were debrided in length and thickness. Patient is to RTC in 3-4 months. Tanvi Moran DPM * Eva Elizabeth RN - 02/19/2022 11:31 AM EDT AMB ROOMING INTAKE FLOWSHEET DATA Risk Screening Do you have concerns about personal safety or safety in the home?: No Patient presents with: Left Foot - Established Patient, Nail care Right Foot - Established Patient, Nail Care documented [facility] [place] [facility]* Diagnosis Onset Date Resolution Status Allergic rhinitis chronic Chronic cough chronic Hyperlipemia chronic Paroxysmal atrial fibrillation [facility] Work Phone: Evaluation note* Diagnosis Onychomycosis- Primary Dermatophytosis of nail Pain in toe of left foot Pain in limb Pain in toe of right foot Pain in limb documented [facility] this encounter [facility] [place] [facility]* Diagnosis Onychomycosis- Primary Dermatophytosis of nail Pain in toe of left foot Pain in limb Pain in toe of right foot Pain in limb Plantar fascial fibromatosis documented [facility] this [facility] [place] [facility]* Diagnosis Onset Date Resolution Status Allergic rhinitis chronic Chronic cough chronic Acute sinusitis acute Contact with or suspected ex posure to other viral communicable disease acute [facility] Work Phone: Evaluation note* Diagnosis Onychomycosis- Primary Dermatophytosis of nail Pain in toe of left foot Pain in limb Pain in toe of right foot Pain in limb documented in this encounter [facility] [place] [facility]* Diagnosis Onset Date Resolution Status Edema acute Fatigue acute Chronic diastolic (congestive) heart failure chronic Paroxysmal atrial fibrillation [facility] Work Phone: Evaluation note* Diagnosis Onset Date Resolution Status Edema acute Fatigue acute Chronic diastolic (congestive) heart failure chronic Paroxysmal atrial fibrillation chronic Persistent atrial fibrillation acute Allergic rhinitis chronic Chronic diastolic (congestive) heart failure [facility] Work Phone: Evaluation note* Diagnosis Onychomycosis- Primary Dermatophytosis of nail Pain in toe of left foot Pain in limb Pain in toe of right foot Pain in limb documented [facility] [place] [facility]* Diagnosis Onset Date Resolution Status Edema acute Fatigue acute Chronic diastolic (congestive) heart failure chronic Paroxysmal atrial fibrillation chronic Persistent atrial fibrillation acute Allergic rhinitis chronic Chronic diastolic (congestive) heart failure chronic Atrial flutter acute Atrial flutter acute Allergic rhinitis chronic Chronic cough [facility] Work Phone: Evaluation note* Diagnosis Onychomycosis- Primary Dermatophytosis of nail Pain in toe of left foot Pain in limb Pain in toe of right foot Pain in limb documented in this encounter [facility]* Diagnosis Onset Date Resolution Status Atrial flutter acute Allergic rhinitis chronic Chronic cough chronic Anemia acute Persistent atrial fibrillation acute Chronic diastolic (congestive) heart failure chronic Hyperlipemia chronic [facility] Work Phone: evaluation note* Diagnosis Onset Date Resolution Status Anemia acute Persistent atrial fibrillation acute Chronic diastolic (congestive) heart failure chronic Hyperlipemia chronic Anemia acute Bronchitis acute Allergic rhinitis chronic Allergic rhinitis chronic Chronic cough chronic [facility] Work Phone: Evaluation note* Diagnosis Onychomycosis- Primary Dermatophytosis of nail Pain in toe of left foot Pain in limb Pain in toe of right foot Pain in limb documented in this encounter [facility]* Diagnosis Onychomycosis- Primary Dermatophytosis of nail Pain in toe of left foot Pain in limb Pain in toe of right foot Pain in limb Plantar fascial fibromatosis [facility] Diagnosis Onset Date Resolution Status Allergic rhinitis chronic Chronic cough chronic History of lobular carcinoma of breast chronic Routine gynecological examination noneactive Persistent atrial fibrillation acute Chronic diastolic (congestive) heart failure chronic Hyperlipemia [facility] Work Phone: Evaluation note* Diagnosis Onychomycosis- Primary Dermatophytosis of nail Pain in toe of left foot Pain in limb Pain in toe of right foot Pain in limb Hammer toe of left foot Hammer toe of right foot documented in this encounter [facility]* Diagnosis Onychomycosis- Primary Dermatophytosis of nail Pain in toe of left foot Pain in limb Pain in toe of right foot Pain in limb Hammer toe of left foot Hammer toe of right foot documented in this encounter [facility]* Diagnosis Onychomycosis- Primary Dermatophytosis of nail Pain in toe of left foot Pain in limb Pain in toe of right foot Pain in limb Ingrowing toenail of left foot Ingrowing nail documented in this encounter [facility]* Diagnosis Onychomycosis- Primary Dermatophytosis of nail Pain in toe of left foot Pain in limb Pain in toe of right foot Pain in limb [facility] Diagnosis Onychomycosis- Primary Dermatophytosis of nail Pain in toe of left foot Pain in limb Pain in toe of right foot Pain in limb Hammer toe of left foot Hammer toe of right foot [facility] Diagnosis Ingrowing toenail of left foot- Primary Ingrowing nail Diminished pulses in lower extremity Other symptoms involving cardiovascular system Plantar fasciitis Plantar fascial fibromatosis [facility] Diagnosis Onychomycosis- Primary Dermatophytosis of nail Pain in toe of left foot Pain in limb Pain in toe of right foot Pain in limb Tailor's bunion of both feet [facility] Diagnosis Ingrowing toenail of left foot- Primary Ingrowing nail Pain in toe of left foot Pain in limb Diminished pulses in lower extremity Other symptoms involving cardiovascular system [facility] Diagnosis Onychomycosis- Primary Dermatophytosis of nail Pain in toe of left foot Pain in limb Pain in toe of right foot Pain in limb Ingrowing toenail of left foot Ingrowing nail PAD (peripheral artery disease) Peripheral vascular disease, unspecified [facility] Diagnosis Ingrowing toenail of right foot- Primary Ingrowing nail PAD (peripheral artery disease) Peripheral vascular disease, unspecified Hammer toe of right foot [facility] Diagnosis Ingrowing toenail of right foot- Primary Ingrowing nail Onychomycosis Dermatophytosis of nail Pain in toe of left foot Pain in limb Pain in toe of right foot Pain in limb PAD (peripheral artery disease) Peripheral vascular disease, unspecified documented in this encounter [facility] (narrative)No reason for referral information availableWAvita Health [facility] Work Phone: Chief Complaint and Reason for Visit Chief Complaint 6 M FU 9 M FU E-ORDER OA FIRST [facility] JT./RX HERE Reason for Visit Allergic rhinitis Chronic cough Hyperlipemia Paroxysmal atrial fibrillation Chief Complaint 4 M FU COVID TEST/COUGH/HEADACHE X3 DAYS COUGH Reason for Visit Allergic rhinitis Chronic cough Acute sinusitis Contact with or suspected exposure to other viral communicable disease Chief Complaint 9 M FU ATRIAL FIB-FLUTTER ATRIAL FIB-FLUTTER Reason for Visit Edema Fatigue Chronic diastolic (congestive) heart failure Paroxysmal atrial fibrillation Chief Complaint 9 M FU ATRIAL FIB-FLUTTER ATRIAL FIB-FLUTTER AFIB AND FLUTTER AFIB AND FLUTTER AFIB AND FLUTTER AFIB AND FLUTTER Reason for Visit Edema Fatigue Chronic diastolic (congestive) heart failure Paroxysmal atrial fibrillation Persistent atrial fibrillation Allergic rhinitis Chronic diastolic (congestive) heart failure Chief Complaint 9 M FU ATRIAL FIB-FLUTTER ATRIAL FIB-FLUTTER AFIB AND FLUTTER AFIB AND FLUTTER AFIB AND FLUTTER AFIB AND FLUTTER 1 week f/u post EKG PT BACK IN AFIB 6 M FU Reason for Visit Edema Fatigue Chronic diastolic (congestive) heart failure Paroxysmal atrial fibrillation Persistent atrial fibrillation Allergic rhinitis Chronic diastolic (congestive) heart failure Atrial flutter Atrial flutter Allergic rhinitis Chronic cough Chief Complaint 9 M FU ATRIAL FIB-FLUTTER ATRIAL FIB-FLUTTER AFIB AND FLUTTER AFIB AND FLUTTER AFIB AND FLUTTER AFIB AND FLUTTER 1 week f/u post EKG PT BACK IN AFIB 6 M FU INT LABS Reason for Visit Edema Fatigue Chronic diastolic (congestive) heart failure Paroxysmal atrial fibrillation Persistent atrial fibrillation Allergic rhinitis Chronic diastolic (congestive) heart failure Atrial flutter Atrial flutter Allergic rhinitis Chronic cough Chief Complaint 6 M FU INT LABS ACUTE ANEMIA, ? GI BLEED ACUTE ANEMIA, ? GI BLEED 4 m fu (ONLY WANTS PHYSICAL THERAPY DIRECTOR) Reason for Visit Atrial flutter Allergic rhinitis Chronic cough Anemia Persistent atrial fibrillation Chronic diastolic (congestive) heart failure Hyperlipemia Chief Complaint ACUTE ANEMIA, ? GI B LEED ACUTE ANEMIA, ? GI BLEED 4 m fu (ONLY WANTS PHYSICAL THERAPY DIRECTOR) [facility] FU 6 M FU Reason for Visit Anemia Persistent atrial fibrillation Chronic diastolic (congestive) heart failure Hyperlipemia Anemia Bronchitis Allergic rhinitis Allergic rhinitis Chronic cough Chief Complaint 6 M FU establish care SCREENING/OSTEO 6 m fu w PHYSICAL THERAPY DIRECTOR per PT REQ Reason for Visit Allergic rhinitis Chronic cough History of lobular carcinoma of breast Routine gynecological examination Persistent atrial fibrillation Chronic diastolic (congestive) heart failure Hyperlipemia Chief Complaint Admit Date 6 m fu w PHYSICAL THERAPY DIRECTOR per PT REQ August 10, 2 024 12:56pm 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 (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) October 09, 2024 1:06pm SCREENING - COPY PCP November 15, 2024 2:5 7pm Reason for Visit Admit Date Persistent atrial fibrillation August 10, 2024 12:56pm Chronic diastolic (congestive) heart arthur lure August 10, 2024 12:56pm Hyperlipemia August 10, 2024 12:56pm WEEKEND CAREGIVER exam for high-risk Medicare patient October 09, 2024 1:06pm History of lobular carcinoma of breast F ebruary 2024 1:06pm Encounter for routine gynecological exam ination October 09, 2024 1:06pm Chief Complaint Admit Date 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 RX HERE February 05, 2025 1:30 pm 6 m February 06, 2025 10:2 8am Reason for Visit Admit Date WEEKEND CAREGIVER exam for high-risk Medicare patient October 09, 2024 1:06pm History of lobular carcinoma of breast F ebruary 2024 1:06pm Encounter for routine gynecological exam ination October 09, 2024 1:06pm Dizziness February 06, 2025 10:2 8am Persistent atrial fibrillation January 10:28am Chronic diastolic (congestive) heart arthur lure February 06, 2025 10:28am Hyperlipemia February 06, 2025 10:2 8am Chief Complaint Admit Date 6 m February 06, 2025 10:2 8am VERTIGO. RX HERE March 21, 2025 4:0 0pm Reason for Visit Admit Date Dizziness February 06, 2025 10:2 8am Persistent atrial fibrillation January 10:28am Chronic diastolic (congestive) heart arthur lure February 06, 2025 10:28am Hyperlipemia February 06, 2025 10:2 8am Family History No Family History Records Found Relationship Condition Age at Onset Recorded Date/T cinthia brother Atrial fibrillation Unknown sister Atrial fibrillation Unknown Hypertension Unknown Hyperlipidemia Unknown Relationship Condition Age at Onset Recorded Date/T cinthia brother Atrial fibrillation Unknown sister Atrial fibrillation Unknown Hypertension Unknown Hyperlipidemia Unknown mother Disorder of lung Unknown father Cardiac disease Unknown Advance Directives No Advanced Directives Records Found Advance Directive Response Recorded Date/ Time Living Will Yes March 01, 2019 10:46am Power of Compensation Agent Yes March 01 10:46am Advance Directive Response Recorded Date/ Time Living Will Yes March 01, 2019 9:46am Power of Compensation Agent Yes March 01 9:46am Advance Directive Response Recorded Date/ Time Advance Directives on File Yes Danilo 2022 10:41am Name of Medical Power of Compensation Agent Brigida Sharpe September 03, 2022 10:41am Advance Directives Yes September 03, 2022 10:41am Living Will Yes September 03 10:41am Power of Compensation Agent Yes September 03, 2022 10:41am Advance Directive Response Recorded Date/ Time Name of Medical Power of Compensation Agent bryant rondon December 30, 2022 12:34am Advance Directives Yes September 03, 2022 11:41am Living Will Yes December 30, 2022 1 2:34am Power of Compensation Agent Yes December 30, 2022 12:34am Advance Directive Response Recorded Date/ Time Advance Directives Yes September 03, 2022 11:41am Living Will Yes December 30, 2022 1 2:34am Power of Compensation Agent Yes December 30, 2022 12:34am Advance Directive Response Recorded Date/ Time Living Will Yes December 30, 2022 1 2:34am Do you have a Healthcare Power of Compensation Agent? Yes December 30, 2022 12:34am Advance Directives Yes September 03, 2022 11:41am Advance Directive Response Recorded Date/ Time Advance Directives Yes September 03, 2022 11:41am Summary Purpose Additional Source Comments Goals (unrecognized section and content) Goals may be documented in a n alternate sectionGoals may be documented in an alternate sectionGoals may be documented in an alternate sectionGoals may be documented in an alternate sectionGoals may be documented in an alternate sectionGoals may be documented in an alternate sectionGoals may be documented in an alternate sectionGoals may be documented in an alternate sectionGoals may be documented in an alternate sectionGoals may be documented in an alternate sectionGoals may be documented in an alternate sectionGoals may be documented in an alternate sectionGoals may be documented in an alternate sectionGoals may be documented in an alternate section Source Comments (unrecognize d section and content) In the event this informatio n is protected by the Federal Confidentiality of Alcohol and Drug Abuse Patient Records regulations: The Federal rules restrict any use of the information to criminally investigate or prosecute any alcohol or drug abuse patient.[facility] the event this information is protected by the Federal Confidentiality of Alcohol and Drug Abuse Patient Records regulations: The Federal rules restrict any use of the information to criminally investigate or prosecute any alcohol or drug abuse patient.[facility] CenterIn the event this information is protected by the Federal Confidentiality of Alcohol and Drug Abuse Patient Records regulations: The Federal rules restrict any use of the information to criminally investigate or prosecute any alcohol or drug abuse patient.[facility] Center[facility] the event this information is protected by the Federal Confidentiality of Alcohol and Drug Abuse Patient Records regulations: The Federal rules restrict any use of the information to criminally investigate or prosecute any alcohol or drug abuse patient.[facility] CenterIn the event this information is protected by the Federal Confidentiality of Alcohol and Drug Abuse Patient Records regulations: The Federal rules restrict any use of the information to criminally investigate or prosecute any alcohol or drug abuse patient.[facility] CenterIn the event this information is protected by the Federal Confidentiality of Alcohol and Drug Abuse Patient Records regulations: The Federal rules restrict any use of the information to criminally investigate or prosecute any alcohol or drug abuse patient.[facility] CenterIn the event this information is protected by the Federal Confidentiality of Alcohol and Drug Abuse Patient Records regulations: The Federal rules restrict any use of the information to criminally investigate or prosecute any alcohol or drug abuse patient.[facility] CenterIn the event this information is protected by the Federal Confidentiality of Alcohol and Drug Abuse Patient Records regulations: The Federal rules restrict any use of the information to criminally investigate or prosecute any alcohol or drug abuse patient.[facility] Center[facility] the event this information is protected by the Federal Confidentiality of Alcohol and Drug Abuse Patient Records regulations: The Federal rules restrict any use of the information to criminally investigate or prosecute any alcohol or drug abuse patient.[facility] Center[facility] the event this information is protected by the Federal Confidentiality of Alcohol and Drug Abuse Patient Records regulations: The Federal rules restrict any use of the information to criminally investigate or prosecute any alcohol or drug abuse patient.[facility] Center[facility] the event this information is protected by the Federal Confidentiality of Alcohol and Drug Abuse Patient Records regulations: The Federal rules restrict any use of the information to criminally investigate or prosecute any alcohol or drug abuse patient.[facility] CenterIn the event this information is protected by the Federal Confidentiality of Alcohol and Drug Abuse Patient Records regulations: The Federal rules restrict any use of the information to criminally investigate or prosecute any alcohol or drug abuse patient.[facility] CenterIn the event this information is protected by the Federal Confidentiality of Alcohol and Drug Abuse Patient Records regulations: The Federal rules restrict any use of the information to criminally investigate or prosecute any alcohol or drug abuse patient.[facility] CenterIn the event this information is protected by the Federal Confidentiality of Alcohol and Drug Abuse Patient Records regulations: The Federal rules restrict any use of the information to criminally investigate or prosecute any alcohol or drug abuse patient.[facility] CenterIn the event this information is protected by the Federal Confidentiality of Alcohol and Drug Abuse Patient Records regulations: The Federal rules restrict any use of the information to criminally investigate or prosecute any alcohol or drug abuse patient.[facility] CenterIn the event this information is protected by the Federal Confidentiality of Alcohol and Drug Abuse Patient Records regulations: The Federal rules restrict any use of the information to criminally investigate or prosecute any alcohol or drug abuse patient.[facility] CenterIn the event this information is protected by the Federal Confidentiality of Alcohol and Drug Abuse Patient Records regulations: The Federal rules restrict any use of the information to criminally investigate or prosecute any alcohol or drug abuse patient.[facility] CenterIn the event this information is protected by the Federal Confidentiality of Alcohol and Drug Abuse Patient Records regulations: The Federal rules restrict any use of the information to criminally investigate or prosecute any alcohol or drug abuse patient.[facility] CenterIn the event this information is protected by the Federal Confidentiality of Alcohol and Drug Abuse Patient Records regulations: The Federal rules restrict any use of the information to criminally investigate or prosecute any alcohol or drug abuse patient.[facility] CenterIn the event this information is protected by the Federal Confidentiality of Alcohol and Drug Abuse Patient Records regulations: The Federal rules restrict any use of the information to criminally investigate or prosecute any alcohol or drug abuse patient.[facility] CenterIn the event this information is protected by the Federal Confidentiality of Alcohol and Drug Abuse Patient Records regulations: The Federal rules restrict any use of the information to criminally investigate or prosecute any alcohol or drug abuse patient.[facility] CenterIn the event this information is protected by the Federal Confidentiality of Alcohol and Drug Abuse Patient Records regulations: The Federal rules restrict any use of the information to criminally investigate or prosecute any alcohol or drug abuse patient.[facility] Reason for Visit (unrecogniz ed section and content) Reason Comments Established Patient Nail care Nail Care Reason Comments Established Patient Follow Up Diabetic Foot Care Reason Comments Established Patient Follow Up nail care Reason Comments Nail care Follow Up Reason Comments Follow Up Heel pain, nail care Pain Heel pain, nail care Follow Up Nail care nail care Nail care Reason Comments nail care Established Patient Reason Comments Established Patient nail care Ingrown Toenail Reason Comments Ingrown Toenail Pain Established Patient Follow Up Reason Comments Established Patient Follow Up Ingrown Toenail Reason Comments Established Patient nail care Reason Comments Established Patient Great toe pain Pain Great toe pain Reason Comments Established Patient Nail care Care Teams (unrecognized sec tion and content) Social Media Campaign Manager Relationship Specialty Start Date End Date Odette Farmer DO [address] [place] [address] PCP - General Family Practice 04/10/18 Social Media Campaign Manager Relationship Specialty Start Date End Date Odette Farmer DO [address] [address] PCP - General Family Practice 04/10/18 Social Media Campaign Manager Relationship Specialty Start Date End Date Odette Farmer DO [address] [place], [place] [address] PCP - General Family Medicine 04/10/18 Team Status: Active Member Role Status Dates Dr. Odette Farmer DO Family Provider Active Dr. Odette Farmer DO Primary Care Provider Active Team Status: Inactive Member Role Status Dates Dr. Odette Farmer DO Primary Care Provider, Referrin g Provider Active Mikki Arechiga PA, PA Attending Provider Active Team Status: Active Member Role Status Dates Dr. Odette Farmer DO Primary Care Provider Active Dr. Obi Clark MD Attending Provider Active Team Status: Active Member Role Status Dates Dr. Odette Farmer DO Primary Care Provider Active Dr. Obi Clark MD Other Provider Active Mikki Arechiga PA, PA Attending Provider Active Team Status: Active Member Role Status Dates Dr. Odette Farmer DO Primary Care Provider Active Dr. Obi Clark MD Attending Provider, Other Provide r Active Team Status: Active Member Role Status Dates Dr. Odette Farmer DO Primary Care Provider Active Dr. Obi Clark MD Other Provider Active Dr. Donald Rivera MD Attending Provider Active Team Status: Inactive Member Role Status Dates Dr. Odette Farmer DO Primary Care Provider, Attendin g Provider Active Team Status: Inactive Member Role Status Dates Dr. Odette Farmer DO Primary Care Prov ider, Attending Provider, Referring Provider Active Team Status: Inactive Member Role Status Dates Dr. Odette Farmer DO Primary Care Provider Active Dr. Edith Mendez MD Attending Provider, Referring Provider Active Team Status: Active Member Role Status Dates Dr. Odette Farmer DO Primary Care Provider Active Mikki Arechiga PA, PA Attending Provider Active Team Status: Inactive Member Role Status Dates Dr. Odette Farmer DO Primary Care Provider Active Mikki GRIGSBY PA Attending Provider Active Team Status: Inactive Member Role Status Dates Dr. Odette Farmer DO Primary Care Provider Active SEB Pickering Attending Provider, Referr ing Provider Active Team Status: Inactive Member Role Status Dates Dr. Odette Farmer DO Primary Care Provider Active Dr. Obi Clark MD Attending Provider Active Social Media Campaign Manager Relationship Specialty Start Date End Date Odette Farmer DO [address] [place], [place] [address] PCP - General Family Medicine 04/10/18 Social Media Campaign Manager Relationship Specialty Start Date End Date Odette Farmer DO [address] [place], [place] [address] PCP - General Family Medicine 04/10/18 Team Status: Inactive Member Role Status Dates Dr. Odette Farmer DO Primary Care Provider, Referrin g Provider Active Dr. Donald Rivera MD Attending Provider Active Team Status: Inactive Member Role Status Dates Dr. Odette Farmer DO Primary Care Provider, Referrin g Provider Active Dr. Obi Clark MD Attending Provider Active Team Status: Active Member Role Status Dates Dr. Odette Farmer DO Primary Care Provider Active Dr. Obi Clark MD Referring Provider, Other Provide r Active Dr. Donald Rivera MD Attending Provider Active Team Status: Inactive Member Role Status Dates Dr. Odette Farmer DO Primary Care Provider Active Dr. Chaz Barnes MD Attending Provider, Referring P rovider Active Team Status: Inactive Member Role Status Dates Dr. Odette Farmer DO Primary Care Provider Active Renetta Macias CONTINUOUS PROCESS ROTARY DRUM TANNER, CONTINUOUS PROCESS ROTARY DRUM TANNER-C Attending Provider, Referring P rovider Active Social Media Campaign Manager Relationship Specialty Start Date End Date Odette Farmer DO [address] [place], [place] [id number] PCP - General Family Medicine 04/10/18 Team Status: Active Member Role Status Dates Dr. Odette Farmer DO Primary Care Provider Active Dr. Bob Max , Attending Provider Active Team Status: Active Member Role Status Dates Dr. Odette Farmer , DO Primary Care Provider Active Dr. Alexis Rivera , DO Emergency Provider Active Dr. Saskia Ramirez MD Admit Provider, Other Provider Active Dr. Esau Katz MD Attending Provider, Other Provi sheila Active Team Status: Inactive Member Role Status Dates Dr. Odette Farmer , DO Primary Care Provider Active Dr. Alexis Rivera , DO Emergency Provider Active Dr. Saskia Ramirez MD Admit Provider, Other Provider Active Dr. Esau Katz MD Attending Provider Active Team Status: Active Member Role Status Dates Dr. Odette Farmer , DO Primary Care Provider Active Dr. Bob Max , DO Attending Provider Active Dr. Esau Katz MD Referring Provider Active Team Status: Inactive Member Role Status Dates Dr. Odette Farmer , DO Primary Care Provider, Referrin g Provider Active Deepti Simms CONTINUOUS PROCESS ROTARY DRUM TANNER, CONTINUOUS PROCESS ROTARY DRUM TANNER-C Attending Provider Active Team Status: Inactive Member Role Status Dates Dr. Odette Farmer , DO Primary Care Provider, Referrin g Provider Active Karen Juares CONTINUOUS PROCESS ROTARY DRUM TANNER, CONTINUOUS PROCESS ROTARY DRUM TANNER-C Attending Provider Active Social Media Campaign Manager Relationship Specialty Start Date End Date Odette FarmerDO [address] [place] [address] PCP - General Family Medicine 04/10/18 Social Media Campaign Manager Relationship Specialty Start Date End Date Odette Farmer [address] [place], [place] [id number] PCP - General Family Medicine 04/10/18 Social Media Campaign Manager Relationship Specialty Start Date End Date Odette FarmerDO [address] [place] [address] PCP - General Family Medicine 04/10/18 Team Status: Inactive Member Role Status Dates Dr. Odette Farmer , DO Primary Care Provider, Referrin g Provider Active Kim Chahal CONTINUOUS PROCESS ROTARY DRUM TANNER, CONTINUOUS PROCESS ROTARY DRUM TANNER-C Attending Provider Active Team Status: Inactive Member Role Status Dates Dr. Odette Farmer , DO Primary Care Provider Active Kim Chahal CONTINUOUS PROCESS ROTARY DRUM TANNER, CONTINUOUS PROCESS ROTARY DRUM TANNER-C Attending Provider, Referring Provider Active Social Media Campaign Manager Relationship Specialty Start Date End Date Odette Farmer DO [address] [place] [address] PCP - General Family Medicine 04/10/18 Social Media Campaign Manager Relationship Specialty Start Date End Date Odette Farmer DO [address] [place] [address] PCP - General Family Medicine 04/10/18 Social Media Campaign Manager Relationship Specialty Start Date End Date Odette Farmer DO [address] [place] [address] PCP - General Family Medicine 04/10/18 Social Media Campaign Manager Relationship Specialty Start Date End Date Odette Farmer DO [address] [place] [address] PCP - General Family Medicine 04/10/18 Social Media Campaign Manager Relationship Specialty Start Date End Date Odette Farmer DO [address] [place] [address] PCP - General Family Medicine 04/10/18 Team Status: Active Member Role Status Dates Dr. Odette Farmer DO Primary Care Provider Active Team Status: Inactive Member Role Status Dates Dr. Odette Farmer DO Primary Care Provider Active Start: August 10, 2024 End: August 10, 2024 Dr. Odette Farmer DO Referring Provider Active Start: August 10, 2024 End: August 10, 2024 Dr. Obi Clark MD Attending Provider Active S tart: August 10, 2024 End: August 10, 2024 Team Status: Inactive Member Role Status Dates Dr. Odette Farmer DO Primary Care Provider Active Start: September 28, 2024 End: September 28, 2024 Dr. Odette Farmer DO Attending Provider Active Start: September 28, 2024 End: September 28, 2024 Dr. Odette Farmer DO Referring Provider Active Start: September 28, 2024 End: September 28, 2024 Team Status: Inactive Member Role Status Dates Dr. Odette Farmer DO Primary Care Provider Active Start: October 09, 2024 End: October 09, 2024 Dr. Odette Farmer DO Referring Provider Active Start: October 09, 2024 End: October 09, 2024 Dr. Josseline Rodney MD Attending Provider Active Start: October 09, 2024 End: October 09, 2024 Team Status: Inactive Member Role Status Dates Dr. Odette Farmer DO Primary Care Provider Active Start: November 15, 2024 End: November 15, 2024 Dr. Josseline Rodney MD Attending Provider Active Start: November 15, 2024 End: November 15, 2024 Dr. Josseline Rodney MD Referring Provider Active Start: November 15, 2024 End: November 15, 2024 Social Media Campaign Manager Relationship Specialty Start Date End Date Odette Farmer DO [address] [place] [address] PCP - General Family Medicine 04/10/18 Social Media Campaign Manager Relationship Specialty Start Date End Date Odette Farmer DO [address] [place], [place] [id number] PCP - General Family Medicine 04/10/18 Social Media Campaign Manager Relationship Specialty Start Date End Date Odette Farmer DO [address] [place], [place] [id number] PCP - General Family Medicine 04/10/18 Social Media Campaign Manager Relationship Specialty Start Date End Date Odette Farmer DO [address] [place], [place] [id number] PCP - [facility] 04/10/18 Team Status: Active Member Role Status Dates Dr. Odette Farmer DO Primary Care Provider Active Start: February 05, 2025 Dr. Odette Farmer DO Attending Provider Active Start: February 05, 2025 Team Status: Inactive Member Role Status Dates Dr. Odette Farmer DO Primary Care Provider Active Start: February 06, 2025 End: February 06, 2025 Dr. Odette Farmer DO Referring Provider Active Start: February 06, 2025 End: February 06, 2025 Tawanda Connors CONTINUOUS PROCESS ROTARY DRUM TANNER, CONTINUOUS PROCESS ROTARY DRUM TANNER-C Attending Provider Active S tart: February 06, 2025 End: February 06, 2025 Social Media Campaign Manager Relationship Specialty Start Date End Date Odette Farmer DO [address] [place], [place] [phone] PCP - [facility] 04/10/18 Team Status: Active Member Role/Relationship Status Dates Dr. Odette Farmer DO Primary Care Provider Active Team Status: Inactive Member Role/Relationship Status Dates Dr. Odette Farmer DO Primary Care Provider Active Start: February 06, 2025 End: February 06, 2025 Dr. Odette Farmer DO Referring Provider Active Start: February 06, 2025 End: February 06, 2025 Tawanda Connors CONTINUOUS PROCESS R[employer]ARY [employer]UM TANNER, CONTINUOUS PROCESS ROTARY DRUM TANNER-C Attending Provider Active S tart: February 06, 2025 End: February 06, 2025 Team Status: Inactive Member Role/Relationship Status Dates Dr. Odette Farmer DO Primary Care Provider Active Start: March 21, 2025 End: March 21, 2025 Dr. Odette Farmer DO Attending Provider Active Start: March 21, 2025 End: March 21, 2025 Social Media Campaign Manager Relationship Specialty Start Date End Date Odette Farmer DO [address] [place] [address] PCP - [facility] 04/10/18 INFORMATION SOURCE (unrecogn ized section and content) DATE CREATED AUTHOR 04/06/2025 [facility] DATE CREATED AUTHOR AUTHOR'S IRENE ATION 05/21/2025 [facility] FOR RECORDS PERTAINING TO PATIENTS WHO ARE OR HAVE BEEN ENROLLED IN A CHEMICAL DEPENDENCY/SUBSTANCEABUSE PROGRAM, SOME INFORMATION MAY BE OMITTED. This clinical summary was aggregated from multiple sources. Caution should be exercised in using it in the provision of clinical care. This summary normalizes information from multiple sources, and as a consequence, information in this document may materially change the coding, format and clinical context of patient data. In addition, data may be omitted in some cases. CLINICAL DECISIONS SHOULD BE BASED ON THE PRIMARY CLINICAL RECORDS. [employer] [facility]. provides no warranty or guarantee of the accuracy or completeness of information in this document.
[2025-05-31 14:57] LABS: Hematocrit 37.7 % (37-47); Hemoglobin 12.1 g/dL (12.0-15.0); Immature Granulocytes Count 0.010 X10^3/uL (0.0-0.0); Mean Corp Hgb Conc 32.1 g/dL (32-36); Mean Corpuscular Volume 102.4 fL (81-99); Mean Platelet Vol. 10.1 fl (6.2-12.0); NRBC Flagged by Analyzer 0 % (0-5); Platelet Count 222 K/mm3 (150-450); RBC Distribution Width CV 13.9 % (11.6-14.6); RBC Distribution Width SD 53.4 fl (35.1-43.9); Red Blood Count 3.68 M/mm3 (4.2-5.4); White Blood Count 5.0 K/mm3 (4.4-11.0)
[2025-05-31 15:47] LABS: AST(SGOT) 24 U/L (<=31); Alanine Aminotransfer ALT/SGPT 14 U/L (<=34); Albumin, Serum 3.9 g/dL (3.4-4.8); Alkaline Phosphatase 79 U/L (35-104); Anion Gap 11 (5-15); BUN 36 mg/dL (4-19); BUN/Creat Ratio 20.8 RATIO (10-20); Calcium,Total 9.6 mg/dL (7.6-11.0); Carbon Dioxide 24.0 mmol/L (21.0-32.0); Chloride 105 mmol/L (98-108); Cholesterol 168 mg/dL (<=200); Globulin 2.3 g/dL (2.2-4.2); Glucose 66 mg/dL (70-99); Low Density Lipoprotein Calc. 76 mg/dL; Potassium 4.4 mmol/L (3.3-5.1); Triglycerides 92 mg/dL; Very Low Density Lipoprotein 18 mg/dL (5-40); Vitamin D,25 Hydroxy 49.8 ng/mL (30-100); cholesterol:hdl ratio screen 2.25
== END | disposition home or self-care (01) ==
LOC: MTLAB 12:52
PROVIDERS: PCP Family Medicine; Referring Provider Family Medicine; Visit Provider Family Medicine
DX: T46.2X1A Poisoning by other antidysrhythmic drugs, accidental (unintentional), initial encounter (principal); N18.32 Chronic kidney disease, stage 3b; M81.0 Age-related osteoporosis without current pathological fracture; E78.5 Hyperlipidemia, unspecified; E03.2 Hypothyroidism due to medicaments and other exogenous substances
CPT/HCPCS: 36415; 80053; 80061; 82306; 84443; 85025